=== PATIENT | female | born 1965 | race Caucasian/White ===

== ENCOUNTER 2021-10-20 22:07 | Emergency (ER) | payer SELFPAY ==
--- OUTSIDE RECORDS SUMMARY | 2021-10-20 22:10 | XMS REPORT | Continuity of Care Document ---
:1965 Author Organization [facility] t Address [facility] [place] [address] Care Team Providers Name Role Phone RAVENCASEJOSELINE Attending Clinician Unavailable GC_UPP_Mehta_J Attending Clinician Unavailable Bhargavi Attending Clinician [phone] CHELLE Attending Clinician [phone] Chris LAWS Attending Clinician Unavailable Han PHILLIPS Attending Clinician Unavailable NA Attending Clinician Unavailable WILVER Attending Clinician Unavailable NOHEMI Attending Clinician Unavailable GC_UPP_Mehta_J Admitting Clinician Unavailable Payers Payer Name Policy Type Policy Number Effective Date Expiration Date Chris PEREA [employer]EFIT [id number] ADMINISTRATORS 00:00:00 Problems Condition Condition Condition Status Onset Resolution Last Treating Co mments Source Name Details Category Date Date Treatment Clinician Date Osteoporos Osteoporos Problem Active U nivers is is [id number] [facility] [place] [facility] Allergies, Adverse Reactions, Alerts This patient has no known allergies or adverse reactions. Social History Social Habit Start Date Stop Date Quantity Comments Source Sex Assigned At Female Acc ess Health Smoking Status Start Date Stop Date Source Unknown if ever smoked Access He alth Medications This patient has no known medications. Procedures Procedure Date / Time Performing Clinician Source Performed Infectious agent 2020-02-21 00:00:00 [facility] detection by nucleic acid DEXA Bone Density with 2018 00:00:00 [facility] WB Composition DX Physicians Encounters Start End Encounter Admission Attending Care Care Encounter Source Date/Time Date/Time Type Type Clinicians Facility Department ID 2021-06-21 2021-06-21 Outpatient MELISSA TORRES [id number] [facility] 00:00:00 00:00:00 [facility] 2021-06-12 2021-06-12 Outpatient MELISSA TORRES [id number] St. 00:00:00 00:00:00 [facility] 2021-05-07 2021-05-07 Emergency E ABRAM CARBAJAL FB FB [id number] [facility] 16:56:00 18:45:00 2021-02-08 2021-02-08 Outpatient GC_UPP_Meht PRIV PRIV [id number] [facility] 10:34:00 10:34:00 a_J [id number] Medica l 2021-02-08 2021-02-08 Outpatient Burk, PRIV PRIV [id number] 00:00:00 00:00:00 Jhony [id number] 2020-02-24 2020-02-24 Outpatient CHELLE, [facility] [id number] Access 11:32:00 11:32:00 RYAN [id number] [facility] [id number] 2020-02-21 2020-02-21 Outpatient [facility] [id number] Access 16:00:00 16:00:00 [id number] [facility] [id number] 2020-02-21 2020-02-21 Outpatient VETO [facility] [id number] Access 00:00:00 00:00:00 [facility] 2020-02-21 2020-02-21 Outpatient VETO [facility] [id number] Access 00:00:00 00:00:00 DARRELL Perez [id number] [facility] [id number] [facility] [id number] 2019-12-20 2019-12-20 Emergency E ARIELLA PHILLIPS [facility] [id number] [facility] 16:45:00 17:32:00 2019-09-28 2019-09-28 Emergency E SW [facility] [id number] [facility] 23:55:00 23:55:00 2019-08-19 2019-08-19 Emergency E FB FB [id number] [facility] 15:42:00 15:42:00 2019-03-04 2019-03-04 Emergency E FB FB [id number] [facility] 09:16:00 09:16:00 2018 2018 Appointmen RADHA MONZON [facility] [id number] [facility] 10:00:00 10:00:00 t; CLIFFORD MONZON M.D. Surgery Oswaldo M.D. [facility] 2018-01-09 2018-01-09 Appointmen WILVER, RADHA UTP [id number] [facility] 09:30:00 09:30:00 t; RIGO PETTIT, rima of RIGO, [facility] [employer] Physici ans 2017-12-19 2017-12-19 Appointmen WILVER, RADHA UTP [id number] [facility] 09:30:00 09:30:00 t; RIGO PETTIT, ity of [facility], [facility] [employer] MECH[employer]IC Physici ans 2016-07-10 2016-07-10 Appointmen RADHA SONG UTP [id number] [facility] 08:30:00 08:30:00 t; ABRAM abarca [facility] Results Test Description Test Time Test Comments Results Result Comments Source Panel Description: SARS-CoV-2 (COVID-19) RNA [Presence] in 2 04:17:00 Unspecified specimen by GIULIANA with probe detection Test Item Value Reference Range Interpretation Comme nts SARS-CoV-2, GIULIANA (test Not Detected Not Detected Testin g was performed using the code = 00669-6) chapincito(R) TATE S-CoV-2 test.This test was develo ped and its performance juancho racteristics determinedby [employer]. T his test has not been FDA cleare d orapproved. This test has been a uthorized by FDA under an Emerge ncy UseAuthorizatio n (EUA). This test is only authori zed for the duration oftime the declaration that circumstan tyesha exist justifying mehran uthorization of the emergency u se of in vitro diagnostic test s fordetection of SARS-CoV-2 viru s and/or diagnosis of COVID-19 inf ectionunder section 564(b)( 1) of the Act, 21 U.S.C. 360bbb-3 (b)(1), unlessthe authorization i s terminated or revoked sooner. When diagnostic testing is nega tive, the possibility of a falsenegative result should b e considered in the context of a patient'srecent exposures and t he presence of clinical signs and symptomsconsist ent with COVID-19. An individual w ithout symptoms of COVID-19and who is not shedding SARS-CoV-2 viru s would expect to have anegative (not detected) result in this assay.
< br/>Performed by:
[employer] (CET)

[facility] Description: SARS-CoV-2 (COVID-19) RNA [Presence] in Unspecified specimen by GIULIANA with probe [id number] 04:17:00 Test Item Value Reference Range Interpretation Comments SARS-CoV-2, Not Detected Not Detected Testing was per formed using GIULIANA (test code the chapincito(R) SARS-CoV-2 = 54050-3) test.This test was developed and i ts performance juancho racteristics determinedby [employer]. T his test has not been FDA cl eared orapproved. Thi s test has been authorized by FDA under an Emerge ncy UseAuthorizatio n (EUA). This test is on ly authorized for the duration oftime the decl aration that circumstances e xist justifying mehran uthorization of the emergenc y use of in vitro diagnosti c tests fordetection of SARS-CoV-2 virus and/or di agnosis of COVID-19 infect ionunder section 564(b)( 1) of the Act, 21 U.S.C. 360bbb-3(b)(1), unlessthe authorization i s terminated or revoked soon er.When diagnostic test ing is negative, the p ossibility of a falsenegat carter result should be consi dered in the context of a patient'srecent exposures and the presenc e of clinical signs and symptomsconsist ent with COVID-19. An in dividual without symptom s of COVID-19and who is not shedding SARS-C oV-2 virus would expect to have anegative (not detected) result in this assay.
< br/>Performe d by:
[facility] [place] ([facility]ET[facility])

[facility]] CMP [id number] 14:13:01 Test Item Value Reference Range Interpretation Comments Sodium Level 142 {mEq/l} 135-145 (test code = 2951-2) Potassium Level 4.2 {mEq/l} 3.5-5.1 (test code = 2823-3) Chloride Level; 112 {mEq/l} 95-109 Above High Threshold (test code = 5-0) Carbon Dioxide; 23 {mEq/l} 24-32 Below Low Threshold (test code = 8-9) AGAP (test code = 11.2 {mEq/l} 10.0-20.0 50651-0) Glucose Lvl (test 70 mg/dl 70-99 Adult refe rence range code = 2345-7) values reflec t the clinical guidel inesof the [place] Diabet es Association. Creatinine Lvl 1.00 mg/dl 0.50-1.40 (test code = 2160-0) Blood Urea 12 mg/dl 7-22 Nitrogen (test code = 3094-0) BUN/Creatinine 12 6-25 Ratio (test code = 3097-3) Total Protein 7.2 g/dl 6.4-8.4 (test code = 2885-2) Albumin Lvl; 3.3 g/dl 3.5-5.0 Below Low Threshold (test code = 1751-7) Globulin (test 3.9 g/dl 2.7-4.2 code = 39950-4) A/G Ratio (test 0.8 0.7-1.6 code = 1759-0) Calcium Level 8.4 mg/dl 8.5-10.5 Total; Below Low Threshold (test code = 31814-8) ALT (test code = 38 u/l 0-65 1743-4) AST (test code = 28 u/l 0-37 78530-3) Bili Total (test 0.3 mg/dl 0.2-1.3 code = 1974-2) Alk Phos (test 118 u/l 39-136 code = 1783-0) eGFR (test code = 64 The eGFR i s calculated 02759-8) {ML/MIN/1.7} using the CKD-E PI formula. In mos t young, healthyindividu als the eGFR will be >9 0 mL/min/1.73m2. The eGFR declines with a ge. AneGFR of 60-89 may be normal in some population s, particularly th e elderly, forwhom the CKD -EPI formula has not been extensively cornel idated. Use of the eGFR isnot recommended in the following populations:Ind ividuals with unstable c reatinine concentrations, including patient s and those with seri ous co-morbid conditions.Clara ents with extremes in mus madhav mass or diet.The enedr a above are obtained fr om the National Kidney Disease Education Progr am(NKDEP) which lorenzo edward recommends that when the eGFR is used in patientswith ex tremes of body mass index for purposes of carol g dosing, the eGFR should be multiplied by t he estimated BMI. [facility]] IRON, [id number] 14:13:01 Test Item Value Reference Range Interpretation Comments Iron; Above High Threshold (test 361 ug/dL 30-160 code = 2498-4) [facility]] LIPID [id number] 14:13:01 Test Item Value Reference Range Interpretation Comments Chol (test code = 2093-3) 152 mg/dl <=199 Trig; Above High Threshold (test 177 mg/dl <=149 code = 2571-8) HDL Cholesterol (test code = 68 mg/dl >=61 2085-9) CHD Risk; Below Low Threshold (test 2.24 3.90-5.80 code = 10971-6) LDL (test code = 83329-5) 49 mg/dl <=99 VLDL (test code = VLDL) 35 [facility]] VITAMIN [id number] 14:13:01 Test Item Value Reference Range Interpretation Comments Vitamin B12 Level (test code = 546 pg/ml 254-1320 2132-9) [facility]] TSH, 3RD GENERATION W/REFLEX TO FT4 2018 14:13:01 Test Item Value Reference Range Interpretation Comments TSH (test code = 80297-1) 1.790 {uIU/ml} 0.360-3.740 [facility]] PTH, INTACT (WITHOUT CALCIUM)2018 14:13:01 Test Item Value Reference Range Interpretation Comments Parathyroid Hormone Intact; Above 120.8 pg/ml 18.4-80.1 High Threshold (test code = 2731-8) [facility]] CBC (INCLUDES DIFF/PLT)2018 14:13:01 Test Item Value Reference Range Interpretation Comments WBC (test code = 6690-2) 6.1 {K/CMM} 3.7-10.4 RBC; Below Low Threshold (test 3.97 {M/CMM} 4.20-5.40 code = 789-8) Hgb; Below Low Threshold (test 10.1 g/dl 12.0-16.0 code = 718-7) Hct; Below Low Threshold (test 30.7 % 36.0-48.0 code = 09674-9) MCV; Below Low Threshold (test 77.5 fL 80.0-98.0 code = 787-2) MCH; Below Low Threshold (test 25.4 pg 27.0-31.0 code = 785-6) MCHC (test code = 786-4) 32.8 g/dl 32.0-36.0 RDW; Above High Threshold (test 20.3 % 11.5-14.5 code = 788-0) Platelet (test code = 58107-9) 275 {K/CMM} 133-450 Mean Platelet Volume (test code 9.2 fL 7.4-10.4 = 73257-8) [facility]] [id number] 14:13:01 Test Item Value Reference Range Interpretation Comments Segmented Neutrophils (test code 61.1 % 45.0-75.0 = 43709-4) Monocytes (test code = 79284-8) 7.0 % 2.0-12.0 Lymphocytes (test code = 21951-7) 26.5 % 20.0-40.0 Eosinophils; Above High Threshold 4.5 % 0.0-4.0 (test code = 91529-6) Basophils (test code = 706-2) 0.9 % 0.0-1.0 Segs-Bands # (test code = 3.7 {K/CMM} 1.5-8.1 59665-5) Lymphocytes # (test code = 1.6 {K/CMM} 1.0-5.5 76808-1) Monocytes # (test code = 50506-5) 0.4 {K/CMM} 0.0-0.8 Eosinophils # (test code = 0.3 {K/CMM} 0.0-0.5 92089-4) Basophils # (test code = 19876-2) 0.1 {K/CMM} 0.0-0.2 Microcyte (test code = Microcyte) 1+ None Seen A [facility]] FOLATE, [id number] 14:13:01 Test Item Value Reference Range Interpretation Comments Folate Level (test code = 2284-8) 23.1 ng/ml >=3.0 [facility]] HEMOGLOBIN [id number] 14:13:01 Test Item Value Reference Range Interpretation Comments Hemoglobin A1c (test code = 4548-4) 5.2 % <=5.6 [facility]] VITAMIN D, 25-HYDROXY, [id number] 14:13:01 Test Item Value Reference Range Interpretation Comments Vitamin D, 25-OH, 36.3 ng/ml 30.0-100.0 Reference range is based Total (test code on recommen dations in the = Vitamin D, EndocrineSociet y Clinical 25-OH, Total) Practice Guide line (J Clin Endocrinol Fdjyj1902;96:19 11-1930) [facility]] VITAMIN B1, WHOLE [id number] 14:13:01 Test Item Value Reference Range Interpretation Comments Vitamin B1 131.4 66.5-200.0 This test was d eveloped and its Level (test nmol/L performance code = characteristics determined by Vitamin B1 [facility]. It has not been Level) cleared orappro jose m by the Food and Drug Administration. Performed At: [facility] [id number] [place], [place] [id number] Avalos MD Ph:[phone] [facility][H] Vit [id number] 14:13:01 Test Item Value Reference Range Interpretation Comments Vitamin A 28.3 ug/dL 33.1-100.0 Reference inter vals for vitamin Level (test A determined fr om code = NationalHealth and Nutrition Vitamin A Examination [place], Level) .Indiv iduals with vitamin A less than 20 ug/dL areconsidered v itamin A deficient and t hose with serumconcentrat ions less than 10 ug/dL are co nsidered severelydeficie nt.This test was developed and i ts performance characteristics determined by [facility]. It has not been cleared orappro jose m by the Food and Drug Admini stration. Please note reference interval change Performed At: [facility] [id number] [place], [place] [id number] Avalos MD Ph:[phone] [facility][H] Vitamin E [id number] 14:13:01 Test Item Value Reference Range Interpretation Comments Alpha-Tocoph 10.8 mg/L 7.0-25.1 jovana (test code = Alpha-Tocoph jovana) Gamma-Tocoph 0.6 mg/L 0.5-5.5 Reference inter vals for alpha jovana (test and gamma-tocop heroldetermined code = from National H ealth and Gamma-Tocoph Nutrition Exami nationSurvey, jovana) . Aishwarya viduals with alpha-tocophero l levelsless than 0.5 mg/L are co nsidered vitamin E deficient.Thi s test was developed and i ts performance characteristics determined by [facility]. It has not been cleared orapproved by t Food and Drug Administration. Performed At: [facility] [id number] [place], [place] [id number] Avalos MD Ph:[phone] [facility]
[2021-10-20 23:57] LABS: Absolute Lymphocytes (CBC) 1.8 K/uL (0.7-4.9); Lymphocytes % 28.5 % (15.3-44.8); MPV 7.8 fL (7.6-11.3); RBC Red Blood Cell Count 3.96 M/uL (3.86-4.86)
[2021-10-20] MEDS ORDERED: PROMETHAZINE INJ 25 MG/ML AMP ONE (23:57)
[2021-10-20] MEDS ORDERED: FENTANYL CITR 100 MCG/2 ML ONE (23:59)
--- NOTE | 2021-10-21 00:44 | EDPHYS ---
Physician Documentation [facility] Name: Angela Green Age: 56 yrs Sex: Female : 1965 Arrival Date: 10/20/2021 Time: 22:13 Bed 4 Private MD: ED Physician Lino Zafar HPI: 10/20 23:29 This 56 yrs old Female presents to ER via Ambulatory with complaints of Restless legs pm1 and arms. 23:29 Onset: The symptoms/episode began/occurred many years. Associated signs and symptoms: pm1 Pertinent negatives: abdominal pain, chest pain, shortness of breath, Weakness. Modifying factors: The patient symptoms are alleviated by nothing, the patient symptoms are aggravated by nothing. The patient has not recently seen a physician. Patient presents to the ER with complaints of restless arms and restless legs. Patient has had restless legs for many years with treatment does not help at the moment. Patient is presenting to the ER today because she now has bilateral restless arms in addition to her bilateral restless legs. Historical: - Allergies: 22:42 No Known Allergies; bb - Home Meds: 22:42 Xanax 0.5 mg Oral tab 1 tab 3 times per day [Active]; Cymbalta 60 mg oral cpDR 1 cap bb three times a day [Active]; quetiapine 50 mg oral tab 1 tab 3 times per day [Active]; clonidine HCl 0.1 mg Oral tab 1 tab once daily [Active]; buspirone 7.5 mg Oral tab 1 tab 2 times per day [Active]; - PMHx: 22:46 Hypertensive disorder; bb - Immunization history:: Client reports receiving the 2nd dose of the Covid vaccine, pfizer x2. - Social history:: Smoking status: Reported history of juuling and/or vaping. ROS: 23:29 Constitutional: Negative for fever, chills, and weight loss, Cardiovascular: Negative pm1 for chest pain, palpitations, and edema, Respiratory: Negative for shortness of breath, cough, wheezing, and pleuritic chest pain, MS/Extremity: Negative for injury and deformity, Skin: Negative for injury, rash, and discoloration, Neuro: Negative for headache, weakness, numbness, tingling, and seizure. 23:29 All other systems are negative. Exam: 23:29 Constitutional: This is a well developed, well nourished patient who is awake, alert, pm1 and in no acute distress. Head/Face: Normocephalic, atraumatic. 23:29 Skin: Warm, dry with normal turgor. Normal color with no rashes, no lesions, and no evidence of cellulitis. MS/ Extremity: Pulses equal, no cyanosis. Neurovascular intact. Full, normal range of motion. 23:29 ENT: Exam is negative for acute changes, Mouth: no acute changes, Lips: normal, moist, Oral mucosa: normal, pink and intact, moist, Posterior pharynx: no acute changes. 23:29 Cardiovascular: Exam negative for acute changes, Rate: normal, Rhythm: regular, Pulses: no pulse deficits are appreciated, Heart sounds: normal, normal S1and S2. 23:29 Respiratory: Exam negative for acute changes, respiratory distress, shortness of breath, Breath sounds: are clear throughout. 23:29 Neuro: Exam negative for acute changes, Orientation: is normal, Mentation: is normal, Motor: is normal, moves all fours. Vital Signs: 22:39 BP 118 / 98; Pulse 100; Resp 17; Temp 97.5; Pulse Ox 99% on R/A; Weight 81.65 kg (R); bb Height 5 ft. 8 in. (172.72 cm) (R); Pain 0/10; 10/21 00:53 BP 133 / 99; Pulse 87; Resp 17; Pulse Ox 98% on R/A; sm5 10/20 22:39 Body Mass Index 27.37 (81.65 kg, 172.72 cm) bb [facility]: 10/20 23:28 Patient medically screened. pm1 10/21 00:34 Data reviewed: vital signs. Data interpreted: Pulse oximetry: on room air is 99 %. pm1 Interpretation: normal. Counseling: I had a detailed discussion with the patient and/or guardian regarding: the historical points, exam findings, and any diagnostic results supporting the discharge/admit diagnosis, lab results, the need for outpatient follow up, to return to the emergency department if symptoms worsen or persist or if there are any questions or concerns that arise at home. 10/20 23:29 Order name: CBC with Diff; Complete Time: 00:09 pm1 10/20 23:29 Order name: BMP; Complete Time: 00:09 pm1 10/20 23:29 Order name: IV Saline Lock; Complete Time: 23:49 pm1 Administered Medications: 00:07 Drug: fentaNYL (PF) 25 mcg Route: IVP; Site: left antecubital; sm5 00:54 Follow up: Response: Pain is decreased sm5 00:08 Drug: Phenergan (promethazine) 12.5 mg Route: IVP; Site: left antecubital; sm5 00:54 Follow up: Response: No adverse reaction 5 Disposition: 01:32 Co-signature as Attending Physician, Lino Zafar MD I agree with the assessment and kdr plan of care. Disposition Summary: 10/21/21 00:43 Discharge Ordered Location: Home pm1 Problem: new pm1 Symptoms: have improved pm1 Condition: Stable pm1 Diagnosis - Restless legs syndrome pm1 - Restless Arms Syndrome pm1 Followup: pm1 - With: Emergency Department - When: As needed - Reason: Worsening of condition Followup: pm1 - With: Private Physician - When: 2 - 3 days - Reason: Recheck today's complaints, Continuance of care, Re-evaluation by your physician Discharge Instructions: - Discharge Summary Sheet pm1 - Restless Legs Syndrome pm1 Forms: - Medication Reconciliation Form pm1 - Thank You Letter pm1 - Antibiotic Education pm1 - Prescription Opioid Use pm1 Signatures: Dispatcher [employer] EDLino Almaraz MD MD [facility] Dafne Farrell RN RN bb Marinas, Patrick, DECORATIVE ENGRAVER APPRENTICE DECORATIVE ENGRAVER APPRENTICE pm1 Rosalinda Cabrera RN RN sm5
--- NOTE | 2021-10-21 00:44 | ER ---
Nurse's Notes [facility] Name: Angela Green Age: 56 yrs Sex: Female : 1965 Arrival Date: 10/20/2021 Time: 22:13 Bed 4 Private MD: Diagnosis: Restless legs syndrome;Restless Arms Syndrome Presentation: 10/20 22:39 Chief complaint: Patient states: has been diagnosed with restless leg syndrome but now bb it feels like her entire body. denies pain. Coronavirus screen: Vaccine status: Patient reports receiving the 2nd dose of the covid vaccine. pfizer Client denies travel out of the [place] in the last 14 days. At this time, the client does not indicate any symptoms associated with coronavirus-19. Ebola Screen: No symptoms or risks identified at this time. Initial Sepsis Screen: Does the patient meet any 2 criteria? No. Patient's initial sepsis screen is negative. Does the patient have a suspected source of infection? No. Patient's initial sepsis screen is negative. 22:39 Method Of Arrival: Ambulatory bb 22:48 Risk Assessment: Do you want to hurt yourself or someone else? Patient reports no bb desire to harm self or others. Onset of symptoms was October 20, 2021. 22:48 Acuity: DONITA 4 bb Triage Assessment: 22:47 General: Appears comfortable, Behavior is cooperative, anxious. bb 22:47 Pain: Denies pain. bb Historical: - Allergies: 22:42 No Known Allergies; bb - Home Meds: 22:42 Xanax 0.5 mg Oral tab 1 tab 3 times per day [Active]; Cymbalta 60 mg oral cpDR 1 cap bb three times a day [Active]; quetiapine 50 mg oral tab 1 tab 3 times per day [Active]; clonidine HCl 0.1 mg Oral tab 1 tab once daily [Active]; buspirone 7.5 mg Oral tab 1 tab 2 times per day [Active]; - PMHx: 22:46 Hypertensive disorder; bb - Immunization history:: Client reports receiving the 2nd dose of the Covid vaccine, pfizer x2. - Social history:: Smoking status: Reported history of juuling and/or vaping. Screenin:51 Abuse screen: Denies threats or abuse. Nutritional screening: No deficits noted. bb Tuberculosis screening: No symptoms or risk factors identified. Fall Risk None identified. Assessment: 10/21 00:52 General: Appears in no apparent distress. Behavior is calm, cooperative. Neuro: No sm5 deficits noted. Level of Consciousness is awake, alert, Oriented to person, place, time, situation. Cardiovascular: No deficits noted. Capillary refill < 3 seconds Patient's skin is warm and dry. Respiratory: No deficits noted. Airway is patent Trachea midline Respiratory effort is even, unlabored. Vital Signs: 10/20 22:39 BP 118 / 98; Pulse 100; Resp 17; Temp 97.5; Pulse Ox 99% on R/A; Weight 81.65 kg (R); bb Height 5 ft. 8 in. (172.72 cm) (R); Pain 0/10; 10/21 00:53 BP 133 / 99; Pulse 87; Resp 17; Pulse Ox 98% on R/A; sm5 10/20 22:39 Body Mass Index 27.37 (81.65 kg, 172.72 cm) bb ED Course: 10/20 22:13 Patient arrived in ED. bp1 22:47 Arm band placed on. bb 22:50 Triage completed. bb 23:20 Leopoldo Padgett, DARI is PHCP. pm1 23:20 Lino Zafar MD is Attending Physician. pm1 23:23 Rosalinda Cabrera RN is Primary Nurse. sm5 23:48 Inserted saline lock: 20 gauge in left antecubital area, using aseptic technique. Blood sm5 collected. 23:49 BMP Sent. sm5 23:49 CBC with Diff Sent. sm5 10/21 00:53 Patient has correct armband on for positive identification. Bed in low position. Call sm5 light in reach. Side rails up X2. 00:53 No provider procedures requiring assistance completed. IV discontinued, intact, sm5 bleeding controlled, No redness/swelling at site. Pressure dressing applied. Administered Medications: 00:07 Drug: fentaNYL (PF) 25 mcg Route: IVP; Site: left antecubital; sm5 00:54 Follow up: Response: Pain is decreased sm5 00:08 Drug: Phenergan (promethazine) 12.5 mg Route: IVP; Site: left antecubital; sm5 00:54 Follow up: Response: No adverse reaction sm5 Outcome: 00:43 Discharge ordered by . pm1 00:53 Discharged to home ambulatory. 5 00:53 Condition: good 00:53 Discharge instructions given to patient, Instructed on discharge instructions, follow up and referral plans. Demonstrated understanding of instructions, follow-up care. 00:54 Patient left the ED. 5 Signatures: Dafne Farrell, RN RN Leopoldo Grant, SOLAR INSTALLER TECHNICIAN SOLAR INSTALLER TECHNICIAN pm1 Parul Serrano Sarah, JAZZ RN 5
[2021-10-21 01:06] VITALS: TEMP 97.5
[2021-10-21 01:08] VITALS: BP 133/99; O2SAT 98
== END 2021-10-21 00:54 | disposition home or self-care (01) ==
LOC: ER 22:07
DX: G25.81 Restless legs syndrome (principal); R45.1 Restlessness and agitation; I10 Essential (primary) hypertension
CPT/HCPCS: 36415; 80048; 85025; 96374; 96375; 99283; J2550; J3010

== ENCOUNTER 2021-11-27 06:58 | Emergency (ER) | payer OTHER ==
--- OUTSIDE RECORDS SUMMARY | 2021-11-27 07:01 | XMS REPORT | Continuity of Care Document ---
:1965 Author Organization [facility] t Address [address] [place] [address] Care Team Providers Name Role Phone PHARIES Attending Clinician Unavailable MERCY CARBAJAL Attending Clinician Unavailable GC_UPP_Mehta_J Attending Clinician Unavailable Bhargavi Attending Clinician [phone] CHELLE Attending Clinician [phone] Chris LAWS Attending Clinician Unavailable Han PHILLIPS Attending Clinician Unavailable NA Attending Clinician Unavailable WILVER Attending Clinician Unavailable NOHEMI Attending Clinician Unavailable GC_UPP_Mehta_J Admitting Clinician Unavailable Payers Payer Name Policy Type Policy Number Effective Date Expiration Date Chris PEREA NORMAN BENEFIT [id number] ADMINISTRATORS 00:00:00 Problems Condition Condition Condition Status [...] acid DEXA Bone Density with 2018 00:00:00 [facility] WB Composition DX Physicians Encounters Start End Encounter Admission Attending Care Care Encounter Source Date/Time Date/Time Type Type Clinicians Facility Department ID 2021-11-07 Outpatient MELISSA MILLER [id number] 13:46:00 ELAINA 0904 [facility] 2021-11-07 Outpatient MELISSA MILLER [id number] St. 13:44:54 ELAINA 0831 [facility] 2021-06-21 2021-06-21 Outpatient MELISSA CANALESSATSUMA [id number] St[facility] 00:00:00 00:00:00 [facility] 2021-06-12 2021-06-12 [id number] [facility] 00:00:00 00:00:00 [facility] 2021-05-07 2021-05-07 Emergency E ABRAM CARBAJAL FB FB [id number] FB 16:56:00 18:45:00 2021-02-08 2021-02-08 Outpatient GC_UPP_Meht PRIV PRIV [id number] [facility] 10:34:00 10:34:00 a_J [id number] Medica l 2021-02-08 2021-02-08 Outpatient Burk, PRIV PRIV [id number] 00:00:00 00:00:00 Jhony [id number] 2020-02-24 2020-02-24 [facility] [id number] Access 11:32:00 11:32:00 RYAN [id number] 2020-02-21 2020-02-[address] [facility] [id number] Access 16:00:00 16:00:00 [id number] 2020-02-21 2020-02-21 Outpatient [facility] [id number] Access 00:00:00 00:00:00 [facility] 2020-02-21 2020-02-21 [address] [facility] [id number] Access 00:00:00 00:00:00 DARRELL Perez [id number] [facility] [id number] 2019-12-20 2019-12-20 Emergency E ARIELLA PHILLIPS FB FB [id number] [facility] 16:45:00 17:32:00 2019-09-28 2019-09-28 Emergency [address] [facility] [id number] [facility] 23:55:00 23:55:00 2019-08-19 2019-08-19 Emergency E FB FB [id number] [facility] 15:42:00 15:42:00 2019-03-04 2019-03-04 Emergency E FB FB [id number] [facility] 09:16:00 09:16:00 2018 2018 Appointmen RADHA MONZON [place] [id number] [facility] 10:00:00 10:00:00 t; CLIFFORD MONZON M.D. Surgery Oswaldo M.D. 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 Physici ans 2016-07-10 2016-07-10 Appointmen RADHA SONG UTP [id number] [facility] 08:30:00 08:30:00 t; ABRAM murray [facility] Faheem VALVERDE [facility] Results Test Description Test Time Test Comments Results Result Comments Source Panel Description: SARS-CoV-2 (COVID-19) RNA [Presence] in 2 04:17:00 Unspecified specimen by GIULIANA with probe detection Test Item Value Reference Range Interpretation Comme nts SARS-CoV-2, GIULIANA (test Not Detected Not Detected Testin g was performed using the code = 89564-1) chapincito(R) TATE S-CoV-2 test.This test was develo ped and its performance juancho racteristics determinedby [employer]. T his test has not been FDA cleare d orapproved. This test has been a uthorized by FDA under an [facility] UseAuthorizatio n (EUA). This test is only [...] result in this assay.
< br/>Performed by:
[facility] (BOBBI)

Access [facility] Description: SARS-CoV-2 (COVID-19) RNA [Presence] in Unspecified specimen by GIULIANA with probe [id number] 04:17:00 Test Item Value Reference Range Interpretation Comments SARS-CoV-2, Not Detected Not Detected Testing was per formed using GIULIANA (test code the chapincito(R) SARS-CoV-2 = 49988-3) test.This test was developed and i ts performance juancho racteristics determinedby [employer]. T his test has not been FDA cl eared orapproved. Thi s test has been authorized by FDA under an [facility] UseAuthorizatio n (EUA). This test is on [...] assay.
< br/>Performe d by:
[facility] [place] (CETWE)

[facility][ON LICENSE OF [facility]] CMP [id number] 14:13:01 Test Item Value Reference Range Interpretation Comments Sodium Level 142 {mEq/l} 135-145 (test code = 2951-2) Potassium Level 4.2 {mEq/l} 3.5-5.1 (test code = 2823-3) Chloride Level; 112 {mEq/l} 95-109 Above High Threshold (test code = 5-0) Carbon Dioxide; 23 {mEq/l} 24-32 Below Low Threshold (test code = 8-9) AGAP (test code = 11.2 {mEq/l} 10.0-20.0 40278-2) Glucose Lvl (test 70 mg/dl 70-99 Adult refe rence range code = 2345-7) values reflec t the clinical guidel inesof the [place] Diabet es Association. Creatinine Lvl 1.00 mg/dl 0.50-1.40 (test code = 2160-0) Blood Urea 12 mg/dl 7-22 Nitrogen (test code = 3094-0) BUN/Creatinine 12 6-25 Ratio (test code = 3097-3) Total Protein 7.2 g/dl 6.4-8.4 (test code = 2885-2) Albumin Lvl; 3.3 g/dl 3.5-5.0 Below Low Threshold (test code = 1751-7) Globulin (test 3.9 g/dl 2.7-4.2 code = 13605-1) A/G Ratio (test 0.8 0.7-1.6 code = 1759-0) Calcium Level 8.4 mg/dl 8.5-10.5 Total; Below Low Threshold (test code = 90331-2) ALT (test code = 38 u/l 0-65 1743-4) AST (test code = 28 u/l 0-37 65243-2) Bili Total (test 0.3 mg/dl 0.2-1.3 code = 1975-2) Alk Phos (test 118 u/l 39-136 code = 1783-0) eGFR (test code = 64 The eGFR i s calculated 52712-0) {ML/MIN/1.7} using the CKD-E PI formula. In [...] extremes in mus madhav mass or diet.The ender a above are obtained fr om the National Kidney Disease Education Progr am(NKDEP) which lorenzo edward recommends that when the eGFR is used in patientswith ex tremes of body mass index for purposes of carol g dosing, the eGFR should be multiplied by t he estimated BMI. [facility][ON LICENSE OF [facility]] IRON, [id number] 14:13:01 Test Item Value Reference Range Interpretation Comments Iron; Above High Threshold (test 361 ug/dL 30-160 code = 2498-4) [facility][ON LICENSE OF [facility]] LIPID [id number] 14:13:01 Test Item Value Reference Range Interpretation Comments Chol (test code = 2093-3) 152 mg/dl <=199 Trig; Above High Threshold (test 177 mg/dl <=149 code = 2571-8) HDL Cholesterol (test code = 68 mg/dl >=61 2085-9) CHD Risk; Below Low Threshold (test 2.24 3.90-5.80 code = 33986-6) LDL (test code = 53549-1) 49 mg/dl <=99 VLDL (test code = VLDL) 35 [facility]] VITAMIN [id number] 14:13:01 Test Item Value Reference Range Interpretation Comments Vitamin B12 Level (test code = 546 pg/ml 254-1320 2132-9) [facility]] TSH, 3RD GENERATION W/REFLEX TO FT4 2018 14:13:01 Test Item Value Reference Range Interpretation Comments TSH (test code = 71828-7) 1.790 {uIU/ml} 0.360-3.740 [facility]] PTH, INTACT (WITHOUT CALCIUM)2018 14:13:01 Test Item Value Reference Range Interpretation Comments Parathyroid Hormone Intact; Above 120.8 pg/ml 18.4-80.1 High Threshold (test code = 2731-8) [facility]] CBC (INCLUDES DIFF/PLT)2018 14:13:01 Test Item Value Reference Range Interpretation Comments WBC (test code = 6690-2) 6.1 {K/CMM} 3.7-10.4 RBC; Below Low Threshold (test 3.97 {M/CMM} 4.20-5.40 code = 789-8) Hgb; Below Low Threshold (test 10.1 g/dl 12.0-16.0 code = 718-7) Hct; Below Low Threshold (test 30.7 % 36.0-48.0 code = 92741-2) MCV; Below Low Threshold (test 77.5 fL 80.0-98.0 code = 787-2) MCH; Below Low Threshold (test 25.4 pg 27.0-31.0 code = 785-6) MCHC (test code = 786-4) 32.8 g/dl 32.0-36.0 RDW; Above High Threshold (test 20.3 % 11.5-14.5 code = 788-0) Platelet (test code = 08483-6) 275 {K/CMM} 133-450 Mean Platelet Volume (test code 9.2 fL 7.4-10.4 = 19902-9) [facility][ON LICENSE OF [facility]] [id number] 14:13:01 Test Item Value Reference Range Interpretation Comments Segmented Neutrophils (test code 61.1 % 45.0-75.0 = 48533-9) Monocytes (test code = 89362-1) 7.0 % 2.0-12.0 Lymphocytes (test code = 65087-8) 26.5 % 20.0-40.0 Eosinophils; Above High Threshold 4.5 % 0.0-4.0 (test code = 69442-4) Basophils (test code = 706-2) 0.9 % 0.0-1.0 Segs-Bands # (test code = 3.7 {K/CMM} 1.5-8.1 58380-3) Lymphocytes # (test code = 1.6 {K/CMM} 1.0-5.5 48516-9) Monocytes # (test code = 72999-0) 0.4 {K/CMM} 0.0-0.8 Eosinophils # (test code = 0.3 {K/CMM} 0.0-0.5 19300-0) Basophils # (test code = 45118-7) 0.1 {K/CMM} 0.0-0.2 Microcyte (test code = Microcyte) 1+ None Seen A [facility][ON LICENSE OF [facility]] FOLATE, [id number] 14:13:01 Test Item Value Reference Range Interpretation Comments Folate Level (test code = 2284-8) 23.1 ng/ml >=3.0 [facility][ON LICENSE OF [facility]] HEMOGLOBIN [id number] 14:13:01 Test Item Value Reference Range Interpretation Comments Hemoglobin A1c (test code = 4548-4) 5.2 % <=5.6 [facility]] VITAMIN D, 25-HYDROXY, [id number] 14:13:01 Test Item Value Reference Range Interpretation Comments Vitamin D, 25-OH, 36.3 ng/ml 30.0-100.0 Reference range is based Total (test code on recommen dations in the = Vitamin D, EndocrineSociet y Clinical 25-OH, Total) Practice Guide line (J Clin Endocrinol Yyimw6409;96:19 11-1930) [facility][ON LICENSE OF [facility]] VITAMIN B1, WHOLE [id number] 14:13:01 Test Item Value Reference Range Interpretation Comments Vitamin B1 131.4 66.5-200.0 This test was d eveloped and its Level (test nmol/L performance code = characteristics determined by Vitamin B1 [facility]. It has not been Level) cleared orappro jose m by the Food and Drug Administration. Performed At: [facility] [place], [place] [id number] k Mark Avalos MD Ph:[phone] [facility][H] Vit [id number] 14:13:01 Test Item Value Reference Range Interpretation [...] Please note reference interval change Performed At: [facility] [place], [place] [id number] rl Avalos MD Ph:[phone] [facility][H] Vitamin E [id number] 14:13:01 Test Item Value Reference Range Interpretation [...] and i ts performance characteristics determined by [employer]. It has not been cleared orapproved by juan Food and Drug Administration. Performed At: [facility] [address] [place], [place] [id number] rl Avalos MD Ph:[phone] [facility]
[2021-11-27] MEDS ORDERED: ONDANSETRON 4 MG/2 ML VIAL ONE ×2 (07:29→16:11)
[2021-11-27] MEDS ORDERED: NA CHLORIDE 0.9% 1,000 ML ONE (07:29)
[2021-11-27 07:34] LABS: Absolute Lymphocytes (CBC) 1.3 K/uL (0.7-4.9); Hematocrit 34.4 % (36.0-45.0); Lymphocytes % 19.8 % (15.3-44.8); MPV 7.3 fL (7.6-11.3)
[2021-11-27] MEDS ORDERED: MORPHINE 4 MG/ML SYR ONE (07:47)
[2021-11-27 08:00] LABS: ALT/SGPT 26 U/L (12-78); AST/SGOT 10 U/L (15-37); Albumin 3.6 g/dL (3.4-5.0); Alkaline Phosphatase 127 U/L (45-117); BUN Blood Urea Nitrogen 18 mg/dL (7-18); Bicarbonate 23 mmol/L (21-32); Bilirubin Direct < 0.1 mg/dL (0-0.2); Bilirubin Total 0.2 mg/dL (0.2-1.0); Glucose Level 144 mg/dL (74-106); Lipase 173 U/L (73-393); Potassium 3.9 mmol/L (3.5-5.1); Protein, Total 7.6 g/dL (6.4-8.2); Sodium Level 140 mmol/L (136-145)
[2021-11-27] MEDS ORDERED: MEPERIDINE HCL 25 MG/ML SYR ONE ×2 (08:13→08:25)
[2021-11-27 08:33] LABS: SARS-COV-2 RT PCR NEGATIVE (NEGATIVE)
[2021-11-27 08:36] LABS: Urine Blood 1+ (Negative); Urine Glucose Negative (Negative); Urine Protein Negative (Negative); Urine pH 5.5 (5.0-7.0)
[2021-11-27 08:58] LABS: Urine Trichomonas PRESENT (NONE SEEN)
[2021-11-27 09:01] LABS: Urine Bacteria 20-50 /HPF (<20)
[2021-11-27] MEDS ORDERED: HYDROMORPHONE HCL 0.5 MG/0.5 ML INJ ONE ×3 (10:27→16:09)
--- NOTE | 2021-11-27 10:39 | RAD REPORT ---
EXAM DESCRIPTION: CT - Abdomen Pelvis W Contrast - 11/27/2021 10:19 am CLINICAL HISTORY: hx of pancreatitis and internal hernia, vomiting, ;Abd pain COMPARISON: Abdomen Pelvis W Contrast dated 11/13/2021 TECHNIQUE: Biphasic, helical CT imaging of the abdomen and pelvis was performed following 100 ml non -ionic IV contrast. Oral contrast was given. All CT scans are performed using dose optimization technique as appropriate and may include automated exposure control or mA/KV adjustment according to patient size. FINDINGS: No suspicious findings in the lung bases. The liver, spleen, and pancreas show no suspicious findings. Gallbladder is absent. Biliary tree with in normal limits. Symmetric renal function is seen with no hydronephrosis or suspicious renal mass. No pyelonephritis o r acute parenchymal process. Urinary bladder is fully contracted limiting assessment. No bladder calc paula seen. No adrenal abnormalities. Uterus and ovaries show no suspicious findings. Gastric bypass surgical changes are noted. No gastric abnormality seen. No duodenal abnormality is se en. Multiple dilated small bowel loops are present in the midportion of the bowel. Abnormal small bow el loops are in the left-side upper and mid abdomen. Dilation up to 4.5 cm is seen with several of th e bowel loops showing fecalized bowel content. There is a swirled or rotated appearance to the mesent mor vasculature. Numerous small reactive lymph nodes are present. No bowel wall thickening or edema t o indicate ischemic small bowel. No acute colon process seen. There is tortuosity and redundancy of the sigmoid colon and the right-si de colon. The appendix is not clearly defined. No appendicitis findings. No free air, free fluid or pneumatosis. These were all rotated mesenteries shows mild congestion or edema. No mass or bulky lymphadenopathy. No abdominal wall hernia defects seen. No acute bone finding. IMPRESSION: Multiple dilated mid small bowel up to 4.5 cm in diameter. There is a swirled or rotated appearance in the central abdominal mesenteries with congestion of the fat and reactive lymph nodes present. As noted on the 11/13/2021 study, findings most likely represent mechanical small bowel obstruction f rom internal hernia. Oral contrast given for the study has only reached the proximal portion of the h erniated and dilated small bowel loops. Bowel ischemia is not suspected. There is no free air or other emergent finding.
--- NOTE | 2021-11-27 11:06 | ER ---
Nurse's Notes [facility] Name: Angela Green Age: 56 yrs Sex: Female : 1965 Arrival Date: 11/27/2021 Time: 07:00 Bed 5 Private MD: Luis Ruiz Diagnosis: Other intestinal obstruction-Internal hernia;Vomiting, unspecified;Dehydration Presentation: 11/27 07:07 Chief complaint: Patient states: Abd pain with N/V/D started last night. No fever. Was ll1 admitted here 2 weeks ago and saw Dr. Ruiz. Has an appt with him tomorrow. Coronavirus screen: Vaccine status: Patient reports receiving the 2nd dose of the covid vaccine. Client denies travel out of the [place] in the last 14 days. At this time, the client does not indicate any symptoms associated with coronavirus-19. Ebola Screen:. Initial Sepsis Screen: Does the patient meet any 2 criteria? HR > 90 bpm. No. Patient's initial sepsis screen is negative. Does the patient have a suspected source of infection? Yes: Acute abdominal pain. Risk Assessment: Do you want to hurt yourself or someone else? Patient reports no desire to harm self or others. Onset of symptoms was November 26, 2021. 07:07 Method Of Arrival: Ambulatory ll1 07:07 Acuity: DONITA 3 ll1 Triage Assessment: 07:10 General: Appears uncomfortable, Behavior is calm, cooperative, appropriate for age, ll1 Smells of. Pain: Complains of pain in abdomen. GI: Reports upper abdominal pain, diarrhea, nausea, vomiting. Historical: - Allergies: 07:07 No Known Allergies; ll1 - PMHx: 07:07 Anxiety; Hypertensive disorder; Manic Depressive disorder; Migraine; Panic Attacks; ll1 RLS; tremors; - PSHx: 07:07 Hip implant; Spinal Fusion; ll1 - Immunization history:: Client reports receiving the 2nd dose of the Covid vaccine. - Social history:: Smoking status: Patient denies any tobacco usage or history of. - Family history:: not pertinent. - Hospitalizations: : No recent hospitalization is reported. Screenin:32 Abuse screen: Denies threats or abuse. Denies injuries from another. Nutritional ic1 screening: No deficits noted. Tuberculosis screening: No symptoms or risk factors identified. Fall Risk None identified. Assessment: 07:32 General: Appears in no apparent distress. Behavior is calm, cooperative. Pain: ic1 Complains of pain in abdomen. Neuro: Level of Consciousness is awake, alert, obeys commands, Oriented to person, place, time, situation. Cardiovascular: No deficits noted. Respiratory: No deficits noted. GI: Abdomen has rebound tenderness Reports nausea. : No deficits noted. EENT: No deficits noted. Derm: No deficits noted. Musculoskeletal: No deficits noted. 08:15 Reassessment: Pt states "The morphine didn't help at all." C/O epigastric pain, jl7 radiates around to left side, rated 9/10. ERD notified, see MAR for orders. 08:35 Reassessment: Patient appears in no apparent distress at this time. Patient is alert, jl7 oriented x 3, equal unlabored respirations, skin warm/dry/pink. Pt reports decrease in pain, rated 7/10 at this time. 09:58 Pain: Pain currently is 7 out of 10 on a pain scale. ic1 10:09 Reassessment: Pt transported to [place] via wheelchair. In NAD. ic1 13:10 Reassessment: Pt reports increased pain, requesting additional pain medication, ERD jl7 notified see MAR for orders. 13:20 Reassessment: Dr. Ruiz at bedside assessing pt. jl7 15:15 Reassessment: Patient appears in no apparent distress at this time. Pt ambulated to and jl7 from restroom with steady gate, awaiting transfer at this time. 16:00 Reassessment: EMS here for pt pickup. ic1 16:16 Reassessment: EMS at bedside to transport pt, pt c/o increased pain and nausea, ERD jl7 notified, VO for 4 mg Zofran and 0.5 mg Dilaudid IVP, pt medicated as ordered. Vital Signs: 07:07 BP 161 / 99; Pulse 104; Resp 16; Temp 98.3; Pulse Ox 97% ; Weight 86.18 kg; Height 5 ll1 ft. 8 in. (172.72 cm); Pain 9/10; 08:00 BP 179 / 112; Pulse 91; Resp 16; Pulse Ox 98% on R/A; ic1 08:44 BP 169 / 95; Pulse 98; Resp 15; Pulse Ox 97% ; Pain 7/10; jl7 09:19 Pulse 105; Resp 15; Pulse Ox 100% ; jl7 09:58 BP 133 / 98; Pulse 100; Resp 18; Pulse Ox 98% on R/A; ic1 10:24 BP 133 / 92; Pulse 94; Resp 15; Pulse Ox 96% ; jl7 11:28 BP 144 / 110; Pulse 99; Resp 18; Pulse Ox 99% on R/A; ic1 12:21 BP 148 / 114; Pulse 93; Resp 16; Pulse Ox 98% on R/A; ic1 13:08 BP 154 / 103; Pulse 98; Resp 15; Pulse Ox 95% ; jl7 15:10 BP 136 / 103; Pulse 107; Resp 16; Pulse Ox 96% on R/A; ic1 16:00 BP 139 / 97; Pulse 113; Resp 18; Pulse Ox 96% on R/A; ic1 07:07 Body Mass Index 28.89 (86.18 kg, 172.72 cm) ll1 ED Course: 07:00 Patient arrived in ED. as 07:00 Luis Ruiz MD is Private Physician. as 07:05 Collin Bautista MD is Attending Physician. rn 07:07 Arm band placed on Patient placed in an exam room, on a stretcher. ll1 07:09 Triage completed. ll1 07:32 Patient has correct armband on for positive identification. Bed in low position. Call ic1 light in reach. Side rails up X2. 07:32 COVID-19/FLU A+B (Document "Date of Onset" if Symptomatic) Sent. ic1 07:32 No provider procedures requiring assistance completed. Inserted saline lock: 20 gauge ic1 in left antecubital area, using aseptic technique. Blood collected. 07:35 Severino Royal, JAZZ is Primary Nurse. jl7 07:36 Pulse ox on. NIBP on. Lights dimmed. Warm blanket given. ic1 10:19 CT Abd/Pelvis - PO and IV Contrast In Process Unspecified. EDMS 11:04 Ron Nicholas is Hospitalizing Provider. rn 13:45 initiated transfer to [facility]. bd 15:40 pt accepted in transfer to [facility] by Dr Ramesh Lala, admin approval bd given by Rosette Sinclair. 16:16 Patient transferred, IV remains in place. intact, No redness/swelling at site. jl7 Administered Medications: 07:32 Drug: NS 0.9% 1000 ml Route: IV; Rate: 1000 ml; Site: left antecubital; ic1 08:47 Follow up: Response: No adverse reaction; IV Status: Completed infusion; IV Intake: jl7 1000ml 07:32 Drug: Zofran (Ondansetron) 4 mg Route: IVP; Site: left antecubital; ic1 08:15 Follow up: Response: No adverse reaction [facility] 07:51 Drug: morphine 4 mg Route: IVP; Site: left antecubital; ic1 16:15 Follow up: Response: No adverse reaction; Pain is unchanged, physician notified; RASS: [facility] Restless (+1) 08:14 Drug: Demerol (meperidine) 25 mg Route: IVP; Site: left antecubital; jl7 08:35 Follow up: Response: Pain is decreased 7 08:35 Follow up: Response: No adverse reaction; RASS: Alert and Calm (0) [facility] 10:37 Drug: Dilaudid (HYDROmorphone) 0.5 mg Route: IVP; Site: left antecubital; ic1 11:00 Follow up: Response: No adverse reaction; Pain is decreased; RASS: Alert and Calm (0) [facility] 13:20 Drug: Dilaudid (HYDROmorphone) 0.5 mg Route: IVP; Site: left antecubital; jl7 13:50 Follow up: Response: No adverse reaction; Pain is decreased; RASS: Alert and Calm (0) [facility] 15:28 Drug: D5-NS 1000 ml Route: IV; Rate: 125 ml/hr; Site: left antecubital; ss 16:13 Follow up: IV Status: Infusion continued upon transfer jl7 16:12 Drug: Zofran (Ondansetron) 4 mg Route: IVP; Site: left antecubital; jl7 16:15 Follow up: Response: administered at transfer jl7 16:13 Drug: Dilaudid (HYDROmorphone) 0.5 mg Route: IVP; Site: left antecubital; jl7 16:16 Follow up: Response: RASS: Alert and Calm (0); administered at transfer jl Intake: 08:47 IV: 1000ml; Total: 1000ml. jl7 Outcome: 11:05 Decision to Hospitalize by Provider. rn 14:40 ER care complete, transfer ordered by . rn 15:10 Transferred by ground EMS to [facility]. ic1 15:10 Condition: stable 15:10 Discharge instructions given to patient, Instructed on the need for admit, the need for transfer. 15:11 Transferred Note: Report called to JAZZ Haider for room 509A ic1 16:19 Patient left the ED. jl7 Signatures: Dispatcher [employer] EDMS Kaya Vieira Amelia as Nieto, Roman, MD MD rn Smirch, Shelby RN RN Severino Jones RN RN jl7 Lynn Scherer RN RN ll1 Rosalina Vazquez RN RN ic1 Corrections: (The following items were deleted from the chart) 07:10 07:07 Pulse 104bpm; Resp 16bpm; Pulse Ox 97%; Temp 98.3F; 86.18 kg; Height 5 ft. 8 in.; ll1 BMI: 28.8; Pain 9/10; ll1 16:15 08:15 Response: No adverse reaction; Pain is unchanged, physician notified jl7 jl7
--- NOTE | 2021-11-27 11:06 | EDPHYS ---
Physician Documentation [facility] Name: Angela Green Age: 56 yrs Sex: Female : 1965 Arrival Date: 11/27/2021 Time: 07:00 Bed 5 Private MD: Luis Ruiz ED Physician Collin Bautista HPI: 11/27 07:21 This 56 yrs old Female presents to ER via Ambulatory with complaints of Abdominal Pain, rn Nausea. 07:21 The patient presents to the emergency department with nausea, vomiting, diarrhea, rn abdominal pain. Onset: The symptoms/episode began/occurred yesterday. Possible causes: unknown. The symptoms are aggravated by movement, pressure, The symptoms are alleviated by nothing. Associated signs and symptoms: Pertinent positives: abdominal pain, diarrhea, nausea, vomiting, Pertinent negatives: fever, GI bleeding. Severity of symptoms: At their worst the symptoms were moderate in the emergency department the symptoms are unchanged. The patient has experienced a previous episode. The patient has been recently seen at the [facility] Emergency Department. Pt reports symptoms of abd pain/vomiting/diarrhea have returned, was admitted last week for 1 day for possible internal hernia, felt better, discharged, has f/u appt with Dr. Ruiz tomorrow. Abd pain and vomiting returned last night, can't keep anything down, not as bad as last time but feels similar. No blood in emesis or stool. Completed abx for UTI.. Historical: - Allergies: 07:07 No Known Allergies; ll1 - PMHx: 07:07 Anxiety; Hypertensive disorder; Manic Depressive disorder; Migraine; Panic Attacks; ll1 RLS; tremors; - PSHx: 07:07 Hip implant; Spinal Fusion; ll1 - Immunization history:: Client reports receiving the 2nd dose of the Covid vaccine. - Social history:: Smoking status: Patient denies any tobacco usage or history of. - Family history:: not pertinent. - Hospitalizations: : No recent hospitalization is reported. ROS: 07:21 Constitutional: Negative for fever, chills, and weight loss, Eyes: Negative for injury, rn pain, redness, and discharge, Neck: Negative for injury, pain, and swelling, Cardiovascular: Negative for chest pain, palpitations, and edema, Respiratory: Negative for shortness of breath, cough, wheezing, and pleuritic chest pain, Abdomen/GI: + abd pain and nausea/vomiting/diarrhea Back: Negative for injury and pain, : Negative for injury, bleeding, discharge, and swelling, MS/Extremity: Negative for injury and deformity, Skin: Negative for injury, rash, and discoloration, Neuro: + generalized weakness Exam: 07:21 Constitutional: This is a well developed, well nourished patient who is awake, alert, rn and in no acute distress. Head/Face: Normocephalic, atraumatic. Eyes: Periorbital areas with no swelling, redness, or edema. ENT: dry MM Cardiovascular: Tachycardic, regular Respiratory: No increased work of breathing, no retractions or nasal flaring. Abdomen/GI: soft, + mild epigastric tenderness and periumbilical tenderness, non-distended Skin: Warm, dry MS/ Extremity: Pulses equal, no cyanosis. Neuro: Awake and alert, GCS 15 Vital Signs: 07:07 BP 161 / 99; Pulse 104; Resp 16; Temp 98.3; Pulse Ox 97% ; Weight 86.18 kg; Height 5 ll1 ft. 8 in. (172.72 cm); Pain 9/10; 08:00 BP 179 / 112; Pulse 91; Resp 16; Pulse Ox 98% on R/A; ic1 08:44 BP 169 / 95; Pulse 98; Resp 15; Pulse Ox 97% ; Pain 7/10; jl7 09:19 Pulse 105; Resp 15; Pulse Ox 100% ; jl7 09:58 BP 133 / 98; Pulse 100; Resp 18; Pulse Ox 98% on R/A; ic1 10:24 BP 133 / 92; Pulse 94; Resp 15; Pulse Ox 96% ; jl7 11:28 BP 144 / 110; Pulse 99; Resp 18; Pulse Ox 99% on R/A; ic1 12:21 BP 148 / 114; Pulse 93; Resp 16; Pulse Ox 98% on R/A; ic1 13:08 BP 154 / 103; Pulse 98; Resp 15; Pulse Ox 95% ; jl7 15:10 BP 136 / 103; Pulse 107; Resp 16; Pulse Ox 96% on R/A; ic1 16:00 BP 139 / 97; Pulse 113; Resp 18; Pulse Ox 96% on R/A; ic1 07:07 Body Mass Index 28.89 (86.18 kg, 172.72 cm) ll1 MDM: 07:05 Patient medically screened. rn 10:53 ED course: Consulted with Dr. Ruiz, will consult on patient, will admit to rn hospitalist service.. 11:03 Differential diagnosis: Nonspecific abd pain, gastritis, pancreatitis, bowel rn obstruction, internal hernia, volvulus. Data reviewed: vital signs, nurses notes, lab test result(s), radiologic studies, CT scan, and as a result, I will admit patient. Counseling: I had a detailed discussion with the patient and/or guardian regarding: the historical points, exam findings, and any diagnostic results supporting the discharge/admit diagnosis, lab results, radiology results, the need for further work-up and treatment in the hospital. Response to treatment: the patient's symptoms have markedly improved after treatment, and as a result, I will discharge patient. Admission orders: after a detailed discussion of the patient's condition and case, the admit orders are written by me. Special discussion:. ED course: Pt reports pain markedly improved, no vomiting, will hold off on NG tube for now and defer to Dr. Ruiz since no longer vomiting.. 14:37 ED course: Evaluated by Dr. Ruiz, states patient requests bariatric surgery eval, he rn contacted Dr. Muir at [facility], who accepts transfer.. 11/27 07:12 Order name: Basic Metabolic Panel; Complete Time: 09:45 rn 11/27 07:12 Order name: CBC with Diff; Complete Time: 07:44 rn 11/27 07:12 Order name: Hepatic Function; Complete Time: 09:45 rn 11/27 07:12 Order name: Lipase; Complete Time: 09:45 rn 11/27 07:13 Order name: COVID-19/FLU A+B (Document "Date of Onset" if Symptomatic) rn 11/27 07:13 Order name: Urine Microscopic Only rn 11/27 07:12 Order name: CT Abd/Pelvis - PO and IV Contrast; Complete Time: 10:40 rn 11/27 07:13 Order name: COVID-19/FLU A+B; Complete Time: 09:45 EDMS 11/27 07:13 Order name: Urine Microscopic Only; Complete Time: 09:45 EDMS 11/27 08:35 Order name: Urine Dipstick-Ancillary; Complete Time: 09:45 EDMS 11/27 09:02 Order name: Urine Culture EDMS 11/27 14:48 Order name: Magnesium rn 11/27 07:12 Order name: IV Saline Lock; Complete Time: 07:25 rn 11/27 07:12 Order name: Labs collected and sent; Complete Time: 07:25 rn 11/27 07:13 Order name: Urine Dipstick-Ancillary (obtain specimen); Complete Time: 08:44 rn Administered Medications: 07:32 Drug: NS 0.9% 1000 ml Route: IV; Rate: 1000 ml; Site: left antecubital; ic1 08:47 Follow up: Response: No adverse reaction; IV Status: Completed infusion; IV Intake: jl7 1000ml 07:32 Drug: Zofran (Ondansetron) 4 mg Route: IVP; Site: left antecubital; ic1 08:15 Follow up: Response: No adverse reaction jl7 07:51 Drug: morphine 4 mg Route: IVP; Site: left antecubital; ic1 16:15 Follow up: Response: No adverse reaction; Pain is unchanged, physician notified; RASS: jl7 Restless (+1) 08:14 Drug: Demerol (meperidine) 25 mg Route: IVP; Site: left antecubital; jl7 08:35 Follow up: Response: Pain is decreased jl7 08:35 Follow up: Response: No adverse reaction; RASS: Alert and Calm (0) jl7 10:37 Drug: Dilaudid (HYDROmorphone) 0.5 mg Route: IVP; Site: left antecubital; ic1 11:00 Follow up: Response: No adverse reaction; Pain is decreased; RASS: Alert and Calm (0) jl7 13:20 Drug: Dilaudid (HYDROmorphone) 0.5 mg Route: IVP; Site: left antecubital; jl7 13:50 Follow up: Response: No adverse reaction; Pain is decreased; RASS: Alert and Calm (0) jl7 15:28 Drug: D5-NS 1000 ml Route: IV; Rate: 125 ml/hr; Site: left antecubital; ss 16:13 Follow up: IV Status: Infusion continued upon transfer jl7 16:12 Drug: Zofran (Ondansetron) 4 mg Route: IVP; Site: left antecubital; 7 16:15 Follow up: Response: administered at transfer jl7 16:13 Drug: Dilaudid (HYDROmorphone) 0.5 mg Route: IVP; Site: left antecubital; 7 16:16 Follow up: Response: RASS: Alert and Calm (0); administered at transfer jl7 Disposition Summary: 11/27/21 14:40 Transfer Ordered Transfer Location: Other Acute Care Facility rn Reason: Higher level of care rn Condition: Stable(11/27/21 14:40) rn Problem: new(11/27/21 14:40) rn Symptoms: have improved(11/27/21 14:40) rn Accepting Physician: Dr. Muir(11/27/21 16:19) jl7 Diagnosis - Other intestinal obstruction - Internal hernia rn - Vomiting, unspecified rn - Dehydration(11/27/21 14:40) rn Forms: - Medication Reconciliation Form rn - SBAR form rn Signatures: Dispatcher [employer] EDMS Collin Bautista MD MD rn Smirch, Shelby, RN RN ss Severino Royal, RN RN jl7 Lynn Scherer RN RN ll1 Rosalina Vazquez, RN RN ic1 Corrections: (The following items were deleted from the chart) 14:38 11:05 Inpatient Admission rn rn 14:38 11:05 Ron Nicholas rn rn 14:38 11:05 Telemetry/MedSurg (Inpatient) rn rn 14:38 11:05 Stable rn rn 14:38 11:05 new rn rn 14:38 11:05 have improved rn rn 14:38 11:05 Standard rn rn 14:38 11:05 rn rn 14:38 11:05 Other and unspecified intestinal obstruction - Internal Hernia rn rn 14:38 11:05 Vomiting rn rn 14:38 11:05 Dehydration rn rn 16:19 14:40 Dr. Muir rn jl7
[2021-11-27] MEDS ORDERED: NA CHLORIDE 0.9% 50 ML ONE (13:12)
[2021-11-27] MEDS ORDERED: D5 0.9 NS 1,000 ML IV ONE (15:27)
[2021-11-27 16:24] VITALS: TEMP 98.3
[2021-11-27 16:35] VITALS: O2SAT 96
[2021-11-27 16:36] VITALS: BP 139/97
--- NOTE | 2021-11-27 20:09 | CON ---
Date of Consultation: 11/27/2021 History Of Present Illness: The patient is a 56-year-old female known to me from previous admission with similar complaints on 11/13/2021. She has a history of a laparoscopic Maikel-en-Y gastric bypass, pancreatitis, status post ERCP 4-5 years ago. She had a Maikel-en-Y gastric bypass over 10 years ago and she complains of perpetual abdominal pain, which is intermittent and crampy, occurred several anil es per week. It is mild in general, but she has had several severe episodes before in the past. She was brought to the hospital at that point and ultimately was discharged with the thought of pancreat itis. As of late, she had some nausea, no vomiting on this recent course. On her last course, she d id have some vomiting prior to arrival. On this particular course, similar episode, she had vomiting prior to arrival, but not since being in the hospital. She continued to have bowel function with lo ose diarrhea occurring all the way up to this morning. She continues to pass gas since being here in the hospital. Her pain has significantly improved since being in the hospital. She did receive jonathan e pain medication. She is ambulatory in the room and smiling during my examination and conversation. She currently has no nausea. Her pain has significantly improved at this point, but not resolved c ompletely. Past Medical History: Pancreatitis, hypertension, Meckel diverticulum, as well as anxiety, hypertens ion, manic depressive disorder, migraines, panic attacks, tremors. Past Surgical History: Includes a hip implant, spinal fusion, bladder stimulator placement, Maikel-en- Y gastric bypass laparoscopically, cholecystectomy, and spinal fusion. Allergies: NO KNOWN DRUG ALLERGIES. Social History: She denies smoking, alcohol, or recreational drug use. Review of Systems: Ten-point review of systems other than HPI, denies. Physical Examination: Vital Signs: At the time of my examination, her BMI was 27, her blood pressure was 150/80, heart rat e was 102, respiratory rate 18, temperature was 98.0, SpO2 100% on room air. General: She is awake, alert, and oriented. Psychiatric: She is appropriate and conversive. HEENT: She is normocephalic. Her sclerae are anicteric. Mucous membranes are moist. Oropharynx is clear. Neck: Supple without JVD. Chest: Normal expansion and excursion. Cardiovascular: Regular rhythm, tachycardic rate. Pulmonary: Clear to auscultation bilaterally. Abdomen: Soft. Mild global tenderness to palpation. Minimal distention. No rebound. No guarding. No focal peritonitis. Well-healed surgical scars are evident. She does not have a surgical acute abdomen at this point. There is only minimal pain on deep palpation. Skin: Warm and dry. No edema noted. Extremities: No clubbing, cyanosis on extremities. Laboratory Data: Revealed a white blood cell count of 6.6, hemoglobin is 11.1, hematocrit 34.4, plat elet count is 402, neutrophils are normal at 69%. She had a sodium 140, potassium 3.9, chloride 108, carbon dioxide 23, BUN 18, creatinine 1.03, glucose 144, total bilirubin 0.2, AST 10, ALT 26, alkali ne phosphatase 127, lipase is 173. Urine had greater than 50 white blood cells, 5-10 red blood cells , bacteria . Trichomonas was present. COVID and influenza were both negative. She had a CT scan performed of the abdomen and pelvis officially read as multiple dilated small bowel loops up to 4.5 cm in diameter. There is a swirled rotational appearance of the central abdominal mesentery w ith congestion of the fat and reactive lymph nodes present as noted on the 11/13/2019 study, findings most likely represent mechanical small bowel obstruction from internal hernia, oral contrast given t hat the study has only reached the proximal portion of the herniated and small bowel dilated loops. Bowel ischemia is not suspected. There is no free air or other surgically emergent findings. Assessment And Plan: This is a 56-year-old female who comes in with signs and symptoms of recurrent internal hernia, likely Orr defect after her Maikel-en-Y gastric bypass surgery causing a bowel ob struction, which I feel is intermittent, currently seen on CT. 1.IV fluid hydration. 2.Pain control. 3.I have explained risks, benefits, and alternatives of exploratory laparotomy including, but not li mited to bleeding, infection, damage to surrounding tissues, need for further operations and procedur es. The patient has requested a bariatric surgeon. As such, we will initiate transfer to a [facility] surgeon, Dr. Muir and I have discussed the case at [facility]. He has agreed to a ccept the patient transfer. She is currently stable and as such, we will initiate transfer to that acility per the patient's request. I have explained the risks, benefits, and alternatives to the abo ve-stated plan. The patient agrees to proceed as indicated. ANKIT/MIGUEL Voice ID: [id number] Report ID: [id number]
[2021-11-28] MEDS ORDERED: D5 0.9 NS 1,000 ML IV SCH (10:14)
[2021-11-28] MEDS ORDERED: HEPARIN 5000 UNIT/ML 1 ML VIAL SQ SCH (10:14)
[2021-11-28] MEDS ORDERED: ONDANSETRON 4 MG/2 ML VIAL IV PRN (10:14)
== END 2021-11-27 16:19 ==
LOC: ER 06:58 → UNDOADMIN 11:12 → ERHOLD 11:12 → ER 16:19 → UNDODISIN 16:20
DX: K46.0 Unspecified abdominal hernia with obstruction, without gangrene (principal); E86.0 Dehydration; I10 Essential (primary) hypertension; Z20.822 Contact with and (suspected) exposure to COVID-19
CPT/HCPCS: 96365; 96361; 87088; 85025; 87086; 80048; 36415; 80076; 83690; 0240U; 74177; 96375; 99285; Q9967; J2175; J1170 ×3; J7042; J7030; J2405 ×2; 81003; 81015

== ENCOUNTER 2021-12-11 11:17 | Emergency (ER) | payer OTHER ==
--- OUTSIDE RECORDS SUMMARY | 2021-12-11 11:21 | XMS REPORT | Continuity of Care Document ---
:1965 Author Organization [facility] t Address [address] [place] [address] Care Team Providers Name Role Phone PHARIES Attending Clinician Unavailable CHARLY LORENZANA Attending Clinician Unavailable Charla OGDEN Attending Clinician Unavailable ALICIA OGDEN Attending Clinician Unavailable MERCY CARBAJAL Attending Clinician Unavailable GC_UPP_Mehta_J Attending Clinician Unavailable Bhargavi Attending Clinician [phone] CHELLE Attending Clinician [phone] Chris LAWS Attending Clinician Unavailable Han PHILLIPS Attending Clinician Unavailable NA Attending Clinician Unavailable WILVER Attending Clinician Unavailable NOHEMI Attending Clinician Unavailable ALICIA OGDEN Admitting Clinician Unavailable GC_UPP_Mehta_J Admitting Clinician Unavailable Payers Payer Name Policy Type Policy Number Effective Date Expiration Date Chris cheema [facility] EXCHANGE [id number] 2021 00:00:00 [place] BENEFIT [id number] ADMINISTRATORS 00:00:00 Problems Condition Condition Condition Status Onset Resolution Last Treating Co mments Source Name Details Category Date Date Treatment Clinician Date Osteoporos Osteoporos Problem Active 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 Smoking Status Start Date Stop Date Source Unknown if ever smoked Access He alth Medications This patient has no known medications. Vital Signs Vital Name Observation Time Observation Value Comments Source HEIGHT 2021-11-28 03:00:00 176.8 cm WEIGHT 2021-11-28 03:00:00 86.183 kg HEIGHT 2021-11-28 03:00:00 176.8 cm WEIGHT 2021-11-28 03:00:00 86.183 kg Procedures Procedure Date / Time Performing Clinician Source Performed Infectious agent 2020-02-21 00:00:00 Access [facility] th detection by nucleic acid DEXA Bone Density with 2018 00:00:00 [facility] WB Composition DX Physicians Encounters Start End Encounter Admission Attending Care Care Encounter Source Date/Time Date/Time Type Type Clinicians Facility Department ID 2021-11-07 [facility] [id number] 13:46:00 ELAINA 0904 [facility] 2021-11-07 [facility] [id number] 13:44:54 ELAINA 0831 [facility] 2021-12-12 2021-12-12 Outpatient SALOMÓN [facility] [id number] [facility] 00:00:00 00:00:00 [facility] 2021-11-27 2021-12-01 Inpatient ER SHIEH, [facility] [id number] [facility] 17:49:00 11:30:00 MICHAEL 2021-06-21 2021-06-21 Outpatient [facility] [id number] St. 00:00:00 00:00:00 [facility] 2021-06-12 2021-06-12 Outpatient [facility] [id number] St. 00:00:00 00:00:00 [facility] 2021-05-07 2021-05-07 Emergency E ABRAM CARBAJAL FB FB [id number] FB 16:56:00 18:45:00 2021-02-08 2021-02-08 Outpatient GC_UPP_Meht PRIV PRIV [id number] [facility] 10:34:00 10:34:00 a_J [id number] Medica l 2021-02-08 2021-02-08 Outpatient ROBERT Burk [facility] [id number] 00:00:00 00:00:00 Jhony [id number] 2020-02-24 2020-02-24 Outpatient CHELLE, [facility] [id number] Access 11:32:00 11:32:00 RYAN [id number] 2020-02-21 2020-02-21 Outpatient [facility] [id number] Access 16:00:00 16:00:00 00-0000-000 [id number] 2020-02-21 2020-02-21 Outpatient [facility] [id number] Access 00:00:00 00:00:00 [facility] 2020-02-21 2020-02-21 Outpatient VETO, [facility] [id number] Access 00:00:00 00:00:00 DARRELL Perez [id number] [facility] [id number] 2019-12-20 2019-12-20 Emergency E ARIELLA PHILLIPS FB FB [id number] FB 16:45:00 17:32:00 2019-09-28 2019-09-28 Emergency E MHSW SW [id number] [facility] 23:55:00 23:55:00 2019-08-19 2019-08-19 Emergency E MHFB MHFB 7577 FB 15:42:00 15:42:00 2019-03-04 2019-03-04 Emergency E MHFB MHFB [id number] FB 09:16:00 09:16:00 2018 2018 AppointRADHA Pacheco [id number] [facility] 10:00:00 10:00:00 t; CLIFFORD MONZON M.D. Surgery [facility] 2018-01-09 2018-01-09 Appointmen RADHA PETTIT UTP [id number] [facility] 09:30:00 09:30:00 t; RIGO PETTIT, ity of [place], REGISTERED NURSE BONE MARROW TRANSPLANT [place] REGISTERED NURSE BONE MARROW TRANSPLANT Physici ans 2017-12-19 2017-12-19 Appointmen RADHA PETTIT [facility] [id number] Univers 09:30:00 09:30:00 t; RIGO PETTIT, ity of [place], REGISTERED NURSE BONE MARROW TRANSPLANT [place] REGISTERED NURSE BONE MARROW TRANSPLANT Physici ans 2016-07-10 2016-07-10 Appointmen NOHEMI [facility] UTP [id number] Univers 08:30:00 08:30:00 t; ABRAM abarca [facility] ans Results Test Description Test Time Test Comments Results Result Comments Source POCT-GLUCOSE METER 2021-12-01 08:11:32 Test Item Value Reference Range Interpretation Comme nts POC-GLUCOSE METER (BEAKER) 82 mg/dL 70-110 : TESTED AT [address] (test code = 1538) LARRY SOTO [facility] [id number]: Mirror Framer/Techni toribio ID = [id number] for Hector Leahy CBC W/PLT COUNT & AUTO [id number] 07:00:50 Test Item Value Reference Range Interpretation Comments WHITE BLOOD CELL COUNT (BEAKER) 8.9 K/ L 4.0-10.0 (test code = 775) RED BLOOD CELL COUNT (BEAKER) 3.50 M/ L 4.00-5.00 L (test code = 761) HEMOGLOBIN (BEAKER) (test code = 9.1 GM/DL 12.0-15.5 L 410) HEMATOCRIT (BEAKER) (test code = 28.5 % 36.0-46.0 L 411) MEAN CORPUSCULAR VOLUME (BEAKER) 81.4 fL 82.0-99.0 L (test code = 753) MEAN CORPUSCULAR HEMOGLOBIN 26.0 pg 27.0-33.0 L (BEAKER) (test code = 751) MEAN CORPUSCULAR HEMOGLOBIN CONC 31.9 GM/DL 32.0-36.0 L (BEAKER) (test code = 752) RED CELL DISTRIBUTION WIDTH 16.0 % 12.0-15.0 H (BEAKER) (test code = 412) PLATELET COUNT (BEAKER) (test 265 K/CU MM 150-430 code = 756) MEAN PLATELET VOLUME (BEAKER) 10.2 fL 6.0-11.5 (test code = 754) NUCLEATED RED BLOOD CELLS 0 /100 WBC 0-0 (BEAKER) (test code = 413) NEUTROPHILS RELATIVE PERCENT 76 % (BEAKER) (test code = 429) LYMPHOCYTES RELATIVE PERCENT 14 % (BEAKER) (test code = 430) MONOCYTES RELATIVE PERCENT 5 % (BEAKER) (test code = 431) EOSINOPHILS RELATIVE PERCENT 3 % (BEAKER) (test code = 432) BASOPHILS RELATIVE PERCENT 1 % (BEAKER) (test code = 437) NEUTROPHILS ABSOLUTE COUNT 6.78 K/ L 1.80-8.00 (BEAKER) (test code = 670) LYMPHOCYTES ABSOLUTE COUNT 1.27 K/ L 1.48-4.50 L (BEAKER) (test code = 414) MONOCYTES ABSOLUTE COUNT (BEAKER) 0.46 K/ L 0.00-1.30 (test code = 415) EOSINOPHILS ABSOLUTE COUNT 0.30 K/ L 0.00-0.50 (BEAKER) (test code = 416) BASOPHILS ABSOLUTE COUNT (BEAKER) 0.05 K/ L 0.00-0.20 (test code = 417) IMMATURE GRANULOCYTES-RELATIVE 1 % 0-0 H PERCENT (BEAKER) (test code = 2801) (MANUAL DIFFERENTIAL)2021-12-01 07:00:50 Test Item Value Reference Range Interpretation Comments NEUTROPHILS - REL (DIFF) (BEAKER) 69 % (test code = 1359) LYMPHOCYTES - REL (DIFF) (BEAKER) 11 % (test code = 1360) MONOCYTES - REL (DIFF) (BEAKER) 2 % (test code = 1361) EOSINOPHILS - REL (DIFF) (BEAKER) 1 % (test code = 1362) BANDS - REL (DIFF) (BEAKER) (test 17 % 0-10 H code = 1348) NEUTROPHILS - ABS (DIFF) (BEAKER) 6.14 K/ L 1.80-8.00 (test code = 1365) LYMPHOCYTES - ABS (DIFF) (BEAKER) 0.98 K/ L 1.48-4.50 L (test code = 1366) MONOCYTES - ABS (DIFF) (BEAKER) 0.18 K/ L 0.00-1.30 (test code = 1367) EOSINOPHILS - ABS (DIFF) (BEAKER) 0.09 K/ L 0.00-0.50 (test code = 1368) BANDS-ABS (DIFF) (BEAKER) (test 1.5 K/ L 0.0-0.8 H code = 1349) TOTAL COUNTED (BEAKER) (test code = 100 1351) BANDS + SEGMENTED NEUTROPHILS 7.65 (BEAKER) (test code = 1352) PLT MORPHOLOGY (BEAKER) (test code Normal = 486) TOXIC GRANULATION (BEAKER) (test Present code = 771) ANISOCYTOSIS (BEAKER) (test code = 1+ few 961) HYPOCHROMIA (BEAKER) (test code = 1+ few 963) MICROCYTES (BEAKER) (test code = 1+ few 965) COMPREHENSIVE METABOLIC [id number] 06:39:27 Test Item Value Reference Range Interpretation Comments TOTAL PROTEIN 5.8 gm/dL 6.0-8.5 L (BEAKER) (test code = 770) ALBUMIN (BEAKER) 3.0 g/dL 3.5-5.0 L (test code = 1145) ALKALINE PHOSPHATASE 70 U/L 30-115 (BEAKER) (test code = 346) BILIRUBIN TOTAL 0.5 mg/dL 0.1-1.2 (BEAKER) (test code = 377) SODIUM (BEAKER) (test 136 meq/L 135-148 code = 381) POTASSIUM (BEAKER) 3.2 meq/L 3.6-5.5 L (test code = 379) CHLORIDE (BEAKER) 106 meq/L 98-106 (test code = 382) CO2 (BEAKER) (test 21 meq/L 20-29 code = 355) BLOOD UREA NITROGEN 6 mg/dL 10-26 L (BEAKER) (test code = 354) CREATININE (BEAKER) 0.74 mg/dL 0.50-1.20 (test code = 358) GLUCOSE RANDOM 96 mg/dL 70-110 (BEAKER) (test code = 652) CALCIUM (BEAKER) 8.3 mg/dL 8.5-10.5 L (test code = 697) AST (SGOT) (BEAKER) 16 U/L 5-40 (test code = 353) ALT (SGPT) (BEAKER) 14 U/L 5-50 (test code = 347) EGFR (BEAKER) (test 81 mL/min/1.73 ESTIMA VANNESA GFR IS code = 1092) sq m NOT ACCURATE CREATININE CLEARANCE IN PREDICTING GLOMERULAR FILTRATION RATE . ESTIMATED GFR I S NOT APPLICABLE FOR DIALYSIS PATIEN TS. Mirror Framer ID - NSUVAGIYAOperator ID - NSUVAGIYAOperator ID - NSUVAGIYAOperator ID - NSUVAGIYAOperatorID - NSUVAGIYAOperator ID - NSUVAGIYAOperator ID - NSUVAGIYAOperator ID - NSUVAGIYAOperator ID - NSUVAGIYAOperator ID - NSUVAGIYAOperator ID - NSUVAGIYAOperator ID - NSUVAGIYAOperator ID - NSUVAGIYAOperator ID - NSUVAGIYAOperator ID - NSUVAGIYAOperator ID - NSUVAGIYA [id number] 06:27:53 Test Item Value Reference Range Interpretation Comments MAGNESIUM (BEAKER) (test code = 2.0 mg/dL 1.5-3.0 627) Mirror Framer ID - NSUVAGIYAOperator ID - NSUVAGIYAOperator ID - NSUVAGIYAOperator ID - NSUVAGIYAPOCT-GLUCOSE [id number] 06:21:40 Test Item Value Reference Range Interpretation Comments POC-GLUCOSE METER 86 mg/dL 70-110 : TESTED A T [facility] [address] (BEAKER) (test code = [address]) [place] [address]: Mirror Framer/Techni toribio ID = [id number] for Aanu siem felicity POCT-GLUCOSE [id number] 00:12:11 Test Item Value Reference Range Interpretation Comments POC-GLUCOSE METER 94 mg/dL 70-110 : TESTED A T [facility] [address] (BEAKER) (test code = [address]) [place] [address]: Mirror Framer/Techni toribio ID = [id number] for Aanu siem, felicity POCT-GLUCOSE [id number] 17:09:46 Test Item Value Reference Range Interpretation Comments POC-GLUCOSE METER 84 mg/dL 70-110 : TESTED A T [address] [address] (BEAKER) (test code = [address]) [place] [address]: Mirror Framer/Techni toribio ID = [id number] for Zuly Donohuee POCT-GLUCOSE [id number] 11:11:43 Test Item Value Reference Range Interpretation Comments POC-GLUCOSE METER 123 mg/dL 70-110 H : TESTED A T [facility] [address] (BEAKER) (test code [address], = 15[address]) [facility] [address]: Mirror Framer/Techni toribio ID = [id number] for Buff ord, Andreia CBC W/PLT COUNT & AUTO [id number] 05:28:42 Test Item Value Reference Range Interpretation Comments WHITE BLOOD CELL COUNT (BEAKER) 10.9 K/ L 4.0-10.0 H (test code = 775) RED BLOOD CELL COUNT (BEAKER) 3.46 M/ L 4.00-5.00 L (test code = 761) HEMOGLOBIN (BEAKER) (test code = 9.0 GM/DL 12.0-15.5 L 410) HEMATOCRIT (BEAKER) (test code = 28.7 % 36.0-46.0 L 411) MEAN CORPUSCULAR VOLUME (BEAKER) 82.9 fL 82.0-99.0 (test code = 753) MEAN CORPUSCULAR HEMOGLOBIN 26.0 pg 27.0-33.0 L (BEAKER) (test code = 751) MEAN CORPUSCULAR HEMOGLOBIN CONC 31.4 GM/DL 32.0-36.0 L (BEAKER) (test code = 752) RED CELL DISTRIBUTION WIDTH 16.0 % 12.0-15.0 H (BEAKER) (test code = 412) PLATELET COUNT (BEAKER) (test 269 K/CU MM 150-430 code = 756) MEAN PLATELET VOLUME (BEAKER) 10.1 fL 6.0-11.5 (test code = 754) NUCLEATED RED BLOOD CELLS 0 /100 WBC 0-0 (BEAKER) (test code = 413) (MANUAL DIFFERENTIAL)2021-11-30 05:28:42 Test Item Value Reference Range Interpretation Comments NEUTROPHILS - REL (DIFF) (BEAKER) 75 % (test code = 1359) LYMPHOCYTES - REL (DIFF) (BEAKER) 15 % (test code = 1360) MONOCYTES - REL (DIFF) (BEAKER) 6 % (test code = 1361) EOSINOPHILS - REL (DIFF) (BEAKER) 4 % (test code = 1362) NEUTROPHILS - ABS (DIFF) (BEAKER) 8.18 K/ L 1.80-8.00 H (test code = 1365) LYMPHOCYTES - ABS (DIFF) (BEAKER) 1.64 K/ L 1.48-4.50 (test code = 1366) MONOCYTES - ABS (DIFF) (BEAKER) 0.65 K/ L 0.00-1.30 (test code = 1367) EOSINOPHILS - ABS (DIFF) (BEAKER) 0.44 K/ L 0.00-0.50 (test code = 1368) TOTAL COUNTED (BEAKER) (test code = 100 1351) WBC MORPHOLOGY (BEAKER) (test code Normal = 487) PLT MORPHOLOGY (BEAKER) (test code Normal = 486) RBC MORPHOLOGY (BEAKER) (test code Normal = 762) COMPREHENSIVE METABOLIC [id number] 05:04:16 Test Item Value Reference Range Interpretation Comments TOTAL PROTEIN 5.8 gm/dL 6.0-8.5 L (BEAKER) (test code = 770) ALBUMIN (BEAKER) 3.0 g/dL 3.5-5.0 L (test code = 1145) ALKALINE PHOSPHATASE 66 U/L 30-115 (BEAKER) (test code = 346) BILIRUBIN TOTAL 0.4 mg/dL 0.1-1.2 (BEAKER) (test code = 377) SODIUM (BEAKER) (test 134 meq/L 135-148 L code = 381) POTASSIUM (BEAKER) 3.7 meq/L 3.6-5.5 (test code = 379) CHLORIDE (BEAKER) 105 meq/L 98-106 (test code = 382) CO2 (BEAKER) (test 20 meq/L 20-29 code = 355) BLOOD UREA NITROGEN 12 mg/dL 10-26 (BEAKER) (test code = 354) CREATININE (BEAKER) 0.71 mg/dL 0.50-1.20 (test code = 358) GLUCOSE RANDOM 98 mg/dL 70-110 (BEAKER) (test code = 652) CALCIUM (BEAKER) 8.4 mg/dL 8.5-10.5 L (test code = 697) AST (SGOT) (BEAKER) 23 U/L 5-40 (test code = 353) ALT (SGPT) (BEAKER) 18 U/L 5-50 (test code = 347) EGFR (BEAKER) (test 85 mL/min/1.73 ESTIMA VANNESA GFR IS code = 1092) sq m NOT ACCURATE CREATININE CLEARANCE IN PREDICTING GLOMERULAR FILTRATION RATE . ESTIMATED GFR I S NOT APPLICABLE FOR DIALYSIS PATIEN TS. Mirror Framer ID - LITOOperator ID - LITOOperator ID - LITOOperator ID - LITOOperator ID - LITOOperator ID - LITOOperator ID - LITOOperator ID - LITOOperator ID - LITOOperator ID - LITOOperator ID - LITOOperator ID - LITOOperator ID - LITOOperator ID - LITOOperator ID - LITOOperator ID - [id number] 05:04:01 Test Item Value Reference Range Interpretation Comments MAGNESIUM (BEAKER) (test code = 1.9 mg/dL 1.5-3.0 627) Mirror Framer ID - LITOOperator ID - LITOOperator ID - LITOOperator ID - LITOPOCT- GLUCOSE [id number] 21:26:19 Test Item Value Reference Range Interpretation Comments POC-GLUCOSE METER 103 mg/dL 70-110 : TESTED A T [facility] [address] (BEAKER) (test code [address], = [address]) [place] [address]: Mirror Framer/Techni toribio ID = [id number] for Kevin Epperson POCT-GLUCOSE [id number] 17:07:14 Test Item Value Reference Range Interpretation Comments POC-GLUCOSE METER 101 mg/dL 70-110 : TESTED A T [facility] [address] (BEAKER) (test code [address], = 1538) [place] [address]: Mirror Framer/Techni toribio ID = [id number] for Adelia ordBrunoAndreia RAD, CHEST, 1 VIEW, NON [id number] 14:01:00Reason for exam:->SOBShould this be performed at the bedside?->Yes [facility] 1965 Sex: FFINAL REPORT Chest AP portable erect History provided: Shortness of breath Heart size magnified by projection and poor inspiration. Mild basilar atelectasis. Lungs otherwise clear and vascularity normal. Signed: Edy Nuñez MDReport Verified Date/Time: 11/29/2021 14:01:49 Reading Location: [facility] Radiology Reading Room Electronically signed by: EDY NUÑEZ on 0 11/29/2021 02:01 PMPOCT-GLUCOSE [id number] 11:33:08 Test Item Value Reference Range Interpretation Comments POC-GLUCOSE METER 115 mg/dL 70-110 H : TESTED A T [facility] [address] (BEAKER) (test code [address], = 1538) [place] [address]: Mirror Framer/Techni toribio ID = [id number] for Andreia Donohue POCT-GLUCOSE [id number] 06:56:45 Test Item Value Reference Range Interpretation Comments POC-GLUCOSE METER 106 mg/dL 70-110 : TESTED A T [facility] [address] (BEAKER) (test code [address], = 1538) [place] [address]: Mirror Framer/Techni toribio ID = [id number] for Harleyrobert cummings Isabella CBC W/PLT COUNT & AUTO [id number] 12:58:22 Test Item Value Reference Range Interpretation Comments WHITE BLOOD CELL COUNT (BEAKER) 6.6 K/ L 4.0-10.0 (test code = 775) RED BLOOD CELL COUNT (BEAKER) 4.21 M/ L 4.00-5.00 (test code = 761) HEMOGLOBIN (BEAKER) (test code = 11.0 GM/DL 12.0-15.5 L 410) HEMATOCRIT (BEAKER) (test code = 35.3 % 36.0-46.0 L 411) MEAN CORPUSCULAR VOLUME (BEAKER) 83.8 fL 82.0-99.0 (test code = 753) MEAN CORPUSCULAR HEMOGLOBIN 26.1 pg 27.0-33.0 L (BEAKER) (test code = 751) MEAN CORPUSCULAR HEMOGLOBIN CONC 31.2 GM/DL 32.0-36.0 L (BEAKER) (test code = 752) RED CELL DISTRIBUTION WIDTH 15.9 % 12.0-15.0 H (BEAKER) (test code = 412) PLATELET COUNT (BEAKER) (test 328 K/CU MM 150-430 code = 756) MEAN PLATELET VOLUME (BEAKER) 9.9 fL 6.0-11.5 (test code = 754) NUCLEATED RED BLOOD CELLS 0 /100 WBC 0-0 (BEAKER) (test code = 413) (MANUAL DIFFERENTIAL)2021-11-28 12:58:22 Test Item Value Reference Range Interpretation Comments NEUTROPHILS - REL (DIFF) (BEAKER) 71 % (test code = 1359) LYMPHOCYTES - REL (DIFF) (BEAKER) 9 % (test code = 1360) MONOCYTES - REL (DIFF) (BEAKER) 5 % (test code = 1361) BANDS - REL (DIFF) (BEAKER) (test 15 % 0-10 H code = 1348) NEUTROPHILS - ABS (DIFF) (BEAKER) 4.69 K/ L 1.80-8.00 (test code = 1365) LYMPHOCYTES - ABS (DIFF) (BEAKER) 0.59 K/ L 1.48-4.50 L (test code = 1366) MONOCYTES - ABS (DIFF) (BEAKER) 0.33 K/ L 0.00-1.30 (test code = 1367) BANDS-ABS (DIFF) (BEAKER) (test 1.0 K/ L 0.0-0.8 H code = 1349) TOTAL COUNTED (BEAKER) (test code = 100 1351) BANDS + SEGMENTED NEUTROPHILS 5.68 (BEAKER) (test code = 1352) WBC MORPHOLOGY (BEAKER) (test code Normal = 487) PLT MORPHOLOGY (BEAKER) (test code Normal = 486) RBC MORPHOLOGY (BEAKER) (test code Normal = 762) BASIC METABOLIC [id number] 12:24:14 Test Item Value Reference Range Interpretation Comments SODIUM (BEAKER) 139 meq/L 135-148 (test code = 381) POTASSIUM (BEAKER) 4.4 meq/L 3.6-5.5 (test code = 379) CHLORIDE (BEAKER) 110 meq/L 98-106 H (test code = 382) CO2 (BEAKER) (test 19 meq/L 20-29 L code = 355) BLOOD UREA NITROGEN 23 mg/dL 10-26 (BEAKER) (test code = 354) CREATININE (BEAKER) 1.24 mg/dL 0.50-1.20 H (test code = 358) GLUCOSE RANDOM 191 mg/dL 70-110 H (BEAKER) (test code = 652) CALCIUM (BEAKER) 8.1 mg/dL 8.5-10.5 L (test code = 697) EGFR (BEAKER) (test 45 mL/min/1.73 ESTIMA VANNESA GFR IS code = 1092) sq m NOT ACCURATE CREATININE CLEARANCE IN PREDICTING GLOMERULAR FILTRATION RATE . ESTIMATED GFR I S NOT APPLICABLE FOR DIALYSIS PATIEN TS. Mirror Framer ID - DSENSONOperator ID - DSENSONOperator ID - DSENSONOperator ID - DSENSONOperator ID - DSENSONOperator ID - DSENSONOperator ID - DSENSONOperator ID - DSENSONOperator ID - DSENSONOperator ID - DSENSONOperator ID - DSENSONOperator ID - DSENSONOperator ID - DSENSONPOCT-GLUCOSE [id number] 11:03:21 Test Item Value Reference Range Interpretation Comments POC-GLUCOSE METER 183 mg/dL 70-110 H : TESTED A T [facility] [address] (BEAKER) (test code [facility] [address], = 1538) [facility] [address]: Mirror Framer/Techni toribio ID = [id number] for Vicenta Lyles HEMOGLOBIN [id number] 06:14:25 Test Item Value Reference Range Interpretation Comments HEMOGLOBIN A1C (BEAKER) (test code = 5.3 % 4.3-6.1 368) Mirror Framer ID - [id number](MANUAL DIFFERENTIAL)2021-11-28 06:03:44 Test Item Value Reference Range Interpretation Comments NEUTROPHILS - REL (DIFF) (BEAKER) 31 % (test code = 1359) LYMPHOCYTES - REL (DIFF) (BEAKER) 9 % (test code = 1360) MONOCYTES - REL (DIFF) (BEAKER) 7 % (test code = 1361) METAMYELOCYTES-REL (DIFF) (BEAKER) 5 % 0-0 H (test code = 258) MYELOCYTES-REL (DIFF) (BEAKER) 1 % 0-0 H (test code = 1594) BANDS - REL (DIFF) (BEAKER) (test 46 % 0-10 H code = 1348) ATYPICAL LYMPHOCYTE - REL (DIFF) 1 % 0-0 H (BEAKER) (test code = 260) NEUTROPHILS - ABS (DIFF) (BEAKER) 0.74 K/ L 1.80-8.00 L (test code = 1365) LYMPHOCYTES - ABS (DIFF) (BEAKER) 0.22 K/ L 1.48-4.50 L (test code = 1366) MONOCYTES - ABS (DIFF) (BEAKER) 0.17 K/ L 0.00-1.30 (test code = 1367) METAMYELOCTYES - ABS (DIFF) 0.12 K/ L 0.00-0.00 H (BEAKER) (test code = 261) BANDS-ABS (DIFF) (BEAKER) (test 1.1 K/ L 0.0-0.8 H code = 1349) ATYPICAL LYMPHOCYTES - ABS (DIFF) 0.02 K/ L 0.00-0.00 H (BEAKER) (test code = 263) MYELOCYTES-ABS (DIFF) (BEAKER) 0.02 K/ L 0.00-0.00 H (test code = 1593) TOTAL COUNTED (BEAKER) (test code = 100 1351) BANDS + SEGMENTED NEUTROPHILS 1.85 (BEAKER) (test code = 1352) WBC MORPHOLOGY (BEAKER) (test code Normal = 487) LARGE PLT(BEAKER) (test code = Present 2156) ANISOCYTOSIS (BEAKER) (test code = 1+ few 961) MACROCYTES (BEAKER) (test code = 1+ few 964) OVALOCYTES (BEAKER) (test code = 1+ few 477) CBC W/PLT COUNT & AUTO [id number] 06:03:43 Test Item Value Reference Range Interpretation Comments WHITE BLOOD CELL COUNT (BEAKER) 2.4 K/ L 4.0-10.0 L (test code = 775) RED BLOOD CELL COUNT (BEAKER) 4.31 M/ L 4.00-5.00 (test code = 761) HEMOGLOBIN (BEAKER) (test code = 11.2 GM/DL 12.0-15.5 L 410) HEMATOCRIT (BEAKER) (test code = 36.7 % 36.0-46.0 411) MEAN CORPUSCULAR VOLUME (BEAKER) 85.2 fL 82.0-99.0 (test code = 753) MEAN CORPUSCULAR HEMOGLOBIN 26.0 pg 27.0-33.0 L (BEAKER) (test code = 751) MEAN CORPUSCULAR HEMOGLOBIN CONC 30.5 GM/DL 32.0-36.0 L (BEAKER) (test code = 752) RED CELL DISTRIBUTION WIDTH 15.9 % 12.0-15.0 H (BEAKER) (test code = 412) PLATELET COUNT (BEAKER) (test 329 K/CU MM 150-430 code = 756) MEAN PLATELET VOLUME (BEAKER) 9.6 fL 6.0-11.5 (test code = 754) NUCLEATED RED BLOOD CELLS 0 /100 WBC 0-0 (BEAKER) (test code = 413) NEUTROPHILS RELATIVE PERCENT 80 % (BEAKER) (test code = 429) LYMPHOCYTES RELATIVE PERCENT 9 % (BEAKER) (test code = 430) MONOCYTES RELATIVE PERCENT 11 % (BEAKER) (test code = 431) EOSINOPHILS RELATIVE PERCENT 0 % (BEAKER) (test code = 432) BASOPHILS RELATIVE PERCENT 0 % (BEAKER) (test code = 437) NEUTROPHILS ABSOLUTE COUNT 1.94 K/ L 1.80-8.00 (BEAKER) (test code = 670) LYMPHOCYTES ABSOLUTE COUNT 0.21 K/ L 1.48-4.50 L (BEAKER) (test code = 414) MONOCYTES ABSOLUTE COUNT (BEAKER) 0.26 K/ L 0.00-1.30 (test code = 415) EOSINOPHILS ABSOLUTE COUNT 0.00 K/ L 0.00-0.50 (BEAKER) (test code = 416) BASOPHILS ABSOLUTE COUNT (BEAKER) 0.01 K/ L 0.00-0.20 (test code = 417) IMMATURE GRANULOCYTES-RELATIVE 0 % 0-0 PERCENT (BEAKER) (test code = 2801) TSH/FREE T4 IF [id number] 05:47:56 Test Item Value Reference Range Interpretation Comments THYROID STIMULATING HORMONE 1.190 uIU/mL 0.350-5.500 (BEAKER) (test code = 772) Mirror Framer ID - [id number] METABOLIC [id number] 05:37:27 Test Item Value Reference Range Interpretation Comments TOTAL PROTEIN 5.9 gm/dL 6.0-8.5 L (BEAKER) (test code = 770) ALBUMIN (BEAKER) 3.5 g/dL 3.5-5.0 (test code = 1145) ALKALINE PHOSPHATASE 87 U/L 30-115 (BEAKER) (test code = 346) BILIRUBIN TOTAL 0.3 mg/dL 0.1-1.2 (BEAKER) (test code = 377) SODIUM (BEAKER) (test 142 meq/L 135-148 code = 381) POTASSIUM (BEAKER) 4.1 meq/L 3.6-5.5 (test code = 379) CHLORIDE (BEAKER) 110 meq/L 98-106 H (test code = 382) CO2 (BEAKER) (test 21 meq/L 20-29 code = 355) BLOOD UREA NITROGEN 18 mg/dL 10-26 (BEAKER) (test code = 354) CREATININE (BEAKER) 0.94 mg/dL 0.50-1.20 (test code = 358) GLUCOSE RANDOM 165 mg/dL 70-110 H (BEAKER) (test code = 652) CALCIUM (BEAKER) 7.9 mg/dL 8.5-10.5 L (test code = 697) AST (SGOT) (BEAKER) 35 U/L 5-40 (test code = 353) ALT (SGPT) (BEAKER) 25 U/L 5-50 (test code = 347) EGFR (BEAKER) (test 62 mL/min/1.73 ESTIMA VANNESA GFR IS code = 1092) sq m NOT ACCURATE CREATININE CLEARANCE IN PREDICTING GLOMERULAR FILTRATION RATE . ESTIMATED GFR I S NOT APPLICABLE FOR DIALYSIS PATIEN TS. Mirror Framer ID - [id number] ID - [id number] ID - [id number] ID - [id number] ID - [id number] ID - [id number] ID - [id number] ID - [id number] ID - [id number] ID - [id number] ID - [id number] ID - [id number] ID - [id number] ID - [id number] ID - [id number] ID - [id number] 05:27:38 Test Item Value Reference Range Interpretation Comments MAGNESIUM (BEAKER) (test code = 1.7 mg/dL 1.5-3.0 627) Mirror Framer ID - [id number] ID - [id number] ID - [id number] ID - [id number] 05:24:23 Test Item Value Reference Range Interpretation Comments PHOSPHORUS (BEAKER) (test code = 5.0 mg/dL 2.5-4.5 H 604) Mirror Framer ID - [id number] 05:23:01 Test Item Value Reference Range Interpretation Comments PROTIME (BEAKER) (test 10.5 seconds 9.3-12.0 Final Information code = 759) (Auto Output) INR (BEAKER) (test 0.94 See_Comment Final Inf ormation code = 370) (Auto Output) [Automated mess age] The system [employer] generated this result transmit vannesa reference range : <=5.90. The reference range was not used to interpret this result as normal/abnormal . PARTIAL THROMBOPLASTIN 24.4 seconds 23.0-35.0 Final Information TIME (BEAKER) (test (Auto Ou tput) code = 760) RECOMMENDED COUMADIN/WARFARIN INR THERAPY RANGESSTANDARD DOSE: 2.0 - 3.0 Includes: PROPHYLAXIS forvenous thrombosis, systemic embolization; TREATMENT for venous thrombosis and/or pulmonary embolus.HIGH RISK: Target INR is 2.5-3.5 for patients with mechanical heart valves.Panel Description: SARS-CoV-2 (COVID-19) RNA [Presence] in Unspecified specimen by GIULIANA with probe [id number] 04:17:00 Test Item Value Reference Range Interpretation Comments SARS-CoV-2, Not Detected Not Detected Testing was per formed using GIULIANA (test code the chapincito(R) SARS-CoV-2 = 22998-9) test.This test was developed and i ts performance juancho racteristics determinedby [employer]. T his test has not been FDA [...] assay.
< br/>Performe d by:
[facility] [place] ([facility])

[facility] hospital Description: SARS-CoV-2 (COVID-19) RNA [Presence] in Unspecified specimen by GIULIANA with probe [id number] 04:17:00 Test Item Value Reference Range Interpretation Comments SARS-CoV-2, Not Detected Not Detected Testing was per formed using GIULIANA (test code the chapincito(R) SARS-CoV-2 = 39616-4) test.This test was developed and i ts performance juancho racteristics determinedby [employer]. T his test has not been FDA [...] assay.
< br/>Performe d by:
[facility] [place] ([facility])

[facility]] CMP [id number] 14:13:01 Test Item Value Reference Range Interpretation Comments Sodium Level 142 {mEq/l} 135-145 (test code = 2951-2) Potassium Level 4.2 {mEq/l} 3.5-5.1 (test code = 2823-3) Chloride Level; 112 {mEq/l} 95-109 Above High Threshold (test code = 2075-0) Carbon Dioxide; 23 {mEq/l} 24-32 Below Low Threshold (test code = 8-9) AGAP (test code = 11.2 {mEq/l} 10.0-20.0 95254-8) Glucose Lvl (test 70 mg/dl 70-99 Adult refe rence range code = 2345-7) values reflec t the clinical guidel inesof the [place] [employer] es [employer]. Creatinine Lvl 1.00 mg/dl 0.50-1.40 (test code = 2160-0) Blood Urea 12 mg/dl 7-22 Nitrogen (test code = 3094-0) BUN/Creatinine 12 6-25 Ratio (test code = 3097-3) Total Protein 7.2 g/dl 6.4-8.4 (test code = 2885-2) Albumin Lvl; 3.3 g/dl 3.5-5.0 Below Low Threshold (test code = 1751-7) Globulin (test 3.9 g/dl 2.7-4.2 code = 35972-6) A/G Ratio (test 0.8 0.7-1.6 code = 1759-0) Calcium Level 8.4 mg/dl 8.5-10.5 Total; Below Low Threshold (test code = 98694-8) ALT (test code = 38 u/l 0-65 1743-4) AST (test code = 28 u/l 0-37 14081-4) Bili Total (test 0.3 mg/dl 0.2-1.3 code = 1975-2) Alk Phos (test 118 u/l 39-136 code = 1783-0) eGFR (test code = 64 The eGFR i s calculated 00613-0) {ML/MIN/1.7} using the CKD-E PI formula. In [...] be multiplied by t he estimated BMI. [facility]] IRON, [id number] 14:13:01 Test Item Value Reference Range Interpretation Comments Iron; Above High Threshold (test 361 ug/dL 30-160 code = 2498-4) [facility]] LIPID [id number] 14:13:01 Test Item Value Reference Range Interpretation Comments Chol (test code = 2093-3) 152 mg/dl <=199 Trig; Above High Threshold (test 177 mg/dl <=149 code = 2571-8) HDL Cholesterol (test code = 68 mg/dl >=61 2085-9) CHD Risk; Below Low Threshold (test 2.24 3.90-5.80 code = 09773-2) LDL (test code = 67881-0) 49 mg/dl <=99 VLDL (test code = VLDL) 35 [facility]] VITAMIN [id number] 14:13:01 Test Item Value Reference Range Interpretation Comments Vitamin B12 Level (test code = 546 pg/ml 254-1320 2132-9) [facility]] TSH, 3RD GENERATION W/REFLEX TO FT4 2018 14:13:01 Test Item Value Reference Range Interpretation Comments TSH (test code = 26898-0) 1.790 {uIU/ml} 0.360-3.740 [facility]] PTH, INTACT (WITHOUT CALCIUM)2018 14:13:01 Test Item Value Reference Range Interpretation Comments Parathyroid Hormone Intact; Above 120.8 pg/ml 18.4-80.1 High Threshold (test code = 2731-8) [facility]] CBC (INCLUDES DIFF/PLT)2018 14:13:01 Test Item Value Reference Range Interpretation Comments WBC (test code = 6690-2) 6.1 {K/CMM} 3.7-10.4 RBC; Below Low Threshold (test 3.97 {M/CMM} 4.20-5.40 code = 789-8) Hgb; Below Low Threshold (test 10.1 g/dl 12.0-16.0 code = 718-7) Hct; Below Low Threshold (test 30.7 % 36.0-48.0 code = 36728-6) MCV; Below Low Threshold (test 77.5 fL 80.0-98.0 code = 787-2) MCH; Below Low Threshold (test 25.4 pg 27.0-31.0 code = 785-6) MCHC (test code = 786-4) 32.8 g/dl 32.0-36.0 RDW; Above High Threshold (test 20.3 % 11.5-14.5 code = 788-0) Platelet (test code = 11989-5) 275 {K/CMM} 133-450 Mean Platelet Volume (test code 9.2 fL 7.4-10.4 = 26870-3) [facility]] [id number] 14:13:01 Test Item Value Reference Range Interpretation Comments Segmented Neutrophils (test code 61.1 % 45.0-75.0 = 75314-6) Monocytes (test code = 33389-8) 7.0 % 2.0-12.0 Lymphocytes (test code = 86947-9) 26.5 % 20.0-40.0 Eosinophils; Above High Threshold 4.5 % 0.0-4.0 (test code = 86497-8) Basophils (test code = 706-2) 0.9 % 0.0-1.0 Segs-Bands # (test code = 3.7 {K/CMM} 1.5-8.1 81401-6) Lymphocytes # (test code = 1.6 {K/CMM} 1.0-5.5 43015-3) Monocytes # (test code = 77609-6) 0.4 {K/CMM} 0.0-0.8 Eosinophils # (test code = 0.3 {K/CMM} 0.0-0.5 34142-8) Basophils # (test code = 89533-3) 0.1 {K/CMM} 0.0-0.2 Microcyte (test code = Microcyte) 1+ None Seen A [facility]] FOLATE, [id number] 14:13:01 Test Item Value Reference Range Interpretation Comments Folate Level (test code = 2284-8) 23.1 ng/ml >=3.0 [facility]] HEMOGLOBIN [id number] 14:13:01 Test Item Value Reference Range Interpretation Comments Hemoglobin A1c (test code = 4548-4) 5.2 % <=5.6 [facility]] VITAMIN D, 25-HYDROXY, [id number] 14:13:01 Test Item Value Reference Range Interpretation Comments Vitamin D, 25-OH, 36.3 ng/ml 30.0-100.0 Reference range is based Total (test code on recommen dations in the = Vitamin D, EndocrineSociet y Clinical 25-OH, Total) Practice Guide line (J Clin Endocrinol Xopey5442;96:19 11-1930) [facility]] VITAMIN B1, WHOLE [id number] 14:13:01 Test Item Value Reference Range Interpretation Comments Vitamin B1 131.4 66.5-200.0 This test was d eveloped and its Level (test nmol/L performance code = characteristics determined by Vitamin B1 [facility]. It has not been Level) cleared orappro jose m by the Food and Drug Administration. Performed At: [facility] [id number] [place], [place] [id number] Avalos MD Ph:[phone] [facility][H] Vit [id number] 14:13:01 Test Item Value Reference Range Interpretation [...] note reference interval change Performed At: [facility] [place], [place] [id number] Avalos MD Ph:[phone] [facility][H] Vitamin E [id number] 14:13:01 Test Item Value Reference Range Interpretation [...] t Food and Drug Administration. Performed At: [facility] [id number] [place], [place] [id number] Avalos MD Ph:[phone] [facility]
[2021-12-11] MEDS ORDERED: NA CHLORIDE 0.9% 1,000 ML ONE (12:03)
[2021-12-11] MEDS ORDERED: MORPHINE 4 MG/ML SYR ONE ×2 (12:13→14:32)
[2021-12-11] MEDS ORDERED: ONDANSETRON 4 MG/2 ML VIAL ONE ×2 (12:13→14:32)
--- NOTE | 2021-12-11 13:01 | RAD REPORT ---
EXAM DESCRIPTION: CT - Chest For Pe Angio - 12/11/2021 12:49 pm CLINICAL HISTORY: CHEST PAIN, abdominal pain, history of small bowel resection for obstruction 2 we eks earlier COMPARISON: No comparisons TECHNIQUE: Dynamically enhanced 3 mm thick images of the chest were obtained during administration o f approximately 150mL Isovue 370 IV contrast. Coronal and oblique MIP reconstruction images were gene rated and reviewed. Exam utilizes a protocol to evaluate the pulmonary arterial tree. All CT scans are performed using dose optimization technique as appropriate and may include automated exposure control or mA/KV adjustment according to patient size. FINDINGS: No pulmonary emboli are identified. The aorta as imaged shows no acute or suspicious finding. No pericardial thickening or effusion. There is near complete atelectasis of the left lower lobe sparing only a portion of the superior segm ent. There is partial atelectasis along the posteroinferior margin of the left upper lobe. Large left pleural effusion is present spanning based apex. Minimal right base atelectasis present without righ t-sided pleural effusion. No pneumothorax. No mediastinal or hilar suspicious masses. No chest wall masses or abnormal axillary lymphadenopathy. IMPRESSION: No pulmonary emboli identified. Large left pleural effusion spanning base to apex with near complete atelectasis of the left lower lo be and partial atelectasis of the left upper lobe.
--- NOTE | 2021-12-11 13:12 | RAD REPORT ---
EXAM DESCRIPTION: CT - Abdomen Pelvis W Contrast - 12/11/2021 12:49 pm CLINICAL HISTORY: ABD PAIN, recent small bowel resection for obstruction 2 weeks earlier COMPARISON: Abdomen Pelvis W Contrast dated 11/27/2021; Chest For Pe Angio dated 12/11/2021 TECHNIQUE: Biphasic, helical CT imaging of the abdomen and pelvis was performed following 100 ml non -ionic IV contrast. No oral contrast administered. All CT scans are performed using dose optimization technique as appropriate and may include automated exposure control or mA/KV adjustment according to patient size. FINDINGS: Large left pleural effusion and left lobe atelectasis detailed in separate CT chest PE rep ort. Liver and pancreas show no suspicious findings. No portal vein thrombus. Cholecystectomy clips are pr esent with no abnormal degree of biliary tree dilatation. Splenic size is normal. There is a crescent -shaped low-density collection along the posterior spleen contain by the splenic capsule. This is bel ieved to be subcapsular old blood rather than pericapsular ascites. No focal lesion within the enhanc ing splenic parenchyma. No active extravasation seen. Symmetric renal function is seen with no hydronephrosis or suspicious renal mass. No pyelonephritis o r acute parenchymal process. No bladder abnormalities. No adrenal abnormalities. Uterus and ovaries s how no new or suspicious findings from prior imaging. Gastric bypass surgical changes are noted. Proximal anastomosis shows no wall thickening or edema. No dilated small bowel loops identified. No primary colon process identified. Cecum is distended but no t dilated by stool. Fatty ileocecal valve is present. Most of the colon has little bowel content. Str anding and edema changes are present in the peritoneal fatty tissues more prominent in the left mid a bdomen. A few reactive mesenteric lymph nodes are present. Postop drainage catheter is in place in th e left mid abdomen. In the low midline peritoneal cavity abutting the fundus of the uterus and dome o f the bladder there is a 3.8 x 3.3 centimeter homogeneous low-density collection surrounded by small bowel loops. No air within this focal collection. This could be a postoperative seroma or focal posto perative fluid. Abscess is not excluded though this is typically more homogeneous than seen with an a bscess. The small fluid collection is not amenable to percutaneous access. No clearly abscessed fluid collections seen. No abnormal free air seen. Postsurgical changes are present to the midline abdomen . No mass or bulky lymphadenopathy. No omental thickening. Disc and bone degenerative changes are present. Postsurgical changes are present in the lower lumbar spine and lumbosacral junction. IMPRESSION: No bowel obstruction, free air or surgically emergent finding identifiable. A 3.8 x 3.3 centimeter homogeneous low-density collection in the low midline pelvis near the dome of the bladder and surrounded by small bowel loops could be postoperative seroma, postoperative focal fl uid or even possibly a small atypically appearing abscess. This fluid collection is not amenable to percutaneous sampling or drainage. [place]-shaped low-density collection 10-11 mm in maximum thickness present posterior margin of the spleen believed to be subacute subcapsular hemorrhage rather than perisplenic ascites. Postsurgical edema and stranding in the left mid abdomen peritoneal fatty tissues. There is a left mi d abdomen drainage catheter in place.
[2021-12-11 13:22] LABS: Absolute Lymphocytes (CBC) 1.4 K/uL (0.7-4.9); Hematocrit 21.4 % (36.0-45.0); Lymphocytes % 18.6 % (15.3-44.8); MPV 6.8 fL (7.6-11.3)
[2021-12-11 13:26] LABS: ALT/SGPT 11 U/L (12-78); AST/SGOT 8 U/L (15-37); Albumin 2.2 g/dL (3.4-5.0); Alkaline Phosphatase 81 U/L (45-117); BUN Blood Urea Nitrogen 12 mg/dL (7-18); Bicarbonate 22 mmol/L (21-32); Bilirubin Direct < 0.1 mg/dL (0-0.2); Bilirubin Total 0.2 mg/dL (0.2-1.0); Glucose Level 143 mg/dL (74-106); Lipase 204 U/L (73-393); Potassium 3.6 mmol/L (3.5-5.1); Protein, Total 7.3 g/dL (6.4-8.2); Sodium Level 140 mmol/L (136-145)
[2021-12-11 13:51] LABS: Urine Blood 2+ (Negative); Urine Glucose Negative (Negative); Urine Protein Negative (Negative)
--- NOTE | 2021-12-11 14:19 | EDPHYS ---
Physician Documentation [facility] Name: Angela Green Age: 56 yrs Sex: Female : 1965 Arrival Date: 12/11/2021 Time: 11:18 Bed 18 Private MD: ED Physician Gibran Chandler HPI: 12/11 12:27 This 56 yrs old Female presents to ER via Ambulatory with complaints of Abdominal Pain. ma2 12:27 Onset: The symptoms/episode began/occurred gradually, 2 day(s) ago. Associated signs ma2 and symptoms: Pertinent negatives: anorexia, blood in stools, chest pain, constipation, diarrhea, dysuria, fever, headache, hematuria, shortness of breath, vaginal discharge, vomiting blood. Severity of pain: At its worst the pain was mild in the emergency department the pain is unchanged. The patient has not experienced similar symptoms in the past. 56-year-old female 2 weeks status post laparotomy for small bowel obstruction, that was done [facility], patient presented with left chest pain as well as left upper quadrant abdominal pain that has been constant for 3 days, no vomiting no diarrhea. Historical: - Allergies: 11:38 No Known Allergies; iw - PMHx: 11:38 Anxiety; Hypertensive disorder; Manic Depressive disorder; Migraine; Panic Attacks; iw RLS; tremors; - PSHx: 11:38 Hip implant; Spinal Fusion; gastric bypass; colon surgery; iw - Immunization history:: Client reports receiving the 2nd dose of the Covid vaccine. - Social history:: Smoking status: Patient denies any tobacco usage or history of. Patient/guardian denies using alcohol, street drugs, The patient lives with family. - Family history:: not pertinent. - Hospitalizations: : No recent hospitalization is reported. ROS: 12:27 Constitutional: Negative for fever, chills, and weight loss, Eyes: Negative for injury, ma2 pain, redness, and discharge. 12:27 All other systems are negative. Exam: 12:27 Constitutional: This is a well developed, well nourished patient who is awake, alert, ma2 and in no acute distress. Head/Face: Normocephalic, atraumatic. Eyes: Pupils equal round and reactive to light, extra-ocular motions intact. Lids and lashes normal. Conjunctiva and sclera are non-icteric and not injected. Cornea within normal limits. Periorbital areas with no swelling, redness, or edema. ENT: Nares patent. No nasal discharge, no septal abnormalities noted. Tympanic membranes are normal and external auditory canals are clear. Oropharynx with no redness, swelling, or masses, exudates, or evidence of obstruction, uvula midline. Mucous membranes moist. Neck: Trachea midline, no thyromegaly or masses palpated, and no cervical lymphadenopathy. Supple, full range of motion without nuchal rigidity, or vertebral point tenderness. No Meningismus. Chest/axilla: Normal chest wall appearance and motion. Nontender with no deformity. No lesions are appreciated. Cardiovascular: Regular rate and rhythm with a normal S1 and S2. No gallops, murmurs, or rubs. Normal PMI, no JVD. No pulse deficits. Respiratory: Lungs have equal breath sounds bilaterally, clear to auscultation and percussion. No rales, rhonchi or wheezes noted. No increased work of breathing, no retractions or nasal flaring. Abdomen/GI: Soft, non-tender, with normal bowel sounds. No distension or tympany. No guarding or rebound. No evidence of tenderness throughout. Back: No spinal tenderness. No costovertebral tenderness. Full range of motion. MS/ Extremity: Pulses equal, no cyanosis. Neurovascular intact. Full, normal range of motion. Neuro: Awake and alert, GCS 15, oriented to person, place, time, and situation. Cranial nerves II-XII grossly intact. Motor strength 5/5 in all extremities. Sensory grossly intact. Cerebellar exam normal. Normal gait. Vital Signs: 11:37 BP 124 / 72; Pulse 105; Resp 18; Pulse Ox 95% ; Weight 86.18 kg; Height 5 ft. 8 in. iw (172.72 cm); Pain 9/10; 12:15 Pulse 96; Resp 15 S; Pulse Ox 95% on R/A; jg9 12:30 BP 99 / 52; Pulse 95; Resp 15 S; Pulse Ox 95% on R/A; jg9 13:45 BP 116 / 66; Pulse 86; Resp 18 S; Pulse Ox 98% on R/A; jg9 14:00 BP 124 / 67; Pulse 89; Resp 24 S; Pulse Ox 97% on R/A; jg9 14:30 BP 122 / 75; Pulse 88; Resp 14; Pulse Ox 98% ; Pain 8/10; eo2 14:50 BP 110 / 85; Pulse 86; Resp 15; Pulse Ox 100% ; Pain 3/10; eo2 11:37 Body Mass Index 28.89 (86.18 kg, 172.72 cm) iw MDM: 11:50 Patient medically screened. ma2 12:27 Differential diagnosis: gastritis, gastroesophageal reflux disease, non-specific abd ma2 pain, pancreatitis, urinary tract infection, Left-sided chest wall/pleuritic pain, RG score 0 heart score 0, chest pain reproducible on exam worse with deep breath. 14:14 Data reviewed: vital signs, nurses notes. Counseling: I had a detailed discussion with ma2 the patient and/or guardian regarding: the historical points, exam findings, and any diagnostic results supporting the discharge/admit diagnosis, the presence of at least one elevated blood pressure reading (>120/80) during this emergency department visit, the need for outpatient follow up. Response to treatment: the patient's symptoms have markedly improved after treatment. ED course: Work-up revealed few conditions, left lung atelectasis lower lobe, and small left subcapsular spleen hemorrhage, of note patient also started to have surgical drain, there was no drainage over the last few days and she has an appointment with a surgeon tomorrow to pull the drain out. Patient also has anemia hemoglobin 7.1, however she does not have symptoms of anemia vital signs are all within normal limits, there is no indication for transfusion today, as this is asymptomatic, patient is not bleeding anywhere no dark stool melena or vomiting patient does not take blood thinners. Patient also has UTI on urine however she does not have any symptom, and she said that she had UTI a week ago and she is being treated for that, does not want to take any antibiotics at this time. Of note I recommend transfer [facility] where she can get evaluated by her surgeon given the subcapsular splenic hemorrhage, however patient declined and she would like to go home as she states her pain has improved and she will see her surgeon tomorrow. I gave return precaution she return to ER for any worsening of symptoms. Patient also have incentive spirometry at home where she is going to use as well to help with atelectasis left lower lobe. 03/01 11:50 Order name: Basic Metabolic Panel ma2 12/11 11:50 Order name: CBC with Diff; Complete Time: 13:50 ma2 12/11 11:50 Order name: Hepatic Function; Complete Time: 13:50 ma2 12/11 11:50 Order name: Lipase; Complete Time: 13:50 ma2 12/11 11:51 Order name: Basic Metabolic Panel; Complete Time: 13:50 EDMS 12/11 13:51 Order name: Urine Dipstick-Ancillary; Complete Time: 13:54 EDMS 12/11 11:50 Order name: IV Saline Lock; Complete Time: 11:57 ma2 12/11 11:50 Order name: CT Abd/Pelvis - IV Contrast Only; Complete Time: 13:50 ma2 12/11 11:59 Order name: CT Chest For PE Angio; Complete Time: 13:50 ma2 12/11 11:50 Order name: Labs collected and sent; Complete Time: 12:05 ma2 12/11 11:50 Order name: Urine Dipstick-Ancillary (obtain specimen); Complete Time: 13:56 ma2 Administered Medications: 12:00 Drug: NS 0.9% 1000 ml Route: IV; Rate: 1 bolus; Site: right antecubital; jg9 13:56 Follow up: IV Status: Completed infusion; IV Intake: 1000ml jg9 12:13 Drug: Zofran (Ondansetron) 4 mg Route: IVP; Site: right antecubital; jg9 13:10 Follow up: Response: No adverse reaction jg9 12:15 Drug: morphine 4 mg Route: IVP; Site: right antecubital; jg9 13:10 Follow up: Response: No adverse reaction; Pain is decreased; RASS: Alert and Calm (0) jg9 14:37 Drug: morphine 4 mg Route: IVP; Site: right antecubital; eo2 14:49 Follow up: Response: No adverse reaction; Pain is decreased eo2 14:37 Drug: Zofran (Ondansetron) 4 mg Route: IVP; Site: right antecubital; eo2 14:49 Follow up: Response: No adverse reaction eo2 Disposition Summary: 12/11/21 14:18 Discharge Ordered Location: Home ma2 Condition: Stable ma2 Diagnosis - Atelectasis - Left lung. Splenic subcapsular hemorrhage ma2 Followup: ma2 - With: Private Physician - When: Today - Reason: Continuance of care Discharge Instructions: - Discharge Summary Sheet ma2 - Atelectasis, Adult ma2 Forms: - Medication Reconciliation Form ma2 - Thank You Letter ma2 - Antibiotic Education ma2 - Prescription Opioid Use ma2 Prescriptions: - ketorolac 10 mg Oral tablet - take 1 tablet by ORAL route every 6 hours for up to 5 days total use; 20 ma2 tablet; Refills: 0, Product Selection Permitted Signatures: Dispatcher [employer] Nika Starks RN RN iw Gibran Chandler MD MD ma2 Etta Marie RN RN jg9 Andreia Pelletier RN RN eo2
--- NOTE | 2021-12-11 14:19 | ER ---
Nurse's Notes [facility] Name: Angela Green Age: 56 yrs Sex: Female : 1965 Arrival Date: 12/11/2021 Time: 11:18 Bed 18 Private MD: Diagnosis: Atelectasis-Left lung. Splenic subcapsular hemorrhage Presentation: 12/11 11:37 Chief complaint: Patient states: had surgery two weeks ago for a SBO, now it hurts from iw her left shoulder down to her left leg and she still has a drain in , Dr. Kauffman did the surgery in [facility]. Coronavirus screen: At this time, the client does not indicate any symptoms associated with coronavirus-19. Ebola Screen: Patient negative for fever greater than or equal to 101.5 degrees Fahrenheit, and additional compatible Ebola Virus Disease symptoms Patient denies exposure to infectious person. Patient denies travel to an Ebola-affected area in the 21 days before illness onset. No symptoms or risks identified at this time. Initial Sepsis Screen: Does the patient meet any 2 criteria? No. Patient's initial sepsis screen is negative. Does the patient have a suspected source of infection? No. Patient's initial sepsis screen is negative. Risk Assessment: Do you want to hurt yourself or someone else? Patient reports no desire to harm self or others. Onset of symptoms was December 09, 2021. 11:37 Method Of Arrival: Ambulatory iw 11:37 Acuity: DONITA 3 iw Triage Assessment: 12:18 GI: Reports pain to left abd region-recent SBO surgery 2 weeks ago-sheree drain with <5mL jg9 drainage noted. Historical: - Allergies: 11:38 No Known Allergies; iw - PMHx: 11:38 Anxiety; Hypertensive disorder; Manic Depressive disorder; Migraine; Panic Attacks; iw RLS; tremors; - PSHx: 11:38 Hip implant; Spinal Fusion; gastric bypass; colon surgery; iw - Immunization history:: Client reports receiving the 2nd dose of the Covid vaccine. - Social history:: Smoking status: Patient denies any tobacco usage or history of. Patient/guardian denies using alcohol, street drugs, The patient lives with family. - Family history:: not pertinent. - Hospitalizations: : No recent hospitalization is reported. Screenin:16 Abuse screen: Denies threats or abuse. Denies injuries from another. Nutritional jg9 screening: No deficits noted. Tuberculosis screening: No symptoms or risk factors identified. Fall Risk None identified. Assessment: 12:00 General: Appears uncomfortable, Behavior is calm, cooperative. Pain: Complains of pain jg9 in pelvis, left arm-left shoulder down to pelvic region. 12:19 GI: Abd is soft X 4 quads Abdomen is tender to palpation in left upper quadrant and jg9 left lower quadrant. 14:38 GI: Bowel sounds present X 4 quads. eo2 Vital Signs: 11:37 BP 124 / 72; Pulse 105; Resp 18; Pulse Ox 95% ; Weight 86.18 kg; Height 5 ft. 8 in. iw (172.72 cm); Pain 9/10; 12:15 Pulse 96; Resp 15 S; Pulse Ox 95% on R/A; jg9 12:30 BP 99 / 52; Pulse 95; Resp 15 S; Pulse Ox 95% on R/A; jg9 13:45 BP 116 / 66; Pulse 86; Resp 18 S; Pulse Ox 98% on R/A; jg9 14:00 BP 124 / 67; Pulse 89; Resp 24 S; Pulse Ox 97% on R/A; jg9 14:30 BP 122 / 75; Pulse 88; Resp 14; Pulse Ox 98% ; Pain 8/10; eo2 14:50 BP 110 / 85; Pulse 86; Resp 15; Pulse Ox 100% ; Pain 3/10; eo2 11:37 Body Mass Index 28.89 (86.18 kg, 172.72 cm) ED Course: 11:18 Patient arrived in ED. as 11:38 Triage completed. iw 11:46 Etta Marie, JAZZ is Primary Nurse. jg9 11:50 Gibran Chandler MD is Attending Physician. ma2 11:55 Arm band placed on. iw 12:05 Basic Metabolic Panel Sent. em1 12:05 Maintain EMS IV. Dressing intact. eo2 12:19 Patient has correct armband on for positive identification. Bed in low position. Call jg9 light in reach. 12:49 CT Abd/Pelvis - IV Contrast Only In Process Unspecified. EDMS 12:49 CT Chest For PE Angio In Process Unspecified. EDMS 14:38 No provider procedures requiring assistance completed. eo2 14:50 IV discontinued, intact. eo2 Administered Medications: 12:00 Drug: NS 0.9% 1000 ml Route: IV; Rate: 1 bolus; Site: right antecubital; jg9 13:56 Follow up: IV Status: Completed infusion; IV Intake: 1000ml jg9 12:13 Drug: Zofran (Ondansetron) 4 mg Route: IVP; Site: right antecubital; jg9 13:10 Follow up: Response: No adverse reaction jg9 12:15 Drug: morphine 4 mg Route: IVP; Site: right antecubital; jg9 13:10 Follow up: Response: No adverse reaction; Pain is decreased; RASS: Alert and Calm (0) jg9 14:37 Drug: morphine 4 mg Route: IVP; Site: right antecubital; eo2 14:49 Follow up: Response: No adverse reaction; Pain is decreased eo2 14:37 Drug: Zofran (Ondansetron) 4 mg Route: IVP; Site: right antecubital; eo2 14:49 Follow up: Response: No adverse reaction eo2 Intake: 13:56 IV: 1000ml; Total: 1000ml. jg9 Outcome: 14:18 Discharge ordered by . ma2 14:50 Discharged to home ambulatory. eo2 14:50 Condition: stable 14:50 Discharge instructions given to patient, Instructed on discharge instructions, follow up and referral plans. medication usage, Demonstrated understanding of instructions, follow-up care, medications, Prescriptions given X 1. 14:51 Patient left the ED. eo2 Signatures: Dispatcher [employer] Leola Yanez Irene, RN Dominic Flaherty Mohammad, MD MD ma2 Gilmore, Jennifer, RN RN jg9 Andreia Pelletier RN RN eo2
[2021-12-11 15:03] VITALS: BP 110/85; O2SAT 100
== END 2021-12-11 14:51 | disposition home or self-care (01) ==
LOC: ER 11:17
DX: D78.31 Postprocedural hematoma of the spleen following a procedure on the spleen (principal); J98.11 Atelectasis; Z98.890 Other specified postprocedural states; I10 Essential (primary) hypertension
CPT/HCPCS: 85025; 80048; 36415; 82565; 80076; 81003; 83690; 71275; 74177; Q9967; J7030; J2405 ×2; 96361; 96374; 96375; 99284

== ENCOUNTER 2021-12-26 08:41 | Emergency (ER) | payer OTHER ==
--- OUTSIDE RECORDS SUMMARY | 2021-12-26 08:45 | XMS REPORT | Continuity of Care Document ---
:1965 Author Organization [facility] t Address [address] [place] [address] Care Team Providers Name Role Phone PHARIES Attending Clinician Unavailable CHARLY LORENZANA Attending Clinician Unavailable Charla OGDEN Attending Clinician Unavailable ALICIA OGDEN Attending Clinician Unavailable MERCY CARBAJAL Attending Clinician Unavailable GC_UPP_Mehta_Keenan Attending Clinician Unavailable Bhargavi Attending Clinician [phone] CHELLE Attending Clinician [phone] Chris LAWS Attending Clinician Unavailable Han PHILLIPS Attending Clinician Unavailable NA Attending Clinician Unavailable WILVER Attending Clinician Unavailable NOHEMI Attending Clinician Unavailable ALICIA OGDEN Admitting Clinician Unavailable GC_UPP_Mehta_J Admitting Clinician Unavailable Payers Payer Name Policy Type Policy Number Effective Date Expiration Date Chris cheema [facility] EXCHANGE [id number] 2021 00:00:00 [place]ON [place]O BENEFIT [id number] 1632-01-01 ADMINISTRATORS 00:00:00 Problems Condition Condition Condition Status Onset Resolution Last Treating Co mments Source Name Details Category Date Date Treatment Clinician Date Osteoporos Osteoporos Problem Active U nivers is is HL7.CCDAR2 [facility] [place] [facility] Allergies, Adverse Reactions, Alerts Allergy Allergy Status Severity Reaction(s) Onset Inactive Treating Comm ents Source Name Type Date Date Clinician NO KNOWN Allergy Active [facility] Social History Social Habit Start Date Stop Date Quantity Comments Source Sex Assigned At Female [facility] Smoking Status Start Date Stop Date Source Unknown if ever smoked Access He alth Medications This patient has no known medications. Vital Signs Vital Name Observation Time Observation Value Comments Source HEIGHT 2021-12-13 09:53:00 172.7 cm WEIGHT 2021-12-13 09:53:00 86.183 kg HEIGHT 2021-12-12 10:49:00 176.8 cm WEIGHT 2021-12-12 10:49:00 89.404 kg HEIGHT 2021-11-28 03:00:00 176.8 cm WEIGHT 2021-11-28 03:00:00 86.183 kg HEIGHT 2021-11-28 03:00:00 176.8 cm WEIGHT 2021-11-28 03:00:00 86.183 kg Procedures Procedure Date / Time Performing Clinician Source Performed Infectious agent 2020-02-21 00:00:00 [facility] detection by nucleic acid DEXA Bone Density with 2018 00:00:00 [facility] WB Composition DX Physicians Encounters Start End Encounter Admission Attending Care Care Encounter Source Date/Time Date/Time Type Type Clinicians Facility Department ID 2021-11-07 Outpatient STANFORDMELISSA BUENO [facility] [id number] 13:46:00 ELAINA 0904 [facility] 2021-11-07 Outpatient STANFORDMELISSA BUENO [facility] [id number] 13:44:54 ELAINA 0831 [facility] 2022-01-02 2022-01-02 Outpatient SALOMÓN [facility] [id number] 00:00:00 00:00:00 [facility] 2021-12-13 2021-12-13 Outpatient EL NOY LORENZANA [facility] [id number] [facility] 10:02:07 23:59:00 [place] 2021-12-12 2021-12-[address] [facility] [id number] 10:36:04 12:35:28 [facility] 2021-11-27 2021-12-01 Inpatient ER NOY OGDEN Surgery [id number] [facility] 17:49:00 11:30:00 MICHAEL 2021-06-21 2021-06-21 Outpatient MELISSA TORRES [id number] St[facility] 00:00:00 00:00:00 [facility] 2021-06-12 2021-06-12 Outpatient MELISSA TORRES [id number] St. 00:00:00 00:00:00 [facility] 2021-05-07 2021-05-07 Emergency E CARBAJAL ABRAM FB FB 7619 FB 16:56:00 18:45:00 2021-02-08 2021-02-08 Outpatient GC_UPP_Meht PRIV PRIV [id number] [facility] 10:34:00 10:34:00 a_J [id number] Medica l 2021-02-08 2021-02-08 Outpatient Burk, PRIV PRIV [id number] 00:00:00 00:00:00 Jhony [id number] 2020-02-24 2020-02-24 [facility] [id number] Access 11:32:00 11:32:00 RYAN [id number] Health [id number] 2020-02-21 2020-02-21 Outpatient [facility] [id number] Access 16:00:00 16:00:00 [id number] 2020-02-21 2020-02-21 [facility] [id number] Access 00:00:00 00:00:00 DARRELL Salamanca 2020-02-21 2020-02-21 Outpatient VETO [facility] [id number] Access 00:00:00 00:00:00 DARRELL Perez [id number] Health [id number] 2019-12-20 2019-12-20 Emergency E JACQUELINE ARIELLA FB FB [id number] FB 16:45:00 17:32:00 2019-09-28 2019-09-28 Emergency E [facility] [id number] [facility] 23:55:00 23:55:00 2019-08-19 2019-08-19 Emergency E [facility] 7577 [facility] 15:42:00 15:42:00 2019-03-04 2019-03-04 Emergency E [facility] [id number] [facility] 09:16:00 09:16:00 2018 2018 Appointmen RADHA MONZON [place] [id number] [facility] 10:00:00 10:00:00 t; CLIFFORD MONZON M.D. Surgery Oswaldo M.D. Specialty [facility] 2018-01-09 2018-01-09 Appointmen RADHA PETTIT UTP [id number] Univers 09:30:00 09:30:00 t; RIGO PETTIT, rima [facility] [employer] Physici ans 2017-12-19 2017-12-19 Appointmen RADHA PETTIT UTP [id number] Univers 09:30:00 09:30:00 t; RIGO PETTIT, rima [facility] [employer] Physici ans 2016-07-10 2016-07-10 Appointmen NOHEMI [facility] [id number] Univers 08:30:00 08:30:00 t; ABRAM [facility]arc[facility] [place] [place] ABRAM [facility] ans Results Test Description Test Test Comments Results Result Sour e Time Comments U/S, 2021-12 Laterality?->LeftLabs THORACENTESIS -03 to be Ordered:->No 10:41:0 Labs NeededReason for [facility] Exam:->Pleural LUKES - MEDICAL Effusion, left CENTERName: CLAUS LEGER : 1965 Sex: F FINAL REPORT PROCEDURE: Ultrasound-guided thoracentesis Procedural PersonnelAttending physician(s): Wendy Simon physician(s): NoneResident physician(s): NoneAdvanced practice provider(s): None Pre-procedure diagnosis: Left pleural effusionPost-procedure diagnosis: SameIndication: Pleural effusion with compromised respirationAdditional clinical history: None Complications: No immediate complications. IMPRESSION: Ultrasound-guided thoracentesis with drainage of 850 mL of serous dark cele fluid. Plan: Resume care by clinical team. PROCEDURE SUMMARY:- Limited thoracic ultrasound- Ultrasound-guided thoracentesis- Additional procedure(s): None PROCEDURE DETAILS: Pre-procedureConsent: Informed consent for the procedure including risks, benefits and alternatives was obtained and time-out was performed prior to the procedure.Preparation: The site was prepared and draped using maximal sterile barrier technique including cutaneous antisepsis. Anesthesia/sedationLeve l of anesthesia/sedation: No sedationAnesthesia/nia tion administered by: Not applicableTotal intra-service sedation time (minutes): None Limited thoracic ultrasoundLimited thoracic ultrasound was performed using a curved transducer. A safe window for thoracentesis was identified. Left hemithorax findings: Moderate pleural effusionRight hemithorax findings: Not investigated ThoracentesisLocal anesthesia was administered. The pleural space was accessed under real-time ultrasound guidance and fluid return confirmed position. The fluid was drained. The catheter was removed, and a sterile bandage was applied.Catheter placed: 4Fr OneStepPost-drainage hemithorax findings: No visible pleural effusion Additional DetailsAdditional description of procedure: NoneEquipment details: NoneSpecimens removed: Pleural fluidEstimated blood loss (mL): Less than 10Standardized report: SIR_Thoracentesis_v3 AttestationSigner name: Yesenia Bonner attest that I was present for the entire procedure. I reviewed the stored images and agree with the report as written. Signed: Yesenia Liz Verified Date/Time: 12/13/2021 10:41:34 Reading Location: [facility] Radiology Reading Room , CHEST, 1 2021-12 Reason for exam:->s/p * VIEW, NON DEPT -03 Left 10:36:[address] [facility] this be performed at [facility] the bedside?->Yes CENTERName: CLAUS LEGER : 1965 Sex: F FINAL REPORT Exam: RAD, CHEST, 1 VIEW, NON DEPTDate: 12/13/2021 10:35 AM Indication: Postoperative/Postproce dural Comparison: CXR of 11/29/2021 FINDINGS: Lines/Tubes:None Lungs:The lungs are moderately inflated. There is left basilar opacity silhouetting the left starla diaphragm. Pleura:Minimal trace residual left pleural effusion. No pneumothorax status post thoracentesis. Heart/Mediastinum:The cardiomediastinal silhouette is normal in size and contour. Bones/Soft Tissues: No acute osseous injury. Abdomen: No free air below the diaphragm. Right upper quadrant cholecystectomy clips. IMPRESSION:No postprocedural pneumothorax. Minimal residual left pleural effusion. Left basilar opacities, most likely subsegmental atelectasis. Signed: Yesenia Liz Verified Date/Time: 12/13/2021 10:36:14 Reading Location: [facility] Radiology Reading Room -GLUCOSE METER 2021-12-01 08:11:32 Test Item Value Reference Range Interpretation Comme [facility] POC-GLUCOSE METER (BEAKER) 82 mg/dL 70-110 : TESTED AT [facility] [address] [facility] (test code = 1538) [facility] [address]: Freelance Programmer/App Developer/Techni toribio ID = [id number] for Hector Leahy CBC W/PLT COUNT & AUTO [id number] 07:00:50 Test Item Value Reference Range Interpretation [...] code = 1+ few 965) COMPREHENSIVE METABOLIC [id number] 06:39:27 Test Item Value Reference Range Interpretation [...] S NOT APPLICABLE FOR DIALYSIS PATIEN TS. Freelance Programmer/App Developer ID - NSUVAGIYAOperator ID - NSUVAGIYAOperator ID - NSUVAGIYAOperator ID - NSUVAGIYAOperatorID - NSUVAGIYAOperator ID - NSUVAGIYAOperator ID - NSUVAGIYAOperator ID - NSUVAGIYAOperator ID - NSUVAGIYAOperator ID - NSUVAGIYAOperator ID - NSUVAGIYAOperator ID - NSUVAGIYAOperator ID - NSUVAGIYAOperator ID - NSUVAGIYAOperator ID - NSUVAGIYAOperator ID - NSUVAGIYA [id number] 06:27:53 Test Item Value Reference Range Interpretation Comments MAGNESIUM (BEAKER) (test code = 2.0 mg/dL 1.5-3.0 627) Freelance Programmer/App Developer ID - NSUVAGIYAOperator ID - NSUVAGIYAOperator ID - NSUVAGIYAOperator ID - NSUVAGIYAPOCT-GLUCOSE [id number] 06:21:40 Test Item Value Reference Range Interpretation Comments POC-GLUCOSE METER 86 mg/dL 70-110 : TESTED A T [facility] [address] (BEAKER) (test code = [address], 1538) [place] [address]: Freelance Programmer/App Developer/Techni toribio ID = [id number] for Aanu siemvivienneicity POCT-GLUCOSE [id number] 00:12:11 Test Item Value Reference Range Interpretation Comments POC-GLUCOSE METER 94 mg/dL 70-110 : TESTED A T [facility] [address] (BEAKER) (test code = [address], 1538) [place] [address]: Freelance Programmer/App Developer/Techni toribio ID = [id number] for Aanu siem, felicity POCT-GLUCOSE [id number] 17:09:46 Test Item Value Reference Range Interpretation Comments POC-GLUCOSE METER 84 mg/dL 70-110 : TESTED A T [facility] [address] (BEAKER) (test code = [address], 1538) [place] [address]: Freelance Programmer/App Developer/Techni toribio ID = [id number] for Buff ord, Andreia POCT-GLUCOSE [id number] 11:11:43 Test Item Value Reference Range Interpretation Comments POC-GLUCOSE METER 123 mg/dL 70-110 H : TESTED A T [facility] [address] (BEAKER) (test code [address], = 1538) [place] [address]: Freelance Programmer/App Developer/Techni toribio ID = [id number] for Buff ord, Andreia CBC W/PLT COUNT & AUTO [id number] 05:28:42 Test Item Value Reference Range Interpretation [...] (test code Normal = 762) COMPREHENSIVE METABOLIC [id number] 05:04:16 Test Item Value Reference Range Interpretation [...] S NOT APPLICABLE FOR DIALYSIS PATIEN TS. Freelance Programmer/App Developer ID - LITOOperator ID - LITOOperator ID - LITOOperator ID - LITOOperator ID - LITOOperator ID - LITOOperator ID - LITOOperator ID - LITOOperator ID - LITOOperator ID - LITOOperator ID - LITOOperator ID - LITOOperator ID - LITOOperator ID - LITOOperator ID - LITOOperator ID - [id number] 05:04:01 Test Item Value Reference Range Interpretation Comments MAGNESIUM (BEAKER) (test code = 1.9 mg/dL 1.5-3.0 627) Freelance Programmer/App Developer ID - LITOOperator ID - LITOOperator ID - LITOOperator ID - LITOPOCT- GLUCOSE [id number] 21:26:19 Test Item Value Reference Range Interpretation Comments POC-GLUCOSE METER 103 mg/dL 70-110 : TESTED A T [facility] [address] (BEAKER) (test code [address], = 1538) [place] [address]: Freelance Programmer/App Developer/Techni toribio ID = [id number] for Kevin Epperson POCT-GLUCOSE [id number] 17:07:14 Test Item Value Reference Range Interpretation Comments POC-GLUCOSE METER 101 mg/dL 70-110 : TESTED A T [facility] [address] (BEAKER) (test code [address], = 1538) [place] [address]: Freelance Programmer/App Developer/Techni toribio ID = [id number] for Adelia Andreia lima RAD, CHEST, 1 VIEW, NON [id number] 14:01:00Reason for exam:->SOBShould this be performed at the bedside?->Yes [facility] 1965 Sex: FFINAL REPORT Chest AP portable erect History provided: Shortness of breath Heart size magnified by projection and poor inspiration. Mild basilar atelectasis. Lungs otherwise clear and vascularity normal. Signed: Edy Nuñezeport Verified Date/Time: 11/29/2021 14:01:49 Reading Location: [facility] Radiology Reading Room Electronically signed by: EDY NUÑEZ on 0 11/29/2021 02:01 PMPOCT-GLUCOSE [id number] 11:33:08 Test Item Value Reference Range Interpretation Comments POC-GLUCOSE METER 115 mg/dL 70-110 H : TESTED A T [facility] [address] (BEAKER) (test code [address], = 1538) [facility] [address]: Freelance Programmer/App Developer/Techni toribio ID = [id number] for Andreia Donouhe POCT-GLUCOSE [id number] 06:56:45 Test Item Value Reference Range Interpretation Comments POC-GLUCOSE METER 106 mg/dL 70-110 : TESTED A T [facility] [address] (BEAKER) (test code [address], = 1538) [facility] [address]: Freelance Programmer/App Developer/Techni toribio ID = [id number] for Isabella Camilo CBC W/PLT COUNT & AUTO [id number] 12:58:22 Test Item Value Reference Range Interpretation [...] (test code Normal = 762) BASIC METABOLIC [id number] 12:24:14 Test Item Value Reference Range Interpretation [...] S NOT APPLICABLE FOR DIALYSIS PATIEN TS. Freelance Programmer/App Developer ID - DSENSONOperator ID - DSENSONOperator ID - DSENSONOperator ID - DSENSONOperator ID - DSENSONOperator ID - DSENSONOperator ID - DSENSONOperator ID - DSENSONOperator ID - DSENSONOperator ID - DSENSONOperator ID - DSENSONOperator ID - DSENSONOperator ID - DSENSONPOCT-GLUCOSE [id number] 11:03:21 Test Item Value Reference Range Interpretation Comments POC-GLUCOSE METER 183 mg/dL 70-110 H : TESTED A T [facility] [address] (BEAKER) (test code [address], = 1538) [facility] [address]: Freelance Programmer/App Developer/Techni toribio ID = [id number] for AnthonyVicenta ardon HEMOGLOBIN [id number] 06:14:25 Test Item Value Reference Range Interpretation Comments HEMOGLOBIN A1C (BEAKER) (test code = 5.3 % 4.3-6.1 368) Freelance Programmer/App Developer ID - [id number](MANUAL DIFFERENTIAL)2021-11-28 06:03:44 Test Item [...] few 477) CBC W/PLT COUNT & AUTO [id number] 06:03:43 Test Item Value Reference Range Interpretation [...] (test code = 2801) TSH/FREE T4 IF [id number] 05:47:56 Test Item Value Reference Range Interpretation Comments THYROID STIMULATING HORMONE 1.190 uIU/mL 0.350-5.500 (BEAKER) (test code = 772) Freelance Programmer/App Developer ID - [id number] METABOLIC [id number] 05:37:27 Test Item Value Reference Range Interpretation [...] S NOT APPLICABLE FOR DIALYSIS PATIEN TS. Freelance Programmer/App Developer ID - [id number] ID - xlzq18Nutegwcu ID - [id number] ID - yiok10Kzymocsj ID - mpvw17Wriqemah ID - twri84Cxnfzqrj ID - bbqo50Zxmqzodg ID - aebh27Rnibzjzl ID - qpww74Ugmadbaz ID - rygt13Safcqxyf ID - knqp44Cnjqqzxn ID - cfft63Nmimkonv ID - wcfl28Gwdzxtip ID - kqxk47Czxxvrax ID - mpup00Qqcpiulb ID - [id number] 05:27:38 Test Item Value Reference Range Interpretation Comments MAGNESIUM (BEAKER) (test code = 1.7 mg/dL 1.5-3.0 627) Freelance Programmer/App Developer ID - [id number] ID - [id number] ID - pkwj46Cphimfri ID - [id number] 05:24:23 Test Item Value Reference Range Interpretation Comments PHOSPHORUS (BEAKER) (test code = 5.0 mg/dL 2.5-4.5 H 604) Freelance Programmer/App Developer ID - [id number]/[id number] 05:23:01 Test Item Value Reference Range Interpretation Comments PROTIME (BEAKER) (test 10.5 seconds 9.3-12.0 Final Information code = 759) (Auto Output) INR (BEAKER) (test 0.94 See_Comment Final Inf ormation code = 370) (Auto Output) [Automated mess age] The system Veot[employer] generated this result transmit vannesa reference range [...] in Unspecified specimen by GIULIANA with probe [id number] 04:17:00 Test Item Value Reference Range Interpretation Comments SARS-CoV-2, Not Detected Not Detected Testing was per formed using GIULIANA (test code the chapincito(R) SARS-CoV-2 = 18889-7) test.This test was developed and i ts performance juancho racteristics determinedby [employer]. T his test has not been FDA [...] assay.
< br/>Performe d by:
Lab[facility] rp Michael (CETWE)

[facility]: SARS-CoV-2 (COVID-19) RNA [Presence] in Unspecified specimen by GIULIANA with probe [id number] 04:17:00 Test Item Value Reference Range Interpretation Comments SARS-CoV-2, Not Detected Not Detected Testing was per formed using GIULIANA (test code the chapincito(R) SARS-CoV-2 = 19277-2) test.This test was developed and i ts performance juancho racteristics determinedby [employer]. T his test has not been FDA [...] assay.
< br/>Performe d by:
[facility] r[facility] Michael (CETWE)

[facility]] CMP [id number] 14:13:01 Test Item Value Reference Range Interpretation Comments Sodium Level 142 {mEq/l} 135-145 (test code = 2951-2) Potassium Level 4.2 {mEq/l} 3.5-5.1 (test code = 2823-3) Chloride Level; 112 {mEq/l} 95-109 Above High Threshold (test code = 5-0) Carbon Dioxide; 23 {mEq/l} 24-32 Below Low Threshold (test code = 8-9) AGAP (test code = 11.2 {mEq/l} 10.0-20.0 08245-2) Glucose Lvl (test 70 mg/dl 70-99 Adult refe rence range code = 2345-7) values reflec t the clinical guidel inesof the [place] Diabet es Association. Creatinine Lvl 1.00 mg/dl 0.50-1.40 (test code = 2160-0) Blood Urea 12 mg/dl 7-22 Nitrogen (test code = 3094-0) BUN/Creatinine 12 6-25 Ratio (test code = 3097-3) Total Protein 7.2 g/dl 6.4-8.4 (test code = 2885-2) Albumin Lvl; 3.3 g/dl 3.5-5.0 Below Low Threshold (test code = 1751-7) Globulin (test 3.9 g/dl 2.7-4.2 code = 69718-8) A/G Ratio (test 0.8 0.7-1.6 code = 1759-0) Calcium Level 8.4 mg/dl 8.5-10.5 Total; Below Low Threshold (test code = 49602-4) ALT (test code = 38 u/l 0-65 1743-4) AST (test code = 28 u/l 0-37 89743-2) Bili Total (test 0.3 mg/dl 0.2-1.3 code = 1974-2) Alk Phos (test 118 u/l 39-136 code = 1783-0) eGFR (test code = 64 The eGFR i s calculated 33067-1) {ML/MIN/1.7} using the CKD-E PI formula. In [...] be multiplied by t he estimated BMI. [facility]] IRON, [id number] 14:13:01 Test Item Value Reference Range Interpretation Comments Iron; Above High Threshold (test 361 ug/dL 30-160 code = 2498-4) [facility]] LIPID [id number] 14:13:01 Test Item Value Reference Range Interpretation Comments Chol (test code = 2093-3) 152 mg/dl <=199 Trig; Above High Threshold (test 177 mg/dl <=149 code = 2571-8) HDL Cholesterol (test code = 68 mg/dl >=61 2085-9) CHD Risk; Below Low Threshold (test 2.24 3.90-5.80 code = 31214-4) LDL (test code = 48695-6) 49 mg/dl <=99 VLDL (test code = VLDL) 35 [facility]] VITAMIN [id number] 14:13:01 Test Item Value Reference Range Interpretation Comments Vitamin B12 Level (test code = 546 pg/ml 254-1320 2132-9) [facility]] TSH, 3RD GENERATION W/REFLEX TO FT4 2018 14:13:01 Test Item Value Reference Range Interpretation Comments TSH (test code = 01309-1) 1.790 {uIU/ml} 0.360-3.740 [facility]] PTH, INTACT (WITHOUT CALCIUM)2018 14:13:01 Test Item Value Reference Range Interpretation Comments Parathyroid Hormone Intact; Above 120.8 pg/ml 18.4-80.1 High Threshold (test code = 2731-8) [facility]] CBC (INCLUDES DIFF/PLT)2018 14:13:01 Test Item Value Reference Range Interpretation Comments WBC (test code = 6690-2) 6.1 {K/CMM} 3.7-10.4 RBC; Below Low Threshold (test 3.97 {M/CMM} 4.20-5.40 code = 789-8) Hgb; Below Low Threshold (test 10.1 g/dl 12.0-16.0 code = 718-7) Hct; Below Low Threshold (test 30.7 % 36.0-48.0 code = 35086-7) MCV; Below Low Threshold (test 77.5 fL 80.0-98.0 code = 787-2) MCH; Below Low Threshold (test 25.4 pg 27.0-31.0 code = 785-6) MCHC (test code = 786-4) 32.8 g/dl 32.0-36.0 RDW; Above High Threshold (test 20.3 % 11.5-14.5 code = 788-0) Platelet (test code = 37161-6) 275 {K/CMM} 133-450 Mean Platelet Volume (test code 9.2 fL 7.4-10.4 = 08070-1) [facility]] [id number] 14:13:01 Test Item Value Reference Range Interpretation Comments Segmented Neutrophils (test code 61.1 % 45.0-75.0 = 79508-0) Monocytes (test code = 97045-1) 7.0 % 2.0-12.0 Lymphocytes (test code = 63353-2) 26.5 % 20.0-40.0 Eosinophils; Above High Threshold 4.5 % 0.0-4.0 (test code = 71833-2) Basophils (test code = 706-2) 0.9 % 0.0-1.0 Segs-Bands # (test code = 3.7 {K/CMM} 1.5-8.1 67145-7) Lymphocytes # (test code = 1.6 {K/CMM} 1.0-5.5 73920-1) Monocytes # (test code = 51884-4) 0.4 {K/CMM} 0.0-0.8 Eosinophils # (test code = 0.3 {K/CMM} 0.0-0.5 21828-5) Basophils # (test code = 17310-6) 0.1 {K/CMM} 0.0-0.2 Microcyte (test code = Microcyte) 1+ None Seen A [facility]] FOLATE, [id number] 14:13:01 Test Item Value Reference Range Interpretation Comments Folate Level (test code = 2284-8) 23.1 ng/ml >=3.0 [facility]] HEMOGLOBIN [id number] 14:13:01 Test Item Value Reference Range Interpretation Comments Hemoglobin A1c (test code = 4548-4) 5.2 % <=5.6 [facility]] VITAMIN D, 25-HYDROXY, [id number]/[id number] 14:13:01 Test Item Value Reference Range Interpretation Comments Vitamin D, 25-OH, 36.3 ng/ml 30.0-100.0 Reference range is based Total (test code on recommen dations in the = Vitamin D, EndocrineSociet y Clinical 25-OH, Total) Practice Guide line (J Clin Endocrinol Eudnx3098;96:19 11-1930) [facility]] VITAMIN B1, WHOLE [id number] 14:13:01 Test Item Value Reference Range Interpretation Comments Vitamin B1 131.4 66.5-200.0 This test was d eveloped and its Level (test nmol/L performance code = characteristics determined by Vitamin B1 [facility]. It has not been Level) cleared orappro jose m by the Food and Drug Administration. Performed At: [facility] [address] [place], [place] [id number] k Mark Avalos MD Ph:[phone] [facility][H] Vit [id number] 14:13:01 Test Item Value Reference Range Interpretation Comments Vitamin A 28.3 ug/dL 33.1-100.0 Reference inter vals for vitamin Level (test A determined fr om code = NationalHealth and Nutrition Vitamin A Examination [place], Level) [id number].Indiv iduals with vitamin A less than 20 ug/dL areconsidered v itamin A deficient and t hose with serumconcentrat ions less than 10 ug/dL are co nsidered severelydeficie nt.This test was developed and i ts performance characteristics determined by [facility]. It has not been cleared orappro jose m by the Food and Drug Admini stration. Please note reference interval change [facility]formed At: [facility] [place], [place] [id number] rl Avalos MD Ph:[phone] [facility][H] Vitamin E [id number] 14:13:01 Test Item Value Reference Range Interpretation Comments Alpha-Tocoph 10.8 mg/L 7.0-25.1 jovana (test code = Alpha-Tocoph jovana) Gamma-Tocoph 0.6 mg/L 0.5-5.5 Reference inter vals for alpha jovana (test and gamma-tocop heroldetermined code = from National H ealth and Gamma-Tocoph Nutrition Exami nationSurvey, jovana) [id number]. Aishwarya viduals with alpha-tocophero l levelsless than 0.5 mg/L are co nsidered vitamin E deficient.Thi s test was developed and i ts performance characteristics determined by [facility]. It has not been cleared orapproved by t Food and Drug Administration. Performed At: [facility] [place], [place] [id number] Avalos MD Ph:[phone] [facility]
[2021-12-26 09:20] LABS: Hematocrit 27.1 % (36.0-45.0); MPV 6.8 fL (7.6-11.3); RBC Red Blood Cell Count 3.54 M/uL (3.86-4.86)
--- NOTE | 2021-12-26 09:30 | RAD REPORT ---
EXAM DESCRIPTION: RAD - Chest Single View - 12/26/2021 9:24 am CLINICAL HISTORY: COUGH Chest pain. COMPARISON: Chest For Pe Angio dated 12/11/2021 FINDINGS: Portable technique limits examination quality. Haziness in the left lung base likely represents a combination of atelectasis and small pleural effus ion. The right lung is clear. The heart is normal in size. No displaced fractures.
[2021-12-26 09:53] LABS: Potassium 3.4 mmol/L (3.5-5.1); Troponin High Sensitivity 3.6 pg/mL (<58.9)
[2021-12-26 10:06] LABS: SARS-COV-2 RT PCR NEGATIVE (NEGATIVE)
--- NOTE | 2021-12-26 11:56 | RAD REPORT ---
EXAM DESCRIPTION: CT - Chest For Pe Angio - 12/26/2021 11:24 am CLINICAL HISTORY: Chest pain. DYSPNEA COMPARISON: Chest For Pe Angio dated 12/11/2021 TECHNIQUE: CT angiogram of the pulmonary arteries was performed with MIP. All CT scans are performed using dose optimization technique as appropriate and may include automated exposure control or mA/KV adjustment according to patient size. FINDINGS: No evidence of pulmonary thromboembolism. No acute aortic finding demonstrated. Small amount of linear atelectasis present posterior right lower lobe. Moderate atelectasis is seen p osterior left lower lobe. Small pleural effusion No concerning bony finding. IMPRESSION: No evidence of pulmonary thromboembolism. Moderate atelectasis left lung base with a small amount pleural fluid present.
--- NOTE | 2021-12-26 12:47 | EDPHYS ---
Physician Documentation [facility] Name: Angela Green Age: 56 yrs Sex: Female : 1965 Arrival Date: 12/26/2021 Time: 08:43 Bed 19 Private MD: ED Physician Yogesh Herrmann HPI: 12/26 08:51 This 56 yrs old Female presents to ER via Unassigned with complaints of Cough, ms3 Shortness Of Breath. 08:51 The patient or guardian reports cough, with productive sputum, that is green. Onset: ms3 The symptoms/episode began/occurred 2 day(s) ago. Modifying factors: The symptoms are alleviated by nothing, the symptoms are aggravated by nothing. Associated signs and symptoms: The patient has no apparent associated signs or symptoms. 56-year-old female presents for cough and shortness of breath that has been ongoing for 2 days. Patient states she does have a cough that is productive of green sputum. Patient does endorse chills and shortness of breath. Patient denies nausea or vomiting. Patient states pain is located on the left side of her chest described as stabbing and rated a 5/10. Patient states the pain is worse with deep breathing. Patient denies alleviating factors.. Historical: - Allergies: 08:57 No Known Allergies; ph 08:55 No Known Allergies; ag7 - Home Meds: 08:57 diazepam Oral [Active]; losartan Oral [Active]; quetiapine Oral [Active]; Wellbutrin ph Oral [Active]; 08:55 losartan oral [Active]; quetiapine oral [Active]; Diazepam Oral [Active]; Wellbutrin ag7 Oral [Active]; - PMHx: 08:57 Anxiety; Hypertensive disorder; Hypertensive disorder; Manic Depressive disorder; ph Migraine; Panic Attacks; RLS; tremors; 08:55 tremors; Anxiety; Hypertensive disorder; Manic Depressive disorder; Migraine; Panic ag7 Attacks; RLS; Hypertensive disorder; 08:57 restless leg syndrome; Migraine; ag7 - PSHx: 08:57 colon surgery; Gastric Bypass; Hip implant; Spinal Fusion; ph 08:57 colon surgery; Gastric Bypass; Hip implant; Spinal Fusion; section; ag7 Cholecystectomy; - Immunization history:: Adult Immunizations up to date, Client reports receiving the 2nd dose of the Covid vaccine, Flu vaccine is up to date. - Social history:: Smoking status: Patient denies any tobacco usage or history of. ROS: 08:51 Constitutional: Negative for fever, and chills. ENT: Negative for injury, pain, and ms3 discharge, Neck: Negative for injury, pain, and swelling, Abdomen/GI: Negative for abdominal pain, nausea, vomiting, diarrhea, and constipation, Back: Negative for injury and pain, MS/Extremity: Negative for injury and deformity, Skin: Negative for injury, rash, and discoloration, Neuro: Negative for headache, weakness, numbness, tingling. Allergy/Immunology: Negative for hives, rash, and allergies. 08:51 Cardiovascular: Positive for chest pain with deep breathing. 08:51 Respiratory: Positive for cough. 08:51 All other systems are negative. Exam: 09:07 ECG was reviewed by the Attending Physician. ms3 09:18 Constitutional: This is a well developed, well nourished patient who is awake, alert, ms3 and in no acute distress. Head/Face: Normocephalic, atraumatic. Eyes: Pupils equal round and reactive to light, extra-ocular motions intact. Lids and lashes normal. Conjunctiva and sclera are non-icteric and not injected. Periorbital areas with no swelling, redness, or edema. ENT: Nares patent. No nasal discharge, no septal abnormalities noted. Tympanic membranes are normal and external auditory canals are clear. Oropharynx with no redness, swelling, or masses, exudates, or evidence of obstruction, uvula midline. Mucous membranes moist. Neck: Trachea midline, no cervical lymphadenopathy. Supple, full range of motion without nuchal rigidity, or vertebral point tenderness. No Meningismus. Chest/axilla: Normal chest wall appearance and motion. Nontender with no deformity. Cardiovascular: Regular rate and rhythm with a normal S1 and S2. No gallops, murmurs, or rubs. Normal PMI, no JVD. No pulse deficits. Respiratory: Lungs have equal breath sounds bilaterally, clear to auscultation and percussion. No rales, rhonchi or wheezes noted. No increased work of breathing, no retractions or nasal flaring. Abdomen/GI: Soft, non-tender, with normal bowel sounds. No distension or tympany. No guarding or rebound. No evidence of tenderness throughout. Back: No spinal tenderness. No costovertebral tenderness. Full range of motion. Skin: Warm, dry with normal turgor. Normal color with no rashes, no lesions, and no evidence of cellulitis. MS/ Extremity: Pulses equal, no cyanosis. Neurovascular intact. Full, normal range of motion. Neuro: Awake and alert, GCS 15, oriented to person, place, time, and situation. Cranial nerves II-XII grossly intact. Motor strength 5/5 in all extremities. Sensory grossly intact. Cerebellar exam normal. Normal gait. Psych: Awake, alert, with orientation to person, place and time. Behavior, mood, and affect are within normal limits. Vital Signs: 08:45 BP 135 / 90 RA Sitting (man/reg); Pulse 120 MON; Resp 19 S; Temp 98(O); Pulse Ox 97% on ag7 R/A; Pain 7/10; 09:45 BP 122 / 90; Pulse 104; Resp 18; Pulse Ox 97% ; ww 10:30 BP 130 / 93; Pulse 91; Resp 14; Pulse Ox 97% on R/A; ww 12:30 BP 132 / 99; Pulse 89; Resp 15; Pulse Ox 97% on R/A; ww MDM: 08:58 Patient medically screened. ms3 15:52 Differential Diagnosis: Bronchitis Upper Respiratory Infection Other COVID vs Pleural ms3 effusion. Data reviewed: vital signs, nurses notes, lab test result(s), radiologic studies, CT scan. Data interpreted: Pulse oximetry: on room air is 97 %. Interpretation: normal. 15:52 Counseling: I had a detailed discussion with the patient and/or guardian regarding: the ms3 historical points, exam findings, and any diagnostic results supporting the discharge/admit diagnosis, lab results, radiology results, the need for outpatient follow up, to return to the emergency department if symptoms worsen or persist or if there are any questions or concerns that arise at home. ED course: Discussed labs, radiology studies, physical exam findings with patient. Patient to follow-up with her primary care physician as instructed. Patient understands and agrees with plan. All questions were answered. Return precautions discussed include worsening symptoms, or any other concerns. On reevaluation patient was alert and oriented x4, in no apparent distress, nontoxic, speaking full sentences, ambulatory in emergency department.. 12/26 08:50 Order name: Basic Metabolic Panel; Complete Time: 10:54 ms3 12/26 08:50 Order name: CBC with Diff; Complete Time: 09:34 ms3 12/26 08:50 Order name: D-Dimer ms3 12/26 08:50 Order name: Troponin HS; Complete Time: 10:54 ms3 12/26 08:50 Order name: XRAY Chest (1 view); Complete Time: 09:34 ms3 12/26 09:00 Order name: COVID-19/FLU A+B (Document "Date of Onset" if Symptomatic); Complete Time: kj1 10:54 12/26 08:50 Order name: EKG; Complete Time: 08:51 ms3 12/26 08:50 Order name: Cardiac monitoring; Complete Time: 09:11 ms3 12/26 08:50 Order name: EKG - Nurse/Tech; Complete Time: 09:11 ms3 12/26 08:50 Order name: IV Saline Lock; Complete Time: 09:12 ms3 12/26 08:50 Order name: Labs collected and sent; Complete Time: 09:12 ms3 12/26 08:50 Order name: O2 Per Protocol; Complete Time: 09:12 ms3 12/26 08:50 Order name: O2 Sat Monitoring; Complete Time: 09:12 ms3 12/26 11:08 Order name: CT Chest For PE Angio; Complete Time: 12:29 ms3 EC:07 Rate is 110 beats/min. Rhythm is regular. QRS Alsen is Normal. Clinical impression: ms3 Sinus tachycardia. Interpreted by me. Administered Medications: No medications were administered Disposition Summary: 12/26/21 12:46 Discharge Ordered Location: Home ms3 Condition: Stable ms3 Diagnosis - Cough ms3 - Shortness of breath ms3 - Pleural effusion, not elsewhere classified ms3 - Anemia, unspecified ms3 Followup: ms3 - With: Private Physician - When: 2 - 3 days - Reason: Discharge Instructions: - Discharge Summary Sheet ms3 - Anemia ms3 - Shortness of Breath, Adult ms3 Forms: - Medication Reconciliation Form ms3 - Thank You Letter ms3 - Antibiotic Education ms3 - Prescription Opioid Use ms3 Prescriptions: - Tessalon Perles 100 mg Oral Capsule - take 1 capsule by ORAL route every 8 hours As needed; 15 capsule; Refills: 0, ms3 Product Selection Permitted Signatures: Dispatcher [employer] Selma Silva, RN RN ph Yogesh Herrmann, DO RINCON ms3 Merlyn Landon, RN RN ag7
--- NOTE | 2021-12-26 12:47 | ER ---
Nurse's Notes [facility] Name: Angela Green Age: 56 yrs Sex: Female : 1965 Arrival Date: 12/26/2021 Time: 08:43 Bed 19 Private MD: Diagnosis: Cough;Shortness of breath;Pleural effusion, not elsewhere classified;Anemia, unspecified Presentation: 12/26 08:45 Chief complaint: Patient states: Patient c/o green phlegm, shortness of breath, hard to ag7 breath and chills that started two days ago. Coronavirus screen: Client denies travel out of the [place] in the last 14 days. Ebola Screen: Patient denies exposure to infectious person. Initial Sepsis Screen: Does the patient meet any 2 criteria? No. Patient's initial sepsis screen is negative. Does the patient have a suspected source of infection? No. Patient's initial sepsis screen is negative. Risk Assessment: Do you want to hurt yourself or someone else? Patient reports no desire to harm self or others. Onset of symptoms was December 24, 2021. 08:45 Method Of Arrival: Ambulatory ag7 08:45 Acuity: DONITA 3 ag7 Historical: - Allergies: 08:57 No Known Allergies; ph 08:55 No Known Allergies; ag7 - Home Meds: 08:57 diazepam Oral [Active]; losartan Oral [Active]; quetiapine Oral [Active]; Wellbutrin ph Oral [Active]; 08:55 losartan oral [Active]; quetiapine oral [Active]; Diazepam Oral [Active]; Wellbutrin ag7 Oral [Active]; - PMHx: 08:57 Anxiety; Hypertensive disorder; Hypertensive disorder; Manic Depressive disorder; ph Migraine; Panic Attacks; RLS; tremors; 08:55 tremors; Anxiety; Hypertensive disorder; Manic Depressive disorder; Migraine; Panic ag7 Attacks; RLS; Hypertensive disorder; 08:57 restless leg syndrome; Migraine; ag7 - PSHx: 08:57 colon surgery; Gastric Bypass; Hip implant; Spinal Fusion; ph 08:57 colon surgery; Gastric Bypass; Hip implant; Spinal Fusion; section; ag7 Cholecystectomy; - Immunization history:: Adult Immunizations up to date, Client reports receiving the 2nd dose of the Covid vaccine, Flu vaccine is up to date. - Social history:: Smoking status: Patient denies any tobacco usage or history of. Screenin:55 Abuse screen: Denies threats or abuse. Denies injuries from another. Nutritional ph screening: No deficits noted. Tuberculosis screening: No symptoms or risk factors identified. Fall Risk None identified. Assessment: 09:26 General: Appears in no apparent distress. Behavior is calm, cooperative. Pain: ww Complains of pain in diaphragm. Neuro: Level of Consciousness is awake, alert, obeys commands, Oriented to person, place, time, situation, Moves all extremities. Speech is normal. Cardiovascular: Reports shortness of breath, Denies chest pain, Capillary refill < 3 seconds Patient's skin is warm and dry. Edema is absent. Rhythm is regular. Respiratory: Reports shortness of breath Airway is patent Respiratory effort is even, unlabored, Respiratory pattern is regular, symmetrical. GI: Abdomen is non-distended, Abd is soft X 4 quads Abdomen is tender to palpation in epigastric area. : No signs and/or symptoms were reported regarding the genitourinary system. Derm: Skin is intact, is healthy with good turgor, Skin is pink, warm \\T\\ dry. Midline abdominal incision intact with no drainage noted. 10:34 Reassessment: Patient appears in no apparent distress at this time. No changes from previously documented assessment. Patient and/or family updated on plan of care and expected duration. Pain level reassessed. Patient is alert, oriented x 3, equal unlabored respirations, skin warm/dry/pink. Patient states feeling better. called lab and ddimer machine is down and lab is being sent to [place]. Dr. Herrmann notified. Patient notified and patient is requesting to remove IV and be restuck if she needs an IV. Dr. Herrmann notified and visited with patient.. 11:43 Reassessment: Patient appears in no apparent distress at this time. No changes from previously documented assessment. Patient and/or family updated on plan of care and expected duration. Pain level reassessed. Patient is alert, oriented x 3, equal unlabored respirations, skin warm/dry/pink. Vital Signs: 08:45 BP 135 / 90 RA Sitting (man/reg); Pulse 120 MON; Resp 19 S; Temp 98(O); Pulse Ox 97% on ag7 R/A; Pain 7/10; 09:45 BP 122 / 90; Pulse 104; Resp 18; Pulse Ox 97% ; ww 10:30 BP 130 / 93; Pulse 91; Resp 14; Pulse Ox 97% on R/A; ww 12:30 BP 132 / 99; Pulse 89; Resp 15; Pulse Ox 97% on R/A; ww ED Course: 08:43 Patient arrived in ED. ds1 08:44 Yogesh Herrmann DO is Attending Physician. ms3 08:55 Triage completed. ag7 08:55 Arm band placed on Patient placed in an exam room, on a stretcher. ph 08:55 Patient has correct armband on for positive identification. Bed in low position. Call ph light in reach. Side rails up X 1. Pulse ox on. NIBP on. 08:59 Arm band placed on right wrist. ag7 09:00 Desirae Perez, RN is Primary Nurse. ww 09:05 Inserted saline lock: 20 gauge in left antecubital area, using aseptic technique. ww 09:12 Placed in gown. Warm blanket given. bus driver/monitor on. Pulse ox on. [facility] 09[facility]12 CBC with Diff [facility] 09:12 D-Dimer [facility] 09:12 Troponin HS [facility] 09:14 COVID-19/FLU A+B (Document "Date of Onset" if Symptomatic) [facility] 09:14 Initial lab(s) drawn, by fl, sent to lab. EKG done, by ED staff, reviewed by Yogesh Dev Herrmann DO COVID swab sent to lab. 09:24 XRAY Chest (1 view) In Process Unspecified. EDMS 11:24 CT Chest For PE Angio In Process Unspecified. EDMS 12:45 No provider procedures requiring assistance completed. IV discontinued, bleeding ww controlled, No redness/swelling at site. Pressure dressing applied. Administered Medications: No medications were administered Outcome: 12:46 Discharge ordered by . ms3 12:50 Discharged to home ambulatory. ww 12:50 Condition: stable 12:50 Discharge instructions given to patient, Instructed on discharge instructions, follow up and referral plans. medication usage, safety practices, Demonstrated understanding of instructions, follow-up care, medications, Prescriptions given X 1. 13:10 Patient left the ED. ww Signatures: Dispatcher [facility] Ger Debra ds1 Selma Moore, RN RN Pretty Gibson 5 Yogesh Herrmann, DO RINCON ms3 Desirae Perez, RN RN ww Merlyn Landon RN RN ag7
[2021-12-26 13:16] VITALS: TEMP 98; O2SAT 97
[2021-12-26 13:19] VITALS: BP 132/99
--- NOTE | 2021-12-31 08:38 | EKG ---
Test Date: 2021-12-26 Test Time: 09:07:08 Tool Profiling Machine Set Up Operator: JOSE MEASUREMENT RESULTS: Intervals: Rate: 110 UT: 176 QRSD: 80 QT: 326 QTc: 441 [place]: P: 57 UT: 176 QRS: 62 T: 52 INTERPRETIVE STATEMENTS: Sinus tachycardia Cannot rule out Anterior infarct, age undetermined Abnormal ECG No previous ECG available for comparison Electronically Signed On 12-31-21 08:25:04 CDT by Vijay Andrade
== END 2021-12-26 13:10 | disposition home or self-care (01) ==
LOC: ER 08:41
DX: R05.9 Cough, unspecified (principal); R06.02 Shortness of breath; J90 Pleural effusion, not elsewhere classified; D64.9 Anemia, unspecified
CPT/HCPCS: 93005; 85025; 80048; 36415; 85379; 84484; 0240U; 71275; 71045; 99284; Q9967

== ENCOUNTER 2023-02-21 01:15 | Emergency (ER) | payer OTHER ==
--- OUTSIDE RECORDS SUMMARY | 2023-02-21 01:20 | XMS REPORT | Continuity of Care Document ---
:1965 Author Organization [facility] t Address [address] [facility] [place] [address] Care Team Providers Name Role Phone No, Pcp [facility] Primary Care Physician Unavailable ELAINA MILLER Attending Clinician Unavailable Warner Lorenzana MD Attending Clinician [phone] Jorge Alberto Fernández MD Attending Clinician [phone] WARNER LORENZANA Attending Clinician Unavailable MICHAEL OGDEN Attending Clinician Unavailable Darrell Ogden MD Attending Clinician [phone] Michael Ogden MD Attending Clinician Clarisse CHANDLER, Geena Lópezu Attending Clinician Minh Diaz MD Attending Clinician Yvan Schulte CRNA Attending Clinician ABRMA CARBAJAL Attending Clinician Unavailable [email or web address] Attending Clinician Unavailable Jhony Burk Attending Clinician [phone] RYAN CORBETT Attending Clinician [phone] DARRELL LAWS Attending Clinician Unavailable ARIELLA PHILLIPS Attending Clinician Unavailable CLIFFORD MONZON M.D. Attending Clinician Unavailable RIGO PETTIT NP Attending Clinician Unavailable ABRAM SONG Attending Clinician Unavailable DARRELL OGDEN Admitting Clinician Unavailable [email or web address] Admitting Clinician Unavailable Payers Payer Name Policy Type Policy Number Effective Expiration Source Date Date [place] [id number] [facility] 00:00:00 [place] [id number] 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 Social History Social Habit Start Date Stop Date Quantity Comments Source History of [facility] Tobacco Use [facility] Alcohol intake 2021-12-13 2021-12-[address] [facility] Tobacco use and 2021-12-12 2021-12-[address] [facility] [address] [facility] exposure 00:00:00 00:00:00 Medical Center Sex Assigned At [address] [facility] 00:00:00 [facility]:00 [facility] Smoking Status Start Date Stop Date Source Unknown [facility] Medications Ordered Filled Start Stop Current Ordering Indication Dosage Frequency Signature Comments Components Source Medication Medication Date Date Medication? Clinician (SIG) Name Name losartan 2021-0 Yes 50mg Q.5D Take [address] [address] (COZAAR) 50 3-23 by mouth 2 Tamra kes MG tablet 09:05: (two) Medical 57 times Center daily . OLANZapine 2021-0 Yes 20mg QD Take [address] (ZyPREXA) 3-23 by mouth [facility] 20 MG 09:05: nightly. Medical tablet 57 Center QUEtiapine 2021-0 Yes 100mg Take [address] (SEROquel) 3-23 mg by [facility] 100 MG 09:05: mouth 3 Medical tablet 57 (three) Center times daily as needed. diazePAM 2021-0 Yes 5mg Q.5D Take [address] (VALIUM) 5 3-23 by mouth 2 Kwadwo es MG tablet 09:05: (two) Medical 57 times Center daily . buPROPion 2021-0 Yes 300mg QD Take [address] (WELLBUTRIN 3-23 mg by [facility] XL) 300 MG 09:05: mouth Medica l 24 hr 57 daily. Center tablet pantoprazol 2021-0 Yes 40mg QD Take [address] [facility] e 3-23 by mouth [facility] (PROTONIX) 09:05: daily. Medic al 40 MG 57 Center tablet DULoxetine 2021-0 Yes 60mg Q.5D Take [address] (CYMBALTA) 3-23 by mouth 2 Kwadwo es 60 MG 09:05: (two) Medical capsule 57 times Center daily. losartan 2-0 Yes 50mg Q.5D Take [address] (COZAAR) 50 3-23 by mouth 2 Tamra kes MG tablet 09:05: (two) Medical 57 times Center daily . OLANZapine 2021-0 Yes 20mg QD Take [address] (ZyPREXA) 3-23 by mouth [facility] 20 MG 09:05: nightly. Medical tablet 57 Center QUEtiapine 2022-0 Yes 100mg Take [address] (SEROquel) 3-23 mg by [facility] 100 MG 09:05: mouth 3 Medical tablet 57 (three) Center times daily as needed. diazePAM 2022-0 Yes 5mg Q.5D Take [address] [address] (VALIUM) 5 3-23 by mouth 2 Kwadwo es MG tablet 09:05: (two) Medical 57 times Center daily . buPROPion 2022-0 Yes 300mg QD Take [address] (WELLBUTRIN 3-23 mg by [facility] XL) 300 MG 09:05: mouth Medica l 24 hr 57 daily. Center tablet pantoprazol 2022-0 Yes 40mg QD Take [address] [facility] e 3-23 by mouth [facility] (PROTONIX) 09:05: daily. Medic al 40 MG 57 Center tablet DULoxetine 2022-0 Yes 60mg Q.5D Take [address] (CYMBALTA) 3-23 by mouth 2 Kwadwo es 60 MG 09:05: (two) Medical capsule 57 times Center daily. losartan 2022-0 Yes 50mg Q.5D Take [address] (COZAAR) 50 3-23 by mouth 2 Tamra kes MG tablet 09:05: (two) Medical 57 times Center daily . OLANZapine 2022-0 Yes 20mg QD Take [address] (ZyPREXA) 3-23 by mouth [facility] 20 MG 09:05: nightly. Medical tablet 57 Center QUEtiapine 2022-0 Yes 100mg Take [address] (SEROquel) 3-23 mg by [facility] 100 MG 09:05: mouth 3 Medical tablet 57 (three) Center times daily as needed. diazePAM 2022-0 Yes 5mg Q.5D Take [address] [address] (VALIUM) 5 3-23 by mouth 2 Kwadwo es MG tablet 09:05: (two) Medical 57 times Center daily . buPROPion 2022-0 Yes 300mg QD Take [address] (WELLBUTRIN 3-23 mg by [facility] XL) 300 MG 09:05: mouth Medica l 24 hr 57 daily. Center tablet pantoprazol 2022-0 Yes 40mg QD Take [address] e 3-23 by mouth [facility] (PROTONIX) 09:05: daily. Medic al 40 MG 57 Center tablet DULoxetine Yes 60mg Q.5D Take [address] (CYMBALTA) 3-23 by mouth 2 Kwadwo es 60 MG 09:05: (two) Medical capsule 57 times Center daily. HYDROcodone 2021- No 15mL Take [address] -acetaminop 3-03 03-13 mLs by Lloyd hen 00:00: 23:59 mouth 4 Medical (LORTAB,HYC 00 :00 (four) Center ET) 7.5-325 times mg/15 mL daily as Soln needed for solution Pain for up to 10 days. Max Daily Amount: 60 mLs HYDROcodone 2021-2021- No 15mL Take [address] -acetaminop 3-03 03-13 mLs by Lloyd hen 00:00: 23:59 mouth 4 Medical (LORTAB,HYC 00 :00 (four) Center ET) 7.5-325 times mg/15 mL daily as Soln needed for solution Pain for up to 10 days. Max Daily Amount: 60 mLs HYDROcodone 2021- No 1{tbl} Take [address] -acetaminop 2-29 12-03 tablet by Tamra cornejo ([employer]) 00:00: 00:00 mouth Medi wale 10-325 mg 00 :00 every 6 Center per tablet (six) hours as needed for Pain. Max Daily Amount: 4 tablets HYDROcodone 2021-2021- No 1{tbl} Take [address] -acetaminop 2-19 03-03 tablet by Tamra cornejo ([employer]) 00:00: 00:00 mouth Medi wale 10-325 mg 00 :00 every 6 Center per tablet (six) hours as needed for Pain. Max Daily Amount: 4 tablets amoxicillin 2021-2021- No 1{tbl} Q.5D Take [address] -clavulanat 2-19 -02 tablet by Tamra cooper 00:00: 23:59 mouth 2 Medical (AUGMENTIN) 00 :00 (two) Center 875-125 mg times per tablet daily for 10 days. amoxicillin 2021-2021- No 1{tbl} Q.5D Take [address] -clavulanat 2-19 -02 tablet by Tamra cooper 00:00: 23:59 mouth 2 Medical (AUGMENTIN) 00 :00 (two) Center 875-125 mg times per tablet daily for 10 days. HYDROcodone 2021- No 1{tbl} Take [address] -acetaminop -12-01 tablet by Tamra cornejo ([employer]) 00:00: 00:00 mouth Medi wale 10-325 mg 00 :00 every 6 Center per tablet (six) hours as needed for Pain. Max Daily Amount: 4 tablets amoxicillin 2021- No 1{tbl} Q.5D Take [address] -clavulanat 2-01 12- tablet by Tamra cooper 00:00: 00:00 mouth 2 Medical (AUGMENTIN) 00 :00 (two) Center 875-125 mg times per tablet daily for 10 days. HYDROcodone 2021- No 1{tbl} Take [address] -acetaminop 12-01 tablet by Tamra cornejo ([employer]) 00:00: 00:00 mouth Medi wale 10-325 mg 00 :00 every 6 Center per tablet (six) hours as needed for Pain. Max Daily Amount: 4 tablets amoxicillin 2021- No 1{tbl} Q.5D Take [address] -clavulanat -01 12- tablet by Tamra cooper 00:00: 00:00 mouth 2 Medical (AUGMENTIN) 00 :00 (two) Center 875-125 mg times per tablet daily for 10 days. duloxetine duloxetine No duloxetine [facility] 30 mg 30 mg 30 mg Medical capsule,del capsule,del capsule,de ayed ayed layed release release release TAKE 1 TAKE 1 TAKE 1 CAPSULE BY CAPSULE BY CAPSULE BY MOUTH EVERY MOUTH EVERY MOUTH DAY DAY EVERY DAY fluconazole fluconazole No fluconazol [facility] 150 mg 150 mg e 150 mg Medical tablet TAKE tablet TAKE tablet 1 TABLET BY 1 TABLET BY TAKE 1 MOUTH A MOUTH A TABLET BY SINGLE DOSE SINGLE DOSE MOUTH A SINGLE DOSE hydrocodone hydrocodone No hydrocodon [facility] 5 5 e 5 Medical mg-acetamin mg-acetamin mg-acetami ophen 325 ophen 325 nophen 325 mg tablet mg tablet mg tablet TAKE 1 TO 2 TAKE 1 TO 2 TAKE 1 TO TABLETS BY TABLETS BY 2 TABLETS MOUTH EVERY MOUTH EVERY BY MOUTH 6 HOURS 6 HOURS EVERY 6 NEEDED. NEEDED. HOURS NEEDED. hydromorpho hydromorpho No 1 Q6H hydromorph [facility] ne 4 mg ne 4 mg one 4 mg Medic al tablet Take tablet Take tablet 1 tablet 1 tablet Take 1 every 6 every 6 tablet hours by hours by every 6 oral route oral route hours by as needed as needed oral route for 30 for 30 as needed days. days. for 30 days. losartan losartan No losartan Chana via 100 mg 100 mg 100 mg Medical tablet TAKE tablet TAKE tablet 1 TABLET BY 1 TABLET BY TAKE 1 MOUTH EVERY MOUTH EVERY TABLET BY DAY DAY MOUTH EVERY DAY methadone 5 methadone 5 No 1 Q1D methadone [facility] mg tablet mg tablet 5 mg Medic al Take 1 Take 1 tablet tablet tablet Take 1 every day every day tablet by oral by oral every day route for 7 route for 7 by oral days. days. route for 7 days. metronidazo metronidazo No metronidaz [facility] le 500 mg le 500 mg ole 500 mg Medical tablet TAKE tablet TAKE tablet 1 TABLET BY 1 TABLET BY TAKE 1 MOUTH TWICE MOUTH TWICE TABLET BY DAILY FOR 7 DAILY FOR 7 MOUTH DAYS DAYS TWICE DAILY FOR 7 DAYS nortriptyli nortriptyli No nortriptyl [facility] ne 50 mg ne 50 mg ine 50 mg Me dical capsule capsule capsule TAKE 1 TAKE 1 TAKE 1 CAPSULE BY CAPSULE BY CAPSULE BY MOUTH EVERY MOUTH EVERY MOUTH DAY AT DAY AT EVERY DAY BEDTIME BEDTIME AT BEDTIME pramipexole pramipexole No pramipexol [facility] 0.5 mg 0.5 mg e 0.5 mg Medical tablet TAKE tablet TAKE tablet 1 TABLET BY 1 TABLET BY TAKE 1 MOUTH TWICE MOUTH TWICE TABLET BY DAILY DAILY MOUTH TWICE DAILY quetiapine quetiapine No quetiapine [facility] 50 mg 50 mg 50 mg Medical tablet TAKE tablet TAKE tablet 1 TABLET BY 1 TABLET BY TAKE 1 MOUTH DAILY MOUTH DAILY TABLET BY AT BEDTIME AT BEDTIME MOUTH DAILY AT BEDTIME quetiapine quetiapine No quetiapine [facility] ER 200 mg ER 200 mg ER 200 mg Medical tablet,exte tablet,exte tablet,ext nded nded ended release 24 release 24 release 24 hr TAKE 1 hr TAKE 1 hr TAKE 1 TABLET BY TABLET BY TABLET BY MOUTH TWICE MOUTH TWICE MOUTH DAILY DAILY TWICE DAILY quetiapine quetiapine No quetiapine [facility] ER 50 mg ER 50 mg ER 50 mg Med ical tablet,exte tablet,exte tablet,ext nded nded ended release 24 release 24 release 24 hr TAKE 2 hr TAKE 2 hr TAKE 2 TABLETS BY TABLETS BY TABLETS BY MOUTH EVERY MOUTH EVERY MOUTH EVENING EVENING EVERY EVENING sulfamethox sulfamethox No sulfametho [facility] azole 800 azole 800 xazole 800 Medical mg-trimetho mg-trimetho mg-trimeth prim 160 mg prim 160 mg oprim 160 tablet TAKE tablet TAKE mg tablet 1 TABLET BY 1 TABLET BY TAKE 1 MOUTH TWICE MOUTH TWICE TABLET BY DAILY DAILY MOUTH TWICE DAILY SEROquel SEROquel No 1{table TID SEROquel 100 MG 100 MG t} 100 MG Darifenacin Darifenacin No 1{table QD Darifenaci Hydrobromid Hydrobromid t_with_ n e ER 15 MG e ER 15 MG liquid} Hydrobromi de ER 15 MG Losartan Losartan No 1{table BID Losartan Potassium Potassium t} Potassium 100 MG 100 MG 100 MG Xanax 0.5 Xanax 0.5 No 1{table TID Xanax 0.5 MG MG t} MG Promethazin Promethazin No 1{table BID Promethazi e HCl 25 MG e HCl 25 MG t_as_ne ne HCl 25 eded} MG Cymbalta 60 Cymbalta 60 No 1{capsu BID Cymbalta MG MG le} 60 MG SEROquel SEROquel No 1{table TID SEROquel 100 MG 100 MG t} 100 MG Darifenacin Darifenacin No 1{table QD Darifenaci Hydrobromid Hydrobromid t_with_ n e ER 15 MG e ER 15 MG liquid} Hydrobromi de ER 15 MG Losartan Losartan No 1{table BID Losartan Potassium Potassium t} Potassium 100 MG 100 MG 100 MG Xanax 0.5 Xanax 0.5 No 1{table TID Xanax 0.5 MG MG t} MG Promethazin Promethazin No 1{table BID Promethazi e HCl 25 MG e HCl 25 MG t_as_ne ne HCl 25 eded} MG Cymbalta 60 Cymbalta 60 No 1{capsu BID Cymbalta MG MG le} 60 MG alprazolam alprazolam No alprazolam [facility] 0.5 mg 0.5 mg 0.5 mg Medical tablet TAKE tablet TAKE tablet 1 TABLET BY 1 TABLET BY TAKE 1 MOUTH EVERY MOUTH EVERY TABLET BY 12 HOURS 12 HOURS MOUTH EVERY 12 HOURS Catapres-TT Catapres-TT No 1patch( Q1W Catapres-T [facility] S-1 0.1 S-1 0.1 es) TS-1 0.1 Medic al mg/24 hr mg/24 hr mg/24 hr transdermal transdermal transderma patch Apply patch Apply l patch 1 patch 1 patch Apply 1 every week every week patch by by every week transdermal transdermal by route for route for transderma 28 days. 28 days. l route for 28 days. darifenacin darifenacin No darifenaci [facility] ER 7.5 mg ER 7.5 mg n ER 7.5 M edical tablet,exte tablet,exte mg nded nded tablet,ext release 24 release 24 ended hr TAKE 1 hr TAKE 1 release 24 TABLET BY TABLET BY hr TAKE 1 MOUTH DAILY MOUTH DAILY TABLET BY MOUTH DAILY DOK 100 mg DOK 100 mg No DOK 100 mg [facility] capsule capsule capsule Medica l TAKE TWO TAKE TWO TAKE TWO CAPSULES BY CAPSULES BY CAPSULES MOUTH TWICE MOUTH TWICE BY MOUTH DAILY DAILY TWICE DAILY Immunizations Ordered Filled Immunization Date Status Comments [facility] e Immunization Name Name [employer] 2021-01-21 [facility] Covid-19 Vaccine Covid-19 Vaccine 13:09:00 Fo undation [employer] 2021-01-21 [facility] Covid-19 Vaccine Covid-19 Vaccine 13:09:00 Fo undation [employer] 2021-01-02 [facility] Covid-19 Vaccine Covid-19 Vaccine 13:09:00 Fo undation [employer] 2021-01-02 [facility] Covid-19 Vaccine Covid-19 Vaccine 13:09:00 Fo undation Vital Signs Vital Name Observation Time Observation Value Comments Source HEIGHT 2021-12-13 09:53:00 172.7 cm WEIGHT 2021-12-13 09:53:00 86.183 kg HEIGHT 2021-12-13 09:53:00 172.7 cm WEIGHT 2021-12-13 09:53:00 86.183 kg HEIGHT 2021-12-12 10:49:00 176.8 cm WEIGHT 2021-12-12 10:49:00 89.404 kg HEIGHT 2021-11-28 03:00:00 176.8 cm WEIGHT 2021-11-28 03:00:00 86.183 kg HEIGHT 2021-11-28 03:00:00 176.8 cm WEIGHT 2021-11-28 03:00:00 86.183 kg temperature 2021-06-12 08:30:00 97.5 [degF] [facility] heart rate 2021-06-12 08:30:00 91 /min [facility] weight 2021-06-12 08:30:00 188.8 [lb_av] [facility] bmi 2021-06-12 08:30:00 28.7 kg/m2 [facility] height 2021-06-12 08:30:00 68 [in_i] [facility] respiratory rate 2021-06-12 08:30:00 18 /min [facility] oximetry 2021-06-12 08:30:00 98 % [facility] blood pressure 2021-06-12 08:30:00 128 mm[Hg] [facility] systolic [facility] blood pressure 2021-06-12 08:30:00 80 mm[Hg] [facility] diastolic [facility] BP Diastolic 2021-02-08 00:00:00 81 mm[Hg] Lilliam pineda Height 2021-02-08 00:00:00 67 [in_i] [facility] BMI (Body Mass 2021-02-08 00:00:00 26.6 kg/m2 [facility] Index) BP Systolic 2021-02-08 00:00:00 121 mm[Hg] Lilliam pineda Body Weight 2021-02-08 00:00:00 170 [lb_av] Lilliam Muhammad [facility] Systolic blood 2021-12-13 10:28:00 144 mm[Hg] [facility] Diastolic blood 2021-12-13 10:28:00 79 mm[Hg] [facility] Heart rate 2021-12-13 10:28:00 75 /min ANTWON [facility] Respiratory rate 2021-12-13 10:28:00 18 /min [facility] Oxygen saturation in 2021-12-13 10:28:00 98 /min [facility] Arterial blood by Medical Ce nter Pulse oximetry Body temperature 2021-12-13 09:53:00 36.28 Xin [facility] Body height 2021-12-13 09:53:[address] [facility] Body weight 2021-12-13 09:53:[address] [facility] BMI 2021-12-13 09:53:00 28.89 kg/m2 [facility] Procedures Procedure Date / Time Performing Source Performed Clinician XR CHEST 1 VIEW PORTABLE / 2021-12-13 10:36:00 Yesenia Liz [facility] BEDSIDE Center US THORACENTESIS 2021-12-13 10:18:00 Warner Lorenzana [facility] POCT-GLUCOSE METER 2021-12-01 08:00:[facility] POCT-GLUCOSE METER 2021-12-01 06:10:[address] [facility] CBC W/PLT COUNT & AUTO 2021-12-01 05:45:00 [facility] [place] (MANUAL DIFFERENTIAL) 2021-12-01 05:45:00 [facility] CBC W/PLT COUNT & AUTO 2021-12-01 05:45:00 [facility] COMPREHENSIVE METABOLIC 2021-12-01 05:45:00 [facility] MAGNESIUM 2021-12-01 05:45:00 [facility] POCT-GLUCOSE METER 2021-12-01 00:01:[address] [facility] POCT-GLUCOSE METER 2021-11-30 16:58:00 [facility] Michael C [facility] POCT-GLUCOSE METER 2021-11-30 11:00:00 [facility] Michael C [facility] CBC W/PLT COUNT & AUTO 2021-11-30 03:56:00 Michael Ogden [facility] (MANUAL DIFFERENTIAL) 2021-11-30 03:56:00 Micahel Ogden [facility] CBC W/PLT COUNT & AUTO 2021-11-30 03:56:00 Michael Ogden [facility] COMPREHENSIVE METABOLIC 2021-11-30 03:56:00 [facility] MAGNESIUM 2021-11-30 03:56:00 EsperanzaMichael [facility] POCT-GLUCOSE METER 2021-11-29 21:13:00 [facility] Michael Charla [facility] POCT-GLUCOSE METER 2021-11-29 16:55:00 [facility] Michael C [facility] XR CHEST 1 VIEW PORTABLE / 2021-11-29 13:51:00 [facility] POCT-GLUCOSE METER 2021-11-29 11:21:00 [facility] Michael Charla [facility] POCT-GLUCOSE METER 2021-11-29 06:44:00 [facility] CBC W/PLT COUNT & AUTO 2021-11-28 11:56:00 [facility] ([facility] 2021-11-28 11:56:00 [facility] BASIC METABOLIC PANEL 2021-11-28 11:56:00 [facility] CBC W/PLT COUNT & AUTO 2021-11-28 11:56:00 [facility] PO[facility]-GLUCOSE METER 2021-11-28 10:51:00 [facility] CBC W/PLT COUNT & AUTO 2021-11-28 03:46:00 [facility] (MANUAL DIFFERENTIAL) 2021-11-28 03:46:00 [facility] CBC W/PLT COUNT & AUTO 2021-11-28 03:46:00 [facility] COMPREHENSIVE METABOLIC 2021-11-28 03:46:00 [facility] PT/APTT 2021-11-28 03:46:00 [facility] MAGNESIUM 2021-11-28 03:46:00 [facility] PHOS[facility] 2021-11-28 03:46[facility] 2021-11-28 03:46:00 [facility] TSH/FREE T4 IF INDICATED 2021-11-28 03:46:00 [facility] ANESTHESIA PERIPHERAL 2021-11-27 23:25:[address] [facility] LAPAROSCOPY, DIAGNOSTIC 2021-11-27 19:40:00 Warner Lorenz[facility] Back / Spine Surgery 2020-11-01 00:00:00 [facility] Medical Infectious agent detection 2020-02-21 00:00:00 [facility] by nucleic acid DEXA Bone Density with WB 2018 00:00:00 [facility] DX Laparoscopy 2017-03-13 00:00:00 [facility] Bariatric Surgery 2011-10-13 00:00:00 [facility] ical Caesarean Section 1986-11-29 00:00:00 [facility] Gastrointestinal Surgery 1978-10-13 00:00:00 Chana via Medical [facility] ([facility]) Plan of Care Planned Activity Planned Date Details Comments Source Future Scheduled 2023-06-[address] [facility] Test 00:00:00 (Season Ended) [code = Medic al Center INFLUENZA VACCINE (Season Ended)] Future Scheduled 2022-12-[address] [facility] Test 00:00:00 [facility] r Screening (12+) [code = Tobacco Cessation Counseling and Screening (12+)] Future Scheduled 2022-12-[address] [facility] Test 00:00:00 [facility] Medical Cent[facility] r Screening (12+) [code = Tobacco Cessation Counseling and Screening (12+)] Future Scheduled 2022-12-[address] [facility] Test 00:00:00 [facility] Medical Cente r Screening (12+) [code = Tobacco Cessation Counseling and Screening (12+)] Future Scheduled 2022-10-[address] [facility] Test 00:00:00 (12+) [code = Medical Center DEPRESSION SCREENING (12+)] Future Scheduled 2022-10-[address] [facility] Test 00:00:00 (12+) [code = Medical Center DEPRESSION SCREENING (12+)] Future Scheduled 2022-10-[address] [facility] Test 00:00:00 (12+) [code = Medical Center DEPRESSION SCREENING (12+)] Future Scheduled 2022-06-13 INFLUENZA VACCINE (#1) [facility] 00:00:00 [code = INFLUENZA Medical Ce nter VACCINE (#1)] Future Scheduled 2022-06-13 INFLUENZA VACCINE (#1) [facility] 00:00:00 [code = INFLUENZA Medical Ce nter VACCINE (#1)] Future Scheduled 2021-06-23 COVID-19 VACCINE (3 - [facility] 00:[facility]:00 Booster for Pfizer Medical C enter series) [code = COVID-19 VACCINE (3 - Booster for Pfizer series)] Future Scheduled 2021-06-23 COVID-19 VACCINE (3 - [facility] 00:00:00 Booster for Pfizer Medical C enter series) [code = COVID-19 VACCINE (3 - Booster for Pfizer series)] Future Scheduled 2021-03-18 COVID-19 VACCINE (3 - [facility] 00:00:00 Booster for Pfizer Medical C enter series) [code = COVID-19 VACCINE (3 - Booster for Pfizer series)] Future Scheduled 2015 SHINGLES VACCINES ([address] [facility] 00:00:00 2) [code = SHINGLES Medical Center VACCINES (1 of 2)] Future Scheduled 2015 SHINGLES VACCINES ([address] [facility] 00:00:00 2) [code = SHINGLES Medical Center VACCINES (1 of 2)] Future Scheduled 2015 SHINGLES VACCINES ([address] [facility] 00:00:00 2) [code = SHINGLES Medical Center VACCINES (1 of 2)] Future Scheduled 2010 Lipid panel (procedure) [facility] 00:00:00 [code = [id number]] Medical Ce nter Future Scheduled 2010 Lipid panel (procedure) [facility] Test 00:00:00 [code = [id number]] Medical Ce nter Future Scheduled 2010 Lipid panel (procedure) [facility] Test 00:00:00 [code = [id number]] Medical Ce nter Future Scheduled 1986 Screening for malignant [facility] Test 00:00:00 neoplasm of cervix Medical C enter (procedure) [code = 250760622] Future Scheduled 1986 Screening for malignant [facility] 00:00:00 neoplasm of cervix Medical C enter (procedure) [code = 175128147] Future Scheduled 1986 Screening for malignant [facility] 00:00:00 neoplasm of cervix Medical C enter (procedure) [code = 011918381] Future Scheduled 1984-02-05 DTAP/TDAP/TD VACCINES [facility] 00:00:00 (1 - Tdap) [code = Medical C enter DTAP/TDAP/TD VACCINES (1 - Tdap)] Future Scheduled 1984-02-05 DTAP/TDAP/TD VACCINES [facility] 00:00:00 (1 - Tdap) [code = Medical C enter DTAP/TDAP/TD VACCINES (1 - Tdap)] Future Scheduled 1984-02-05 DTAP/TDAP/TD VACCINES [facility] 00:00:00 (1 - Tdap) [code = Medical C enter DTAP/TDAP/TD VACCINES (1 - Tdap)] Future Scheduled 1983 HEPATITIS C [facility]CRE[facility]ING [facility] [code = [facility]IS [facility] S[facility]] Future Scheduled 1983 HEPATITIS C [facility] [code = HEPATITIS [facility] SCREENING] Future Scheduled 1983 HEPATITIS C [facility] 00:[facility]:00 [code = HEPATITIS C [facility] Center SCREENING] Future Scheduled 1965 Screening for malignant [facility] 00:00:00 neoplasm of breast Medical C enter (procedure) [code = 104798087] Future Scheduled 1965 CT Colonography (combo) [facility] 00:00:00 [code = CT [facility] ([facility])] Future Scheduled 1965 Screening for malignant [facility] 00:00:00 neoplasm of colon Medical Ce nter (procedure) [code = 685705810] Future Scheduled 1965 Screening for malignant [facility] 00:00:00 neoplasm of colon Medical Ce nter (procedure) [code = 185386853] Future Scheduled 1965 Screening for malignant [facility] 00:00:00 neoplasm of colon Medical Ce nter (procedure) [code = 598921326] Future Scheduled 1965 Screening for malignant [facility] 00:00:00 neoplasm of colon Medical Ce nter (procedure) [code = 978560783] Future Scheduled 1965 Sigmoidoscopy [code = [facility] S[facility]] [facility] Cent[facility] Future Scheduled 1965 Screening for malignant [facility] 00:00:00 neoplasm of breast Medical C enter (procedure) [code = 251037278] Future Scheduled 1965 CT Colonography (combo) [facility] 00:00:00 [code = CT Colonography [facility] (combo)] Future Scheduled 1965 Screening for malignant [facility] 00:00:00 neoplasm of colon Medical Ce nter (procedure) [code = 985703081] Future Scheduled 1965 Screening for malignant [facility] 00:00:00 neoplasm of colon Medical Ce nter (procedure) [code = 467732427] Future Scheduled 1965 Screening for malignant [facility] 00:00:00 neoplasm of colon Medical Ce nter (procedure) [code = 548490777] Future Scheduled 1965 Screening for malignant [facility] 00:00:00 neoplasm of colon Medical Ce nter (procedure) [code = 499014340] Future Scheduled 1965 Sigmoidoscopy [code = [facility]oscopy] Medical Cente r Future Scheduled 1965 Screening for malignant [facility] 00:00:00 neoplasm of colon Medical Ce nter (procedure) [code = 681332509] Future Scheduled 1965 Screening for malignant [facility] 00:00:00 neoplasm of colon Medical Ce nter (procedure) [code = 001193822] Future Scheduled 1965 Screening for malignant [facility] 00:00:00 neoplasm of colon Medical Ce nter (procedure) [code = 288670494] Future Scheduled 1965 Screening for malignant [facility] 00:00:00 neoplasm of colon Medical Ce nter (procedure) [code = 064396452] Future Scheduled 1965 Sigmoidoscopy [code = [facility]oscopy] Medical Cente r Future Scheduled 1965 Screening for malignant [facility] 00:00:00 neoplasm of breast Medical C enter (procedure) [code = 444491173] Future Scheduled 1965 CT Colonography (combo) [facility] 00:00:00 [code = CT Colonography [facility] (combo)] Encounters Start End Encounter Admission Attending Care Care Encounter Source Date/Time Date/Time Type Type Clinicians Facility Department ID 2021-11-07 [facility] [id number] 13:46:00 ELAINA 0904 [facility] 2021-11-07 [facility] [id number] 13:44:54 ELAINA 0831 [facility] 2022-11-27 2022-11-27 Outpatient [facility] Danial 14:33:43 14:33:43 [id number] F Taras 2022-11-19 2022-11-19 Outpatient [facility] Danial 10:47:40 10:47:40 [id number] F Taras 2022-11-14 2022-11-14 Outpatient [facility] Danial 09:53:36 09:53:36 [id number] F Taras 2022-01-02 2022-01-02 ST ArabellaCharla [id number] 09:00:00 09:15:00 Telemedici Warner cartagena [facility] 2021-12-25 2021-12-25 Telephone Jolene [facility] [id number] 00:[facility] 00:00:00 [facility] 2021-12-13 2021-12-13 Outpatient EL SALOMÓN, [facility] [id number] [facility] 10:02:07 23:59:00 [place] 2021-12-13 2021-12-13 [facility] [id number] 10:00:00 23:59:[address] [facility] 2021-12-12 2021-12-12 Office Salomón, [facility] [id number] 10:30:00 12:35:28 Visit [facility] 2021-11-27 2021-12-01 Inpatient [facility] [id number] [facility] 17:49:00 11:30:00 MICHAEL 2021-11-27 2021-12-01 [facility] ER Darrell Ogden [facility] [id number] 17:49:00 11:30:00 Encounter Michael Ogden [facility] 2021-11-28 2021-11-28 Travel [facility] [id number] [facility] 00:[facility] 00:[facility]:00 [facility] 2021-11-27 2021-11-27 Anesthesia Minh Diaz [facility] [id number] 19:40:00 23:21:00 Event Yvan Schulte [facility] 2021-11-27 2021-11-27 Surgery Alonbeau, [facility] [id number] 19:10:00 22:00:00 [facility] 2021-06-21 2021-06-21 (TEL) MELISSA TORRES [id number] St . 00:00:00 00:00:00 [facility] 2021-06-12 2021-06-12 PSYCH DIAG MELISSA TORRES [id number] St. 00:00:00 00:00:00 [facility] ion EST 2021-05-07 2021-05-07 Emergency E ABRAM CARBAJAL FB [facility] [id number] [facility] 16:56:00 18:45:00 2021-02-08 2021-02-08 Outpatient GC_UPP_Meht PRIV PRIV [id number] [facility] 10:34:00 10:34:00 a_J [id number] Medica l 2021-02-08 2021-02-08 Outpatient Burk, PRIV PRIV [id number] 00:00:00 00:00:00 Jhony [id number] 2021-02-08 2021-02-08 Jhony [facility] 29 [facility] 00:00:00 00:00:00 MD Bhargavi: [facility] [id number] GC_[facility]PP[facility] , Office [address], [place] [address] , Ph. 2020-02-24 2020-02-24 Outpatient CHELLE, [facility] [id number] Access[facility] 11:32:00 11:32:00 RYAN [id number] [facility] [id number] 2020-02-21 2020-02-21 Outpatient [facility] [id number] [facility] 16:00:00 16:00:00 [id number] 2020-02-21 2020-02-21 Outpatient VETO, [facility] [id number] [facility] 00:00:00 00:00:00 [facility] 2020-02-21 2020-02-21 Outpatient VETO, [facility] [id number] [facility] 00:00:00 00:00:00 DARRELL Perez [id number] ealt [id number] 2019-12-20 2019-12-20 Emergency E ARIELLA PHILLIPS FB FB [id number] [facility] 16:45:00 17:32:00 2019-09-28 2019-09-28 Emergency E [facility] [id number] [facility] 23:55:00 23:55:00 2019-08-19 2019-08-19 Emergency E FB FB [id number] FB 15:42:00 15:42:00 2019-03-04 2019-03-04 Emergency E FB FB [id number] [facility] 09:16:00 09:16:00 2018 2018 Appointmen RADHA MONZON Anthony [id number] [place] 10:00:00 10:00:00 t; CLIFFORD MONZON M.D. Surgery Yee HORTON M.D. Specialty ans 2018-01-09 2018-01-09 Appointmen RADHA PETTIT [facility] [id number] [place] 09:30:00 09:30:00 t; RIGO PETTIT, Phy sici RIGO, DARI ans [facility] 2017-12-19 2017-12-19 AppointRADHA Villafuerte UTP [id number] [place] 09:30:00 09:30:00 t; RIGO PETTIT Phy sici RIGO, DARI ying [facility] 2016-07-10 2016-07-10 Caryl SONG [facility] [id number] [place] 08:30:00 08:30:00 t; deonna Lawler i Results Test Description Test Time Test Comments Results Result Comments Source [facility] 2022-12-04 11:25:18 Test Item Value Reference Range Interpretation Comme nts OCCULT BLD, FECAL (test code = 40250) NEGATIVE NEGATIVE UNLABELLED [id number] 06:03:52 Test Item Value Reference Range Interpretation Comments NOTE: (test code = SPECIMEN RECEIVED WITHOUT 70474) PATIENT'S NAME. [facility] has important patho logy staff changes effecti ve 12/11/2022. New pathology staff will provide uninterrupted, excellent patient care an d clinical consultation. S ee URL: [email or web address]. UNLESS OTHE RWISE INDICATED, ALL TESTING PERFORMED AT [facility] [address] [place] [address] LABORATOR Y DIRECTOR: ROBERTO HOUSE M.D. CLIA NUMBER [id number] CAP ACCREDITATION N O. [id number] 12:08:53 Test Item Value Reference Range Interpretation Comments FERRITIN (test code = 2075) 4 NG/ML 13-200 L VITAMIN B 12 AND FOLIC [id number] 12:08:53 Test Item Value Reference Range Interpretation Comments VITAMIN B-12 (test 193 PG/ML 200-950 L code = 2840) FOLIC ACID (test >20.0 UG/L SEE BELOW INTE RPRETIVE code = 2695) RANGES DE FICIENCY . . . . . . . . . . . . . . . UG/L <4.0 POSSIBLE DEFICIENCY. . . . . . . . . . . UG/L 4. 0-5.9 SUFFICIENT . . . . . . . . . . . . . . . UG/L >=6.0 [facility] h as important patho logy staff changes e ffective 12/11/2022. New pathology staff will provide uninter rupted, excellent patie nt care and clinical consultation. S ee URL: [email or web address]. UNLESS OTHERWISE INDICATED, ALL TESTING PERFORMED AT [facility] [address] [place], [place] CLIA : [id number], CAP : [id number] 06:44:38 Test Item Value Reference Range Interpretation Comments TRANSFERRIN (test code = 4936) 411 MG/DL 200-360 H IRON BINDING CAPACITY AND IRON AND % [id number] 05:24:08 Test Item Value Reference Range Interpretation Comments IRON, SERUM (test code = 2222) 12 UG/DL 37-145 L UNSATURATED IBC (test code = 67402) 478 UG/DL 112-347 H CALC TOTAL IBC (test code = 2077) 490 UG/DL 250-450 H CALC % IRON SAT (test code = 2079) 2 % 20-[address]/NG, NAAT, [id number] 21:29:14 Test Item Value Reference Range Interpretation Comments GONORRHEA, NAAT NEGATIVE NEGATIVE Testing is performed with (test code = Pham NARCISA 680 33157) systems usingre al-time polymerase shell n reaction (PCR) method. A negative result does not exclude low level infection , specimensamplin g error, or collection erro r. CHLAMYDIA, NAAT NEGATIVE NEGATIVE Testing is performed with (test code = Wakie/Budist NARCISA 680 80012) systems usingre al-time polymerase shell n reaction (PCR) method. A negative result does not exclude low level infection , specimensamplin g error, or collection erro r. LIPID [id number] 06:54:20 Test Item Value Reference Range Interpretation Comments CHOLESTEROL (test 223 MG/DL <200 H code = 2210) TRIGLYCERIDES (test 69 MG/DL <150 code = 2232) HDL CHOLESTEROL (test 143 MG/DL >39 code = 2220) CALC LDL CHOL (test 65 MG/DL <100 NOTE: C ALCULATED LDL code = 2237) IS BASED ON JANETH-WILDER METHOD WHICHINCLUDES ADJUSTABLE TRIGLYCERIDE:VL DL CHOLESTEROL RAT IO.THIS FACTOR VARIES B Y MEASURED TRIGLY CERIDE AND NON-HDLCHOL ESTEROL CONCENTRATIONS WITH INCREASED CALCU LATED LDL SEENIN HIGH ER TRIGLYCERIDE OR LOWER NON-HDL SPECIME NS. FOR MOREINFORMATION , SEE CLIENT ANNOUNCE MENT AT [email or web address] RATIO LDL/HDL 0.45 RATIO <3.22 (test code = 2238) COMPREHENSIVE METABOLIC [id number] 06:54:20 Test Item Value Reference Range Interpretation Comments GLUCOSE (test code = 100 MG/DL 70-99 H 2216) BUN (test code = 12 MG/DL 04-01) CREATININE (test 0.95 MG/DL 0.60-1.30 code = 2214) eGFR (2020 CKD-EPI) 70 ML/MIN/1.73 >60 (test code = 54271) CALC BUN/CREAT (test 13 RATIO 6-28 code = 2235) SODIUM (test code = 142 MEQ/L 115-727 1227) POTASSIUM (test code 4.6 MEQ/L 3.5-5.4 = 2227) CHLORIDE (test code 105 MEQ/L 95-107 = 2214) CARBON DIOXIDE (test 23 MEQ/L 19-31 code = 2206) CALCIUM (test code = 9.2 MG/DL 8.5-10.5 2208) PROTEIN, TOTAL (test 7.2 G/DL 6.1-8.3 code = 2229) ALBUMIN (test code = 4.5 G/DL 3.5-5.2 2200) CALC GLOBULIN (test 2.7 G/DL 1.9-3.7 code = 2240) CALC A/G RATIO (test 1.7 RATIO 1.0-2.6 code = 2234) BILIRUBIN, TOTAL <0.2 MG/DL See_Comment [Automated message] (test code = 2206) The syste m which generated this result transmit leonel reference range : <=1.2. The refe rence range was not u sed to interpret th is result as normal/abnormal . ALKALINE PHOSPHATASE 133 U/L 40-136 (test code = 2203) AST (test code = 17 U/L 9-40 2217) ALT (test code = 14 U/L 5-40 2218) RPR REFLEX TO T. PALLIDUM - [id number] 04:36:51 Test Item Value Reference Range Interpretation Comments RPR (test code = 17253) NON-REACTIVE NON-REACTIVE RPR TITER (test code = 3500) NOT INDIC. TITER NOT INDIC. TSH, THIRD [id number] 04:35:21 Test Item Value Reference Range Interpretation Comments TSH, THIRD GENERATION 0.982 UIU/ML 0.400-4.[address] has (test code = 2821) important pathology staff changes effective 12/11/2022. New pathology staff will provide uninterrupted, excellent patie nt care and clinic al consultation. S ee URL: [email or web address]. UNL ESS OTHERWISE INDIC ATED, ALL TESTING PERFORMED AT [facility] [employer] [facility] [place]. [address] [facility], [place] CLIA: [id number], CAP: [id number] HIV 1/2 4TH GEN, RFLX [id number] 04:28:10 Test Item Value Reference Range Interpretation Comments HIV 1/2 4TH GEN, RFLX CONF (test NON-REACTIVE NON-REACTIVE code = 3514) HEPATITIS PANEL, [id number] 04:28:10 Test Item Value Reference Range Interpretation Comments HEPATITIS A IgM (test NON-REACTIVE NON-REACTIVE code = 36354) HEPATITIS B CORE IgM NON-REACTIVE NON-REACTIVE (test code = 4644) HEPATITIS B SURF AG NON-REACTIVE NON-REACTIVE (test code = 2739) HEPATITIS C ANTIBODY NON-REACTIVE NON-REACTIVE (test code = 4675) INTERPRETATION (NOTE) Hepatitis A HEPATITIS A: (test code sero logy shows no = 2552) evidence of acu te hepatitis A. INTERPRETATION (NOTE) Hepatitis B HEPATITIS B: (test code sero logy shows no = 51398) evidence of acu te hepatitis B and no indication of exposure to hepatitis B vir us in the previous debby eight months. INTERPRETATION (NOTE) Hepatitis C HEPATITIS C: (test code sero logy shows no = 20931) evidence of exposure to hepatitisC viru s at this time. I t can take up to 12 months after exposure tothe hepatitis C vir us for antibodies to become detectab le in the blood in certain patient s. HEMOGLOBIN [id number] 03:44:21 Test Item Value Reference Range Interpretation Comments HEMOGLOBIN A1c (test code = 39981) 5.9 % 4.2-5.6 H CBC W/AUTO DIFF WITH [id number] 03:30:03 Test Item Value Reference Range Interpretation Comments WBC (test code = 7.0 K/UL 3.5-11.0 1001) RBC (test code = 4.31 M/UL 3.80-5.40 1002) HEMOGLOBIN (test code 9.6 G/DL 11.5-15.5 L = 1003) HEMATOCRIT (test code 31.3 % 34.0-45.0 L = 1004) MCV (test code = 72.6 fL 80.0-99.0 L 1005) MCH (test code = 22.3 PG 25.0-33.0 L 1006) MCHC (test code = 30.7 G/DL 31.0-36.0 L 1007) RDW (test code = 17.5 % 11.5-15.0 H 1038) NEUTROPHILS (test 64.4 % code = 1008) LYMPHOCYTES (test 23.6 % code = 1010) MONOCYTES (test code 8.0 % = 1011) EOSINOPHILS (test 2.9 % code = 1012) BASOPHILS (test code 1.0 % = 1013) IMMATURE GRANULOCYTES 0.1 % (test code = 1036) NUCLEATED RBCS (test 0.0 /100 WBC'S See_Comment [Aut omated code = 1065) message] The sy stem which generated this result transmitted reference range : 0.0. The refere nce range was not u sed to interpret th is result as normal/abnormal . PLATELET COUNT (test 482 K/UL 130-400 H code = 1015) ABSOLUTE NEUTROPHILS 4.48 K/UL 1.50-7.50 (test code = 1066) ABSOLUTE LYMPHOCYTES 1.64 K/UL 1.00-4.00 (test code = 1067) ABSOLUTE MONOCYTES 0.56 K/UL 0.20-1.00 (test code = 1068) ABSOLUTE EOSINOPHILS 0.20 K/UL 0.00-0.50 (test code = 1040) ABSOLUTE BASOPHILS 0.07 K/UL 0.00-0.20 (test code = 1069) ABS IMMATURE 0.01 K/UL 0.00-0.10 GRANULOCYTES (test code = 1020) ABS NUCLEATED RBCS 0.00 K/UL 0.00-0.11 (test code = 83245) U/S, [id number] 10:41:00Laterality?->LeftLabs to be Ordered:- >No Labs NeededReason for Exam:->Pleural Effusion, left [facility] 1965 Sex: FFINAL REPORT PROCEDURE: Ultrasound-guided thoracentesis Procedural PersonnelAttending physician(s): Wendy Simon physician(s): NoneResident physician(s): NoneAdvanced practiceprovider(s): None Pre-procedure diagnosis: Left pleural effusionPost-procedure diagnosis: [...] obtained and time-out was performed prior to theprocedure.Preparation: The site was prepared and draped using maximal sterile barrier technique including cutaneous antisepsis. Anesthesia/sedationLevel of anesthesia/sedation: No sedationAnesthesia/sedation administered by: Not applicableTotal intra-service sedation time (minutes): None Limited thoracic ultrasoundLimited thoracic ultrasound was performed using a curved transducer. A safe window for t horacentesis was identified. Left hemithorax findings: Moderate pleural [...] the report as written. Signed: Yesenia Liz MDReport Verified Date/Time: 12/13/2021 10:41:34 Reading Location: [facility] Radiology Reading Room RAD, CHEST, 1 VIEW, NON [id number] 10:36:00Reason for exam:->s/p Left thoracentesisShould this be performed at the bedside?->Yes [facility] 1965 Sex: FFINAL REPORT Exam: RAD, CHEST, 1 VIEW, NON DEPTDate: 12/13/2021 10:35 AM Indication: Postoperative/Postprocedural Comparison: CXR of 11/29/2021 FINDINGS: Lines/Tubes:None Lungs:The lungs are moderately inflated. There is left basilar opacity silhouetting the left starla diaphragm. Pleura:Minimal trace residual left pleural effusion. No pneumothorax status post thoracentesis. Heart/Medias tinum:The cardiomediastinal silhouette is normal in size and contour. Bones/Soft Tissues: No acute osseous injury. Abdomen: No free air below the diaphragm. Right upper quadrant cholecystectomy clips. IMPRESSION:No postprocedural pneumothorax. Minimal residual left pleural effusion. Left basilar opacities, most likely subsegmental atelectasis. Signed: Yesenia Liz MDReport Verified Date/Time: 12/13/2021 10:36:14 Reading Location: [facility] Radiology Reading Room POC-Glucose meter 2021-12-01 08:11:32 Test Item Value Reference Range Interpretation Comments POC-Glucose Meter (test 82 mg/dL 70-110 : TE STED AT [facility] code = 1538) [address] [facility] [address]: Cinder Crane Operator/Techni toribio ID = [id number] for Ochei, Ndubuisi Lab Interpretation (test Normal code = 38494-6) [facility] [id number] 08:11:32 Test Item Value Reference Range Interpretation Comments POC-Glucose Meter (test 82 mg/dL 70-110 : TE STED AT [facility] code = 1538) [address], [facility] [address]: Cinder Crane Operator/Techni toribio ID = [id number] for Ochei, Ndubuisi Lab Interpretation (test Normal code = 63571-0) [facility]-GLUCOSE [id number] 08:11:32 Test Item Value Reference Range Interpretation Comments POC-GLUCOSE METER 82 mg/dL 70-110 : TESTED A T [facility] 1317 (BEAKER) (test code = [address], 1538) [facility] [address]: Cinder Crane Operator/Techni toribio ID = [id number] for Oche i, Ndubuisi CBC with platelet count + automated [id number] 07:00:50 Test Item Value Reference Range Interpretation Comments WBC (test code = 6690-2) 8.9 See_Comment [A utomated message] The system [employer] generated this result transmitted ref erence range: 4.0 - 10 .0 K/L. The refe rence range was not u sed to interpret this result as normal/abnor mal. RBC (test code = 789-8) 3.50 See_Comment L [Au tomated message] The system [employer] generated this result transmitted ref erence range: 4.00 - 5 .00 M/L. The refe rence range was not u sed to interpret this result as normal/abnor mal. MCHC (test code = 786-4) 31.9 See_Comment L [A utomated message] The system [employer] generated this result transmitted ref erence range: 32.0 - 3 6.0 GM/DL. The refe rence range was not u sed to interpret this result as normal/abnor mal. Hematocrit (test code = 28.5 % 36.0-46.0 L 4544-3) MCV (test code = 787-2) 81.4 fL 82.0-99.0 L MCH (test code = 785-6) 26.0 pg 27.0-33.0 L RDW (test code = 788-0) 16.0 % 12.0-15.0 H Platelets (test code = 265 See_Comment [Aut omated message] 777-3) The system [employer] generated this result transmitted ref erence range: 150 - 43 0 K/CU MM. The referen ce range was not u sed to interpret this result as normal/abnor mal. MPV (test code = 10.2 fL 6.0-11.5 53698-1) nRBC (test code = 413) 0 See_Comment [Aut omated message] The system [employer] generated this result transmitted ref erence range: 0 - 0 /1 00 WBC. The refere nce range was not u sed to interpret this result as normal/abnor mal. % Neutros (test code = 76 % 429) % Lymphs (test code = 14 % 430) % Monos (test code = 5 % 431) % Eos (test code = 432) 3 % % Baso (test code = 437) 1 % # Neutros (test code = 6.78 See_Comment [Aut omated message] 670) The system [employer] generated this result transmitted ref erence range: 1.80 - 8 .00 K/L. The refe rence range was not u sed to interpret this result as normal/abnor mal. # Lymphs (test code = 1.27 See_Comment L [Auto mated message] 414) The system [employer] generated this result transmitted ref erence range: 1.48 - 4 .50 K/L. The refe rence range was not u sed to interpret this result as normal/abnor mal. # Monos (test code = 0.46 See_Comment [Autom ated message] 415) The system [employer] generated this result transmitted ref erence range: 0.00 - 1 .30 K/L. The refe rence range was not u sed to interpret this result as normal/abnor mal. # Eos (test code = 416) 0.30 See_Comment [Au tomated message] The system [employer] generated this result transmitted ref erence range: 0.00 - 0 .50 K/L. The refe rence range was not u sed to interpret this result as normal/abnor mal. # Baso (test code = 417) 0.05 See_Comment [A utomated message] The system [employer] generated this result transmitted ref erence range: 0.00 - 0 .20 K/L. The refe rence range was not u sed to interpret this result as normal/abnor mal. Immature 1 % 0-0 H Granulocytes-Relative (test code = 2801) Lab Interpretation (test Abnormal code = 54855-1) [facility] [id number] 07:00:50 Test Item Value Reference Range Interpretation Comments % Neutros (manual) (test 69 % code = 1359) % Lymphs (manual) (test 11 % code = 1360) % Monos (manual) (test 2 % code = 1361) % Eos (manual) (test 1 % code = 1362) % Bands (manual) (test 17 % 0-10 H code = 1348) # Neutros (manual) (test 6.14 See_Comment [A utomated message] code = 1365) The system [employer] generated this result transmitted ref erence range: 1.80 - 8 .00 K/L. The refe rence range was not u sed to interpret this result as normal/abnor mal. # Lymphs (manual) (test 0.98 See_Comment L [Au tomated message] code = 1366) The system [employer] generated this result transmitted ref erence range: 1.48 - 4 .50 K/L. The refe rence range was not u sed to interpret this result as normal/abnor mal. # Monos (manual) (test 0.18 See_Comment [Aut omated message] code = 1367) The system [employer] generated this result transmitted ref erence range: 0.00 - 1 .30 K/L. The refe rence range was not u sed to interpret this result as normal/abnor mal. # Eos (manual) (test 0.09 See_Comment [Autom ated message] code = 1368) The system [employer] generated this result transmitted ref erence range: 0.00 - 0 .50 K/L. The refe rence range was not u sed to interpret this result as normal/abnor mal. # Bands (manual) (test 1.5 See_Comment H [Aut omated message] code = 1349) The system [employer] generated this result transmitted ref erence range: 0.0 - 0. 8 K/L. The refe rence range was not u sed to interpret this result as normal/abnor mal. Total Counted (test code 100 = 1351) Bands plus Segmented 7.65 Neutrophils (test code = 1352) Platelet Morphology Normal (test code = 486) Toxic Granulation (test Present code = 771) Anisocytosis (test code 1+ few = 961) Hypochromia (test code = 1+ few 963) Microcytes (test code = 1+ few 965) Lab Interpretation (test Abnormal code = 19163-2) [facility] with platelet count + automated [id number] 07:00:50 Test Item Value Reference Range Interpretation Comments WBC (test code = 6690-2) 8.9 See_Comment [A utomated message] The system [employer] generated this result transmitted ref erence range: 4.0 - 10 .0 K/L. The refe rence range was not u sed to interpret this result as normal/abnor mal. RBC (test code = 789-8) 3.50 See_Comment L [Au tomated message] The system [employer] generated this result transmitted ref erence range: 4.00 - 5 .00 M/L. The refe rence range was not u sed to interpret this result as normal/abnor mal. MCHC (test code = 786-4) 31.9 See_Comment L [A utomated message] The system [employer] generated this result transmitted ref erence range: 32.0 - 3 6.0 GM/DL. The refe rence range was not u sed to interpret this result as normal/abnor mal. Hematocrit (test code = 28.5 % 36.0-46.0 L 4544-3) MCV (test code = 787-2) 81.4 fL 82.0-99.0 L MCH (test code = 785-6) 26.0 pg 27.0-33.0 L RDW (test code = 788-0) 16.0 % 12.0-15.0 H Platelets (test code = 265 See_Comment [Aut omated message] 777-3) The system [employer] generated this result transmitted ref erence range: 150 - 43 0 K/CU MM. The referen ce range was not u sed to interpret this result as normal/abnor mal. MPV (test code = 10.2 fL 6.0-11.5 98293-8) nRBC (test code = 413) 0 See_Comment [Aut omated message] The system [employer] generated this result transmitted ref erence range: 0 - 0 /1 00 WBC. The refere nce range was not u sed to interpret this result as normal/abnor mal. % Neutros (test code = 76 % 429) % Lymphs (test code = 14 % 430) % Monos (test code = 5 % 431) % Eos (test code = 432) 3 % % Baso (test code = 437) 1 % # Neutros (test code = 6.78 See_Comment [Aut omated message] 670) The system [employer] generated this result transmitted ref erence range: 1.80 - 8 .00 K/L. The refe rence range was not u sed to interpret this result as normal/abnor mal. # Lymphs (test code = 1.27 See_Comment L [Auto mated message] 414) The system [employer] generated this result transmitted ref erence range: 1.48 - 4 .50 K/L. The refe rence range was not u sed to interpret this result as normal/abnor mal. # Monos (test code = 0.46 See_Comment [Autom ated message] 415) The system [employer] generated this result transmitted ref erence range: 0.00 - 1 .30 K/L. The refe rence range was not u sed to interpret this result as normal/abnor mal. # Eos (test code = 416) 0.30 See_Comment [Au tomated message] The system [employer] generated this result transmitted ref erence range: 0.00 - 0 .50 K/L. The refe rence range was not u sed to interpret this result as normal/abnor mal. # Baso (test code = 417) 0.05 See_Comment [A utomated message] The system [employer] generated this result transmitted ref erence range: 0.00 - 0 .20 K/L. The refe rence range was not u sed to interpret this result as normal/abnor mal. Immature 1 % 0-0 H Granulocytes-Relative (test code = 2801) Lab Interpretation (test Abnormal code = 57539-0) [facility] [id number] 07:00:50 Test Item Value Reference Range Interpretation Comments % Neutros (manual) (test 69 % code = 1359) % Lymphs (manual) (test 11 % code = 1360) % Monos (manual) (test 2 % code = 1361) % Eos (manual) (test 1 % code = 1362) % Bands (manual) (test 17 % 0-10 H code = 1348) # Neutros (manual) (test 6.14 See_Comment [A utomated message] code = 1365) The system [employer] generated this result transmitted ref erence range: 1.80 - 8 .00 K/L. The refe rence range was not u sed to interpret this result as normal/abnor mal. # Lymphs (manual) (test 0.98 See_Comment L [Au tomated message] code = 1366) The system [employer] generated this result transmitted ref erence range: 1.48 - 4 .50 K/L. The refe rence range was not u sed to interpret this result as normal/abnor mal. # Monos (manual) (test 0.18 See_Comment [Aut omated message] code = 1367) The system [employer] generated this result transmitted ref erence range: 0.00 - 1 .30 K/L. The refe rence range was not u sed to interpret this result as normal/abnor mal. # Eos (manual) (test 0.09 See_Comment [Autom ated message] code = 1368) The system [employer] generated this result transmitted ref erence range: 0.00 - 0 .50 K/L. The refe rence range was not u sed to interpret this result as normal/abnor mal. # Bands (manual) (test 1.5 See_Comment H [Aut omated message] code = 1349) The system [employer] generated this result transmitted ref erence range: 0.0 - 0. 8 K/L. The refe rence range was not u sed to interpret this result as normal/abnor mal. Total Counted (test code 100 = 1351) Bands plus Segmented 7.65 Neutrophils (test code = 1352) Platelet Morphology Normal (test code = 486) Toxic Granulation (test Present code = 771) Anisocytosis (test code 1+ few = 961) Hypochromia (test code = 1+ few 963) Microcytes (test code = 1+ few 965) Lab Interpretation (test Abnormal code = 74156-5) [facility] W/PLT COUNT & AUTO [id number] 07:00:50 Test Item Value Reference Range Interpretation [...] (BEAKER) (test code = 1+ few 965) Comprehensive metabolic [id number] 06:39:27 Test Item Value Reference Interpretation Comments Range Protein, Total 5.8 See_Comment L [Automated (test code = message] The 2885-2) system which generated this result transmitted reference range: 6.0 - 8.5 gm/dL. The reference range was not used to interpret this result as normal/abnormal . Albumin (test code 3.0 g/dL 3.5-5.0 L = 70028-9) Alkaline 70 U/L 30-115 Phosphatase (test code = 6768-6) Total Bilirubin 0.5 mg/dL 0.1-1.2 (test code = 1975-2) Sodium (test code = 136 meq/L 624-020 3646-2) Potassium (test 3.2 meq/L 3.6-5.5 L code = 2823-3) Chloride (test code 106 meq/L 98-106 = 2075-0) CO2 (test code = 21 meq/L 20-29 8-9) BUN (test code = 6 mg/dL 10-26 L 3094-0) Creatinine (test 0.74 mg/dL 0.50-1.20 code = 2160-0) Glucose (test code 96 mg/dL 70-110 = 2345-7) Calcium (test code 8.3 mg/dL 8.5-10.5 L = 59454-3) AST (test code = 16 U/L 5-40 1920-8) ALT (test code = 14 U/L 5-50 1742-6) EGFR (test code = 81 mL/min/1.73 sq ESTIMATE D GFR 31923-4) m IS NOT ACCURATE CREATININE CLEARANCE IN PREDICTING GLOMERULAR FILTRATION RATE. ESTIMATED GFR IS NOT APPLICABLE FOR DIALYSIS PATIENTS. THELMA (test code = Cinder Crane Operator ID - THELMA) NSUVAGIYAOperator ID - NSUVAGIYAOperator ID - NSUVAGIYAOperator ID - NSUVAGIYAOperator ID - NSUVAGIYAOperator ID - NSUVAGIYAOperator ID - NSUVAGIYAOperator ID - NSUVAGIYAOperator ID - NSUVAGIYAOperator ID - NSUVAGIYAOperator ID - NSUVAGIYAOperator ID - NSUVAGIYAOperator ID - NSUVAGIYAOperator ID - NSUVAGIYAOperator ID - NSUVAGIYAOperator ID - NSUVAGIYA Lab Interpretation Abnormal (test code = 20866-2) [facility] [id number] 06:39:27 Test Item Value Reference Interpretation Comments Range Protein, Total 5.8 See_Comment L [Automated (test code = message] The 2885-2) system which generated this result transmitted reference range: 6.0 - 8.5 gm/dL. The reference range was not used to interpret this result as normal/abnormal . Albumin (test code 3.0 g/dL 3.5-5.0 L = 90653-7) Alkaline 70 U/L 30-115 Phosphatase (test code = 6768-6) Total Bilirubin 0.5 mg/dL 0.1-1.2 (test code = 1975-2) Sodium (test code = 136 meq/L 736-157 7964-2) Potassium (test 3.2 meq/L 3.6-5.5 L code = 2823-3) Chloride (test code 106 meq/L 98-106 = 2075-0) CO2 (test code = 21 meq/L 20-29 2027-9) BUN (test code = 6 mg/dL 10-26 L 3094-0) Creatinine (test 0.74 mg/dL 0.50-1.20 code = 2160-0) Glucose (test code 96 mg/dL 70-110 = 2345-7) Calcium (test code 8.3 mg/dL 8.5-10.5 L = 74439-8) AST (test code = 16 U/L 5-40 1920-8) ALT (test code = 14 U/L 5-50 1742-6) EGFR (test code = 81 mL/min/1.73 sq ESTIMATE D GFR 82490-3) m IS NOT ACCURATE CREATININE CLEARANCE IN PREDICTING GLOMERULAR FILTRATION RATE. ESTIMATED GFR IS NOT APPLICABLE FOR DIALYSIS PATIENTS. THELMA (test code = Cinder Crane Operator ID - THELMA) NSUVAGIYAOperator ID - NSUVAGIYAOperator ID - NSUVAGIYAOperator ID - NSUVAGIYAOperator ID - NSUVAGIYAOperator ID - NSUVAGIYAOperator ID - NSUVAGIYAOperator ID - NSUVAGIYAOperator ID - NSUVAGIYAOperator ID - NSUVAGIYAOperator ID - NSUVAGIYAOperator ID - NSUVAGIYAOperator ID - NSUVAGIYAOperator ID - NSUVAGIYAOperator ID - NSUVAGIYAOperator ID - NSUVAGIYA Lab Interpretation Abnormal (test code = 23946-1) [facility]PRE[facility] METABOL[facility] [id number] 06:39:27 Test Item Value Reference Range Interpretation [...] 347) EGFR (BEAKER) (test 81 mL/min/1.73 ESTIMA LEONEL GFR IS code = 1092) sq m NOT ACCURATE CREATININE CLEARANCE IN PREDICTING GLOMERULAR FILTRATION RATE . ESTIMATED GFR I S NOT APPLICABLE FOR DIALYSIS PATIEN TS. Cinder Crane Operator ID - NSUVAGIYAOperator ID - NSUVAGIYAOperator ID - NSUVAGIYAOperator ID - NSUVAGIYAOperatorID - NSUVAGIYAOperator ID - NSUVAGIYAOperator ID - NSUVAGIYAOperator ID - NSUVAGIYAOperator ID - NSUVAGIYAOperator ID - NSUVAGIYAOperator ID - NSUVAGIYAOperator ID - NSUVAGIYAOperator ID - NSUVAGIYAOperator ID - NSUVAGIYAOperator ID - NSUVAGIYAOperator ID - NSUVAGIYA [id number] 06:27:53 Test Item Value Reference Range Interpretation Comments Magnesium (test code 2.0 mg/dL 1.5-3.0 = 80174-4) THELMA (test code = THELMA) C[employer]ane Operator ID - NSUVAGIYAOperator ID - NSUVAGIYAOperator ID - NSUVAGIYAOperator ID - NSUVAGIYA Lab Interpretation Normal (test code = 47984-7) [facility]esium2022-[facility] 06:27:53 Test Item Value Reference Range Interpretation Comments Magnesium (test code 2.0 mg/dL 1.5-3.0 = 86658-2) THELMA (test code = THELMA) Cinder Crane Operator ID - NSUVAGIYAOperator ID - NSUVAGIYAOperator ID - NSUVAGIYAOperator ID - NSUVAGIYA Lab Interpretation Normal (test code = 26903-9) [facility]UM2022-[facility]-19 06:27:53 Test Item Value Reference Range Interpretation Comments MAGNESIUM (BEAKER) (test code = 2.0 mg/dL 1.5-3.0 627) [employer]ane Operator ID - NSUVAGIYAOperator ID - NSUVAGIYAOperator ID - NSUVAGIYAOperator ID - NSUVAGIYAPOCT-GLUCOSE [id number] 06:21:40 Test Item Value Reference Range Interpretation Comments POC-GLUCOSE METER 86 mg/dL 70-110 : TESTED A T [address] (BEAKER) (test code = [address], [address]) [facility] [address]: Cinder Crane Operator/Techni toribio ID = [id number] for Aanu siem, felicity POCT-GLUCOSE [id number] 00:12:11 Test Item Value Reference Range Interpretation Comments POC-GLUCOSE METER 94 mg/dL 70-110 : TESTED A T [address] (BEAKER) (test code = [address], [address]) [place] [address]: Cinder Crane Operator/Techni toribio ID = [id number] for Merissanevelia cosme POCT-GLUCOSE [id number] 17:09:46 Test Item Value Reference Range Interpretation Comments POC-GLUCOSE METER 84 mg/dL 70-110 : TESTED A T [address] (BEAKER) (test code = [address], [address]) [place] [address]: Cinder Crane Operator/Techni toribio ID = [id number] for Buff ord, Andreia POCT-GLUCOSE [id number] 11:11:43 Test Item Value Reference Range Interpretation Comments POC-GLUCOSE METER 123 mg/dL 70-110 H : TESTED A T [address] (BEAKER) (test code [address], = 15[address]) [place] [address]: Cinder Crane Operator/Techni toribio ID = [id number] for Buff ord, Andreia CBC W/PLT COUNT & AUTO [id number] 05:28:42 Test Item Value Reference Range Interpretation [...] (test code Normal = 762) COMPREHENSIVE METABOLIC [id number] 05:04:16 Test Item Value Reference Range Interpretation [...] 347) EGFR (BEAKER) (test 85 mL/min/1.73 ESTIMA LEONEL GFR IS code = 1092) sq m NOT ACCURATE CREATININE CLEARANCE IN PREDICTING GLOMERULAR FILTRATION RATE . ESTIMATED GFR I S NOT APPLICABLE FOR DIALYSIS PATIEN TS. Cinder Crane Operator ID - LITOOperator ID - LITOOperator ID - LITOOperator ID - LITOOperator ID - LITOOperator ID - LITOOperator ID - LITOOperator ID - LITOOperator ID - LITOOperator ID - LITOOperator ID - LITOOperator ID - LITOOperator ID - LITOOperator ID - LITOOperator ID - LITOOperator ID - [id number] 05:04:01 Test Item Value Reference Range Interpretation Comments MAGNESIUM (BEAKER) (test code = 1.9 mg/dL 1.5-3.0 627) [employer]inder [employer] Operator ID - LITOOperator ID - LITOOperator ID - LITOOperator ID - LITOPOCT- GLUCOSE [id number] 21:26:19 Test Item Value Reference Range Interpretation Comments POC-GLUCOSE METER 103 mg/dL 70-110 : TESTED A T [address] (BEAKER) (test code [address], = 1538) [facility] [address]: Cinder Crane Operator/Techni toribio ID = [id number] for Brittaney rutledge Kevin POCT-GLUCOSE [id number] 17:07:14 Test Item Value Reference Range Interpretation Comments POC-GLUCOSE METER 101 mg/dL 70-110 : TESTED A T [address] (BEAKER) (test code [address], = 1538) [place] [address]: Cinder Crane Operator/Techni toribio ID = [id number] for Buff ord, Andreia RAD, CHEST, 1 VIEW, NON [id number] 14:01:00Reason for exam:->SOBShould this be performed at the bedside?->Yes [facility] 1965 Sex: FFINAL REPORT Chest AP portable erect History provided: Shortness of breath Heart size magnified by projection and poor inspiration. Mild basilar atelectasis. Lungs otherwise clear and vascularity normal. Signed: aJmes Nuñez Verified Date/Time: 11/29/2021 14:01:49 Reading Location: [facility] Radiology Reading Room POCT-GLUCOSE [id number] 11:33:08 Test Item Value Reference Range Interpretation Comments POC-GLUCOSE METER 115 mg/dL 70-110 H : TESTED A T [address] (BEAKER) (test code [address], = 1538) [place] [address]: Cinder Crane Operator/Techni toribio ID = [id number] for Buff ord, Andreia POCT-GLUCOSE [id number] 06:56:45 Test Item Value Reference Range Interpretation Comments POC-GLUCOSE METER 106 mg/dL 70-110 : TESTED A T [address] (BEAKER) (test code [address], = 1538) [facility] [address]: Cinder Crane Operator/Techni toribio ID = [id number] for Isabella Camilo CBC W/PLT COUNT & AUTO [id number] 12:58:22 Test Item Value Reference Range Interpretation [...] MORPHOLOGY (BEAKER) (test code Normal = 762) Basic metabolic [id number] 12:24:14 Test Item Value Reference Interpretation Comments Range Sodium (test code = 139 meq/L 670-576 0467-2) Potassium (test code 4.4 meq/L 3.6-5.5 = 2823-3) Chloride (test code 110 meq/L 98-106 H = 2075-0) CO2 (test code = 19 meq/L 20-29 L 2028-9) BUN (test code = 23 mg/dL 10-26 3094-0) Creatinine (test 1.24 mg/dL 0.50-1.20 H code = 2160-0) Glucose (test code = 191 mg/dL 70-110 H 2345-7) Calcium (test code = 8.1 mg/dL 8.5-10.5 L 84109-7) EGFR (test code = 45 mL/min/1.73 sq ESTIMATE D GFR 01901-5) m IS NOT ACCURATE CREATININE CLEARANCE IN PREDICTING GLOMERULAR FILTRATION RATE. ESTIMATED GFR IS NOT APPLICABLE FOR DIALYSIS PATIENTS. THELMA (test code = Cinder Crane Operator ID - THELMA) DSENSONOperator ID - DSENSONOperator ID - DSENSONOperator ID - DSENSONOperator ID - DSENSONOperator ID - DSENSONOperator ID - DSENSONOperator ID - DSENSONOperator ID - DSENSONOperator ID - DSENSONOperator ID - DSENSONOperator ID - DSENSONOperator ID - DSENSON Lab Interpretation Abnormal (test code = 80006-2) [facility] [id number] 12:24:14 Test Item Value Reference Interpretation Comments Range Sodium (test code = 139 meq/L 107-752 1930-2) Potassium (test code 4.4 meq/L 3.6-5.5 = 2823-3) Chloride (test code 110 meq/L 98-106 H = 5-0) CO2 (test code = 19 meq/L 20-29 L 8-9) BUN (test code = 23 mg/dL 10-26 3094-0) Creatinine (test 1.24 mg/dL 0.50-1.20 H code = 2160-0) Glucose (test code = 191 mg/dL 70-110 H 2345-7) Calcium (test code = 8.1 mg/dL 8.5-10.5 L 68346-9) EGFR (test code = 45 mL/min/1.73 sq ESTIMATE D GFR 45367-9) m IS NOT ACCURATE CREATININE CLEARANCE IN PREDICTING GLOMERULAR FILTRATION RATE. ESTIMATED GFR IS NOT APPLICABLE FOR DIALYSIS PATIENTS. THELMA (test code = Cinder Crane Operator ID - THELMA) DSENSONOperator ID - DSENSONOperator ID - DSENSONOperator ID - DSENSONOperator ID - DSENSONOperator ID - DSENSONOperator ID - DSENSONOperator ID - DSENSONOperator ID - DSENSONOperator ID - DSENSONOperator ID - DSENSONOperator ID - DSENSONOperator ID - DSENSON Lab Interpretation Abnormal (test code = 40872-1) [facility] METABOLIC [id number] 12:24:14 Test Item Value Reference Range Interpretation Comments SODIUM (BEAKER) 139 meq/L 135-148 (test code = 381) POTASSIUM (BEAKER) 4.4 meq/L 3.6-5.5 (test code = 379) CHLORIDE (BEAKER) 110 meq/L 98-106 H (test code = 382) CO2 (BEAKER) (test 19 meq/L 20-29 L code = 355) BLOOD UREA NITROGEN 23 mg/dL - (BEAKER) (test code = 354) CREATININE (BEAKER) 1.24 mg/dL 0.50-1.20 H (test code = 358) GLUCOSE RANDOM 191 mg/dL 70-110 H (BEAKER) (test code = 652) CALCIUM (BEAKER) 8.1 mg/dL 8.5-10.5 L (test code = 697) EGFR (BEAKER) (test 45 mL/min/1.73 ESTIMA LEONEL GFR IS code = 1092) sq m NOT ACCURATE CREATININE CLEARANCE IN PREDICTING GLOMERULAR FILTRATION RATE . ESTIMATED GFR I S NOT APPLICABLE FOR DIALYSIS PATIEN TS. Cinder Crane Operator ID - DSENSONOperator ID - DSENSONOperator ID - DSENSONOperator ID - DSENSONOperator ID - DSENSONOperator ID - DSENSONOperator ID - DSENSONOperator ID - DSENSONOperator ID - DSENSONOperator ID - DSENSONOperator ID - DSENSONOperator ID - DSENSONOperator ID - DSENSONPOCT-GLUCOSE [id number] 11:03:21 Test Item Value Reference Range Interpretation Comments POC-GLUCOSE METER 183 mg/dL 70-110 H : TESTED A T [address] (BEAKER) (test code [address], = 1538) [facility] [place] [address]: Cinder Crane Operator/Techni toribio ID = [id number] for Vicenta Lyles Hemoglobin [id number] 06:14:25 Test Item Value Reference Range Interpretation Comments Hemoglobin A1C (test code 5.3 % 4.3-6.1 = 4548-4) THELMA (test code = THELMA) Cinder Crane Operator ID - [id number] Lab Interpretation (test Normal code = 76745-9) [facility] [id number] 06:14:25 Test Item Value Reference Range Interpretation Comments Hemoglobin A1C (test code 5.3 % 4.3-6.1 = 4548-4) THELMA (test code = THELMA) Cinder Crane Operator ID - [id number] Lab Interpretation (test Normal code = 24101-2) [facility] CenterHEMOGLOBIN [id number] 06:14:25 Test Item Value Reference Range Interpretation Comments HEMOGLOBIN A1C (BEAKER) (test code = 5.3 % 4.3-6.1 368) Cinder Crane Operator ID - [id number](MANUAL DIFFERENTIAL)2021-11-28 06:03:44 Test Item [...] few 477) CBC W/PLT COUNT & AUTO [id number] 06:03:43 Test Item Value Reference Range Interpretation [...] 0-0 PERCENT (BEAKER) (test code = 2801) TSH/Free T4 If [id number] 05:47:56 Test Item Value Reference Range Interpretation Comments TSH (test code = 1.190 See_Comment [Automated 23974-6) message] The system which generated this result transmit leonel reference range : 0.350 - 5.500 uIU/mL. The reference range was not used to interpret this result as normal/abnormal . THELMA (test code = THELMA) Cinder Crane Operator ID - [id number] Lab Interpretation Normal (test code = 62035-6) [facility]/Free T4 If [id number] 05:47:56 Test Item Value Reference Range Interpretation Comments TSH (test code = 1.190 See_Comment [Automated 70523-8) message] The system which generated this result transmit leonel reference range : 0.350 - 5.500 uIU/mL. The reference range was not used to interpret this result as normal/abnormal . THELMA (test code = THELMA) Cinder Crane Operator ID - [id number] Lab Interpretation Normal (test code = 46050-8) [facility]/FREE T4 IF [id number] 05:47:56 Test Item Value Reference Range Interpretation Comments THYROID STIMULATING HORMONE 1.190 uIU/mL 0.350-5.500 (BEAKER) (test code = 772) Cinder Crane Operator ID - [id number] METABOLIC [id number] 05:37:27 Test Item Value Reference Range Interpretation [...] 347) EGFR (BEAKER) (test 62 mL/min/1.73 ESTIMA LEONEL GFR IS code = 1092) sq m NOT ACCURATE CREATININE CLEARANCE IN PREDICTING GLOMERULAR FILTRATION RATE . ESTIMATED GFR I S NOT APPLICABLE FOR DIALYSIS PATIEN TS. Cinder Crane Operator ID - [id number] ID - [id number] ID - vcsm09Ajnvkwaf ID - lwau11Tnnihfne ID - ndsq79Hsctrfdp ID - ctyi29Mzllhmwa ID - pgqm72Lqeprpxa ID - mzno42Ljwlcnxy ID - xats01Ardfmnkb ID - leuu86Uzyhajmh ID - jrkh76Grxccyap ID - wesw32Movplkbl ID - exgw65Nvpcnxkt ID - [id number] ID - suyl98Ayglloqg ID - [id number] 05:27:38 Test Item Value Reference Range Interpretation Comments MAGNESIUM (BEAKER) (test code = 1.7 mg/dL 1.5-3.0 627) Cinder Crane Operator ID - [id number] ID - [id number] ID - [id number] ID - [id number] Mkcyzqbbns7645-54-29 05:24:23 Test Item Value Reference Range Interpretation Comments Phosphorus (test code = 5.0 mg/dL 2.5-4.5 H 2777-1) THELMA (test code = THELMA) Cinder Crane Operator ID - [id number] Lab Interpretation (test Abnormal code = 56457-8) [facility]osph[facility]22-[facility] 05:24:23 Test Item Value Reference Range Interpretation Comments Phosphorus (test code = 5.0 mg/dL 2.5-4.5 H 2777-1) THELMA (test code = THELMA) Cinder Crane Operator ID - [id number] Lab Interpretation (test Abnormal code = 62751-5) [facility]OS[facility]US2022-02-16 05:24:23 Test Item Value Reference Range Interpretation Comments PHOSPHORUS (BEAKER) (test code = 5.0 mg/dL 2.5-4.5 H 604) Cinder Crane Operator ID - [id number]/[id number] 05:23:01 Test Item Value Reference Interpretation Comments Range Protime (test code = 10.5 See_Comment Final 5902-2) Information (Auto Output) [Automated message] The system which generated this result transmitted reference range : 9.3 - 12.0 seconds. The reference range was not used to interpret this result as normal/abnormal . INR (test code = 0.94 <=5.90 Final 6301-6) Information (Auto Output) PTT (test code = 24.4 See_Comment Final 71061-5) Information (Auto Output) [Automated message] The system which generated this result transmitted reference range : 23.0 - 35.0 seconds. The reference range was not used to interpret this result as normal/abnormal . THELMA (test code = RECOMMENDED THELMA) COUMADIN/WARFARIN INR THERAPY RANGESSTANDARD DOSE: 2.0 - 3.0 Includes: PROPHYLAXIS for venous thrombosis, systemic embolization; TREATMENT for venous thrombosis and/or pulmonary embolus.HIGH RISK: Target INR is 2.5-3.5 for patients with mechanical heart valves. Lab Interpretation Normal (test code = 31465-0) [facility] CenterPT/[id number] 05:23:01 Test Item Value Reference Interpretation Comments Range Protime (test code = 10.5 See_Comment Final 5902-2) Information (Auto Output) [Automated message] The system which generated this result transmitted reference range : 9.3 - 12.0 seconds. The reference range was not used to interpret this result as normal/abnormal . INR (test code = 0.94 <=5.90 Final 6301-6) Information (Auto Output) PTT (test code = 24.4 See_Comment Final 24042-6) Information (Auto Output) [Automated message] The system which generated this result transmitted reference range : 23.0 - 35.0 seconds. The reference range was not used to interpret this result as normal/abnormal . THELMA (test code = RECOMMENDED THELMA) COUMADIN/WARFARIN INR THERAPY RANGESSTANDARD DOSE: 2.0 - 3.0 Includes: PROPHYLAXIS for venous thrombosis, systemic embolization; TREATMENT for venous thrombosis and/or pulmonary embolus.HIGH RISK: Target INR is 2.5-3.5 for patients with mechanical heart valves. Lab Interpretation Normal (test code = 62197-3) [id number]:23[facility]01 Test Item Value Reference Range Interpretation Comments PROTIME (BEAKER) (test 10.5 seconds 9.3-12.0 Final Information code = 759) (Auto Output) INR (BEAKER) (test 0.94 See_Comment Final Inf ormation code = 370) (Auto Output) [Automated mess age] The system [employer] generated this result transmit leonel reference range : <=5.90. The reference range was not used to interpret this result as normal/abnormal . PARTIAL THROMBOPLASTIN 24.4 seconds 23.0-35.0 Final Information TIME (BEAKER) (test (Auto Ou tput) code = 760) RECOMMENDED COUMADIN/WARFARIN INR THERAPY RANGESSTANDARD DOSE: 2.0 - 3.0 Includes: PROPHYLAXIS for venous thrombosis, systemic embolization; TREATMENT for venous thrombosis and/or pulmonary embolus.HIGH RISK: Target INR is 2.5-3.5 for patients with mechanical heart valves.Panel Description: SARS-CoV-2 (COVID- 19) RNA [Presence] in Unspecified specimen by GILUIANA with probe [id number] 04:17:00 Test Item Value Reference Range Interpretation Comments SARS-CoV-2, Not Detected Not Detected Testing was per formed using GIULIANA (test code the narcisa(R) SARS-CoV-2 = 40865-2) test.This test was developed and i ts performance juancho racteristics determinedby [employer] T his test has not been FDA [...] assay.
< br/>Performe d by:
[facility] [place] ([facility])

[facility] Description: SARS-CoV-2 (COVID-19) RNA [Presence] in Unspecified specimen by GIULIANA with probe [id number] 04:17:00 Test Item Value Reference Range Interpretation Comments SARS-CoV-2, Not Detected Not Detected Testing was per formed using GIULIANA (test code the narcisa(R) SARS-CoV-2 = 51101-6) test.This test was developed and i ts performance juancho racteristics determinedby [employer] T his test has not been FDA [...] assay.
< br/>Performe d by:
[facility] [place] ([facility])

[facility]] CMP [id number] 14:13:01 Test Item Value Reference Range Interpretation Comments Sodium Level 142 {mEq/l} 135-145 (test code = 2951-2) Potassium Level 4.2 {mEq/l} 3.5-5.1 (test code = 2823-3) Chloride Level; 112 {mEq/l} 95-109 Above High Threshold (test code = 5-0) Carbon Dioxide; 23 {mEq/l} 24-32 Below Low Threshold (test code = 2027-9) AGAP (test code = 11.2 {mEq/l} 10.0-20.0 20376-9) Glucose Lvl (test 70 mg/dl 70-99 Adult refe rence range code = 2345-7) values reflec t the clinical guidel inesof the [place] [employer]et es [employer]. Creatinine Lvl 1.00 mg/dl 0.50-1.40 (test code = 2160-0) Blood Urea 12 mg/dl 7-22 Nitrogen (test code = 3094-0) BUN/Creatinine 12 6-25 Ratio (test code = 3097-3) Total Protein 7.2 g/dl 6.4-8.4 (test code = 2885-2) Albumin Lvl; 3.3 g/dl 3.5-5.0 Below Low Threshold (test code = 1751-7) Globulin (test 3.9 g/dl 2.7-4.2 code = 63464-9) A/G Ratio (test 0.8 0.7-1.6 code = 1759-0) Calcium Level 8.4 mg/dl 8.5-10.5 Total; Below Low Threshold (test code = 00299-6) ALT (test code = 38 u/l 0-65 1743-4) AST (test code = 28 u/l 0-37 70100-5) Bili Total (test 0.3 mg/dl 0.2-1.3 code = 1974-2) Alk Phos (test 118 u/l 39-136 code = 1783-0) eGFR (test code = 64 The eGFR i s calculated 84683-1) {ML/MIN/1.7} using the CKD-E PI formula. In [...] be multiplied by t he estimated BMI. [facility]] IRON, [id number] 14:13:01 Test Item Value Reference Range Interpretation Comments Iron; Above High Threshold (test 361 ug/dL 30-160 code = 2498-4) [facility]] LIPID [id number] 14:13:01 Test Item Value Reference Range Interpretation Comments Chol (test code = 2093-3) 152 mg/dl <=199 Trig; Above High Threshold (test 177 mg/dl <=149 code = 2571-8) HDL Cholesterol (test code = 68 mg/dl >=61 2085-9) CHD Risk; Below Low Threshold (test 2.24 3.90-5.80 code = 82415-8) LDL (test code = 42987-4) 49 mg/dl <=99 VLDL (test code = VLDL) 35 [facility]] VITAMIN [id number] 14:13:01 Test Item Value Reference Range Interpretation Comments Vitamin B12 Level (test code = 546 pg/ml 254-1320 2132-9) [facility]] TSH, 3RD GENERATION W/REFLEX TO [id number] 14:13:01 Test Item Value Reference Range Interpretation Comments TSH (test code = 43142-0) 1.790 {uIU/ml} 0.360-3.740 [facility]] PTH, INTACT (WITHOUT CALCIUM)2018 14:13:01 Test Item Value Reference Range Interpretation Comments Parathyroid Hormone Intact; Above 120.8 pg/ml 18.4-80.1 High Threshold (test code = 2731-8) [facility]] CBC (INCLUDES DIFF/PLT)2018 14:13:01 Test Item Value Reference Range Interpretation Comments WBC (test code = 6690-2) 6.1 {K/CMM} 3.7-10.4 RBC; Below Low Threshold (test 3.97 {M/CMM} 4.20-5.40 code = 789-8) Hgb; Below Low Threshold (test 10.1 g/dl 12.0-16.0 code = 718-7) Hct; Below Low Threshold (test 30.7 % 36.0-48.0 code = 54790-5) MCV; Below Low Threshold (test 77.5 fL 80.0-98.0 code = 787-2) MCH; Below Low Threshold (test 25.4 pg 27.0-31.0 code = 785-6) MCHC (test code = 786-4) 32.8 g/dl 32.0-36.0 RDW; Above High Threshold (test 20.3 % 11.5-14.5 code = 788-0) Platelet (test code = 34495-2) 275 {K/CMM} 133-450 Mean Platelet Volume (test code 9.2 fL 7.4-10.4 = 95831-4) [facility]] [id number] 14:13:01 Test Item Value Reference Range Interpretation Comments Segmented Neutrophils (test code 61.1 % 45.0-75.0 = 74812-8) Monocytes (test code = 97027-6) 7.0 % 2.0-12.0 Lymphocytes (test code = 35758-4) 26.5 % 20.0-40.0 Eosinophils; Above High Threshold 4.5 % 0.0-4.0 (test code = 75402-6) Basophils (test code = 706-2) 0.9 % 0.0-1.0 Segs-Bands # (test code = 3.7 {K/CMM} 1.5-8.1 16631-7) Lymphocytes # (test code = 1.6 {K/CMM} 1.0-5.5 81138-5) Monocytes # (test code = 97934-2) 0.4 {K/CMM} 0.0-0.8 Eosinophils # (test code = 0.3 {K/CMM} 0.0-0.5 44888-0) Basophils # (test code = 50520-8) 0.1 {K/CMM} 0.0-0.2 Microcyte (test code = Microcyte) 1+ None Seen A [facility]] FOLATE, [id number] 14:13:01 Test Item Value Reference Range Interpretation Comments Folate Level (test code = 2284-8) 23.1 ng/ml >=3.0 [facility]] HEMOGLOBIN [id number] 14:13:01 Test Item Value Reference Range Interpretation Comments Hemoglobin A1c (test code = 4548-4) 5.2 % <=5.6 [facility]] VITAMIN D, 25-HYDROXY, [id number] 14:13:01 Test Item Value Reference Range Interpretation Comments Vitamin D, 25-OH, 36.3 ng/ml 30.0-100.0 Reference range is based Total (test code on recommen dations in the = Vitamin D, EndocrineSociet y Clinical 25-OH, Total) Practice Guide line (J Clin Endocrinol Qqfuu8459;96:19 11-1930) [facility]] VITAMIN B1, WHOLE [id number] 14:13:01 Test Item Value Reference Range Interpretation Comments Vitamin B1 131.4 66.5-200.0 This test was d eveloped and its Level (test nmol/L performance code = characteristics determined by Vitamin B1 [facility]. It has not been Level) cleared orappro jose m by the Food and Drug Administration. Performed At: [facility] [address] [place], [place] [id number] k Mark Avalos MD Ph:[phone] [facility]] Vit [id number] 14:13:01 Test Item Value Reference Range Interpretation Comments Vitamin A 28.3 ug/dL 33.1-100.0 Reference inter vals for vitamin Level (test A determined fr om code = NationalHealth and Nutrition Vitamin A Examination [place], Level) 5701-3417.Indiv iduals with vitamin A less than 20 ug/dL areconsidered v itamin A deficient and t hose with serumconcentrat ions less than 10 ug/dL are co nsidered severelydeficie nt.This test was developed and i ts performance characteristics determined by [facility]. It has not been cleared orappro jose m by the Food and Drug Admini stration. Please note r eference interval change [facility]formed At: [facility] [place], [place] [id number] rl Avalos MD Ph:[phone] [facility]] Vitamin E [id number] 14:13:01 Test Item Value Reference Range Interpretation Comments Alpha-Tocoph 10.8 mg/L 7.0-25.1 jovana (test code = Alpha-Tocoph jovana) Gamma-Tocoph 0.6 mg/L 0.5-5.5 Reference inter vals for alpha jovana (test and gamma-tocop heroldetermined code = from National H ealth and Gamma-Tocoph Nutrition Exami nationSurvey, jovana) 4735-2577. Aishwarya viduals with alpha-tocophero l levelsless than 0.5 mg/L are co nsidered vitamin E deficient.Thi s test was developed and i ts performance characteristics determined by [facility]. It has not been cleared orapproved by t Food and Drug Administration. [facility]formed At: [facility] [address] [place], [place] [id number] Avalos MD Ph:[phone] [facility]
[2023-02-21] MEDS ORDERED: MAGNES/ALUMIN/SIMET 30ML UCUP ONE (02:04)
[2023-02-21] MEDS ORDERED: LIDOCAINE VISCOUS 2% SOLN 15 ML UDC ONE (02:05)
[2023-02-21] MEDS ORDERED: MORPHINE 4 MG/ML SYR ONE ×2 (02:05→05:07)
[2023-02-21] MEDS ORDERED: FAMOTIDINE 20 MG/2 ML VIAL IV ONE (02:05)
[2023-02-21] MEDS ORDERED: ONDANSETRON 4 MG/2 ML VIAL ONE (02:05)
[2023-02-21 02:37] LABS: Absolute Lymphocytes (CBC) 1.9 K/uL (0.7-4.9); Hematocrit 36.5 % (36.0-45.0); Lymphocytes % 21.8 % (15.3-44.8); MCV 78.9 fL (80-100); RBC Red Blood Cell Count 4.62 M/uL (3.86-4.86)
[2023-02-21 02:49] LABS: Albumin 3.5 g/dL (3.4-5.0); Bilirubin Total 0.2 mg/dL (0.2-1.0); Potassium 3.1 mEq/L (3.5-5.1); Protein, Total 7.4 g/dL (6.4-8.2); Troponin High Sensitivity 6.7 pg/mL (<58.9)
[2023-02-21 03:58] LABS: Anisocytosis 1+; Blood Morphology Comment NOTED (NOT SEEN); Hypochromasia 1+; Platelet Estimate ADEQ; White Blood Cell Scan OK (OK)
--- NOTE | 2023-02-21 04:41 | EDPHYS ---
Physician Documentation [facility] Name: Angela Green Age: 58 yrs Sex: Female : 1965 Arrival Date: 02/21/2023 Time: 01:15 Bed 8 Private MD: ED Physician Collin Bautista HPI: 02/21 01:34 This 58 yrs old Female presents to ER via Ambulatory with complaints of Pain All Over. rn 01:34 The patient presents with abdominal pain in the upper abdomen. Onset: The rn symptoms/episode began/occurred 1 week(s) ago. The symptoms radiate to back, chest. Associated signs and symptoms: Pertinent positives: nausea, Pertinent negatives: anorexia, blood in stools, diarrhea, fever, shortness of breath, vomiting blood. The symptoms are described as burning. Modifying factors: The symptoms are alleviated by nothing, the symptoms are aggravated by nothing. Severity of pain: At its worst the pain was moderate in the emergency department the pain is unchanged. The patient has experienced a previous episode. The patient has not recently seen a physician. Historical: - Allergies: 01:31 No Known Allergies; vc1 - PMHx: 01:31 Anxiety; Hypertensive disorder; Hypertensive disorder; Manic Depressive disorder; vc1 Migraine; Migraine; Panic Attacks; restless leg syndrome; RLS; tremors; - PSHx: 01:31 Cholecystectomy; section; colon surgery; Gastric Bypass; Hip implant; Spinal vc1 Fusion; - Immunization history:: Client reports receiving the 2nd dose of the Covid vaccine, Pfizer. - Social history:: Smoking status: Reported history of juuling and/or vaping. - Family history:: not pertinent. - Hospitalizations: : No recent hospitalization is reported. ROS: 01:34 Constitutional: Negative for fever, chills, and weight loss, Neck: Negative for injury, rn pain, and swelling, Cardiovascular: Negative for palpitations, and edema, Respiratory: Negative for shortness of breath, cough, wheezing, and pleuritic chest pain, Abdomen/GI: Negative for vomiting, diarrhea, and constipation, Back: + mid back pain : Negative for injury, bleeding, discharge, and swelling, MS/Extremity: Negative for injury and deformity, Skin: Negative for injury, rash, and discoloration, Neuro: Negative for headache, weakness, numbness, tingling, and seizure. Exam: 01:34 Constitutional: This is a well developed, well nourished patient who is awake, alert, rn and in no acute distress. Head/Face: Normocephalic, atraumatic. Cardiovascular: Regular rate and rhythm. No pulse deficits. Respiratory: No increased work of breathing, no retractions or nasal flaring. Abdomen/GI: soft, mild LUQ and epigastric tenderness, no rebound, no distension Skin: Warm, dry MS/ Extremity: Pulses equal, no cyanosis. Neuro: Awake and alert, GCS 15 04:26 ECG was reviewed by the Attending Physician. rn Vital Signs: 01:32 Weight 90.72 kg; Height 5 ft. 8 in. ; Pain 8/10; vc1 01:35 BP 159 / 118; Pulse 99; Resp 16; Temp 98.1; Pulse Ox 98% ; vc1 02:17 BP 159 / 98; Pulse 87; Pulse Ox 97% on R/A; aa9 03:00 BP 152 / 113; Pulse 83; Resp 18; Pulse Ox 97% ; pf1 04:26 BP 143 / 99; Pulse 87; Resp 16; Pulse Ox 98% ; pf1 04:46 BP 151 / 91; Pulse 84; Resp 17 S; Temp 98.5(O); Pulse Ox 96% on R/A; aa9 01:32 Body Mass Index 30.41 (90.72 kg, 172.72 cm) vc1 01:32 Pain Scale: Adult vc1 MDM: 01:19 Patient medically screened. rn 04:39 Differential diagnosis: bowel obstruction, gastritis, gastroesophageal reflux disease, rn non-specific abd pain, pancreatitis, Peptic Ulcer Disease. Data reviewed: vital signs, nurses notes, lab test result(s), radiologic studies, CT scan, and as a result, I will discharge patient. Counseling: I had a detailed discussion with the patient and/or guardian regarding: the historical points, exam findings, and any diagnostic results supporting the discharge/admit diagnosis, lab results, radiology results, the need for outpatient follow up, to return to the emergency department if symptoms worsen or persist or if there are any questions or concerns that arise at home. Response to treatment: the patient's symptoms have mildly improved after treatment, and as a result, I will discharge patient. Special discussion: Based on the patient's Hx, exam, and Dx evaluation, there is no indication for emergent surgery or inpatient Tx. It is understood by the patient/guardian that if the Sx's persist or worsen they need to return immediately for re-evaluation. I discussed with the patient/guardian in detail that at this point there is no indication for admission to the hospital. It is understood, however, that if the symptoms persist or worsen the patient needs to return immediately for re-evaluation. Based on the history and exam findings, there is no indication for further emergent testing or inpatient evaluation. 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 I discussed with the patient/guardian the need to see the primary care provider for further evaluation of the symptoms. ED course: NO acute findings on CT chest/abdomen/pelvis. Labs unremarkable, will dc home with return precautions. Patient has improved. Stable vitals. . 02/21 01:33 Order name: CBC with Diff; Complete Time: 04:03 rn 02/21 01:33 Order name: CMP; Complete Time: 03:29 rn 02/21 01:33 Order name: Lipase; Complete Time: 03:29 rn 02/21 01:33 Order name: Troponin High Sensitivity; Complete Time: 03:29 rn 02/21 02:41 Order name: CBC Smear Scan; Complete Time: 04:03 EDMS 02/21 01:40 Order name: CT Aorta for Dissection rn 02/21 01:33 Order name: EKG; Complete Time: 01:34 rn 02/21 01:33 Order name: IV Saline Lock; Complete Time: 02:14 rn 02/21 01:33 Order name: Labs collected and sent; Complete Time: 02:14 rn 02/21 01:33 Order name: EKG - Nurse/Tech; Complete Time: 02:39 rn EC:26 Rate is 84 beats/min. Rhythm is regular. QRS [place] is Normal. SD interval is normal. QRS rn interval is normal. QT interval is normal. No Q waves. T waves are Normal. No ST changes noted. Clinical impression: Normal ECG. Interpreted by me. Reviewed by me. Administered Medications: 02:00 Drug: Ondansetron IVP 4 mg Route: IVP; Site: right antecubital; aa9 02:39 Follow up: Response: No adverse reaction aa9 02:12 Drug: morphine IVP or IV 4 mg Route: IVP; Infused Over: 4 mins; Site: right antecubital;aa9 02:39 Follow up: Response: No adverse reaction; Pain is decreased aa9 02:14 Drug: Famotidine IVP 20 mg Route: IVP; Site: right antecubital; aa9 02:39 Follow up: Response: No adverse reaction aa9 02:14 Drug: GI Cocktail without - (Maalox PO Suspension 30 ml, Lidocaine Mucous aa9 Membrane Liquid 2 % 15 ml) Route: PO; 02:39 Follow up: Response: No adverse reaction aa9 05:04 Drug: morphine IVP or IV 4 mg Route: IVP; Infused Over: 4 mins; Site: right antecubital;aa9 Disposition Summary: 02/21/23 04:40 Discharge Ordered Location: Home rn Problem: new rn Symptoms: have improved rn Condition: Stable rn Diagnosis - Upper abdominal pain, unspecified rn Followup: rn - With: Private Physician - When: As needed - Reason: Recheck today's complaints, Re-evaluation by your physician Discharge Instructions: - Discharge Summary Sheet rn - Abdominal Pain, Adult rn - Pain Without a Known Cause rn Forms: - Medication Reconciliation Form rn - Thank You Letter rn - 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 EDMS EDMS
--- NOTE | 2023-02-21 04:41 | ER ---
Nurse's Notes [facility] Name: Angela Green Age: 58 yrs Sex: Female : 1965 Arrival Date: 02/21/2023 Time: 01:15 Bed 8 Private MD: Diagnosis: Upper abdominal pain, unspecified Presentation: 02/21 01:32 Chief complaint: Patient states: "I'm having severe pain under my rib cage goes vc1 straight into my back and down my left arm and a little bit into my chest.". Coronavirus screen: Vaccine status: Patient reports receiving the 2nd dose of the covid vaccine. Client denies travel out of the [place] in the last 14 days. At this time, the client does not indicate any symptoms associated with coronavirus-19. Ebola Screen: Patient negative for fever greater than or equal to 101.5 degrees Fahrenheit, and additional compatible Ebola Virus Disease symptoms Patient denies exposure to infectious person. Patient denies travel to an Ebola-affected area in the 21 days before illness onset. No symptoms or risks identified at this time. Risk Assessment: Do you want to hurt yourself or someone else? Patient reports no desire to harm self or others. Onset of symptoms is unknown. 01:32 Method Of Arrival: Ambulatory vc1 01:32 Acuity: DONITA 3 vc1 05:05 Initial Sepsis Screen: Does the patient meet any 2 criteria? No. Patient's initial aa9 sepsis screen is negative. Does the patient have a suspected source of infection? No. Patient's initial sepsis screen is negative. Triage Assessment: 01:33 General: Appears in no apparent distress. uncomfortable, Behavior is calm, cooperative, vc1 appropriate for age. Pain: Complains of pain in abdomen Pain radiates to anterior aspect of left upper chest, diaphragm and left arm Pain currently is 8 out of 10 on a pain scale. EENT: No deficits noted. No signs and/or symptoms were reported regarding the EENT system. Neuro: Level of Consciousness is awake, alert, obeys commands, Oriented to person, place, time, situation, Appropriate for age. Cardiovascular: No deficits noted. Respiratory: Airway is patent Respiratory effort is even, unlabored, Respiratory pattern is regular, symmetrical. GI: Reports upper abdominal pain, nausea. : No deficits noted. No signs and/or symptoms were reported regarding the genitourinary system. Derm: No deficits noted. No signs and/or symptoms reported regarding the dermatologic system. Musculoskeletal: No deficits noted. No signs and/or symptoms reported regarding the musculoskeletal system. Historical: - Allergies: :31 No Known Allergies; vc1 - PMHx: :31 Anxiety; Hypertensive disorder; Hypertensive disorder; Manic Depressive disorder; vc1 Migraine; Migraine; Panic Attacks; restless leg syndrome; RLS; tremors; - PSHx: :31 Cholecystectomy; section; colon surgery; Gastric Bypass; Hip implant; Spinal vc1 Fusion; - Immunization history:: Client reports receiving the 2nd dose of the Covid vaccine, [employer]. - Social history:: Smoking status: Reported history of juuling and/or vaping. - Family history:: not pertinent. - Hospitalizations: : No recent hospitalization is reported. Screenin:33 [facility] ED Fall Risk Assessment (Adult) History of falling in the last 3 months, vc1 including since admission No falls in past 3 months (0 pts) Confusion or Disorientation No (0 pts) Intoxicated or Sedated No (0 pts) Impaired Gait No (0 pts) Mobility Assist Device Used No (0 pt) Altered Elimination No (0 pt) Score/Fall Risk Level 0 - 2 = Low Risk Oriented to surroundings, Maintained a safe environment, Educated pt \\T\\ family on fall prevention, incl call for assistance when getting out of bed. Abuse screen: Denies threats or abuse. Nutritional screening: No deficits noted. Tuberculosis screening: No symptoms or risk factors identified. Assessment: 02:16 Reassessment:. General: Appears in no apparent distress. Behavior is calm, cooperative. aa9 Pain: Complains of pain in upper body Pain currently is 8 out of 10 on a pain scale. Neuro: Level of Consciousness is awake, alert, obeys commands, Oriented to person, place, time, situation. Cardiovascular:. Respiratory: Airway is patent Respiratory effort is even, unlabored. GI: Reports nausea, Patient currently denies vomiting. 03:35 Reassessment: Patient appears in no apparent distress at this time. Patient is alert, aa9 oriented x 3, equal unlabored respirations, skin warm/dry/pink. Patient states symptoms have improved. 04:33 Reassessment: Patient appears in no apparent distress at this time. Patient and/or pf1 family updated on plan of care and expected duration. Pain level reassessed. Patient is alert, oriented x 3, equal unlabored respirations, skin warm/dry/pink. Patient states symptoms have improved. 05:06 Reassessment: Patient appears in no apparent distress at this time. Patient and/or aa9 family updated on plan of care and expected duration. Pain level reassessed. Patient is alert, oriented x 3, equal unlabored respirations, skin warm/dry/pink. Vital Signs: 01:32 Weight 90.72 kg; Height 5 ft. 8 in. ; Pain 8/10; vc1 01:35 BP 159 / 118; Pulse 99; Resp 16; Temp 98.1; Pulse Ox 98% ; vc1 02:17 BP 159 / 98; Pulse 87; Pulse Ox 97% on R/A; aa9 03:00 BP 152 / 113; Pulse 83; Resp 18; Pulse Ox 97% ; pf1 04:26 BP 143 / 99; Pulse 87; Resp 16; Pulse Ox 98% ; pf1 04:46 BP 151 / 91; Pulse 84; Resp 17 S; Temp 98.5(O); Pulse Ox 96% on R/A; aa9 01:32 Body Mass Index 30.41 (90.72 kg, 172.72 cm) vc1 01:32 Pain Scale: Adult vc1 ED Course: 01:18 Patient arrived in ED. ja2 01:19 Collin Bautista MD is Attending Physician. rn 01:33 Triage completed. vc1 01:33 Arm band placed on right wrist. vc1 01:55 Temi Pugh, RN is Primary Nurse. aa9 02:10 Inserted saline lock: 20 gauge in right antecubital area, using aseptic technique. aa9 Blood collected. 02:16 CBC with Diff Sent. aa9 02:16 CMP Sent. aa9 02:16 Lipase Sent. aa9 02:16 Troponin High Sensitivity Sent. aa9 03:55 CT Aorta for Dissection In Process Unspecified. EDMS 04:00 Patient has correct armband on for positive identification. Bed in low position. Call aa9 light in reach. 04:00 Client placed on continuous cardiac and pulse oximetry monitoring. NIBP monitoring aa9 applied. 05:05 No provider procedures requiring assistance completed. IV discontinued, intact, aa9 bleeding controlled, No redness/swelling at site. Pressure dressing applied. Administered Medications: 02:00 Drug: Ondansetron IVP 4 mg Route: IVP; Site: right antecubital; aa9 02:39 Follow up: Response: No adverse reaction aa9 02:12 Drug: morphine IVP or IV 4 mg Route: IVP; Infused Over: 4 mins; Site: right antecubital;aa9 02:39 Follow up: Response: No adverse reaction; Pain is decreased aa9 02:14 Drug: Famotidine IVP 20 mg Route: IVP; Site: right antecubital; aa9 02:39 Follow up: Response: No adverse reaction aa9 02:14 Drug: GI Cocktail without - (Maalox PO Suspension 30 ml, Lidocaine Mucous aa9 Membrane Liquid 2 % 15 ml) Route: PO; 02:39 Follow up: Response: No adverse reaction aa9 05:04 Drug: morphine IVP or IV 4 mg Route: IVP; Infused Over: 4 mins; Site: right antecubital;aa9 Medication: 05:05 VIS not applicable for this client. aa9 Outcome: 04:40 Discharge ordered by . rn 05:05 Discharged to home ambulatory. aa9 05:05 Condition: good 05:05 Discharge instructions given to patient, Instructed on discharge instructions, follow up and referral plans. medication usage, Demonstrated understanding of instructions, follow-up care, medications, Prescriptions given X 1. 05:06 Patient left the ED. aa9 Signatures: Dispatcher [employer] EDMS Collin Bautista MD MD rn Alexander, Jessica ja2 Calcote, Vanessa, RN RN vc1 Temi Pugh RN RN aa9 Lissett moralez RN RN pf1
[2023-02-21 05:31] VITALS: BP 151/91; TEMP 98.5; O2SAT 96
--- NOTE | 2023-02-23 14:48 | EKG ---
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
--- NOTE | 2023-02-25 10:05 | RAD REPORT ---
EXAM DESCRIPTION: CT - Angio Aorta For Dissection - 02/21/2023 5:18 am CLINICAL HISTORY: The patient is 58 years old and is Female; CP, abd pain, back pain, left arm pain, presumed postmenopausal TECHNIQUE: Axial computed tomographic angiography images of the chest, abdomen and pelvis with intra venous contrast. Sagittal and coronal reformatted images were created and reviewed. This CT exam was performed using one or more of the following dose reduction techniques: automated exposure cont rol, adjustment of the mA and/or kV according to patient size, and/or use of iterative reconstruction technique. MIP reconstructed images were created and reviewed. COMPARISON: 12/26/2021 CTA chest abdomen pelvis FINDINGS: VASCULATURE: AORTA: No acute findings. No significant thoracic or abdominal aortic or iliofemoral atherosclerotic calcification. No aneurysmal dilatation or dissection. PULMONARY ARTERIES: Unremarkable as visualized. No pulmonary embolism. GREAT VESSELS OF AORTIC ARCH: No acute findings. No dissection. No arterial occlusion or signif icant stenosis. CELIAC TRUNK AND MESENTERIC ARTERIES: No acute findings. No occlusion or significant stenosis. RENAL ARTERIES: No acute findings. No occlusion or significant stenosis. ILIAC ARTERIES: No acute findings. No occlusion or significant stenosis. CHEST: LUNGS: Resolution of previously demonstrated left effusion and bibasilar consolidation. No mass. No consolidation. PLEURAL SPACE: Unremarkable. No significant effusion. No pneumothorax. HEART: Unremarkable. No cardiomegaly. No significant pericardial effusion. ABDOMEN: LIVER: Unremarkable. No mass. GALLBLADDER AND BILE DUCTS: Cholecystectomy with mild intrahepatic and extrahepatic ductal dilatati on, not unexpected. PANCREAS: Unremarkable. No ductal dilation. No mass. SPLEEN: Unremarkable. No splenomegaly. ADRENALS: Unremarkable. No mass. KIDNEYS AND URETERS: Unremarkable. No hydronephrosis. No solid mass. STOMACH AND BOWEL: Postsurgical gastric sleeve changes. No obstruction. No mucosal thickening. PELVIS: APPENDIX: No findings to suggest acute appendicitis. BLADDER: Unremarkable. No mass. REPRODUCTIVE: 1.4 cm left ovarian cyst, unchanged from prior exam. No dedicated imaging follow-up r ecommended for this particular finding. CHEST, ABDOMEN and PELVIS: INTRAPERITONEAL SPACE: Unremarkable. No significant fluid collection. No free air. BONES/JOINTS: Grade 2 anterolisthesis of L5 on S1 with disc spacer and bilateral posterior transped icular fixation screws noted, without evidence of hardware fracture, failure, or loosening. Bilateral L5 pars defects. No acute osseous abnormality. No dislocation. SOFT TISSUES: Postsurgical changes of the mid and inferior abdominal wall status post hernia repair . LYMPH NODES: Unremarkable. No enlarged lymph nodes. IMPRESSION: 1. No thoracic or abdominal aortic aneurysm or dissection. 2. No acute abnormality of the chest, abdomen, or pelvis. Electronically signed by: Elijah Blum MD 02/21/2023 4:27 AM CDT Due to temporary technical issues with the PACS/Fluency reporting system, reports are being signed by the in house radiologist without review as a courtesy to ensure prompt reporting. The interpreting r adiologist is fully responsible for the content of the report.
== END 2023-02-21 05:06 | disposition home or self-care (01) ==
LOC: ER 01:15
DX: R10.12 Left upper quadrant pain (principal); R10.13 Epigastric pain; R11.0 Nausea
CPT/HCPCS: 93005; 85025; 36415; 84484; 83690; 80053; 71275; 74175; 96375; 96374; 99284; Q9967; J2405

== ENCOUNTER 2023-04-09 21:32 | Emergency (ER) | payer OTHER ==
[2023-04-09] MEDS ORDERED: Calcium Chloride 10% INJ SYR IV ONE (21:33)
[2023-04-09] MEDS ORDERED: ATROPINE SULF 1 MG/10 ML SYR IV ONE (21:33)
[2023-04-09] MEDS ORDERED: EPINEPHrine 1 MG/10 ML SYR IV ONE (21:33)
--- OUTSIDE RECORDS SUMMARY | 2023-04-09 21:38 | XMS REPORT | Continuity of Care Document ---
:1965 Author Organization [facility] t Address [address] [facility] [address] [place] [address] Care Team Providers Name Role Phone No, Pcp [facility] Primary Care Physician Unavailable ELAINA MILLER Attending Clinician Unavailable Warner Lorenzana MD Attending Clinician [phone] Jorge Alberto Fernández MD Attending Clinician [phone] WARNER LORENZANA Attending Clinician Unavailable MICHAEL OGDEN Attending Clinician Unavailable Darrell Ogden MD Attending Clinician [phone] Michael Ogden MD Attending Clinician Clarisse CHANDLER, Geena Borrego Attending Clinician Minh Diaz MD Attending Clinician Yvan Schulte CRNA Attending Clinician ABRAM CARBAJAL Attending Clinician Unavailable [email or web address]_J Attending Clinician Unavailable Jhony Burk Attending Clinician [phone] RYAN CORBETT Attending Clinician [phone] DARRELL LAWS Attending Clinician Unavailable ARIELLA PHILLIPS Attending Clinician Unavailable CLIFFORD MONZON M.D. 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 d anxiety d anxiety Hope disorder disorder Founda t ion Moderate Major Problem Active St. 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 Tobacco Use [facility] Alcohol intake 2021-12-13 2021-12-13 [facility] Tobacco use and 2021-12-12 2021-12-12 Smokeless tobacco [facility] exposure [facility]00[facility]00 non-user [facility] Center Sex Assigned At [address] [facility] kes 00:00:00 00:00:00 [facility] Center Smoking Status Start Date Stop Date Source Unknown [facility] Medications Ordered Filled Start Stop Current Ordering Indication Dosage Frequency Signature Comments Components Source Medication Medication Date Date Medication? Clinician (SIG) Name Name losartan Yes 50mg Q.5D Take 50 mg [facility] [...] Medical capsule 57 times Center daily. losartan 2021-0 Yes 50mg Q.5D Take [address] (COZAAR) 50 3-23 by mouth 2 Tamra kes MG tablet 09:05: (two) Medical 57 times Center daily . OLANZapine 2-0 Yes 20mg QD Take 20 mg C [...] al 40 MG 57 Center tablet DULoxetine 2-0 Yes 60mg Q.5D Take [address] (CYMBALTA) 3-23 by mouth 2 Kwadwo es 60 MG 09:05: (two) Medical capsule 57 times Center daily. losartan 2022-0 Yes 50mg Q.5D Take [address] (COZAAR) 50 3-23 by mouth 2 Tamra kes MG tablet 09:05: (two) Medical 57 times Center daily . OLANZapine 2-0 Yes 20mg QD Take [address] (ZyPREXA) 3-23 by [facility] 20 MG 09:05: nightly. Medical tablet 57 Center QUEtiapine 2021-0 Yes 100mg Take [address] (SEROquel) 3-23 mg [facility] 100 MG 09:05: mouth 3 Medical tablet 57 (three) Center times daily as needed. diazePAM 2-0 Yes 5mg Q.5D Take 5 mg [facility] [...] Medical capsule 57 times Center daily. HYDROcodone 202-0 2022- No 15mL Take [address] -acetaminop 3-03 03-13 mLs [facility] hen 00:00: 23:59 mouth 4 Medical (LORTAB,HYC 00 :00 (four) Center ET) 7.5-325 times mg/15 mL daily as Soln needed for solution Pain for up to 10 days. Max Daily Amount: 60 mLs HYDROcodone 2022-0 2022- No 15mL Take [address] -acetaminop 3-03 03-13 [facility] hen 00:00: 23:59 mouth 4 Medical (LORTAB,HYC 00 :00 (four) Center ET) 7.5-325 times mg/15 mL daily as Soln needed for solution Pain for up to 10 days. Max Daily Amount: 60 mLs HYDROcodone 2021-2021- No 1{tbl} Take [address] -acetaminop 2-19 - tablet by Tamra cornejo ([employer]) 00:00: 00:00 mouth Medi wale 10-325 mg 00 :00 every 6 Center per tablet (six) hours as needed for Pain. Max Daily Amount: 4 tablets HYDROcodone 2021-2021- No 1{tbl} Take [address] -acetaminop 2-19 - tablet by Tamra cornejo ([employer]) 00:00: 00:00 mouth Medi wale 10-325 mg 00 :00 every 6 Center per tablet (six) hours as needed for Pain. Max Daily Amount: 4 tablets amoxicillin 2021-2021- No 1{tbl} Q.5D Take [address] -clavulanat 2-29 12- tablet by Tamra cooper 00:00: 23:59 mouth 2 Medical (AUGMENTIN) 00 :00 (two) Center 875-125 mg times per tablet daily for 10 days. amoxicillin 2021-2021- No 1{tbl} Q.5D Take [address] -clavulanat 2-29 12- tablet by Tamra cooper 00:00: 23:59 mouth 2 Medical (AUGMENTIN) 00 :00 (two) Center 875-125 mg times per tablet daily for 10 days. HYDROcodone 2021-0 2021- No 1{tbl} Take [address] -acetaminop 2-19 -19 tablet by Tamra cornejo ([employer]) 00:00: 00:00 mouth Medi wale 10-325 mg 00 :00 every 6 Center per tablet (six) hours as needed for Pain. Max Daily Amount: 4 tablets amoxicillin 2021-0 2021- No 1{tbl} Q.5D Take [address] -clavulanat 2-19 -19 tablet by Tamra Nerve.comangelica e 00:00: 00:00 mouth 2 Medical (AUGMENTIN) 00 :00 (two) Center 875-125 mg times per tablet daily for 10 days. HYDROcodone 2021- No 1{tbl} Take [address] -acetaminop 12-01 tablet by Tamra lara hen ([place]) 00:00: 00:00 mouth Medi wale 10-325 mg 00 :00 every 6 Center per tablet (six) hours as needed for Pain. Max Daily Amount: 4 tablets amoxicillin 2021- No 1{tbl} Q.5D Take [address] -clavulanat 12-01 tablet by Tamra cooper 00:00: 00:00 mouth 2 Medical (AUGMENTIN) 00 :00 (two) Center 875-125 mg times per tablet daily for 10 days. darifenacin darifenacin No darifenaci [facility] ER 7.5 mg ER 7.5 mg n ER 7.5 M edical tablet,exte tablet,exte mg nded nded tablet,ext release 24 release 24 ended hr TAKE 1 hr TAKE 1 release 24 TABLET BY TABLET BY hr TAKE 1 MOUTH DAILY MOUTH DAILY TABLET BY MOUTH DAILY Cymbalta 60 Cymbalta 60 No 1{capsu BID Cymbalta MG MG le} 60 MG DOK 100 mg DOK 100 mg No DOK 100 mg [facility] capsule capsule capsule Medica l TAKE TWO TAKE TWO TAKE TWO CAPSULES BY CAPSULES BY CAPSULES MOUTH TWICE MOUTH TWICE BY MOUTH DAILY DAILY TWICE DAILY duloxetine duloxetine No duloxetine [facility] 30 mg [...] MG liquid} Hydrobromi de ER 15 MG alprazolam alprazolam No alprazolam [facility] 0.5 mg 0.5 mg 0.5 mg Medical tablet TAKE tablet TAKE tablet 1 TABLET BY 1 TABLET BY TAKE 1 MOUTH EVERY MOUTH EVERY TABLET BY 12 HOURS 12 HOURS MOUTH EVERY 12 HOURS Losartan Losartan No 1{table BID Losartan Potassium Potassium t} Potassium 100 MG 100 MG 100 MG Xanax 0.5 Xanax 0.5 No 1{table TID Xanax 0.5 MG MG t} MG Catapres-TT Catapres-TT No 1patch( Q1W Catapres-T [facility] S-1 0.1 S-1 0.1 es) TS-1 0.1 Medic al mg/24 hr mg/24 hr mg/24 hr transdermal transdermal transderma patch Apply patch Apply l patch 1 patch 1 patch Apply 1 every week every week patch by by every week transdermal transdermal by route for route for transderma 28 days. 28 days. l route for 28 days. Promethazin Promethazin No 1{table BID Promethazi e HCl 25 MG e HCl 25 MG t_as_ne ne HCl 25 eded} MG Immunizations Ordered Filled Immunization Date Status Comments Sourc e Immunization Name Name Manga Corta 2021-01-[address] [facility] Covid-19 Vaccine Covid-19 Vaccine 13:09:00 Fo undation Manga Corta 2021-01-[address] [facility] Covid-19 Vaccine Covid-19 Vaccine 13:09:00 Fo undation Manga Corta 2021-01-[address] [facility] Covid-19 Vaccine Covid-19 Vaccine 13:09:00 Fo undation Manga Corta 2021-01-[address] [facility] Covid-19 Vaccine Covid-19 Vaccine 13:09:00 [...] 86.183 kg temperature 2021-06-12 08:30:00 97.5 [degF] [facility] heart rate 2021-06-12 08:30:00 91 /min [facility] weight 2021-06-12 08:30:00 188.8 [lb_av] [facility] bmi 2021-06-12 08:30:00 28.7 kg/m2 [facility] height 2021-06-12 08:30:00 68 [in_i] [facility] respiratory rate 2021-06-12 08:30:00 18 /min [facility] oximetry 2021-06-12 08:30:00 98 % [facility] blood pressure 2021-06-12 08:30:00 128 mm[Hg] pe systolic [facility] blood pressure 2021-06-12 08:30:00 80 mm[Hg] . [facility] diastolic [facility] BP Diastolic 2021-02-08 00:00:00 81 mm[Hg] Lilliam Muhammad edical Height 2021-02-08 00:00:00 67 [in_i] Lilliam Muhammad [facility] BMI (Body Mass 2021-02-08 00:00:00 26.6 kg/m2 [facility] Index) BP Systolic 2021-02-08 00:00:00 121 mm[Hg] [facility] Body Weight 2021-02-08 00:00:00 170 [lb_av] [facility] Systolic blood 2021-12-13 10:28:00 144 mm[Hg] [facility] Diastolic blood 2021-12-13 10:28:00 79 mm[Hg] [facility] Heart rate 2021-12-13 10:28:00 75 /min [facility] Respiratory rate 2021-12-13 10:28:00 18 /min [facility] Oxygen saturation in 2021-12-13 10:28:00 98 /min [facility] Arterial blood by Medical Ce nter Pulse oximetry Body temperature 2021-12-13 09:53:00 36.28 Xin [facility] Body height 2021-12-13 09:53:00 172.7 cm [facility] Body weight 2021-12-13 09:53:00 86.183 kg [facility] BMI 2021-12-13 09:53:00 28.89 kg/m2 [facility] Procedures Procedure Date / Time Performing Source Performed Clinician XR CHEST 1 VIEW PORTABLE / 2021-12-13 10:36:00 Yesenia Liz [facility] Center US THORACENTESIS 2021-12-13 10:18:[address] [facility] POCT-GLUCOSE METER 2021-12-01 08:00:00 [facility] Michael C [facility] POCT-GLUCOSE METER 2021-12-01 06:10:00 [facility] CBC W/PLT COUNT & AUTO 2021-12-01 05:45:00 [facility] (MANUAL DIFFERENTIAL) 2021-12-01 05:45:00 [facility] CBC W/PLT COUNT & AUTO 2021-12-01 05:45:00 [facility] COMPREHENSIVE METABOLIC 2021-12-01 05:45:00 [facility] 2021-12-01 05:45:00 [facility] POCT-GLUCOSE METER 2021-12-01 00:01:00 [facility] POCT-GLUCOSE METER 2021-11-30 16:58:00 [facility] Michael C [facility] POCT-GLUCOSE METER 2021-11-30 11:00:00 [facility] Michael C [facility] CBC W/PLT COUNT & AUTO 2021-11-30 03:56:00 [facility] (MANUAL DIFFERENTIAL) 2021-11-30 03:56:00 [facility] CBC W/PLT COUNT & AUTO 2021-11-30 03:56:00 [facility] COMPREHENSIVE METABOLIC 2021-11-30 03:56:00 [facility] Michael C [facility] 2021-11-30 03:56:00 [facility] Michael C [facility] POCT-GLUCOSE METER 2021-11-29 21:13:00 [facility] Michael C [facility] POCT-GLUCOSE METER 2021-11-29 16:55:00 [facility] XR CHEST 1 VIEW PORTABLE / 2021-11-29 13:51:00 Michael Ogden [facility] POCT-GLUCOSE METER 2021-11-29 11:21:00 Kathy [facility] POCT-GLUCOSE METER 2021-11-29 06:44:00 Kathy [facility] CBC W/PLT COUNT & AUTO 2021-11-28 11:56:00 [facility] DIFFERENTIAL [facility] (MANUAL DIFFERENTIAL) 2021-11-28 11:56:00 [facility] BASIC METABOLIC PANEL 2021-11-28 11:56:00 [facility] CBC W/PLT COUNT & AUTO 2021-11-28 11:56:00 [facility] POCT-GLUCOSE METER 2021-11-28 10:51:00 Michael Ogden [facility] CBC W/PLT COUNT & AUTO 2021-11-28 03:46:00 [facility] (MANUAL DIFFERENTIAL) 2021-11-28 03:46:00 [facility] CBC W/PLT COUNT & AUTO 2021-11-28 03:46:00 [facility] COMPREHENSIVE METABOLIC 2021-11-28 03:46:00 [facility] Center PT/APTT 2021-11-28 03:46:00 [facility] MAGNESIUM 2021-11-28 03:46:00 [facility] [place] PHOSPHORUS 2021-11-28 03:46:00 [facility] HEMOGLOBIN A1C 2021-11-28 03:46:00 [facility] TSH/FREE T4 IF INDICATED 2021-11-28 03:46:00 [facility] ANESTHESIA PERIPHERAL 2021-11-27 23:25:07 Yvan Schulte [facility] LAPAROSCOPY, DIAGNOSTIC 2021-11-27 19:40:00 Warner Lorenzana [facility] Back / Spine Surgery 2020-11-01 00:00:00 [facility] Infectious agent detection 2020-02-21 00:00:00 [facility] by nucleic acid DEXA Bone Density with WB 2018 00:00:00 [place] [facility] DX Laparoscopy 2017-03-13 00:00:00 [facility] Bariatric Surgery 2011-10-13 00:00:00 [facility] Caesarean Section 1986-11-29 00:00:00 [facility] Gastrointestinal Surgery 1978-10-13 00:00:00 Chana via Medical Cholecystectomy [facility] (Gallbladder) Plan of Care Planned Activity Planned Date Details Comments Source Future Scheduled 2023-06-[address] [facility] Test 00:00:00 (Season Ended) [code = [facility] INFLUENZA VACCINE (Season Ended)] Future Scheduled 2023-06-[address] [facility] Test 00:00:00 (Season Ended) [code = [facility] Influenza Vaccine (Season Ended)] Future Scheduled 2022-12-13 Tobacco Cessation [...] [facility] 00:00:00 (12+) [code = [facility] Center DEPRESSION SCREENING (12+)] Future Scheduled 2022-10-13 [...] [facility] 00:00:00 2) [code = [facility] Center VACCINES (1 of 2)] Future Scheduled 2010 Lipid panel (procedure) [facility] Test 00:00:00 [code = 15940495] Medical Ce nter Future Scheduled 2010 Lipid panel (procedure) [facility] Test 00:00:00 [code = 55333707] Medical Ce nter Future Scheduled 2010 Lipid panel (procedure) [facility] Test 00:00:00 [code = 37877030] Medical Ce nter Future Scheduled 2010 Lipid panel (procedure) [facility] Test 00:00:00 [code = 30513151] Medical Ce nter Future Scheduled 1986 Screening for malignant [facility] Test 00:00:00 neoplasm of cervix Medical C enter (procedure) [code = 530981725] Future Scheduled 1986 Screening for malignant [facility] Test 00:00:00 neoplasm of cervix Medical C enter (procedure) [code = 960272127] Future Scheduled 1986 Screening for malignant [facility] Test 00:00:00 neoplasm of cervix Medical C enter (procedure) [code = 443277588] Future Scheduled 1986 Screening for malignant [facility] Test 00:00:00 neoplasm of cervix Medical C enter (procedure) [code = 442435931] Future Scheduled 1984-02-05 DTAP/TDAP/TD VACCINES CH I [...] breast Medical C enter (procedure) [code = 850318177] Future Scheduled 1965 CT Colonography (combo) [facility] Test 00:00:00 [code = CT Colonography [facility] Center (combo)] Future Scheduled 1965 Screening for malignant [facility] Test 00:00:00 neoplasm of colon Medical Ce nter (procedure) [code = 203996903] Future Scheduled 1965 Screening for malignant [facility] Test 00:00:00 neoplasm of colon Medical Ce nter (procedure) [code = 088219478] Future Scheduled 1965 Screening for malignant [facility] Test 00:00:00 neoplasm of colon Medical Ce nter (procedure) [code = 772845238] Future Scheduled 1965 Screening for malignant [facility] Test 00:00:00 neoplasm of colon Medical Ce nter (procedure) [code = 951729888] Future Scheduled 1965 Sigmoidoscopy [code = [facility] 00:00:00 Sigmoidoscopy] Medical Cente r Future Scheduled 1965 Screening for malignant [facility] Test 00:00:00 neoplasm of breast Medical C enter (procedure) [code = 647006505] Future Scheduled 1965 CT Colonography (combo) [facility] Test 00:00:00 [code = CT Colonography [facility] (combo)] Future Scheduled 1965 Screening for malignant [facility] Test 00:00:00 neoplasm of colon Medical Ce nter (procedure) [code = 955231066] Future Scheduled 1965 Screening for malignant [facility] Test 00:00:00 neoplasm of colon Medical Ce nter (procedure) [code = 411122595] Future Scheduled 1965 Screening for malignant [facility] Test 00:00:00 neoplasm of colon Medical Ce nter (procedure) [code = 081831535] Future Scheduled 1965 Screening for malignant [facility] Test 00:00:00 neoplasm of colon Medical Ce nter (procedure) [code = 703108227] Future Scheduled 1965 Sigmoidoscopy [code = [facility] 00:00:00 Sigmoidoscopy] Medical Cente r Future Scheduled 1965 Screening for malignant [facility] Test 00:00:00 neoplasm of breast Medical C enter (procedure) [code = 143678169] Future Scheduled 1965 CT Colonography (combo) [facility] 00:00:00 [code = CT Colonography [facility] (combo)] Future Scheduled 1965 Screening for malignant [facility] Test 00:00:00 neoplasm of colon Medical Ce nter (procedure) [code = 661479520] Future Scheduled 1965 Screening for malignant [facility] Test 00:00:00 neoplasm of colon Medical Ce nter (procedure) [code = 792506212] Future Scheduled 1965 Screening for malignant [facility] Test 00:00:00 neoplasm of colon Medical Ce nter (procedure) [code = 206558201] Future Scheduled 1965 Screening for malignant [facility] Test 00:00:00 neoplasm of colon Medical Ce nter (procedure) [code = 970772911] Future Scheduled 1965 Sigmoidoscopy [code = [facility] 00:00:00 Sigmoidoscopy] Medical Cente r Future Scheduled 1965 Screening for malignant [facility] Test 00:00:00 neoplasm of colon Medical Ce nter (procedure) [code = 507123133] Future Scheduled 1965 Screening for malignant [facility] Test 00:00:00 neoplasm of colon Medical Ce nter (procedure) [code = 877761815] Future Scheduled 1965 Screening for malignant [facility] Test 00:00:00 neoplasm of colon Medical Ce nter (procedure) [code = 354668876] Future Scheduled 1965 Screening for malignant [facility] Test 00:00:00 neoplasm of colon Medical Ce nter (procedure) [code = 424875771] Future Scheduled 1965 Sigmoidoscopy [code = [facility] 00:00:00 Sigmoidoscopy] Medical Cente r Future Scheduled 1965 Screening for malignant [facility] Test 00:00:00 neoplasm of breast Medical C enter (procedure) [code = 900029605] Future Scheduled 1965 CT Colonography (combo) [facility] Test 00:00:00 [code = CT Colonography [facility] (combo)] Encounters Start End Encounter Admission Attending Care Care Encounter Source Date/Time Date/Time Type Type Clinicians Facility Department ID 2021-11-07 Outpatient [place] [id number] 13:46:00 ELAINA 0904 [facility] 2021-11-07 Outpatient MELISSA [place] [id number] 13:44:54 ELAINA 0831 [facility] 2022-11-27 2022-11-27 Outpatient [facility] Danial 14:33:43 14:33:43 [id number] [place] 2022-11-19 2022-11-19 Outpatient [facility] Danial 10:47:40 10:47:40 [id number] [place] 2022-11-14 2022-11-14 Outpatient [facility] Danial 09:53:36 09:53:36 [id number] F [place] 2022-01-02 2022-01-02 Audio - Wood [facility] [id number] 09:00:00 09:15:00 Telemedici Warner cartagena [facility] 2021-12-25 2021-12-25 Telephone Jolene [facility] [id number] 00:00:00 00:00:[address] [facility] 2021-12-13 2021-12-13 Outpatient LUCÍA LORENZANA [facility] [id number] [facility] 10:02:07 23:59:00 WARNER 2021-12-13 2021-12-13 Hospital [facility], [facility] [id number] 10:00:00 23:59:00 Encounter Warner [facility] 2021-12-12 2021-12-12 Office Wood [facility] [id number] 10:30:00 12:35:28 Visit [facility] 2021-11-27 2021-12-01 Inpatient ER KATHY, [facility] Surgery [id number] [facility] 17:49:00 11:30:00 MICHAEL 2021-11-27 2021-12-01 [facility] [id number] 17:49:00 11:30:00 Encounter [facility] 2021-11-28 2021-11-28 Travel [facility] [id number] [facility] 00:[facility]:00 00:00:00 [facility] 2021-11-27 2021-11-27 Anesthesia Minh Diaz [facility] [id number] 19:40:00 23:21:00 Event FrancaYvan [facility] 2021-11-27 2021-11-27 Surgery Wood, [facility] [id number] 19:10:00 22:00:00 [facility] 2021-06-21 2021-06-21 (TEL) MELISSA TORRES [id number] St . 00:00:00 00:00:00 [facility] 2021-06-12 2021-06-12 PSYCH DIAG MELISSA TORRES [id number] St. 00:00:00 00:00:00 EVAL W/ [facility] EST 2021-05-07 2021-05-07 Emergency E ABRAM CARBAJAL FB FB [id number] [facility] 16:56:00 18:45:00 2021-02-08 2021-02-08 Outpatient GC_UPP_Meht PRIV PRIV [id number] [facility] 10:34:00 10:34:00 a_J [id number] Medica l 2021-02-08 2021-02-08 Outpatient ROBERT Burk PRIV [id number] 00:00:00 00:00:00 Jhony [id number] 2021-02-08 2021-02-08 Jhonyerna JONES MO - [facility] 29 [facility] 00:00:00 00:00:00 MD Bhargavi: [facility] 1140 GC_UPP_[facility] , Office [address], [place] [address] , Ph. 2020-02-24 2020-02-24 Outpatient CHELLE [facility] [id number] [facility] 11:32:00 11:32:00 RYAN [id number] [id number] 2020-02-21 2020-02-21 Outpatient [facility] [id number] [facility] 16:00:00 16:00:00 [id number] [id number] 2020-02-21 2020-02-21 Outpatient VETO, [facility] [id number] [facility] 00:00:00 00:00:00 [facility] 2020-02-21 2020-02-21 Outpatient VETO, [facility] [id number] [facility] 00:00:00 00:00:00 DARRELL Perez [id number] [facility] [id number] 2019-12-20 2019-12-20 Emergency E ARIELLA PHILLIPS FB FB [id number] FB 16:45:00 17:32:00 2019-09-28 2019-09-28 [id number] SW 23:55:00 23:55:00 2019-08-19 2019-08-19 Emergency E FB FB [id number] FB 15:42:00 15:42:00 2019-03-04 2019-03-04 Emergency E FB FB [id number] FB 09:16:00 09:16:00 2018 2018 Appointmen RADHA MONZON Alena [id number] [place] 10:00:00 10:00:00 t; [place] MONZON M.D. Surgery Yee HORTON M.D. Specialty ans 2018-01-09 2018-01-09 Appointmen [facility] [id number] UT 09:30:00 09:30:00 t; RAFF, RIGO, Phy sici RIGO, MOLD PRESSER ans MOLD PRESSER 2017-12-19 2017-12-19 [facility] RADHA PETTIT [facility] [id number] UT 09:30:00 09:30:00 t; RAFF RIGO, Phy sici RIGO, MOLD PRESSER ans MOLD PRESSER 2016-07-10 2016-07-10 Crayl [facility] [id number] UT 08:30:00 08:30:00 t; deonna Lawler i Results Test Description Test Time Test Comments Results Result Comments Source OCCULT BLD,FECAL,[facility] 2022-12-04 11:25:18 Test Item Value Reference Range Interpretation Comme nts OCCULT BLD, FECAL (test code = 04234) NEGATIVE NEGATIVE UNLABELLED [id number] 06:03:52 Test Item Value Reference Range Interpretation Comments NOTE: (test code = SPECIMEN RECEIVED WITHOUT 13465) PATIENT'S NAME. [facility] has important patho logy staff changes effecti ve 12/11/2022. New pathology staff will provide uninterrupted, excellent patient care an d clinical consultation. S ee URL: [email or web address]. UNLESS OTHE RWISE INDICATED, [facility] [address] [place] [id number] [facility] DIRECTOR: ROBERTO HOUSE M.D. IA NUMBER [id number] CAP ACCREDITATION N O. [id number] VITAMIN B 12 AND FOLIC [id number] 12:08:53 Test Item Value Reference Range Interpretation [...] . . . . . UG/L >=6.0 CPL h as important patho logy staff changes e ffective 12/11/2022. New pathology staff will provide uninter rupted, excellent patie nt care and clinical consultation. S ee URL: [email or web address]. UNLESS OTHERWISE INDICATED, ALL TESTING [facility]FOR[facility]. [address] [place] [address] CLIA : [id number], CAP : [id number] 12:08:53 Test Item Value Reference Range Interpretation Comments FERRITIN (test code = 2075) 4 NG/ML 13-200 L [id number] 06:44:38 Test Item Value Reference Range Interpretation Comments TRANSFERRIN (test code = 4936) 411 MG/DL 200-360 H IRON BINDING CAPACITY AND IRON AND % [id number] 05:24:08 Test Item Value Reference Range Interpretation Comments IRON, SERUM (test code = 2222) 12 UG/DL 37-145 L UNSATURATED IBC (test code = 39097) 478 UG/DL 112-347 H CALC TOTAL IBC (test code = 2077) 490 UG/DL 250-450 H CALC % IRON SAT (test code = 2079) 2 % 20-[address]/NG, NAAT, [id number] 21:29:14 Test Item Value Reference Range Interpretation Comments GONORRHEA, NAAT NEGATIVE NEGATIVE Testing is performed with (test code = [employer] 680 04859) systems usingre al-time polymerase shell n reaction (PCR) method. A negative result does not exclude low level infection , specimensamplin g error, or collection erro r. CHLAMYDIA, NAAT NEGATIVE NEGATIVE Testing is performed with (test code = [employer] 680 39143) systems usingre al-time polymerase shell n reaction (PCR) method. A negative result does not exclude low level infection , specimensamplin g error, or collection erro r. LIPID [id number] 06:54:20 Test Item Value Reference Range Interpretation [...] MOREINFORMATION , SEE CLIENT ANNOUNCE MENT AT [email or web address] [email or web address] RATIO LDL/HDL 0.45 RATIO <3.22 (test code = 2238) COMPREHENSIVE METABOLIC [id number] 06:54:20 Test Item Value Reference Range Interpretation Comments GLUCOSE (test code = 100 MG/DL 70-99 H 2216) BUN (test code = 12 MG/DL -2207) CREATININE (test 0.95 MG/DL 0.60-1.30 code = 2214) eGFR (2020 CKD-EPI) 70 ML/MIN/1.73 >60 (test code = 79932) CALC BUN/CREAT (test 13 RATIO -28 code = 223) SODIUM (test code = 142 MEQ/L 786-274 7322) POTASSIUM (test code 4.6 MEQ/L 3.5-5.4 = 2227) CHLORIDE (test code 105 MEQ/L 95-107 = 2214) CARBON DIOXIDE (test 23 MEQ/L 19-31 code = 220) CALCIUM (test code = 9.2 MG/DL 8.5-10.5 2208) PROTEIN, TOTAL (test 7.2 G/DL 6.1-8.3 code = 222) ALBUMIN (test code = 4.5 G/DL 3.5-5.2 2200) CALC GLOBULIN (test 2.7 G/DL 1.9-3.7 code = 2240) CALC A/G RATIO (test 1.7 RATIO 1.0-2.6 code = 2234) BILIRUBIN, TOTAL <0.2 MG/DL See_Comment [Automated message] (test code = 2207) The syste m which generated this result transmit leonel reference range : <=1.2. The refe rence range was not u sed to interpret th is result as normal/abnormal . ALKALINE PHOSPHATASE 133 U/L 40-136 (test code = 2203) AST (test code = 17 U/L 9-40 2217) ALT (test code = 14 U/L 5-40 2218) RPR REFLEX TO T. PALLIDUM - [id number] 04:36:51 Test Item Value Reference Range Interpretation Comments RPR (test code = 10535) NON-REACTIVE NON-REACTIVE RPR TITER (test code = 3500) NOT INDIC. TITER NOT INDIC. TSH, THIRD [id number] 04:35:21 Test Item Value Reference Range Interpretation Comments TSH, THIRD GENERATION 0.982 UIU/ML 0.400-4.[address] has (test code = 2821) important pathology staff changes effective 12/11/2022. New pathology staff will provide uninterrupted, excellent patie nt care and clinic al consultation. S ee URL: [email or web address]. UNL ESS OTHERWISE INDIC ATED, ALL TESTING PERFORMED AT CLINICAL PATHOL [facility], [facility]. [address], [place] CLIA: [id number], CAP: [id number] HIV 1/2 4TH GEN, RFLX [id number] 04:28:10 Test Item Value Reference Range Interpretation Comments HIV 1/2 4TH GEN, RFLX CONF (test NON-REACTIVE NON-REACTIVE code = 3514) HEPATITIS PANEL, [id number] 04:28:10 Test Item Value Reference Range Interpretation Comments HEPATITIS A IgM (test NON-REACTIVE NON-REACTIVE code = 38400) HEPATITIS B CORE IgM NON-REACTIVE NON-REACTIVE (test code = 4644) HEPATITIS B SURF AG NON-REACTIVE NON-REACTIVE (test code = 2739) HEPATITIS C ANTIBODY NON-REACTIVE NON-REACTIVE (test code = 4675) INTERPRETATION (NOTE) Hepatitis A HEPATITIS A: (test code sero logy shows no = 2552) evidence of acu te hepatitis A. INTERPRETATION (NOTE) Hepatitis B HEPATITIS B: (test code sero logy shows no = 19901) evidence of acu te hepatitis B and no indication of exposure to hepatitis B vir us in the previous debby eight months. INTERPRETATION (NOTE) Hepatitis C HEPATITIS C: (test code sero logy shows no = 11650) evidence of exposure to hepatitisC viru s at this time. I t can take up to 12 months after exposure tothe hepatitis C vir us for antibodies to become detectab le in the blood in certain patient s. HEMOGLOBIN [id number] 03:44:21 Test Item Value Reference Range Interpretation Comments HEMOGLOBIN A1c (test code = 08936) 5.9 % 4.2-5.6 H CBC W/AUTO DIFF WITH [id number] 03:30:03 Test Item Value Reference Range Interpretation [...] RBCS 0.00 K/UL 0.00-0.11 (test code = 17050) U/S, [id number] 10:41:00Laterality?->LeftLabs to be Ordered:- >No Labs NeededReason for Exam:->Pleural Effusion, [facility] 1965 Sex: [...] return confirmed position. The fluid was drained. Thecatheter was removed, and a sterile bandage was applied.Catheter placed: 4Fr OneStepPost-drainage hemithorax findings: No visible pleural effusion Additional DetailsAdditional description of procedure:NoneEquipment details: NoneSpecimens removed: Pleural fluidEstimated blood loss (mL): Less than 10Standardized report: SIR_Thoracentesis_v3 AttestationSigner name: Yesenia Bonner attest that I was presentfor the entire procedure. I reviewed the stored images and agree with the report as written. Signed:Yesenia Liz MDReport Verified Date/Time: 12/13/2021 10:41:34 Reading Location: [facility] Radiology Reading Room RAD, CHEST, 1 VIEW, NON [id number] 10:36:00Reason for exam:->s/p Left thoracentesisShould this be performed at the bedside?->Yes [facility] 1965 Sex: FFINAL REPORT [...] Liz Verified Date/Time: 12/13/2021 10:36:14 Reading Location: [facility] Radiology Reading Room POC-Glucose meter 2021-12-01 08:11:32 Test Item Value Reference Range Interpretation Comments POC-Glucose Meter (test 82 mg/dL 70-110 : TE STED AT [facility] code = 1538) [address] [facility] [address]: Contact Worker Lithography/Techni toribio ID = [id number] for ArmondHector Lab Interpretation (test Normal code = 42653-9) [facility] [id number] 08:11:32 Test Item Value Reference Range Interpretation Comments POC-Glucose Meter (test 82 mg/dL 70-110 : TE STED AT [facility] code = 1538) [address], [facility] [address]: Contact Worker Lithography/Techni toribio ID = [id number] for Silvnaa Leahyi Lab Interpretation (test Normal code = 03037-3) [facility] [id number] 08:11:32 Test Item Value Reference Range Interpretation Comments POC-GLUCOSE METER 82 mg/dL 70-110 : TESTED A T [facility] [address] (BEAKER) (test code = [address], [address]) [facility] [address]: Contact Worker Lithography/Techni toribio ID = [id number] for Maegan i, Ndubuisi CBC with platelet count + automated [id number] 07:00:50 Test Item Value Reference Range Interpretation Comments WBC (test code = 6690-2) 8.9 See_Comment [A utomated message] The system [employer] generated this result transmitted ref erence range: 4.0 - 10 .0 K/L. The refe rence range was not u sed to interpret this result as normal/abnor mal. RBC (test code = 789-8) 3.50 See_Comment L [Au tomated message] The system [employer] generated this result transmitted ref erence range: 4.00 - 5 .00 M/L. The refe rence range was not u sed to interpret this result as normal/abnor mal. MCHC (test code = 786-4) 31.9 See_Comment L [A utomated message] The system [employer] generated this result transmitted ref erence range: [...] code = 265 See_Comment [Aut omated message] 887-3) The system [employer] generated this result transmitted ref erence range: 150 - 43 0 K/CU MM. The referen ce range was not u sed to interpret this result as normal/abnor mal. MPV (test code = 10.2 fL 6.0-11.5 64753-3) nRBC (test code = 413) 0 See_Comment [Aut omated message] The system [employer] generated this result transmitted ref erence range: [...] See_Comment [Aut omated message] 670) The system [employer] generated this result transmitted ref erence range: 1.80 - 8 .00 K/L. The refe rence range was not u sed to interpret this result as normal/abnor mal. # Lymphs (test code = 1.27 See_Comment L [Auto mated message] 414) The system [employer] generated this result transmitted ref erence range: 1.48 - 4 .50 K/L. The refe rence range was not u sed to interpret this result as normal/abnor mal. # Monos (test code = 0.46 See_Comment [Autom ated message] 415) The system [employer] generated this result transmitted ref erence range: 0.00 - 1 .30 K/L. The refe rence range was not u sed to interpret this result as normal/abnor mal. # Eos (test code = 416) 0.30 See_Comment [Au tomated message] The system [employer] generated this result transmitted ref erence range: 0.00 - 0 .50 K/L. The refe rence range was not u sed to interpret this result as normal/abnor mal. # Baso (test code = 417) 0.05 See_Comment [A utomated message] The system [employer] generated this result transmitted ref erence range: 0.00 - 0 .20 K/L. The refe rence range was not u sed to interpret this result as normal/abnor mal. Immature 1 % 0-0 H Granulocytes-Relative (test code = 2801) Lab Interpretation (test Abnormal code = 98882-3) [facility]ual [id number] 07:00:50 Test Item Value Reference Range Interpretation [...] utomated message] code = 1365) The system [employer] generated this result transmitted ref erence range: 1.80 - 8 .00 K/L. The refe rence range was not u sed to interpret this result as normal/abnor mal. # Lymphs (manual) (test 0.98 See_Comment L [Au tomated message] code = 1366) The system [employer] generated this result transmitted ref erence range: 1.48 - 4 .50 K/L. The refe rence range was not u sed to interpret this result as normal/abnor mal. # Monos (manual) (test 0.18 See_Comment [Aut omated message] code = 1367) The system [employer] generated this result transmitted ref erence range: 0.00 - 1 .30 K/L. The refe rence range was not u sed to interpret this result as normal/abnor mal. # Eos (manual) (test 0.09 See_Comment [Autom ated message] code = 1368) The system [employer] generated this result transmitted ref erence range: 0.00 - 0 .50 K/L. The refe rence range was not u sed to interpret this result as normal/abnor mal. # Bands (manual) (test 1.5 See_Comment H [Aut omated message] code = 1349) The system [employer] generated this result transmitted ref erence range: [...] 965) Lab Interpretation (test Abnormal code = 31233-5) [facility] with platelet count + automated [id number] 07:00:50 Test Item Value Reference Range Interpretation Comments WBC (test code = 6690-2) 8.9 See_Comment [A utomated message] The system [employer] generated this result transmitted ref erence range: 4.0 - 10 .0 K/L. The refe rence range was not u sed to interpret this result as normal/abnor mal. RBC (test code = 789-8) 3.50 See_Comment L [Au tomated message] The system [employer] generated this result transmitted ref erence range: 4.00 - 5 .00 M/L. The refe rence range was not u sed to interpret this result as normal/abnor mal. MCHC (test code = 786-4) 31.9 See_Comment L [A utomated message] The system [employer] generated this result transmitted ref erence range: [...] See_Comment [Aut omated message] 777-3) The system [employer] generated this result transmitted ref erence range: 150 - 43 0 K/CU MM. The referen ce range was not u sed to interpret this result as normal/abnor mal. MPV (test code = 10.2 fL 6.0-11.5 53409-4) nRBC (test code = 413) 0 See_Comment [Aut omated message] The system [employer] generated this result transmitted ref erence range: [...] See_Comment [Aut omated message] 670) The system [employer] generated this result transmitted ref erence range: 1.80 - 8 .00 K/L. The refe rence range was not u sed to interpret this result as normal/abnor mal. # Lymphs (test code = 1.27 See_Comment L [Auto mated message] 414) The system [employer] generated this result transmitted ref erence range: 1.48 - 4 .50 K/L. The refe rence range was not u sed to interpret this result as normal/abnor mal. # Monos (test code = 0.46 See_Comment [Autom ated message] 415) The system [employer] generated this result transmitted ref erence range: 0.00 - 1 .30 K/L. The refe rence range was not u sed to interpret this result as normal/abnor mal. # Eos (test code = 416) 0.30 See_Comment [Au tomated message] The system [employer] generated this result transmitted ref erence range: 0.00 - 0 .50 K/L. The refe rence range was not u sed to interpret this result as normal/abnor mal. # Baso (test code = 417) 0.05 See_Comment [A utomated message] The system [employer] generated this result transmitted ref erence range: 0.00 - 0 .20 K/L. The refe rence range was not u sed to interpret this result as normal/abnor mal. Immature 1 % 0-0 H Granulocytes-Relative (test code = 2801) Lab Interpretation (test Abnormal code = 64179-9) [facility] [id number] 07:00:50 Test Item Value Reference Range Interpretation [...] utomated message] code = 1365) The system [employer] generated this result transmitted ref erence range: 1.80 - 8 .00 K/L. The refe rence range was not u sed to interpret this result as normal/abnor mal. # Lymphs (manual) (test 0.98 See_Comment L [Au tomated message] code = 1366) The system [employer] generated this result transmitted ref erence range: 1.48 - 4 .50 K/L. The refe rence range was not u sed to interpret this result as normal/abnor mal. # Monos (manual) (test 0.18 See_Comment [Aut omated message] code = 1367) The system [employer] generated this result transmitted ref erence range: 0.00 - 1 .30 K/L. The refe rence range was not u sed to interpret this result as normal/abnor mal. # Eos (manual) (test 0.09 See_Comment [Autom ated message] code = 1368) The system [employer] generated this result transmitted ref erence range: 0.00 - 0 .50 K/L. The refe rence range was not u sed to interpret this result as normal/abnor mal. # Bands (manual) (test 1.5 See_Comment H [Aut omated message] code = 1349) The system [employer] generated this result transmitted ref erence range: [...] 965) Lab Interpretation (test Abnormal code = 05406-2) [facility] W/PLT COUNT & AUTO [id number] 07:00:50 Test Item Value Reference Range Interpretation [...] code = 1+ few 965) Comprehensive metabolic [id number] 06:39:27 Test Item Value Reference Interpretation Comments Range Protein, Total 5.8 See_Comment L [Automated (test code = message] The 2885-2) system which generated this result transmitted reference range: 6.0 - 8.5 gm/dL. The reference range was not used to interpret this result as normal/abnormal . Albumin (test code 3.0 g/dL 3.5-5.0 L = 63564-3) Alkaline 70 U/L 30-115 Phosphatase (test code = 6768-6) Total Bilirubin 0.5 mg/dL 0.1-1.2 (test code = 1975-2) Sodium (test code = 136 meq/L 696-348 1589-2) Potassium (test 3.2 meq/L 3.6-5.5 L code = 2823-3) Chloride (test code 106 meq/L 98-106 = 2075-0) CO2 (test code = 21 meq/L 20-29 8-9) BUN (test code = 6 mg/dL 10-26 L 3094-0) Creatinine (test 0.74 mg/dL 0.50-1.20 code = 2160-0) Glucose (test code 96 mg/dL 70-110 = 2345-7) Calcium (test code 8.3 mg/dL 8.5-10.5 L = 70303-4) AST (test code = 16 U/L 5-40 1920-8) ALT (test code = 14 U/L 5-50 1742-6) EGFR (test code = 81 mL/min/1.73 sq ESTIMATE D GFR 45471-8) m IS NOT ACCURATE CREATININE CLEARANCE IN PREDICTING GLOMERULAR FILTRATION RATE. ESTIMATED GFR IS NOT APPLICABLE FOR DIALYSIS PATIENTS. THELMA (test code = Contact Worker Lithography ID - THELMA) NSUVAGIYAOperator ID - NSUVAGIYAOperator ID - NSUVAGIYAOperator ID - NSUVAGIYAOperator ID - NSUVAGIYAOperator ID - NSUVAGIYAOperator ID - NSUVAGIYAOperator ID - NSUVAGIYAOperator ID - NSUVAGIYAOperator ID - NSUVAGIYAOperator ID - NSUVAGIYAOperator ID - NSUVAGIYAOperator ID - NSUVAGIYAOperator ID - NSUVAGIYAOperator ID - NSUVAGIYAOperator ID - NSUVAGIYA Lab Interpretation Abnormal (test code = 71723-7) [facility] [id number] 06:39:27 Test Item Value Reference Interpretation Comments Range Protein, Total 5.8 See_Comment L [Automated (test code = message] The 2885-2) system which generated this result transmitted reference range: 6.0 - 8.5 gm/dL. The reference range was not used to interpret this result as normal/abnormal . Albumin (test code 3.0 g/dL 3.5-5.0 L = 10095-7) Alkaline 70 U/L 30-115 Phosphatase (test code = 6768-6) Total Bilirubin 0.5 mg/dL 0.1-1.2 (test code = 1975-2) Sodium (test code = 136 meq/L 220-841 1169-2) Potassium (test 3.2 meq/L 3.6-5.5 L code = 2823-3) Chloride (test code 106 meq/L 98-106 = 2075-0) CO2 (test code = 21 meq/L 20-29 2027-9) BUN (test code = 6 mg/dL 10-26 L 3094-0) Creatinine (test 0.74 mg/dL 0.50-1.20 code = 2160-0) Glucose (test code 96 mg/dL 70-110 = 2345-7) Calcium (test code 8.3 mg/dL 8.5-10.5 L = 10914-5) AST (test code = 16 U/L 5-40 1920-8) ALT (test code = 14 U/L 5-50 1742-6) EGFR (test code = 81 mL/min/1.73 sq ESTIMATE D GFR 88438-1) m IS NOT ACCURATE CREATININE CLEARANCE IN PREDICTING GLOMERULAR FILTRATION RATE. ESTIMATED GFR IS NOT APPLICABLE FOR DIALYSIS PATIENTS. THELMA (test code = Contact Worker Lithography ID - THELMA) NSUVAGIYAOperator ID - NSUVAGIYAOperator ID - NSUVAGIYAOperator ID - NSUVAGIYAOperator ID - NSUVAGIYAOperator ID - NSUVAGIYAOperator ID - NSUVAGIYAOperator ID - NSUVAGIYAOperator ID - NSUVAGIYAOperator ID - NSUVAGIYAOperator ID - NSUVAGIYAOperator ID - NSUVAGIYAOperator ID - NSUVAGIYAOperator ID - NSUVAGIYAOperator ID - NSUVAGIYAOperator ID - NSUVAGIYA Lab Interpretation Abnormal (test code = 45211-4) [facility] Hospital[facility]PRE[facility] METABOLIC [id number] 06:39:27 Test Item Value Reference Range Interpretation [...] S NOT APPLICABLE FOR DIALYSIS PATIEN TS. Contact Worker Lithography ID - NSUVAGIYAOperator ID - NSUVAGIYAOperator ID - NSUVAGIYAOperator ID - NSUVAGIYAOperatorID - NSUVAGIYAOperator ID - NSUVAGIYAOperator ID - NSUVAGIYAOperator ID - NSUVAGIYAOperator ID - NSUVAGIYAOperator ID - NSUVAGIYAOperator ID - NSUVAGIYAOperator ID - NSUVAGIYAOperator ID - NSUVAGIYAOperator ID - NSUVAGIYAOperator ID - NSUVAGIYAOperator ID - NSUVAGIYA [id number] 06:27:53 Test Item Value Reference Range Interpretation Comments Magnesium (test code 2.0 mg/dL 1.5-3.0 = 81903-0) THELMA (test code = THELMA) Contact Worker Lithography ID - NSUVAGIYAOperator ID - NSUVAGIYAOperator ID - NSUVAGIYAOperator ID - NSUVAGIYA Lab Interpretation Normal (test code = 16066-5) [facility] Hospital[facility]esium2022-02-19 06:27:53 Test Item Value Reference Range Interpretation Comments Magnesium (test code 2.0 mg/dL 1.5-3.0 = 59182-3) THELMA (test code = THELMA) Contact Worker Lithography ID - NSUVAGIYAOperator ID - NSUVAGIYAOperator ID - NSUVAGIYAOperator ID - NSUVAGIYA Lab Interpretation Normal (test code = 12574-4) [facility]IUM2022-02-19 06:27:53 Test Item Value Reference Range Interpretation Comments MAGNESIUM (BEAKER) (test code = 2.0 mg/dL 1.5-3.0 627) Contact Worker Lithography ID - NSUVAGIYAOperator ID - NSUVAGIYAOperator ID - NSUVAGIYAOperator ID - NSUVAGIYAPOCT-GLUCOSE [id number] 06:21:40 Test Item Value Reference Range Interpretation Comments POC-GLUCOSE METER 86 mg/dL 70-110 : TESTED A T [facility] [address] (BEAKER) (test code = [address]) [place] [address]: Contact Worker Lithography/Techni toribio ID = [id number] for evelia Valencia POCT-GLUCOSE [id number] 00:12:11 Test Item Value Reference Range Interpretation Comments POC-GLUCOSE METER 94 mg/dL 70-110 : TESTED A T [facility] [address] (BEAKER) (test code = [address]) [place] [address]: Contact Worker Lithography/Techni toribio ID = [id number] for evelia Valencia POCT-GLUCOSE [id number] 17:09:46 Test Item Value Reference Range Interpretation Comments POC-GLUCOSE METER 84 mg/dL 70-110 : TESTED A T [facility] [address] (BEAKER) (test code = [address]) [place] [address] 478: Contact Worker Lithography/Techni toribio ID = [id number] for Buff ord, Andreia POCT-GLUCOSE [id number] 11:11:43 Test Item Value Reference Range Interpretation Comments POC-GLUCOSE METER 123 mg/dL 70-110 H : TESTED A T [facility] [address] (BEAKER) (test code [address], = [address]) [place] [address]: Contact Worker Lithography/Techni toribio ID = [id number] for Buff ord, Andreia CBC W/PLT COUNT & AUTO [id number] 05:28:42 Test Item Value Reference Range Interpretation [...] (test code Normal = 762) COMPREHENSIVE METABOLIC [id number] 05:04:16 Test Item Value Reference Range Interpretation [...] S NOT APPLICABLE FOR DIALYSIS PATIEN TS. Contact Worker Lithography ID - LITOOperator ID - LITOOperator ID - LITOOperator ID - LITOOperator ID - LITOOperator ID - LITOOperator ID - LITOOperator ID - LITOOperator ID - LITOOperator ID - LITOOperator ID - LITOOperator ID - LITOOperator ID - LITOOperator ID - LITOOperator ID - LITOOperator ID - [id number] 05:04:01 Test Item Value Reference Range Interpretation Comments MAGNESIUM (BEAKER) (test code = 1.9 mg/dL 1.5-3.0 627) Contact Worker Lithography ID - LITOOperator ID - LITOOperator ID - LITOOperator ID - LITOPOCT- GLUCOSE [id number] 21:26:19 Test Item Value Reference Range Interpretation Comments POC-GLUCOSE METER 103 mg/dL 70-110 : TESTED A T [facility] [address] (BEAKER) (test code [address], = [address]) [place] [address]: Contact Worker Lithography/Techni toribio ID = [id number] for Brittaney rutledge Trumanchristina POCT-GLUCOSE [id number] 17:07:14 Test Item Value Reference Range Interpretation Comments POC-GLUCOSE METER 101 mg/dL 70-110 : TESTED A T [facility] [address] (BEAKER) (test code [address], = [address]) [place] 9[address]: Contact Worker Lithography/Techni toribio ID = [id number] for Buff ord, Andreia RAD, CHEST, 1 VIEW, NON [id number] 14:01:00Reason for exam:->SOBShould this be performed at the bedside?->Yes [facility] 1965 Sex: FFINAL REPORT Chest AP portable erect History provided: Shortness of breath Heart size magnified by projection and poor inspiration. Mild basilar atelectasis. Lungs otherwise clear and vascularity normal. Signed: James Nuñez MDReport Verified Date/Time: 11/29/2021 14:01:49 Reading Location: [facility] Radiology Reading Room POCT-GLUCOSE [id number] 11:33:08 Test Item Value Reference Range Interpretation Comments POC-GLUCOSE METER 115 mg/dL 70-110 H : TESTED A T OpTierL 1317 (Eqvilibria) (test code [address]Age [address], = 1538) [place] [id number]: Contact Worker Lithography/Techni toribio ID = [id number] for Adelia lima, Andreia POCT-GLUCOSE [id number] 06:56:45 Test Item Value Reference Range Interpretation Comments POC-GLUCOSE METER 106 mg/dL 70-110 : TESTED A T SLSL 1317 (Eqvilibria) (test code [address], = 1538) [facility] 77 478: Contact Worker Lithography/Techni toribio ID = [id number] for Harley zoila Isabella CBC W/PLT COUNT & AUTO [id number] 12:58:22 Test Item Value Reference Range Interpretation [...] (test code Normal = 762) Basic metabolic [id number] 12:24:14 Test Item Value Reference Interpretation Comments Range Sodium (test code = 139 meq/L 017-128 0735-2) Potassium (test code 4.4 meq/L 3.6-5.5 = 2823-3) Chloride (test code 110 meq/L 98-106 H = 2075-0) CO2 (test code = 19 meq/L 20-29 L 8-9) BUN (test code = 23 mg/dL 10-26 3094-0) Creatinine (test 1.24 mg/dL 0.50-1.20 H code = 2160-0) Glucose (test code = 191 mg/dL 70-110 H 2345-7) Calcium (test code = 8.1 mg/dL 8.5-10.5 L 73285-6) EGFR (test code = 45 mL/min/1.73 sq ESTIMATE D GFR 90220-3) m IS NOT ACCURATE CREATININE CLEARANCE IN PREDICTING GLOMERULAR FILTRATION RATE. ESTIMATED GFR IS NOT APPLICABLE FOR DIALYSIS PATIENTS. THELMA (test code = Contact Worker Lithography ID - THELMA) DSENSONOperator ID - DSENSONOperator ID - DSENSONOperator ID - DSENSONOperator ID - DSENSONOperator ID - DSENSONOperator ID - DSENSONOperator ID - DSENSONOperator ID - DSENSONOperator ID - DSENSONOperator ID - DSENSONOperator ID - DSENSONOperator ID - DSENSON Lab Interpretation Abnormal (test code = 44578-9) [facility] [id number] 12:24:14 Test Item Value Reference Interpretation Comments Range Sodium (test code = 139 meq/L 304-324 4316-2) Potassium (test code 4.4 meq/L 3.6-5.5 = 2823-3) Chloride (test code 110 meq/L 98-106 H = 2075-0) CO2 (test code = 19 meq/L 20-29 L 2028-9) BUN (test code = 23 mg/dL 10-26 3094-0) Creatinine (test 1.24 mg/dL 0.50-1.20 H code = 2160-0) Glucose (test code = 191 mg/dL 70-110 H 2345-7) Calcium (test code = 8.1 mg/dL 8.5-10.5 L 95730-7) EGFR (test code = 45 mL/min/1.73 sq ESTIMATE D GFR 18745-6) m IS NOT ACCURATE CREATININE CLEARANCE IN PREDICTING GLOMERULAR FILTRATION RATE. ESTIMATED GFR IS NOT APPLICABLE FOR DIALYSIS PATIENTS. THELMA (test code = Contact Worker Lithography ID - THELMA) DSENSONOperator ID - DSENSONOperator ID - DSENSONOperator ID - DSENSONOperator ID - DSENSONOperator ID - DSENSONOperator ID - DSENSONOperator ID - DSENSONOperator ID - DSENSONOperator ID - DSENSONOperator ID - DSENSONOperator ID - DSENSONOperator ID - DSENSON Lab Interpretation Abnormal (test code = 02664-2) [facility] METABOLIC [id number] 12:24:14 Test Item Value Reference Range Interpretation [...] S NOT APPLICABLE FOR DIALYSIS PATIEN TS. Contact Worker Lithography ID - DSENSONOperator ID - DSENSONOperator ID - DSENSONOperator ID - DSENSONOperator ID - DSENSONOperator ID - DSENSONOperator ID - DSENSONOperator ID - DSENSONOperator ID - DSENSONOperator ID - DSENSONOperator ID - DSENSONOperator ID - DSENSONOperator ID - DSENSONPOCT-GLUCOSE [id number] 11:03:21 Test Item Value Reference Range Interpretation Comments POC-GLUCOSE METER 183 mg/dL 70-110 H : TESTED A T SLSL 1317 (BEAKER) (test code [address], = 1538) [facility] 77 478: Contact Worker Lithography/Techni toribio ID = [id number] for Vicenta Lyles Hemoglobin [id number] 06:14:25 Test Item Value Reference Range Interpretation Comments Hemoglobin A1C (test code 5.3 % 4.3-6.1 = 4548-4) THELMA (test code = THELMA) Contact Worker Lithography ID - [id number] Lab Interpretation (test Normal code = 71975-8) [facility] [id number] 06:14:25 Test Item Value Reference Range Interpretation Comments Hemoglobin A1C (test code 5.3 % 4.3-6.1 = 4548-4) THELMA (test code = THELMA) Contact Worker Lithography ID - [id number] Lab Interpretation (test Normal code = 37417-9) [facility]HEMOGLOBIN [id number] 06:14:25 Test Item Value Reference Range Interpretation Comments HEMOGLOBIN A1C (BEAKER) (test code = 5.3 % 4.3-6.1 368) Contact Worker Lithography ID - [id number](MANUAL DIFFERENTIAL)2021-11-28 06:03:44 Test Item [...] few 477) CBC W/PLT COUNT & AUTO [id number] 06:03:43 Test Item Value Reference Range Interpretation [...] (test code = 2801) [facility]/Free T4 If [id number] 05:47:56 Test Item Value Reference Range Interpretation Comments TSH (test code = 1.190 See_Comment [Automated 26201-7) message] The system which generated this result transmit leonel reference range : 0.350 - 5.500 uIU/mL. The reference range was not used to interpret this result as normal/abnormal . THELMA (test code = THELMA) Contact Worker Lithography ID - [id number] Lab Interpretation Normal (test code = 93059-9) [facility]/Free T4 If [id number] 05:47:56 Test Item Value Reference Range Interpretation Comments TSH (test code = 1.190 See_Comment [Automated 21977-2) message] The system which generated this result transmit leonel reference range : 0.350 - 5.500 uIU/mL. The reference range was not used to interpret this result as normal/abnormal . THELMA (test code = THELMA) Contact Worker Lithography ID - [id number] Lab Interpretation Normal (test code = 69807-1) [facility]/FREE T4 IF [id number] 05:47:56 Test Item Value Reference Range Interpretation Comments THYROID STIMULATING HORMONE 1.190 uIU/mL 0.350-5.500 (BEAKER) (test code = 772) Contact Worker Lithography ID - [id number] METABOLIC [id number] 05:37:27 Test Item Value Reference Range Interpretation [...] S NOT APPLICABLE FOR DIALYSIS PATIEN TS. Contact Worker Lithography ID - [id number] ID - [id number] ID - [id number] ID - mect36Ezijcaid ID - vdyl94Auyzgubm ID - lrpk46Gveepbnp ID - mfup43Zdyaiwwd ID - [id number] ID - ulsm39Jdxayvka ID - eqen23Advukfcn ID - [id number] ID - mdvb80Pubuwelh ID - zeik31Ipojfsuv ID - qhws77Jxjwqmmh ID - wipf03Wxzcxoac ID - jnvh20CSJSLHHAF0090-25-53 05:27:38 Test Item Value Reference Range Interpretation Comments MAGNESIUM (BEAKER) (test code = 1.7 mg/dL 1.5-3.0 627) Contact Worker Lithography ID - [id number] ID - [id number] ID - [id number] ID - [id number] Lpyavxfrcy7390-49-31 05:24:23 Test Item Value Reference Range Interpretation Comments Phosphorus (test code = 5.0 mg/dL 2.5-4.5 H 2777-1) THELMA (test code = THELMA) Contact Worker Lithography ID - [id number] Lab Interpretation (test Abnormal code = 57266-7) [facility]2022-[facility]-16 05:24:23 Test Item Value Reference Range Interpretation Comments Phosphorus (test code = 5.0 mg/dL 2.5-4.5 H 2777-1) THELMA (test code = THELMA) Contact Worker Lithography ID - [id number] Lab Interpretation (test Abnormal code = 16572-8) [facility]OS[facility]US2022-02-16 05:24:23 Test Item Value Reference Range Interpretation Comments PHOSPHORUS (BEAKER) (test code = 5.0 mg/dL 2.5-4.5 H 604) Contact Worker Lithography ID - [id number]/wPGQ9610-90-95 05:23:01 Test Item Value Reference Interpretation Comments [...] PTT (test code = 24.4 See_Comment Final 62061-5) Information (Auto Output) [Automated message] The system [...] valves. Lab Interpretation Normal (test code = 36203-5) [facility] HospitalPT/cIXJ6076-16-08 05:23:01 Test Item Value Reference Interpretation Comments [...] PTT (test code = 24.4 See_Comment Final 99373-7) Information (Auto Output) [Automated message] The system [...] valves. Lab Interpretation Normal (test code = 57233-9) [facility] HospitalPT/[id number] 05:23:01 Test Item Value Reference Range Interpretation Comments PROTIME (BEAKER) (test 10.5 seconds 9.3-12.0 Final Information code = 759) (Auto Output) INR (BEAKER) (test 0.94 See_Comment Final Inf ormation code = 370) (Auto Output) [Automated mess age] The system [employer] generated this result transmit leonel reference range [...] 19) RNA [Presence] in Unspecified specimen by GIULIANA with probe muresfbfq4105-48-55 04:17:00 Test Item Value Reference Range Interpretation Comments SARS-CoV-2, Not Detected Not Detected Testing was per formed using GIULIANA (test code the narcisa(R) SARS-CoV-2 = 01819-8) test.This test was developed and i ts performance juancho racteristics determinedby [employer]. T his test has not been FDA [...] assay.
< br/>Performe d by:
[facility] ([facility])

[facility] Description: SARS-CoV-2 (COVID-19) RNA [Presence] in Unspecified specimen by GIULIANA with probe [id number] 04:17:00 Test Item Value Reference Range Interpretation Comments SARS-CoV-2, Not Detected Not Detected Testing was per formed using GIULIANA (test code the narcisa(R) SARS-CoV-2 = 53775-7) test.This test was developed and i ts performance juancho racteristics determinedby [place] [employer]. T his test has not been FDA [...] assay.
< br/>Performe d by:
[facility] ([facility])

[facility]] CMP [id number] 14:13:01 Test Item Value Reference Range Interpretation Comments Sodium Level 142 {mEq/l} 135-145 (test code = 2951-2) Potassium Level 4.2 {mEq/l} 3.5-5.1 (test code = 2823-3) Chloride Level; 112 {mEq/l} 95-109 Above High Threshold (test code = 5-0) Carbon Dioxide; 23 {mEq/l} 24-32 Below Low Threshold (test code = 2027-9) AGAP (test code = 11.2 {mEq/l} 10.0-20.0 22612-5) Glucose Lvl (test 70 mg/dl 70-99 Adult refe rence range code = 2345-7) values reflec t the clinical guidel inesof the [place] [employer] es Association. Creatinine Lvl 1.00 mg/dl 0.50-1.40 (test code = 2160-0) Blood Urea 12 mg/dl 7-22 Nitrogen (test code = 3094-0) BUN/Creatinine 12 6-25 Ratio (test code = 3097-3) Total Protein 7.2 g/dl 6.4-8.4 (test code = 2885-2) Albumin Lvl; 3.3 g/dl 3.5-5.0 Below Low Threshold (test code = 1751-7) Globulin (test 3.9 g/dl 2.7-4.2 code = 48861-9) A/G Ratio (test 0.8 0.7-1.6 code = 1759-0) Calcium Level 8.4 mg/dl 8.5-10.5 Total; Below Low Threshold (test code = 80937-8) ALT (test code = 38 u/l 0-65 1743-4) AST (test code = 28 u/l 0-37 03913-6) Bili Total (test 0.3 mg/dl 0.2-1.3 code = 1974-2) Alk Phos (test 118 u/l 39-136 code = 1783-0) eGFR (test code = 64 The eGFR i s calculated 11451-1) {ML/MIN/1.7} using the CKD-E PI formula. In [...] be multiplied by t he estimated BMI. [facility][QL] IRON, [id number] 14:13:01 Test Item Value Reference Range Interpretation Comments Iron; Above High Threshold (test 361 ug/dL 30-160 code = 2498-4) [facility][QL] LIPID [id number] 14:13:01 Test Item Value Reference Range Interpretation Comments Chol (test code = 2093-3) 152 mg/dl <=199 Trig; Above High Threshold (test 177 mg/dl <=149 code = 2571-8) HDL Cholesterol (test code = 68 mg/dl >=61 2085-9) CHD Risk; Below Low Threshold (test 2.24 3.90-5.80 code = 81628-3) LDL (test code = 83757-5) 49 mg/dl <=99 VLDL (test code = VLDL) 35 [facility][QL] VITAMIN [id number] 14:13:01 Test Item Value Reference Range Interpretation Comments Vitamin B12 Level (test code = 546 pg/ml 254-1320 2132-9) [facility][QLH] TSH, 3RD GENERATION W/REFLEX TO [id number] 14:13:01 Test Item Value Reference Range Interpretation Comments TSH (test code = 52167-6) 1.790 {uIU/ml} 0.360-3.740 [facility][QLH] PTH, INTACT (WITHOUT CALCIUM)2018 14:13:01 Test Item Value Reference Range Interpretation Comments Parathyroid Hormone Intact; Above 120.8 pg/ml 18.4-80.1 High Threshold (test code = 2731-8) [facility][QL] CBC (INCLUDES DIFF/PLT)2018 14:13:01 Test Item Value Reference Range Interpretation Comments WBC (test code = 6690-2) 6.1 {K/CMM} 3.7-10.4 RBC; Below Low Threshold (test 3.97 {M/CMM} 4.20-5.40 code = 789-8) Hgb; Below Low Threshold (test 10.1 g/dl 12.0-16.0 code = 718-7) Hct; Below Low Threshold (test 30.7 % 36.0-48.0 code = 36873-1) MCV; Below Low Threshold (test 77.5 fL 80.0-98.0 code = 787-2) MCH; Below Low Threshold (test 25.4 pg 27.0-31.0 code = 785-6) MCHC (test code = 786-4) 32.8 g/dl 32.0-36.0 RDW; Above High Threshold (test 20.3 % 11.5-14.5 code = 788-0) Platelet (test code = 72790-3) 275 {K/CMM} 133-450 Mean Platelet Volume (test code 9.2 fL 7.4-10.4 = 89205-2) [facility]] [id number] 14:13:01 Test Item Value Reference Range Interpretation Comments Segmented Neutrophils (test code 61.1 % 45.0-75.0 = 91761-1) Monocytes (test code = 25369-5) 7.0 % 2.0-12.0 Lymphocytes (test code = 44133-3) 26.5 % 20.0-40.0 Eosinophils; Above High Threshold 4.5 % 0.0-4.0 (test code = 02286-7) Basophils (test code = 706-2) 0.9 % 0.0-1.0 Segs-Bands # (test code = 3.7 {K/CMM} 1.5-8.1 57660-3) Lymphocytes # (test code = 1.6 {K/CMM} 1.0-5.5 47192-9) Monocytes # (test code = 31694-0) 0.4 {K/CMM} 0.0-0.8 Eosinophils # (test code = 0.3 {K/CMM} 0.0-0.5 00218-3) Basophils # (test code = 18324-7) 0.1 {K/CMM} 0.0-0.2 Microcyte (test code = Microcyte) 1+ None Seen A [facility][QL] FOLATE, [id number] 14:13:01 Test Item Value Reference Range Interpretation Comments Folate Level (test code = 2284-8) 23.1 ng/ml >=3.0 [facility][QL] HEMOGLOBIN [id number] 14:13:01 Test Item Value Reference Range Interpretation Comments Hemoglobin A1c (test code = 4548-4) 5.2 % <=5.6 [facility][QL] VITAMIN D, 25-HYDROXY, LC/MS/[id number] 14:13:01 Test Item Value Reference Range Interpretation Comments Vitamin D, 25-OH, 36.3 ng/ml 30.0-100.0 Reference range is based Total (test code on recommen dations in the = Vitamin D, EndocrineSociet y Clinical 25-OH, Total) Practice Guide line (J Clin Endocrinol Wixvy2657;96:19 11-1930) [facility]] VITAMIN B1, WHOLE [id number] 14:13:01 Test Item Value Reference Range Interpretation Comments Vitamin B1 131.4 66.5-200.0 This test was d eveloped and its Level (test nmol/L performance code = characteristics determined by Vitamin B1 [facility]. It has not been Level) cleared orappro jose m by the Food and Drug Administration. [facility]formed At: [facility] [id number] [place], [place] [id number] k Mark Avalos MD Ph:[phone] [facility][H] Vit [id number] 14:13:01 Test Item Value Reference Range Interpretation Comments Vitamin A 28.3 ug/dL 33.1-100.0 Reference inter vals for vitamin Level (test A determined fr om code = NationalHealth and Nutrition Vitamin A Examination [place], Level) 7094-2671.Indiv iduals with vitamin A less than 20 ug/dL areconsidered v itamin A deficient and t hose with serumconcentrat ions less than 10 ug/dL are co nsidered severelydeficie nt.This test was developed and i ts performance characteristics determined by [facility]. It has not been cleared orappro jose m by the Food and Drug Admini stration. Please note r eference interval change Performed At: [facility] [address] [place], [place] [id number] rl Avalos MD Ph:[phone] [facility][H] Vitamin E [id number] 14:13:01 Test Item Value Reference Range Interpretation Comments Alpha-Tocoph 10.8 mg/L 7.0-25.1 jovana (test code = Alpha-Tocoph jovana) Gamma-Tocoph 0.6 mg/L 0.5-5.5 Reference inter vals for alpha jovana (test and gamma-tocop heroldetermined code = from National H ealth and Gamma-Tocoph Nutrition Exami nationSurvey, jovana) 4026-9666. Aishwarya viduals with alpha-tocophero l levelsless than 0.5 mg/L are co nsidered vitamin E deficient.Thi s test was developed and i ts performance characteristics determined by [facility]. It has not been cleared orapproved by [facility] Food and Drug Administration. Performed At: [facility] [id number] [place], [place] [id number] Avalos MD Ph:[phone] [facility]
[2023-04-09] MEDS ORDERED: NALOXONE HCL 2 MG/2 ML VIAL ONE (21:40)
[2023-04-09] MEDS ORDERED: LORazepam 2 MG/ML VIAL ONE (21:53)
[2023-04-09] MEDS ORDERED: NA CHLORIDE 0.9% 2,000 ML ONE (22:05)
[2023-04-09 22:13] LABS: Absolute Lymphocytes (CBC) 3.1 K/uL (0.7-4.9); Hematocrit 29.2 % (36.0-45.0); Lymphocytes % 23.9 % (15.3-44.8); MCV 81.3 fL (80-100); RBC Red Blood Cell Count 3.59 M/uL (3.86-4.86)
[2023-04-09 22:26] LABS: ALT/SGPT 19 U/L (13-56); AST/SGOT 15 U/L (15-37); Albumin 3.4 g/dL (3.4-5.0); Alkaline Phosphatase 124 U/L (45-117); BUN Blood Urea Nitrogen 26 mg/dL (7-18); Bicarbonate 20 mEq/L (21-32); Bilirubin Total 0.2 mg/dL (0.2-1.0); Glomerular Filtration Rate 36 ml/min (=/>90); Glucose Level 217 mg/dL (74-106); Protein, Total 7.2 g/dL (6.4-8.2); Sodium Level 134 mEq/L (136-145)
[2023-04-09 22:31] LABS: Bilirubin Direct < 0.1 mg/dL (0-0.2); Bilirubin Indirect, Calculated ND mg/dL (0.2-0.8)
--- NOTE | 2023-04-09 22:42 | RAD REPORT ---
EXAM DESCRIPTION: CT - Head Brain Wo Cont - 04/09/2023 10:35 pm CLINICAL HISTORY: MENTAL STATUS CHANGE Headache, hypertension, drowsiness COMPARISON: <Comparisons> TECHNIQUE: All CT scans are performed using dose optimization technique as appropriate and may inclu de automated exposure control or mA/KV adjustment according to patient size. FINDINGS: No intracranial hemorrhage, hydrocephalus or extra-axial fluid collection.No areas of brai n edema or evidence of midline shift. The paranasal sinuses and mastoids are clear. The calvarium is intact. IMPRESSION: No acute intracranial abnormality.
[2023-04-09 22:47] LABS: Anisocytosis 1+; Blood Morphology Comment NOTED (NOT SEEN); Hypochromasia 1+; Platelet Estimate ADEQ; White Blood Cell Scan OK (OK)
[2023-04-09] MEDS ORDERED: KETAMINE HCL IN 0.9 % NACL 50 MG/5 ML SYRINGE IV ONE (23:04)
[2023-04-09] MEDS ORDERED: NOREPINEPHRINE BITARTRATE/D5W 4 MG/250 ML BAG IV ONE (23:08)
[2023-04-09] MEDS ORDERED: Ringers Lactate 2,000 ML IV ONE (23:31)
[2023-04-09] MEDS ORDERED: ALBUMIN HUMAN 25% 100 ML IV ONE (23:32)
[2023-04-10 00:01] LABS: Magnesium 2.2 mg/dL (1.6-2.4)
[2023-04-10 00:38] LABS: Protime INR 0.95
[2023-04-10] MEDS ORDERED: HYDROCORTISONE SUC 100 MG INJ ONE (00:53)
[2023-04-10] MEDS ORDERED: Magnesium Sulfate 2gm IVPB 2 G/50 ML BAG IV ONE (00:54)
[2023-04-10 01:12] LABS: Blood Gas Oxyhemoglobin 89.3 % (94-97); Blood O2 Saturation 90.4 % (92-98.5)
--- NOTE | 2023-04-10 01:35 | EDPHYS ---
Physician Documentation [facility] Name: Angela Green Age: 58 yrs Sex: Female : 1965 Arrival Date: 04/09/2023 Time: 21:32 Bed 2 Private MD: ED Physician Ap Pope HPI: 04/09 23:14 This 58 yrs old Female presents to ER via EMS with complaints of overdose. sp4 04/10 00:45 Patient is 58-year-old female with history of anxiety, bipolar disorder, hypertension, sp4 comes with acute reported overdose on Seroquel. Patient has a bottle of quetiapine and that initially contained 270 tablets of 100 mg quetiapine. Patient has overdosed at home in a suicide attempt and called EMS and was found to be tachycardic hypotensive and obtunded. Patient manifested with some combative behavior during transport. On arrival to the emergency room patient manifested with additional combative behavior flailing her arms and also altered mental status. Patient was not able to say how many pills he took exactly but there is also a bottle present and it is contaminated with fluid causing pills in the bottle to degrade. We estimate patient has roughly 20 tablets left putting possible Seroquel intake at 250 tabs. Full HPI ROS not available secondary to altered mental status. Historical: - Allergies: 04/09 22:15 No Known Allergies; vc1 - PMHx: 22:15 Anxiety; Hypertensive disorder; Manic Depressive disorder; Hypertensive disorder; vc1 Migraine; Migraine; Panic Attacks; restless leg syndrome; RLS; tremors; - PSHx: 22:15 section; Cholecystectomy; colon surgery; Gastric Bypass; Hip implant; Spinal vc1 Fusion; - Immunization history:: unknown. - Social history:: Smoking status: unknown. - Family history:: not pertinent. ROS: 04/10 00:50 Constitutional: Negative for fever, chills, positive for altered mental status sp4 Unable to obtain ROS due to altered mental status. Exam: 00:50 Constitutional: This is a well developed, well nourished patient, pale appearing, sp4 toxic appearing, hypertensive on arrival, tachycardic, obtunded, during examination attempt patient became combative became unmanageable and had to be given Ativan IV 2 mg. Patient nonverbal on arrival.. 00:50 Head/Face: Normocephalic, atraumatic. Eyes: Pupils equal round and reactive to light, Lids and lashes normal. Conjunctiva and sclera are not injected. Extraocular movement cannot be tested. ENT: Nares patent. No nasal discharge, no septal abnormalities noted. Tympanic membranes are normal and external auditory canals are clear. Oropharynx with no redness, swelling, or masses, exudates, or evidence of obstruction, uvula midline patient is a dentulous, there is dry mucous membrane. Neck: Trachea midline, no thyromegaly or masses palpated, and no cervical lymphadenopathy. Supple, full range of motion without nuchal rigidity, or vertebral point tenderness. Chest/axilla: Normal chest wall appearance and motion. Nontender with no deformity. No lesions are appreciated. Vital Signs: 04/09 21:43 BP 71 / 44; Pulse 151; Resp 26; Temp 97.4; Pulse Ox 96% on R/A; vc1 23:05 BP 88 / 50; Pulse 133; Resp 17; Temp 97.3(R); Pulse Ox 100% ; vc1 23:14 Weight 90.72 kg; kl 23:16 BP 88 / 50; Pulse 124; Pulse Ox 99% ; kl 23:43 BP 71 / 43; vc1 23:54 BP 82 / 74; Pulse 125; vc1 04/10 00:14 BP 84 / 52; Pulse 131; vc1 00:15 BP 100 / 69; Pulse 133; vc1 00:15 BP 100 / 69; Pulse 133; Resp 17; Pulse Ox 97% on 2 lpm NC; vc1 00:30 BP 104 / 60; Pulse 135; Resp 21; Pulse Ox 98% ; vc1 00:45 BP 103 / 58; Pulse 134; Resp 23; Pulse Ox 96% on 2 lpm NC; vc1 01:00 BP 89 / 59; Pulse 130; Resp 24; Pulse Ox 95% on 6 lpm NC; vc1 01:15 BP 82 / 47; Pulse 128; vc1 01:15 BP 82 / 47; Pulse 128; Resp 25 S; Pulse Ox 93% on 6 lpm NC; vc1 01:30 BP 87 / 51; Pulse 125; Resp 24; Pulse Ox 91% on 6 lpm NC; vc1 01:45 BP 85 / 50; Pulse 122; Resp 23 S; Pulse Ox 90% on 6 lpm NC; vc1 01:54 BP 85 / 50; Pulse 122; vc1 02:00 BP 72 / 48; Pulse 118; Resp 22; Pulse Ox 92% on 6 lpm NC; vc1 02:15 BP 71 / 41; Pulse 120; Resp 18; Pulse Ox 100% on Non-rebreather mask; vc1 02:30 BP 66 / 39; Pulse 123; Resp 16; Temp 94.3(R); Pulse Ox 95% on ETT vent; vc1 02:45 BP 69 / 40; Pulse 118; Resp 16; Pulse Ox 97% on ETT vent; vc1 03:00 BP 56 / 33; Pulse 116; Resp 16 A; Pulse Ox 95% on ETT vent; vc1 03:15 BP 66 / 34; Pulse 117; Resp 16 A; Pulse Ox 96% on ETT vent; vc1 03:30 BP 71 / 33; Pulse 117; Resp 16 A; Pulse Ox 97% on ETT vent; vc1 03:45 BP 68 / 36; Pulse 116; Resp 16 A; Pulse Ox 97% on ETT vent; vc1 04:00 BP 70 / 39; Pulse 115; Resp 16 A; Pulse Ox 97% on ETT vent; vc1 04:15 BP 40 / 15 (art line/); Pulse 113; Resp 16 A; Pulse Ox 97% on ETT vent; vc1 04:30 BP 68 / 34 (art line/); Pulse 111; Resp 16 A; Pulse Ox 96% on ETT vent; vc1 05:00 BP 54 / 33 (art line/); Pulse 109; Resp 16 A; Pulse Ox 95% on ETT vent; vc1 05:15 BP 48 / 30 (art line/); Pulse 99; Resp 16 A; Pulse Ox 91% on ETT vent; vc1 05:30 BP 48 / 29 (art line/); Pulse 98; Resp 16 A; Pulse Ox 91% on ETT vent; vc1 05:45 BP 47 / 29 (art line/); Pulse 99; Resp 16 A; Pulse Ox 92% on ETT vent; vc1 06:00 BP 47 / 29 (art line/); Pulse 95; Resp 16 A; Pulse Ox 92% on ETT vent; vc1 06:15 BP 37 / 22 (art line/); Pulse 90; Resp 16 A; Pulse Ox 92% on ETT vent; vc1 06:30 BP 31 / 19 (art line/); Pulse 69; Resp 16 A; Temp 95.8(R); Pulse Ox 92% on ETT vent; vc1 Carlos Enrique Coma Score: 00:50 Eye Response: none(1). Motor Response: withdraws from pain(4). Verbal Response: sp4 incomprehensible(2). Total: 7. Procedures: 04/09 23:25 Central Line: the site was prepped with in sterile fashion, Hibiclens , a triple lumen sp4 catheter was inserted, in the left internal jugular vein, in 1 attempts. placement was verified, by CXR, by blood return, Ultrasound-guided procedure, the site was dressed with 4X4s, Tegaderm, using sterile technique, the patient tolerated the procedure, well, Ultrasound-guided left triple-lumen central venous line placed 18-gauge Haitian without complication. 04/10 02:35 Intubation: Ventilated with 100% NRB prior to procedure. O2 saturation prior to sp4 procedure was 99 %. Intubated orally using # 3 Belkis blade with 7.5 mm ETT. was successful on first attempt. Ventilated with Ambu bag. Tube secured with ETT [place]field at center of mouth measured 25 cm at lip. Placement verified by CXR, CO2 detector with (+) color change, auscultating bilateral breath sounds, O2 saturation after procedure was 100 %. Patient tolerated well, [place] scope assisted intubation. RSI rocuronium used 100 mg.. 05:53 Performed Right femoral artery arterial line placement. Correct patient was verified, sp4 right groin was prepped with alcohol and chlorhexidine, ultrasound guided right arterial line was placed in the right femoral artery on the third attempt, art line was attached to arterial line pressure monitor and waveform confirmed on the monitor. Patient tolerated procedure without complications. Arterial line was placed secondary to hypotension for better assessment of blood pressure.. MDM: 04/09 23:25 Differential Diagnosis altered mental status. Data reviewed: vital signs, nurses notes, sp4 EMS record, old medical records, lab test result(s), EKG, radiologic studies. 04/10 00:15 Patient medically screened. sp4 02:21 ED course: . sp4 03:21 Consideration of Admission/Observation Patient was admitted/placed on observation. sp4 Escalation of care including admission/observation considered. Management of patient was discussed with the following: Home Demonstrator: Admitting distillation operator at [facility]. Also resident at [facility].. ED course: Patient's condition has deteriorated, at this time she is hypotensive on 3 pressors Levophed, dopamine, and vasopressin. Patient is being hydrated actively as well as she has received albumin 50 g for hypertension. Patient received Solu-Cortef 100 mg IV and has received a Versed drip for sedation. Patient's status is not improving at this time blood pressure 66/34 with heart rate of 117. Oxygenation 96% via ET tube. We have requested poison control to have showroom executive director call us for further consultation on what measures to undertake for patient stabilization. Some consideration should be given to Intralipid infusion or cyproheptadine.. 05:53 ED course: EXAM: XR Chest, 1 View CLINICAL HISTORY: Intubation confirmation TECHNIQUE: sp4 Frontal view of the chest. COMPARISON: XR Chest dated 04/09/2023 FINDINGS: Lungs: Mild central pulmonary vascular and interstitial prominence and patchy bibasilar opacities. Pleural space: Unremarkable. No pneumothorax. Heart: The cardiac silhouette is enlarged, slightly more pronounced on the current study. Mediastinum: Unremarkable. Bones/joints: Unremarkable. Tubes, lines and devices: Endotracheal tube tip projects 2 cm proximal to the shawn. Left internal jugular central venous catheter remains in place. The tip projects over the distal superior vena cava. IMPRESSION: 1. Endotracheal tube tip projects 2 cm proximal to the shawn. 2. Findings which may be related to mild pulmonary congestion. Superimposed infection not excluded.. 06:02 ED course: At 3 to 3:30 AM on patient assessment it was obvious that patient is sp4 decompensating and is not stable for transfer to [facility]. Although [facility] did accept the patient and blood pressure has dropped and patient was not stable for transfer. Patient at this time remains on 3 pressors without significant improvement in vital signs. Consultation was obtained with showroom executive director through [employer] control. Physiologist has advised highly dose insulin infusion 1 to 2 units/kg/h. Also advised D10 OD 25 infusion to maintain blood sugars. Patient was initiated on 100 units/h regular insulin infusion also D10 infusion was ordered at 150 mils per hour. Arterial line was placed in the right femoral artery for blood pressure monitoring. Patient has not improved despite all measures that were attempted here in ER. Blood pressure is very low at 47/29 based on arterial line measurement. At this time secondary to severity of condition patient is moribund. We have attempted to contact patient's family without success.. 07:03 ED course: Patient developed bradycardia and pulseless electrical activity and CODE kacey ALMODOVAR was called at 6:49 AM . Patient was resuscitated with latest ACLS guidelines and given referral measures all resuscitative maneuvers including CPR with blood pressure monitoring via arterial line. Also multiple doses of epinephrine, IV bicarbonate, IV calcium, IV atropine. Patient has failed all resuscitative measures.. Time of was called with the agreement of ER code team at 0 7:02 AM. We will attempt to call family again and inform family of patient's demise.. . 04/09 21:45 Order name: Acetaminophen; Complete Time: 00:15 cp 04/09 21:45 Order name: Basic Metabolic Panel; Complete Time: 00:15 cp 04/09 21:45 Order name: CBC with Diff; Complete Time: 22:48 cp 04/09 21:45 Order name: ETOH Level; Complete Time: 22:48 cp 04/09 21:45 Order name: Hepatic Function; Complete Time: 00:15 cp 04/09 21:45 Order name: PT-INR; Complete Time: 00:42 cp 04/09 21:45 Order name: Ptt, Activated; Complete Time: 00:42 cp 04/09 21:45 Order name: Salicylate; Complete Time: 22:48 cp 04/09 21:45 Order name: Urinalysis w/ reflexes; Complete Time: 05:51 cp 04/09 21:45 Order name: Urine Drug Screen; Complete Time: 05:33 cp 04/09 22:17 Order name: CBC Smear Scan; Complete Time: 22:48 EDMS 04/09 23:57 Order name: Magnesium; Complete Time: 00:15 EDMS 04/10 00:49 Order name: ABG; Complete Time: 03:16 sp4 04/10 02:45 Order name: Glucose, Ancillary Testing; Complete Time: 03:16 EDMS 04/10 03:14 Order name: Lactic Dehydrogenase; Complete Time: 05:33 vc1 04/10 03:14 Order name: BMP; Complete Time: 05:33 vc1 04/10 03:16 Order name: Lactate w/ 2H reflex if indic.; Complete Time: 05:33 vc1 04/10 04:25 Order name: Glucose, Ancillary Testing; Complete Time: 05:33 EDMS 04/10 05:34 Order name: Lactate w/ 2H reflex if indic.; Complete Time: 06:49 sp4 04/10 05:39 Order name: Urine Culture EDMS 04/10 05:49 Order name: Basic Metabolic Panel; Complete Time: 06:38 lg3 04/09 21:45 Order name: CT Head Brain wo Cont; Complete Time: 22:48 04/09 21:45 Order name: XRAY Chest (1 view) 04/09 23:24 Order name: Chest Single View XRAY [facility] 04/10 02:37 Order name: Chest Single View XRAY [facility] 04/09 21:45 Order name: EKG; Complete Time: 21:46 04/09 21:45 Order name: EKG - Nurse/Tech; Complete Time: 22:04 04/09 21:45 Order name: IV Saline Lock; Complete Time: 22:04 04/09 21:45 Order name: Labs collected and sent; Complete Time: 22:04 04/09 22:48 Order name: Central Line Kit; Complete Time: 23:16 4 04/09 23:14 Order name: Saline Lock; Complete Time: 23:34 4 04/10 02:02 Order name: Intubation Setup; Complete Time: 02:46 4 04/10 02:30 Order name: Accucheck Blood Glucose; Complete Time: 02:46 sp4 Administered Medications: 04/09 22:03 Drug: Ativan IVP 2 mg Route: IVP; Site: right antecubital; lg3 23:00 Follow up: Response: No adverse reaction; No change in condition vc1 22:03 Drug: NS 0.9% IV 1000 ml Route: IV; Rate: 1 bolus; Site: left forearm; lg3 23:00 Follow up: IV Status: Completed infusion; IV Intake: 1000ml vc1 22:03 Drug: NS 0.9% IV 1000 ml Route: IV; Rate: 1 bolus; Site: left forearm; lg3 23:00 Follow up: IV Status: Completed infusion; IV Intake: 1000ml vc1 22:04 Drug: Naloxone IVP 2 mg Route: IVP; Site: right antecubital; lg3 22:15 Follow up: Response: No adverse reaction; No change in condition vc1 22:52 Drug: Ketamine IVP 100 mg Route: IVP; Site: right antecubital; kl 23:00 Follow up: Response: No adverse reaction; RASS: Moderate sedation (-3) vc1 23:03 Drug: Norepinephrine IV 15 mg/min {Note: BP 61/39.} Route: IV; Rate: calculated rate; Site: right antecubital; 23:16 Follow up: BP 88 / 50; Pulse 124 bpm; Pulse Ox 99% kl 23:43 Follow up: BP 71 / 43; Rate change 20 mcg/min vc1 23:54 Follow up: BP 82 / 74; Pulse 125 bpm vc1 04/10 00:14 Follow up: BP 84 / 52; Pulse 131 bpm; Rate change 25 mcg/min; map 62 vc1 00:15 Follow up: BP 100 / 69; Pulse 133 bpm vc1 01:15 Follow up: BP 82 / 47; Pulse 128 bpm; Rate change 30 mcg/min vc1 01:54 Follow up: BP 85 / 50; Pulse 122 bpm; Rate change 35 mcg/min vc1 07:02 Follow up: IV Status: Order to discontinue infusion vc1 04/09 23:34 Drug: Lactated Ringers Solution IV 1000 ml Route: IV; Rate: 1000 ml/hr; Site: left vc1 forearm; 04/10 00:34 Follow up: IV Status: Completed infusion; IV Intake: 1000ml vc1 04/09 23:34 Drug: Albumin IVPB 25 grams Volume: 100 ml; Route: IVPB; Site: left jugular; vc1 04/10 00:34 Follow up: IV Status: Completed infusion; IV Intake: 100ml vc1 00:33 Drug: Lactated Ringers Solution IV 1000 ml Route: IV; Rate: 150 ml/hr; Site: left vc1 forearm; 05:29 Follow up: IV Status: Completed infusion vc1 00:51 Drug: Solu-CORTEF IVP 100 mg Route: IVP; Site: right antecubital; vc1 01:15 Follow up: Response: No adverse reaction; No change in condition vc1 00:52 Drug: Magnesium Sulfate IVPB 2 grams Route: IVPB; Infused Over: 2 hrs; Site: left vc1 jugular; 02:52 Follow up: IV Status: Completed infusion; IV Intake: 100ml vc1 02:15 Drug: DOPamine 10 mcg/kg/min Route: IV; Rate: calculated rate; Site: left jugular; vc1 02:30 Follow up: Rate change 20 mcg/kg/min vc1 07:02 Follow up: IV Status: Order to discontinue infusion vc1 02:18 Drug: Rocuronium IVP 100 mg Route: IVP; Site: left jugular; vc1 02:25 Follow up: Response: No adverse reaction; RASS: Deep sedation (-4) vc1 02:50 Drug: Albumin IVPB 25 grams Volume: 100 ml; Route: IVPB; Site: left forearm; vc1 03:50 Follow up: IV Status: Completed infusion; IV Intake: 100ml vc1 02:50 Drug: Lactated Ringers Solution IV 1000 ml Route: IV; Rate: 1000 ml/hr; Site: left vc1 jugular; 03:50 Follow up: IV Status: Completed infusion; IV Intake: 1000ml vc1 03:08 Drug: Vasopressin IV 0.02 units/min Route: IV; Rate: calculated rate; Site: left vc1 jugular; 07:02 Follow up: IV Status: Order to discontinue infusion vc1 04:00 Drug: Insulin Drip - (Insulin Regular Human IVP 100 units, NS 0.9% IV 100 ml) vc1 {Co-Signature: lg3 (Becca Blair RN).} Route: IV; Rate: 100 units/hr; Site: left forearm; 06:30 Follow up: IV Status: Order to discontinue infusion vc1 04:00 Drug: D10 in Water IVP 1000 ml Route: IVP; Rate: 150 ml/hr; Site: left forearm; vc1 07:02 Follow up: Response: No adverse reaction vc1 04:35 CANCELLED (Duplicate Order): D10 in Water IVP 150 mg/kg IVP once vc1 04:37 Not Given (not availablee): Cyproheptadine 12 mg Feeding Tube once vc1 04:45 Drug: Sodium Bicarbonate IVP 1 amp Route: IVP; Site: left forearm; vc1 05:00 Follow up: Response: No adverse reaction; No change in condition vc1 04:45 Drug: Sodium Bicarbonate IVP 1 amp Route: IVP; Site: left forearm; vc1 05:00 Follow up: Response: No adverse reaction; No change in condition vc1 05:02 Not Given (Hemodynamic Parameters): Midazolam IVP or IV 0.01 mg/kg/h IV at calculated vc1 rate See Administration Instructions; (Standard concentration: 100 mg / 100 mL NS); Recommended max rate 0.1 mg/kg/hr; Titrate 0.01 mg/kg/hr as often as every 30 minutes to achieve goal (see titration policy); Goal parameter RASS 0 to -2 06:12 Drug: Rocephin - Rocephin (cefTRIAXone) IVPB 1 grams Route: IVPB; Infused Over: 30 kl mins; Site: right antecubital; 06:40 Follow up: IV Status: Completed infusion; IV Intake: 50ml vc1 06:12 Drug: Lactated Ringers Solution IV 1000 ml Route: IV; Rate: 1000 ml/hr; Site: right kl antecubital; 07:02 Follow up: IV Status: Order to discontinue infusion vc1 06:36 Drug: Atropine IVP 1 mg Route: IVP; Site: right antecubital; as6 07:02 Follow up: Response: No adverse reaction; No change in condition vc1 Disposition: 07:03 . sp4 Disposition Summary: 04/10/23 08:35 Patient Pronouncing Physician: Ap Pope Time of : 07:02 04/10/2023 [email or web address] Diagnosis - seroquel overdose(04/10/23 08:35) [id number] Signatures: Dispatcher [employer] EDMS Amber Scherer RN RN kl Page, Corey, PA PA cp Gibson, Lacie, RN RN lg3 Kameron Chaparro RN RN as6 Zina Frankel RN RN vc1 Minh Nava MD MD jr11 Mikaela Martel PA-C PA-C sb4 Potepalov, Sergey, MD MD spBecca Babb RN lg3 Corrections: (The following items were deleted from the chart) 04/09 23:55 23:53 MAGNESIUM+C.LAB.BRZ ordered. EDMS EDMS 04/10 04:35 03:34 D10 in Water IVP 150 mg/kg IVP once ordered. sp4 vc1 04:46 02:31 BASIC METABOLIC PANEL+C.LAB.BRZ ordered. EDMS EDMS 06:35 01:35 [facility] Safety Scientist sb4 sp4 06:35 01:35 UT-System sb4 sp4 06:35 01:35 Higher level of care sb4 sp4 06:35 01:35 Serious sb4 sp4 06:35 01:35 new sb4 sp4 06:35 01:35 are unchanged sb4 sp4 06:35 01:35 Intentional drug overdose- seroquel, hypotension, suicidal ideation, sp4 encephalopathy sb4 07:38 06:38 NG Tube ordered. sp4 vc1 08:35 06:37 Inpatient Admission sp4 [email or web address] 08:35 06:37 Carter Smith sp4 jr11 08:35 06:37 Telemetry/MedSurg (Inpatient) sp4 jr11 08:35 06:37 Critical sp4 jr11 08:35 06:37 new sp4 jr11 08:35 06:37 have worsened sp4 jr11 08:35 06:37 Standard sp4 jr11 08:35 06:37 sp4 jr11 08:35 06:37 Seroquel overdose intentional sp4 jr11 08:35 06:37 Lactic acidosis, intoxication, respiratory failure, acute shock, altered mental jr11 status, metabolic encephalopathy, acute renal failure, multiple organ failure sp4 08:35 06:37 Acute heart failure, systolic heart failure sp4 jr11
--- NOTE | 2023-04-10 01:35 | ER ---
Nurse's Notes [facility] Name: Angela Green Age: 58 yrs Sex: Female : 1965 Arrival Date: 04/09/2023 Time: 21:32 Bed 2 Private MD: Diagnosis: seroquel overdose Presentation: 04/09 21:43 Chief complaint: EMS states: We were toned out for a overdose on Seroquel, she said she vc1 didn't want to live anymore. She was uncooperative en route, kicking, hitting, trying to bite, and screaming. She ripped out the IV. Coronavirus screen: Vaccine status: unsure if pt is vaccinated for Covid, pt is unable to answer any questions. Ebola Screen: Patient negative for fever greater than or equal to 101.5 degrees Fahrenheit, and additional compatible Ebola Virus Disease symptoms Patient denies exposure to infectious person. Patient denies travel to an Ebola-affected area in the 21 days before illness onset. No symptoms or risks identified at this time. Initial Sepsis Screen: Does the patient meet any 2 criteria? RR > 20 per min. HR > 90 bpm. Yes Does the patient have a suspected source of infection? No. Patient's initial sepsis screen is negative. Risk Assessment: Do you want to hurt yourself or someone else? Patient reports no desire to harm self or others. Onset of symptoms was April 09, 2023 at 21:04. 21:43 Method Of Arrival: EMS: [facility] 21:43 Acuity: DONITA 2 vc1 04/10 01:00 Acuity: DONITA 1 kl 07:19 Compressions began at 06:49. vc1 Triage Assessment: 04/09 22:16 General: Appears distressed, unkempt, Behavior is combative, inappropriate for age, vc1 uncooperative, Smells of feces. Pain: Unable to use pain scale. Patient is unresponsive. EENT: No deficits noted. No signs and/or symptoms were reported regarding the EENT system. Neuro: Caicedo Agitation-Sedation Scale (RASS): +3 Very Agitated Level of Consciousness is stuporous, Oriented to none. Neuro: Reaction to noxious stimuli is withdrawal. Cardiovascular: Rhythm is sinus tachycardia. Cardiovascular:. Respiratory: Airway is compromised via nasal trumpet Respiratory effort is even, unlabored, Respiratory pattern is symmetrical, tachypnea. GI: No deficits noted. No signs and/or symptoms were reported involving the gastrointestinal system. : No deficits noted. No signs and/or symptoms were reported regarding the genitourinary system. Derm: Skin is clammy. Musculoskeletal: No deficits noted. No signs and/or symptoms reported regarding the musculoskeletal system. Historical: - Allergies: 22:15 No Known Allergies; vc1 - PMHx: 22:15 Anxiety; Hypertensive disorder; Manic Depressive disorder; Hypertensive disorder; vc1 Migraine; Migraine; Panic Attacks; restless leg syndrome; RLS; tremors; - PSHx: 22:15 section; Cholecystectomy; colon surgery; Gastric Bypass; Hip implant; Spinal vc1 Fusion; - Immunization history:: unknown. - Social history:: Smoking status: unknown. - Family history:: not pertinent. Screenin:[facility] ED Fall Risk Assessment (Adult) History of falling in the last 3 months, vc1 including since admission No falls in past 3 months (0 pts) Confusion or Disorientation Yes (5 pts) Intoxicated or Sedated Yes (3 pts) Impaired Gait Yes (1 pt) Mobility Assist Device Used No (0 pt) Altered Elimination Yes (1 pt) Score/Fall Risk Level 3 or more points = High Risk Oriented to surroundings, Maintained a safe environment, Educated pt \T\ family on fall prevention, incl call for assistance when getting out of bed, Hourly rounding (assess needs \T\ fall precautionary measures) done, Apply high fall risk patient identification: yellow non skid footwear/ fall signage. 04/10 00:21 Abuse screen: Denies threats or abuse. Nutritional screening: No deficits noted. vc1 Tuberculosis screening: No symptoms or risk factors identified. Assessment: 04/09 22:30 Reassessment: No changes from previously documented assessment. Neuro: Level of vc1 Consciousness is unresponsive. 23:30 Neuro: Caicedo Agitation-Sedation Scale (RASS): -3 Moderate Sedation Level of vc1 Consciousness is unresponsive. 04/10 00:18 Reassessment: Spoke with Ender at poison control, case #[id number]. Pt may experience vc1 hypotension, tachycardia, urinary retention, possible seizures, SLOT TECHNICIAN depression, QTc prolongation. Keep magnesium level at above 2 and potassium above 4. 01:00 Reassessment: No changes from previously documented assessment. Neuro: Caicedo vc1 Agitation-Sedation Scale (RASS): -5 Unarousable Level of Consciousness is unresponsive, Oriented to none. Neuro: Caicedo Agitation-Sedation Scale (RASS): -3 Moderate Sedation Level of Consciousness is unresponsive. 02:10 Reassessment: Pt oxygen dropping to 89% on 6L nc placed on non rebreather, RT called, vc1 pt maxed out on levophed map remains less than 65. Provider notified. New orders are placed. Gag reflex negative. 03:00 Reassessment: No changes from previously documented assessment. vc1 04:00 Reassessment: No changes from previously documented assessment. vc1 05:00 Reassessment: No changes from previously documented assessment. vc1 05:19 Reassessment: called patient daughter no answer. kl 06:13 Reassessment: No changes from previously documented assessment. Neuro: Caicedo vc1 Agitation-Sedation Scale (RASS): -5 Unarousable Level of Consciousness is unresponsive, Oriented to none. 06:37 Reassessment: No changes from previously documented assessment. Neuro: Caicedo vc1 Agitation-Sedation Scale (RASS): -5 Unarousable Level of Consciousness is unresponsive, Oriented to none. 06:48 CPR assessment: unresponsive, intubated, mechanical ventilation. Cardiac rhythm is vc1 asystole. 07:18 Reassessment: [facility] notified, spoke with Laura Peralta, ref # [id number]. vc1 07:21 Reassessment: PT heart rate noted in the 30's 1 amp epinephrine administered 0648. vc1 Asystole on monitor, compressions began 0649. 0651 1 amp epi administered. Vitals as follows bp 133/19 artline, heart rate 92, SpO2 82% with ambu ventilation. 0651 1 atropine administered. 0652 1 amp bicarb administered. 0653 1 amp calcium chloride administered. 0653 pulse check, no pulsed palpated, compressions resumed. 0654 1 amp epi administered. 0656 v fib on monitor, 1 shock delivered at 360 Joules, no ROSC, compressions resumed. 0657 1 amp epi administered. 0658 pulse check, no pulse palpated, compressions resumed. 0700 pulse check, no pulse palpated v fib on monitor, 1 shock delivered \T\ 360 Joules, no ROSC, administered 1 amp epi. 0701 administered 1 amp bicarb, pulse check, no pulse palpated PEA on monitor that converted immediately to asystole. Time of [address] Pope. Vital Signs: 04/09 21:43 BP 71 / 44; Pulse 151; Resp 26; Temp 97.4; Pulse Ox 96% on R/A; vc1 23:05 BP 88 / 50; Pulse 133; Resp 17; Temp 97.3(R); Pulse Ox 100% ; vc1 23:14 Weight 90.72 kg; kl 23:16 BP 88 / 50; Pulse 124; Pulse Ox 99% ; kl 23:43 BP 71 / 43; vc1 23:54 BP 82 / 74; Pulse 125; vc1 04/10 00:14 BP 84 / 52; Pulse 131; vc1 00:15 BP 100 / 69; Pulse 133; vc1 00:15 BP 100 / 69; Pulse 133; Resp 17; Pulse Ox 97% on 2 lpm NC; vc1 00:30 BP 104 / 60; Pulse 135; Resp 21; Pulse Ox 98% ; vc1 00:45 BP 103 / 58; Pulse 134; Resp 23; Pulse Ox 96% on 2 lpm NC; vc1 01:00 BP 89 / 59; Pulse 130; Resp 24; Pulse Ox 95% on 6 lpm NC; vc1 01:15 BP 82 / 47; Pulse 128; vc1 01:15 BP 82 / 47; Pulse 128; Resp 25 S; Pulse Ox 93% on 6 lpm NC; vc1 01:30 BP 87 / 51; Pulse 125; Resp 24; Pulse Ox 91% on 6 lpm NC; vc1 01:45 BP 85 / 50; Pulse 122; Resp 23 S; Pulse Ox 90% on 6 lpm NC; vc1 01:54 BP 85 / 50; Pulse 122; vc1 02:00 BP 72 / 48; Pulse 118; Resp 22; Pulse Ox 92% on 6 lpm NC; vc1 02:15 BP 71 / 41; Pulse 120; Resp 18; Pulse Ox 100% on Non-rebreather mask; vc1 02:30 BP 66 / 39; Pulse 123; Resp 16; Temp 94.3(R); Pulse Ox 95% on ETT vent; vc1 02:45 BP 69 / 40; Pulse 118; Resp 16; Pulse Ox 97% on ETT vent; vc1 03:00 BP 56 / 33; Pulse 116; Resp 16 A; Pulse Ox 95% on ETT vent; vc1 03:15 BP 66 / 34; Pulse 117; Resp 16 A; Pulse Ox 96% on ETT vent; vc1 03:30 BP 71 / 33; Pulse 117; Resp 16 A; Pulse Ox 97% on ETT vent; vc1 03:45 BP 68 / 36; Pulse 116; Resp 16 A; Pulse Ox 97% on ETT vent; vc1 04:00 BP 70 / 39; Pulse 115; Resp 16 A; Pulse Ox 97% on ETT vent; vc1 04:15 BP 40 / 15 (art line/); Pulse 113; Resp 16 A; Pulse Ox 97% on ETT vent; vc1 04:30 BP 68 / 34 (art line/); Pulse 111; Resp 16 A; Pulse Ox 96% on ETT vent; vc1 05:00 BP 54 / 33 (art line/); Pulse 109; Resp 16 A; Pulse Ox 95% on ETT vent; vc1 05:15 BP 48 / 30 (art line/); Pulse 99; Resp 16 A; Pulse Ox 91% on ETT vent; vc1 05:30 BP 48 / 29 (art line/); Pulse 98; Resp 16 A; Pulse Ox 91% on ETT vent; vc1 05:45 BP 47 / 29 (art line/); Pulse 99; Resp 16 A; Pulse Ox 92% on ETT vent; vc1 06:00 BP 47 / 29 (art line/); Pulse 95; Resp 16 A; Pulse Ox 92% on ETT vent; vc1 06:15 BP 37 / 22 (art line/); Pulse 90; Resp 16 A; Pulse Ox 92% on ETT vent; vc1 06:30 BP 31 / 19 (art line/); Pulse 69; Resp 16 A; Temp 95.8(R); Pulse Ox 92% on ETT vent; vc1 Carlos Enrique Coma Score: 00:50 Eye Response: none(1). Motor Response: withdraws from pain(4). Verbal Response: sp4 incomprehensible(2). Total: 7. ED Course: 04/09 21:43 Patient arrived in ED. sb4 21:44 Filipe Steward PA is PHCP. cp 21:44 Ap Pope MD is Attending Physician. cp 21:44 Arm band placed on left wrist. vc1 21:44 Patient has correct armband on for positive identification. Placed in gown. Bed in low vc1 position. Call light in reach. Side rails up X2. Client placed on continuous cardiac and pulse oximetry monitoring. NIBP monitoring applied. Patient is placed in psych hold. Patient is placed in psych hold. 21:53 Douglass cath inserted, using sterile technique, 16 Fr., by me, balloon inflated, to jb5 gravity drainage, returned bloody urine. Patient tolerated well. 22:03 Inserted saline lock: 20 gauge in right antecubital area, using aseptic technique. lg3 Blood collected. 22:03 Inserted saline lock: 22 gauge in left forearm, using aseptic technique. lg3 22:05 Placed nasal trumpet 20 Fr via right nare. lg3 22:10 Zina Frankel, RN is Primary Nurse. vc1 22:15 Triage completed. vc1 22:37 CT Head Brain wo Cont In Process Unspecified. EDMS 22:50 Assisted provider with central line placement. Set up central line tray. Triple lumen kl line placed in left internal jugular. Line placed by Ap Pope MD Placement verified by blood return, Dressed with Tegaderm, Patient tolerated well. 22:52 XRAY Chest (1 view) In Process Unspecified. EDMS 04/10 00:04 Chest Single View XRAY In Process Unspecified. EDMS 03:03 Chest Single View XRAY In Process Unspecified. EDMS 05:52 Lactate w/ 2H reflex if indic. Sent. kl 05:52 Basic Metabolic Panel Sent. kl 06:35 Carter Smith MD is Hospitalizing Provider. sp4 07:20 Police notified at 07:20 for time of . kj1 07:25 called and left message for daughter to call back . kj1 08:11 daughter called and spoke with Dr. Nava. kj1 08:35 Ap Pope MD is Pronouncing Provider. [email or web address] Administered Medications: 04/09 22:03 Drug: Ativan IVP 2 mg Route: IVP; Site: right antecubital; lg3 23:00 Follow up: Response: No adverse reaction; No change in condition vc1 22:03 Drug: NS 0.9% IV 1000 ml Route: IV; Rate: 1 bolus; Site: left forearm; 3 23:00 Follow up: IV Status: Completed infusion; IV Intake: 1000ml vc1 22:03 Drug: NS 0.9% IV 1000 ml Route: IV; Rate: 1 bolus; Site: left forearm; lg3 23:00 Follow up: IV Status: Completed infusion; IV Intake: 1000ml vc1 22:04 Drug: Naloxone IVP 2 mg Route: IVP; Site: right antecubital; 3 22:15 Follow up: Response: No adverse reaction; No change in condition vc1 22:52 Drug: Ketamine IVP 100 mg Route: IVP; Site: right antecubital; 23:00 Follow up: Response: No adverse reaction; RASS: Moderate sedation (-3) vc1 23:03 Drug: Norepinephrine IV 15 mg/min {Note: BP 61/39.} Route: IV; Rate: calculated rate; kl Site: right antecubital; 23:16 Follow up: BP 88 / 50; Pulse 124 bpm; Pulse Ox 99% kl 23:43 Follow up: BP 71 / 43; Rate change 20 mcg/min vc1 23:54 Follow up: BP 82 / 74; Pulse 125 bpm vc1 29 00:14 Follow up: BP 84 / 52; Pulse 131 bpm; Rate change 25 mcg/min; map 62 vc1 00:15 Follow up: BP 100 / 69; Pulse 133 bpm vc1 01:15 Follow up: BP 82 / 47; Pulse 128 bpm; Rate change 30 mcg/min vc1 01:54 Follow up: BP 85 / 50; Pulse 122 bpm; Rate change 35 mcg/min vc1 07:02 Follow up: IV Status: Order to discontinue infusion vc1 04/09 23:34 Drug: Lactated Ringers Solution IV 1000 ml Route: IV; Rate: 1000 ml/hr; Site: left vc1 forearm; 04/10 00:34 Follow up: IV Status: Completed infusion; IV Intake: 1000ml vc1 04/09 23:34 Drug: Albumin IVPB 25 grams Volume: 100 ml; Route: IVPB; Site: left jugular; vc1 04/10 00:34 Follow up: IV Status: Completed infusion; IV Intake: 100ml vc1 00:33 Drug: Lactated Ringers Solution IV 1000 ml Route: IV; Rate: 150 ml/hr; Site: left vc1 forearm; 05:29 Follow up: IV Status: Completed infusion vc1 00:51 Drug: Solu-CORTEF IVP 100 mg Route: IVP; Site: right antecubital; vc1 01:15 Follow up: Response: No adverse reaction; No change in condition vc1 00:52 Drug: Magnesium Sulfate IVPB 2 grams Route: IVPB; Infused Over: 2 hrs; Site: left vc1 jugular; 02:52 Follow up: IV Status: Completed infusion; IV Intake: 100ml vc1 02:15 Drug: DOPamine 10 mcg/kg/min Route: IV; Rate: calculated rate; Site: left jugular; vc1 02:30 Follow up: Rate change 20 mcg/kg/min vc1 07:02 Follow up: IV Status: Order to discontinue infusion vc1 02:18 Drug: Rocuronium IVP 100 mg Route: IVP; Site: left jugular; vc1 02:25 Follow up: Response: No adverse reaction; RASS: Deep sedation (-4) vc1 02:50 Drug: Albumin IVPB 25 grams Volume: 100 ml; Route: IVPB; Site: left forearm; vc1 03:50 Follow up: IV Status: Completed infusion; IV Intake: 100ml vc1 02:50 Drug: Lactated Ringers Solution IV 1000 ml Route: IV; Rate: 1000 ml/hr; Site: left vc1 jugular; 03:50 Follow up: IV Status: Completed infusion; IV Intake: 1000ml vc1 03:08 Drug: Vasopressin IV 0.02 units/min Route: IV; Rate: calculated rate; Site: left vc1 jugular; 07:02 Follow up: IV Status: Order to discontinue infusion vc1 04:00 Drug: Insulin Drip - (Insulin Regular Human IVP 100 units, NS 0.9% IV 100 ml) vc1 {Co-Signature: lg3 (Becca Blair RN).} Route: IV; Rate: 100 units/hr; Site: left forearm; 06:30 Follow up: IV Status: Order to discontinue infusion vc1 04:00 Drug: D10 in Water IVP 1000 ml Route: IVP; Rate: 150 ml/hr; Site: left forearm; vc1 07:02 Follow up: Response: No adverse reaction vc1 04:35 CANCELLED (Duplicate Order): D10 in Water IVP 150 mg/kg IVP once vc1 04:37 Not Given (not availablee): Cyproheptadine 12 mg Feeding Tube once vc1 04:45 Drug: Sodium Bicarbonate IVP 1 amp Route: IVP; Site: left forearm; vc1 05:00 Follow up: Response: No adverse reaction; No change in condition vc1 04:45 Drug: Sodium Bicarbonate IVP 1 amp Route: IVP; Site: left forearm; vc1 05:00 Follow up: Response: No adverse reaction; No change in condition vc1 05:02 Not Given (Hemodynamic Parameters): Midazolam IVP or IV 0.01 mg/kg/h IV at calculated vc1 rate See Administration Instructions; (Standard concentration: 100 mg / 100 mL NS); Recommended max rate 0.1 mg/kg/hr; Titrate 0.01 mg/kg/hr as often as every 30 minutes to achieve goal (see titration policy); Goal parameter RASS 0 to -2 06:12 Drug: Rocephin - Rocephin (cefTRIAXone) IVPB 1 grams Route: IVPB; Infused Over: 30 kl mins; Site: right antecubital; 06:40 Follow up: IV Status: Completed infusion; IV Intake: 50ml vc1 06:12 Drug: Lactated Ringers Solution IV 1000 ml Route: IV; Rate: 1000 ml/hr; Site: right kl antecubital; 07:02 Follow up: IV Status: Order to discontinue infusion vc1 06:36 Drug: Atropine IVP 1 mg Route: IVP; Site: right antecubital; as6 07:02 Follow up: Response: No adverse reaction; No change in condition vc1 Medication: 00:29 VIS not applicable for this client. vc1 Intake: 04/09 23:00 IV: 1000ml; Total: 1000ml. vc1 23:00 IV: 1000ml; Total: 2000ml. vc1 04/10 00:34 IV: 1000ml; Total: 3000ml. vc1 00:34 IV: 100ml; Total: 3100ml. vc1 02:52 IV: 100ml; Total: 3200ml. vc1 03:50 IV: 1000ml; Total: 4200ml. vc1 03:50 IV: 100ml; Total: 4300ml. vc1 06:40 IV: 50ml; Total: 4350ml. vc1 Outcome: 01:35 ER care complete, transfer ordered by . sb4 06:37 Decision to Hospitalize by Provider. sp4 07:02 Outcome Patient vc1 07:02 Patient : Time of 07:02 Pronounced by Ap Pope MD vc1 07:02 Condition: 09:52 Patient left the ED. aa5 Signatures: Dispatcher [employer] EDMS Amber Scherer RN RN Carolyn Lujan RN RN aa5 Filipe Steward PA PA cp Broussard, Jennifer jb5 Hali Mar kj1 Becca Blair RN RN lg3 Kameron Chaparro RN RN as6 Zina Frankel RN RN vc1 Minh Nava MD MD [id number] Mikaela Martel PA-C PA-Ap Rankin MD MD sp4 Becca Blair RN lg3 Corrections: (The following items were deleted from the chart) 01:20 01:16 BP 89 / 54; Pulse 128 bpm; Rate change 35 mcg/min; map 64 vc1 vc1
[2023-04-10] MEDS ORDERED: NOREPINEPHRINE BITARTRATE/D5W 4 MG/250 ML BAG IV ONE ×2 (02:10→04:07)
[2023-04-10] MEDS ORDERED: DOPAMINE/D5W 400 MG/250 ML BAG IV ONE ×2 (02:10→06:17)
[2023-04-10] MEDS ORDERED: ROCURONIUM 50 MG/5 ML VIAL IV ONE (02:11)
[2023-04-10] MEDS ORDERED: ALBUMIN HUMAN 25% 50 ML IV ONE ×2 (02:11→03:00)
[2023-04-10] MEDS ORDERED: Ringers Lactate 1,000 ML IV ONE ×2 (02:38→06:08)
[2023-04-10] MEDS ORDERED: VASOPRESSIN 20 UNIT/ML VIAL ONE (03:01)
[2023-04-10] MEDS ORDERED: D5W 250 ML IV ONE (03:06)
[2023-04-10] MEDS ORDERED: NA CHLORIDE 0.9% 500 ML ONE (03:23)
[2023-04-10] MEDS ORDERED: NA CHLORIDE 0.9% 250 ML ONE ×2 (03:51→06:10)
[2023-04-10] MEDS ORDERED: INSULIN -REGULAR HUMAN 50 UNIT/0.5 ML ML ONE (03:51)
[2023-04-10] MEDS ORDERED: DEXTROSE 10%-WATER 500 ML IV ONE (03:51)
[2023-04-10 04:26] LABS: Potassium 3.5 mEq/L (3.5-5.1)
[2023-04-10 05:12] LABS: Barbiturates NEGATIVE (NEGATIVE); Benzodiazepines POSITIVE (NEGATIVE); Cocaine NEGATIVE (NEGATIVE); METHAMPHETAM NEGATIVE (NEGATIVE); Methadone NEGATIVE (NEGATIVE); Opiates NEGATIVE (NEGATIVE); Phencyclidine NEGATIVE (NEGATIVE); THC Cannibis NEGATIVE (NEGATIVE)
[2023-04-10 05:24] LABS: Specific Gravity > 1.030 (1.005-1.030); Transitional Epithelial <5 /HPF (None Seen); Urine Bacteria <20 /HPF (<20); Urine Bilirubin NEGATIVE (Negative); Urine Blood Trace (Negative); Urine Clarity Extremely Turbid (Clear); Urine Color Light-Orange (Yellow); Urine Glucose TRACE (Negative); Urine Mucus 3+ /HPF (None Seen); Urine Protein 3+ (Negative); Urine Urobilinogen Normal (Normal); Urine pH 5.5 (5.0-7.0)
[2023-04-10] MEDS ORDERED: CEFTRIAXONE 1000 MG/VIAL ONE (06:07)
[2023-04-10] MEDS ORDERED: NOREPINEPHRINE 4 MG/4 ML VIAL ONE (06:10)
[2023-04-10 06:12] LABS: Potassium 3.4 mEq/L (3.5-5.1)
[2023-04-10] MEDS ORDERED: ATROPINE SULF 1 MG/10 ML SYR IV ONE (06:45)
[2023-04-10 10:55] VITALS: O2SAT 92
[2023-04-10 10:58] VITALS: BP 31/19; TEMP 95.8
--- NOTE | 2023-04-10 12:35 | EKG ---
Test Date: 2023-04-09 Test Time: 22:00:28 Manager Training And Development: JOSE MEASUREMENT RESULTS: Intervals: Rate: 160 CO: 128 QRSD: 76 QT: 304 QTc: 496 [place]: P: 60 CO: 128 QRS: 67 T: 65 INTERPRETIVE STATEMENTS: Sinus tachycardia Otherwise normal ECG Compared to ECG 02/21/2023 02:36:40 Sinus rhythm no longer present Electronically Signed On 04-10-23 12:34:22 CDT by Marco Antonio Holden
--- NOTE | 2023-04-10 15:34 | RAD REPORT ---
EXAM DESCRIPTION: XR Chest, 1 View CLINICAL HISTORY: Intubation confirmation TECHNIQUE: Frontal view of the chest. COMPARISON: XR Chest dated 04/09/2023 FINDINGS: Lungs: Mild central pulmonary vascular and interstitial prominence and patchy bibasilar opacities. Pleural space: Unremarkable. No pneumothorax. Heart: The cardiac silhouette is enlarged, slightly more pronounced on the current study. Mediastinum: Unremarkable. Bones/joints: Unremarkable. Tubes, lines and devices: Endotracheal tube tip projects 2 cm proximal to the shawn. Left wedding planning internship al jugular central venous catheter remains in place. The tip projects over the distal superior vena cava. IMPRESSION: 1. Endotracheal tube tip projects 2 cm proximal to the shawn. 2. Findings which may be related to mild pulmonary congestion. Superimposed infection not exclude d. Electronically signed by: Candi Johnson MD 04/10/2023 3:25 AM CDT Due to temporary technical issues with the PACS/Fluency reporting system, reports are being signed by the in house radiologists without review as a courtesy to insure prompt reporting. The interpreting radiologist is fully responsible for the content of the report.
--- NOTE | 2023-04-10 17:48 | RAD REPORT ---
EXAM DESCRIPTION: XR Chest, 1 View CLINICAL HISTORY: The patient is 58 years old and is Female; AMS TECHNIQUE: Frontal view of the chest. COMPARISON: No relevant prior studies available. FINDINGS: LUNGS: Unremarkable. No consolidation. PLEURAL SPACE: Unremarkable. No pneumothorax. HEART: Unremarkable. No cardiomegaly. MEDIASTINUM: Unremarkable. BONES/JOINTS: Unremarkable. UPPER ABDOMEN: Unremarkable as visualized. IMPRESSION: No acute cardiopulmonary process. Electronically signed by: Lary Salgado MD 04/09/2023 11:12 PM CDT Due to temporary technical issues with the PACS/Fluency reporting system, reports are being signed by the in house radiologists without review as a courtesy to insure prompt reporting. The interpreting radiologist is fully responsible for the content of the report.
--- NOTE | 2023-04-10 17:49 | RAD REPORT ---
EXAM DESCRIPTION: Chest Single View [facility]: XR CHEST 1 VIEW CLINICAL HISTORY: 58 years Female, Left IJ CVL COMPARISON: 04/09/2023 FINDINGS: Single portable AP view of the chest. Left internal jugular catheter tip projecting over t he lower SVC/near the superior cavoatrial junction. Normal size of the cardiac silhouette. No pulmona ry vascular congestion. No pneumothorax. No consolidation or pleural effusion. No acute osseous abnor mality. IMPRESSION: Left internal jugular catheter tip projects over the lower SVC/superior cavoatrial junct ion. Electronically signed by: Candis Anderson MD 04/10/2023 12:32 AM CDT Due to temporary technical issues with the PACS/Fluency reporting system, reports are being signed by the in house radiologists without review as a courtesy to insure prompt reporting. The interpreting radiologist is fully responsible for the content of the report.
== END 2023-04-10 09:52 ==
LOC: ER 21:32
PROC: 05HN33Z Insertion of Infusion Device into Left Internal Jugular Vein, Percutaneous Approach (ICD-10-PCS; principal; 2023-04-09)
PROC: B544ZZA Ultrasonography of Left Jugular Veins, Guidance (ICD-10-PCS; 2023-04-09)
PROC: 0BH17EZ Insertion of Endotracheal Airway into Trachea, Via Natural or Artificial Opening (ICD-10-PCS; 2023-04-09)
PROC: 5A1935Z Respiratory Ventilation, Less than 24 Consecutive Hours (ICD-10-PCS; 2023-04-09)
DX: T43.591A Poisoning by other antipsychotics and neuroleptics, accidental (unintentional), initial encounter (principal); I10 Essential (primary) hypertension; F31.9 Bipolar disorder, unspecified; F41.9 Anxiety disorder, unspecified
CPT/HCPCS: 85025; 80048; 36415; 83735; 85610; 80076; 85730; 70450; 71045; 80143; 80179; 82077; 36556; 31500; 94002; P9047; J7120; J7030; 36600; 80307; 81001; 82805; 82947; 83605; 83615; 87086; 87088; 93005; J0171; J0461; J0696; J1265; J1720; J1815; J2310; J3475; J7040; J7050; J7060